=== PATIENT | female | born 1990 | race Caucasian/White ===

== ENCOUNTER 2016-03-28 11:10 | Outpatient (CLI) | payer MEDICAID ==
[~2016-03-28] VITALS: Ht 167.6 cm; Wt 93.0 kg
[~2016-03-28 11:10] MED LIST: ACHD5005 PO; ACHYD1T PO; ALPR.5T PO; ALPR0.5T PO; ALPR1T PO; ALPR2TAB2 PO; AMPH30TA2 PO; ARIP2TAB3 PO; BPR150TCR PO; CEFA500C8 PO; CEPH500C PO; CIPR500T78 PO; CLON0.253 PO; CYCL10TA9 PO; DOCU100C37 PO; DOXY100C2 PO; DULO60CA6 PO; FLUC150T PO; HYDR-3812 PO; HYDR25CA92 PO; IBP800T PO; IBUP-1780 PO; KETO75CA PO; METR375C; METR375C PO; METR500T PO; METR70GE8 VG; MICO25CR2 VG; NAPR-243 PO; NAPR550T PO; ONDAN4ODT PO; OXYC-465 PO; PHEN200T27 PO; PNV91TAB3 PO; PREN-115 PO; PROZAC; SULF1TAB38 PO; TRAM50TA2 PO
[2016-03-28 11:17] VITALS: BP 128/84
[2016-03-28] MEDS ORDERED: ESCI10TA PO (11:22)
== END 2016-03-28 11:29 | disposition home or self-care (01) ==
LOC: PREOP 11:10
PROVIDERS: ATTEND Obstetrics & Gynecology
DX: Z01.818 Encounter for other preprocedural examination (principal); Z11.2 Encounter for screening for other bacterial diseases; O34.219 Maternal care for unspecified type scar from previous cesarean delivery; O99.019 Anemia complicating pregnancy, unspecified trimester
CPT/HCPCS: 87081

== ENCOUNTER 2016-04-02 06:00 | Inpatient (IN) | payer MEDICAID ==
[~2016-04-02] VITALS: Ht 170.2 cm; Wt 95.8 kg
[~2016-04-02 06:00] MED LIST changes: +ESCI10TA PO
[2016-04-02 06:10] VITALS: BP 134/78
[2016-04-02] MEDS ORDERED: LACTATED RINGERS 1,000 ML IV PRN ×2 (06:21)
[2016-04-02] MEDS ORDERED: CITRIC ACID/SOB CIT (BICITRA) 30 ML UDC PO ONE (06:30)
[2016-04-02] MEDS ORDERED: METOCLOPRAMIDE INJ 10 MG/2 ML (REGLAN) IV ONE (06:30)
[2016-04-02] MEDS ORDERED: ceFAZolin 2 GM/50 ML NS 50 ML IV ONE (06:30)
[2016-04-02] MEDS ORDERED: metroNIDAZOLE 500MG/100ML IVPB 100 ML IV ONE ×2 (06:30→07:30)
[2016-04-02] MEDS ORDERED: FAMOTIDINE 20MG/2ML IV (PEPCID) IV ONE (06:30)
[2016-04-02 06:40] LABS: BASOPHILS % (AUTO) 0 % (0-10); EOSINOPHILS # (AUTO) 0.1 10^3/uL (0.0-0.3); EOSINOPHILS % (AUTO) 1 % (0-10); LYMPHOCYTES # (AUTO) 1.3 X 10^3 (1.0-4.0); LYMPHOCYTES % (AUTO) 12 % (12-44); MEAN CORPUSCULAR HEMOGLOBIN 25 PG (25-34); MEAN CORPUSCULAR HGB CONC 32 G/DL (32-36); MEAN CORPUSCULAR VOLUME 76 FL (80-99); MEAN PLATELET VOLUME 12.1 FL (7.4-10.4); MONOCYTES # (AUTO) 1.1 X 10^3 (0.0-1.0); MONOCYTES % (AUTO) 10 % (0-12); NEUTROPHILS # (AUTO) 8.7 X 10^3 (1.8-7.8); NEUTROPHILS % (AUTO) 77 % (42-75); PLATELET COUNT 173 10^3/uL (130-400); RED BLOOD COUNT 4.08 10^6/uL (4.35-5.85); RED CELL DISTRIBUTION WIDTH 17.1 % (10.0-14.5); WHITE BLOOD COUNT 11.4 10^3/uL (4.3-11.0)
[2016-04-02] MEDS ORDERED: ceFAZolin 2 GM/NS 50 ML IV ONE (07:15)
[2016-04-02] MEDS ORDERED: metroNIDAZOLE 500 MG/100 ML IVPB (PRE-MIX) IV ONE (07:15)
[2016-04-02 07:25] VITALS: BP 144/90
[2016-04-02] MEDS ORDERED: D5 LR IV SOLUTION 1,000 ML IV SCH ×2 (07:30→16:30)
[2016-04-02] MEDS ORDERED: FLU TRIvalent (5 YOA+) 2016-17 (AFLURIA) 0.5 ML IM ONE (07:30)
[2016-04-02] MEDS ORDERED: ceFAZolin INJECTION 2,000 MG in NS (IVPB) 50 ML IV ONE (07:30)
[2016-04-02] MEDS ORDERED: OXYTOCIN/NORMAL SALINE 500 ML IV SCH ×2 (07:34→08:30)
--- NOTE | 2016-04-02 07:34 | Progress Note-Pre Operative ---
Pre-Operative Progress Note H&P Reviewed The H&P per Dr. Lawrence was reviewed, patient examined and no changes noted. Date H&P Reviewed: Apr 02, 2016 Time H&P Reviewed: 07:33 Pre-Operative Diagnosis: 39 week with previous JORGE KIM MD Apr 02, 2016 7:34 am
[2016-04-02] MEDS ORDERED: OXYTOCIN/NORMAL SALINE 500 ML IV ONE ×2 (07:40→12:30)
[2016-04-02] MEDS ORDERED: KETOROLAC 30 MG/ML VIAL ONE (07:40)
[2016-04-02] MEDS ORDERED: MEPERIDINE (DEMEROL) INJ 100 MG/ML ONE (07:40)
[2016-04-02] MEDS ORDERED: PROMETHAZINE INJ 25 MG/ML (PHENERGAN) AMP ONE (07:40)
[2016-04-02] MEDS ORDERED: ONDANSETRON 4 MG/2 ML (SDV) Z0FRAN ONE (07:40)
[2016-04-02] MEDS ORDERED: D5 LR IV SOLUTION 1,000 ML IV ONE ×3 (07:42→16:30)
[2016-04-02] MEDS ORDERED: TETANUS,DIPTH,PERTUSS P/F (BOOSTRIX) 0.5 ML VIAL IM ONE (07:45)
[2016-04-02] MEDS ORDERED: MEPERIDINE (DEMEROL) INJ 100 MG/ML IM PRN (07:45)
[2016-04-02] MEDS ORDERED: PROMETHAZINE INJ 25 MG/ML (PHENERGAN) AMP IM PRN (07:45)
[2016-04-02] MEDS ORDERED: KETOROLAC 30 MG/ML VIAL IVP SCH (07:45)
[2016-04-02] MEDS ORDERED: MEASLES,MUMPS,RUBELLA 1 EA INJ SC ONE (07:45)
[2016-04-02] MEDS ORDERED: fentaNYL INJECTION 100 MCG/2 ML AMP ONE (07:49)
[2016-04-02] MEDS ORDERED: MIDAZOLAM 2 MG/2 ML (VERSED) VIAL ONE (08:05)
[2016-04-02] MEDS: KETOROLAC 30 MG/ML VIAL IVP SCH ×3 (08:30→23:05)
[2016-04-02] MEDS ORDERED: ONDANSETRON 4 MG/2 ML (SDV) Z0FRAN IVP ONE (08:45)
[2016-04-02] MEDS: oxyCODONE/APAP 10/325MG (PERCOCET 10) TABLET PO PRN ×3 (10:55→23:04)
[2016-04-02] MEDS: DOCUSATE SODIUM 100 MG (COLACE) CAP PO SCH ×2 (11:00→20:38)
[2016-04-02] MEDS ORDERED: diphenhydrAMINE 50 MG/ML INJ (BENADRYL) IVP PRN (11:00)
[2016-04-02 12:00] VITALS: BP 126/67
[2016-04-02] MEDS: ALPRAZolam 1 MG (XANAX) TAB PO PRN ×2 (14:23→23:04)
[2016-04-02 16:32] VITALS: BP 121/69
[2016-04-02 20:11] VITALS: BP 116/71
[2016-04-02 23:33] VITALS: BP 107/67
[2016-04-03 03:38] VITALS: BP 111/65
[2016-04-03] MEDS: KETOROLAC 30 MG/ML VIAL IVP SCH (04:47)
[2016-04-03] MEDS: oxyCODONE/APAP 10/325MG (PERCOCET 10) TABLET PO PRN ×4 (04:48→22:07)
[2016-04-03 04:53] LABS: BASOPHILS % (AUTO) 0 % (0-10); EOSINOPHILS # (AUTO) 0.2 10^3/uL (0.0-0.3); EOSINOPHILS % (AUTO) 1 % (0-10); LYMPHOCYTES # (AUTO) 1.5 X 10^3 (1.0-4.0); LYMPHOCYTES % (AUTO) 12 % (12-44); MEAN CORPUSCULAR HEMOGLOBIN 25 PG (25-34); MEAN CORPUSCULAR HGB CONC 32 G/DL (32-36); MEAN CORPUSCULAR VOLUME 77 FL (80-99); MEAN PLATELET VOLUME 11.6 FL (7.4-10.4); MONOCYTES # (AUTO) 1.3 X 10^3 (0.0-1.0); MONOCYTES % (AUTO) 11 % (0-12); NEUTROPHILS # (AUTO) 8.8 X 10^3 (1.8-7.8); NEUTROPHILS % (AUTO) 75 % (42-75); PLATELET COUNT 132 10^3/uL (130-400); RED BLOOD COUNT 3.72 10^6/uL (4.35-5.85); RED CELL DISTRIBUTION WIDTH 17.2 % (10.0-14.5); WHITE BLOOD COUNT 11.7 10^3/uL (4.3-11.0)
--- NOTE | 2016-04-03 07:01 | Progress Note-Standard ---
Standard Progress Note Progress Notes/Assess & Plan Progress/Assessment & Plan this patient is without complaint. She is ambulating, voiding, told feel, has good pain control. Patient denies chest pain, denies shortness breath, denies nausea vomiting, denies headache. Vital Signs Date Time Temp Pulse Resp B/P Pulse Ox O2 Delivery O2 Flow Rate FiO2 04/03/16 03:38 97.8 80 18 111/65 100 Room Air 04/02/16 23:33 97.3 87 18 107/67 96 04/02/16 20:11 97.0 96 18 116/71 98 Room Air 04/02/16 16:32 97.0 98 18 121/69 98 Room Air 04/02/16 12:00 97.9 111 18 126/67 98 Room Air 04/02/16 07:25 99.6 114 18 144/90 Room Air I & O 04/03/16 07:00 Intake Total 4180 ml Output Total 1800 ml Balance 2380 ml vital signs are stable. Patient is afebrile. Abdomen is benign. The incision is clean dry and intact. Extremities show clubbing or cyanosis. There is no Homans sign. There is some pretibial pitting edema that is normal. Assessment and plan is operative day number 1 status post repeat doing well. Plan is for routine convalescence care JORGE KIM MD Apr 03, 2016 7:01 am
[2016-04-03] MEDS ORDERED: DOCU100C37 PO (07:39)
[2016-04-03] MEDS ORDERED: IBUP-1780 PO (07:39)
[2016-04-03] MEDS ORDERED: OXYC-465 PO (07:39)
--- NOTE | 2016-04-03 07:41 | Discharge Instructions ---
Discharge Instructions Discharge Medications New, Converted or Re-Newed RX: RX on Chart Patient Instructions Patient Instructions: as directed Return to The Hospital For: as directed Activity & Diet Discharge Diet: No Restrictions Activity as Tolerated: No Orders-Post D/C & Referrals Follow Up Appt: RTC 1 week for incision check with me. Call to make follow up appt. for patient with Dr. Lawrence in 6 weeks. Wound Care: Remove austin, apply benzoin and steri strips. Activity Per routine post instructions. Please call in RX to patient pharmacy. Diet as tolerated Patient may shower or tub bathe as desired. Continue home meds JORGE KIM MD Apr 03, 2016 7:41 am
[2016-04-03] MEDS ORDERED: IBUPROFEN 800 MG (MOTRIN) TAB PO SCH ×2 (07:45→09:00)
[2016-04-03] MEDS ORDERED: FLU TRIvalent (5 YOA+) 2016-17 (AFLURIA) 0.5 ML IM ONE (08:29)
[2016-04-03] MEDS ORDERED: TETANUS,DIPTH,PERTUSS P/F (BOOSTRIX) 0.5 ML VIAL IM ONE (08:35)
[2016-04-03 09:26] VITALS: BP 118/72
[2016-04-03] MEDS: ALPRAZolam 1 MG (XANAX) TAB PO PRN ×2 (09:28→16:09)
[2016-04-03] MEDS: DOCUSATE SODIUM 100 MG (COLACE) CAP PO SCH ×2 (09:28→22:07)
[2016-04-03] MEDS: IBUPROFEN 800 MG (MOTRIN) TAB PO SCH ×3 (10:26→22:07)
--- NOTE | 2016-04-03 11:48 | OPERATIVE REPORT ---
PROCEDURE PHYSICIAN: JORGE KIM DATE OF PROCEDURE: 04/02/2016 DATE OF DICTATION: 04/02/2016 PREOPERATIVE DIAGNOSIS: 39 week with previous . POSTOPERATIVE DIAGNOSES: 39 week with previous . OPERATIVE PROCEDURE: Repeat low transverse delivery of a viable male infant with Apgars of 8 and 9 at 1 to 5 minutes respectfully. Weight was 8 pounds. time was 0752. Cord blood pH was 7.34 ROOF BOLTER HELPER: Dr. Lawrence NAPHTHOL SOAPING MACHINE OPERATOR: Dr. Lawrence OPERATIVE DESCRIPTION: With the patient in supine position, under satisfactory spinal anesthesia, she was prepped and draped in usual fashion for abdominal surgery. Crockett cath was placed in the urinary bladder. A repeat Pfannenstiel incision was made through skin with scalpel at the site of the patient's previous Pfannenstiel incision. The abdomen was entered in the usual manner. Bladder retractor placed into position, clean scalpel used to make a 4 cm hysterotomy incision transversely across lower uterine segment. That ruptured the membranes in the process releasing clear fluid. The incision was extended bluntly and then a vigorous viable male infant was delivered via the uterine incision. Infant had Apgars of 8 and 9 at one and five minutes respectfully. Weight was 8 pounds cord blood pH was 7.34. time was 0752. The was bulb suctioned on delivery of the head and again on completion of delivery. The cord was doubly clamped and cut and the taken by Dr. Lawrence to the warmer. Cord bloods were obtained. The placenta delivered spontaneously Cruz. It was normal with a 3 vessel cord. The uterus was exteriorized, the interior wiped clean with a wet laparotomy sponge. Uterine incision then closed with running locked suture of 2-0 Vicryl. Hemostasis was complete. The uterus was returned to the abdominal cavity. All blood clot and debris removed from the abdominal cavity. With sponge and needle counts correct and hemostasis assured, the anterior parietal peritoneum and rectus muscles were closed in separate layers with a suture in a running fashion of 2-0 Vicryl. The rectus fascia was closed with 2 sutures of 2-0 Vicryl. Subcutaneous tissues closed with 2-0 Vicryl and the skin was stapled. Sponge and needle counts were correct on completion of the procedure. Estimated blood loss for 450 mL. The patient tolerated the procedure well, and was transferred to recovery room in stable condition. The infant was taken stable to the full term nursery under the care of Dr. Lawrence. Job ID: [id number] Dictated Date: 04/02/2016 08:10:03 Wireless Watcher Date: 04/03/2016 11:43:40 / [place]
[2016-04-03 16:09] VITALS: BP 123/75
[2016-04-03] MEDS ORDERED: ONDANSETRON 4 MG (ZOFRAN) ORAL DISSOLVE TAB PO PRN (19:00)
[2016-04-03] MEDS ORDERED: ONDANSETRON 8 MG (ZOFRAN) ORAL DISSOLVE TAB ONE (19:54)
[2016-04-03 22:40] VITALS: BP 124/77
[2016-04-04] MEDS: ALPRAZolam 1 MG (XANAX) TAB PO PRN (00:23)
[2016-04-04 05:00] VITALS: BP 113/67
--- NOTE | 2016-04-04 07:39 | Progress Note-Standard ---
Standard Progress Note Progress Notes/Assess & Plan Progress/Assessment & Plan this patient is without complaint. She is ambulating, voiding, told feel, has good pain control. Patient denies chest pain, denies shortness breath, denies nausea vomiting, denies headache. Vital Signs Date Time Temp Pulse Resp B/P Pulse Ox O2 Delivery O2 Flow Rate FiO2 04/03/16 03:38 97.8 80 18 111/65 100 Room Air 04/02/16 23:33 97.3 87 18 107/67 96 04/02/16 20:11 97.0 96 18 116/71 98 Room Air 04/02/16 16:32 97.0 98 18 121/69 98 Room Air 04/02/16 12:00 97.9 111 18 126/67 98 Room Air 04/02/16 07:25 99.6 114 18 144/90 Room Air I & O 04/03/16 07:00 Intake Total 4180 ml Output Total 1800 ml Balance 2380 ml vital signs are stable. Patient is afebrile. Abdomen is benign. The incision is clean dry and intact. Extremities show clubbing or cyanosis. There is no Homans sign. There is some pretibial pitting edema that is normal. Assessment and plan is operative day number 1 status post repeat doing well. Plan is for routine convalescence care April 04 2016 Patient is without complaint. Patient is ambulating, voiding, tolerating by mouth well, has good pain control, patient is requesting discharge home. Vital Signs Date Time Temp Pulse Resp B/P Pulse Ox O2 Delivery O2 Flow Rate FiO2 04/04/16 05:00 98.5 59 18 113/67 98 Room Air 04/03/16 22:40 99.0 92 18 124/77 100 Room Air 04/03/16 16:09 97.7 90 18 123/75 100 Room Air 04/03/16 09:26 98.0 94 18 118/72 98 Room Air I & O 04/04/16 07:00 Intake Total 1000 ml Balance 1000 ml vital signs are stable. Patient afebrile. Fundus is firm below the umbilicus and nontender.the incision is clean dry and intact. Extremities show clubbing or cyanosis. There is no Homans sign. There is some pretibial pitting edema that is normal. assessment and plan postoperative day number 2 status post repeat doing well. Plan is for discharge home with follow-up in clinic Final Diagnosis 39 week with previous JORGE KIM MD Apr 04, 2016 7:39 am
[2016-04-04] MEDS: DOCUSATE SODIUM 100 MG (COLACE) CAP PO SCH (07:44)
[2016-04-04] MEDS: IBUPROFEN 800 MG (MOTRIN) TAB PO SCH (07:45)
[2016-04-04] MEDS: oxyCODONE/APAP 10/325MG (PERCOCET 10) TABLET PO PRN (07:45)
[2016-04-04 07:49] VITALS: BP 124/78
--- NOTE | 2016-05-29 09:34 | Progress Note-Standard ---
Standard Progress Note Final Diagnosis Late Entry- 04-02-2016 at 0750 Ephedrine 10mg given IV. DELL QUIROS CRNA May 29, 2016 09:34
== END 2016-04-04 11:10 | disposition home or self-care (01) | DRG 766 ==
LOC: LDRP 06:00
PROVIDERS: ADMIT Obstetrics & Gynecology; ATTEND Obstetrics & Gynecology
PROC: 10D00Z1 Extraction of Products of Conception, Low, Open Approach (ICD-10-PCS; principal; 2016-04-02 07:28)
DX: O34.211 Maternal care for low transverse scar from previous cesarean delivery (principal); Z3A.39 39 weeks gestation of pregnancy; Z37.0 Single live birth; Z23 Encounter for immunization
CPT/HCPCS: 36415; 80306; 85025; 86850; 86900; 86901; 88307; 90715; 94664

== ENCOUNTER 2018-01-18 09:19 | Emergency (ER) | payer MEDICAID ==
[~2018-01-18] VITALS: Ht 170.2 cm; Wt 77.1 kg
[~2018-01-18 09:19] MED LIST changes: -HYDR-3812 PO
--- OUTSIDE RECORDS SUMMARY | 2018-01-18 09:24 | XMS REPORT ---
Author Author STANISLAV REYES [facility] Address [address] [place] [address] Care Team Providers Care Service Support Representative Name Role Phone STANISLAV REYES Unavailable PROBLEMS Type Condition ICD9-CM Code SVG85-VP Code Onset Dates Condition Status SNOMED Code Problem ADHD (attention deficit hyperactivity disorder), combined type F90.2 Active 68616943 Problem Acute seasonal allergic rhinitis, unspecified trigger J30.2 Active 657105398 Problem Major depressive disorder, recurrent episode, in partial or unspecified remission 296.35 Active 48927514 Problem Posttraumatic stress disorder 309.81 Active 25098714 Problem Generalized anxiety disorder F41.1 Active 66181966 Problem Moderate episode of recurrent major depressive disorder F33.1 Active [id number] ALLERGIES Substance Reaction Event Type Date Status Lamictal "Hives" Drug Allergy Dec, Active Trazodone oversedation Non Drug Allergy Dec, Active ENCOUNTERS Encounter Location Date Diagnosis [facility] [id number] [place] [address] 72160 -3580 Dec, Oral pain K13.79 [facility] [id number] [place] [address] 13467- 0299 Dec, Generalized anxiety disorder F41.1 [facility] [id number] [place] [address] 50935- 0366 Nov, Generalized anxiety disorder F41.1 [facility] [id number] [place] [address] 11509- 9583 Oct, [facility] [id number] [place] [address] 91320- 9032 Oct, Generalized anxiety disorder F41.1 ; Moderate episode of recurrent major depressive disorder F33.1 and ADHD (attention deficit hyperactivity disorder), combined type F90.2 [facility] [address] [address] Sep, Generalized anxiety disorder F41.1 [facility] [id number] [place] [address] 01895- 4915 Sep, Generalized anxiety disorder F41.1 [facility] [id number] [place] [address] 59635- 3019 June, Generalized anxiety disorder F41.1 and Moderate episode of recurrent major depressive disorder F33.1 [facility] [id number] [place] [address] 11185- 6018 May, Visit for TB skin test Z11.1 ; Encounter for physical examination related to employment Z02.1 ; Acute seasonal allergic rhinitis, unspecified trigger J30.2 and Infected tooth K04.7 [facility] [id number] [place] [address] 58303- 3091 May, Generalized anxiety disorder F41.[address] [facility] [id number] [place] [address] [id number] 16 Apr, 2017 Dental examination Z01.20 [facility] [id number] [place] [address] 22273 -1562 Apr, [facility] [id number] [place] [address] 35215 -2636 Mar, [facility] [address] [place], [place] [id number] [place] [address] 36764 -2282 Mar, Dysuria R30.0 ; Potential exposure to STD Z20.2 and infection, trichomonal A59.00 [facility] [id number] [place] [address] 14084 -4157 Nov, Acute seasonal allergic rhinitis, unspecified trigger J30.2 [facility] [id number] [place] [address] 24971- 5436 Nov, Generalized anxiety disorder F41.1 and Moderate episode of recurrent major depressive disorder F33.1 [facility] [address] [address] 3722 May, Bipolar depression F31.30 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 [id number] [place] [address] [id number] Apr, Dental examination Z01.20 [facility] [id number] [place] [address] 72242- 8511 Apr, Dental examination Z01.20 [facility] [id number] [place] [address] 87736- 9829 Aug, [facility] [id number] [place] [address] 97841- 9048 Jul, [facility] [id number] [place] [address] 57452- 1566 Jul, ADHD (attention deficit hyperactivity disorder) F90.9 ; Anxiety and depression F41.9 and Controlled substance agreement signed Z79.899 [facility] [id number] [place] [address] 05224- 3656 Jul, [facility] [address] [address]- 7052 June, [facility] [address] [address]- 1235 June, [facility] [id number] [place] [address] 45516- 4891 May, ADHD (attention deficit hyperactivity disorder) F90.9 and Anxiety and depression F41.9 [facility] [address] [address]- 3289 Aug, [facility] [id number] [place] [address] 79968- 8938 Aug, [facility] [address] [id number] [id number] Aug, Dental examination V72.2 [facility] [address] [id number] [address]- 5926 Aug, High risk medications (not anticoagulants) long-term use V58.[address] [facility] [address] [id number] [id number] Jul, Dental examination V72.2 [facility] [address] [id number] [place] [address]- 2526 Jul, [facility] [address] [id number] [place] [address]- 9216 Jul, [facility] [address] [id number] [address]- 7996 Jul, [facility] [address] [facility] [id number] [address]- 9246 June, [facility] [address] [facility] [id number] [address]- 5526 June, [facility] [id number] [place] [address]- 2425 May, [facility] [address] [facility] [id number] [address]- 7286 May, [facility] [address] [facility] [id number] [address]- 4476 16 Apr, 2014 [facility] [address] [id number] [address]- 1626 16 Apr, 2014 [facility] [address] [id number] [address]- 0416 Apr, [facility] [address] [facility] [id number] [place] [address]- 2546 Apr, [facility] [address] [id number] [address]- 9205 Apr, [facility] [place] [facility] [address] [id number] [place] [address]- 2638 Apr, [facility] [place] [facility] [address] [id number] [place] [address]- 8971 Apr, [facility] [place] [facility] [address] [id number] [place] [address]- 9840 Apr, [facility] [place] [facility] [address] [id number] [place] [address]- 3473 Mar, [facility] [place] [facility] [address] [id number] [place] [address]- 9146 Mar, [facility] [place] [facility] [address] [id number] [place] [address]- 5459 Mar, [facility] [place] [facility] [address] [id number] [place] [address]- 5782 Mar, [facility] [place] [facility] [address] [id number] [place] [address]- 2748 Feb, [facility] [place] [facility] [address] [id number] [place] [address]- 1862 Feb, [facility] [place] [facility] [address] [id number] [place] [address]- 8407 Feb, [facility] [place] [facility] [address] [id number] [place] [address]- 8109 Feb, [facility] [place] [facility] [address] [id number] [place] [address]- 3956 Feb, [facility] [place] [facility] [address] [id number] [place] [address]- 2444 Feb, [facility] [place] [facility] [address] [id number] [place] [address]- 8936 Feb, [facility] [place] [facility] [address] [id number] [place] [address]- 8255 Feb, [facility] [place] [facility] [address] [id number] [place] [address]- 2562 Jan, [facility] [place] [facility] [address] [id number] [place] [address]- 7541 Jan, [facility] [place] [facility] [address] [id number] [place] [address]- 2365 Jan, [facility] [place] [facility] [address] [id number] [place] [address]- 0351 Jan, [facility] [place] [facility] [address] [id number] [place] [address]- 3161 Jan, [facility] [place] [facility] [address] [id number] [place] [address]- 3277 Jan, [facility] [place] [facility] [address] [id number] [place] [address]- 9607 Dec, [facility] [place] [facility] [address] [id number] [place] [address]- 1872 Dec, [facility] [place] [facility] [address] [id number] [place] [address]- 4074 Dec, [facility] [place] [facility] [address] [id number] [place] [address]- 2931 Dec, [facility] [place] [facility] [address] [facility] [id number] [place] [address]- 9276 Dec, [facility] [place] [facility] [address] [id number] [place] [address]- 6865 Dec, [facility] [place] [facility] [address] [id number] [place] [address]- 9425 Nov, [facility] [place] [facility] [address] [id number] [place] [address]- 5933 Nov, [facility] [place] [facility] [address] [id number] [place] [address]- 5682 Nov, [facility] [place] [facility] [address] [id number] [place]481 Nov, [facility] [address] [id number] [place] [address]- 2207 Nov, [facility] [place] [facility] [address] [id number] [place] [address]- 3116 Nov, [facility] [place] [facility] [address] [id number] [place] [address]- 8071 Nov, [facility] [place] [facility] [address] [id number] [place] [address]- 6085 Nov, [facility] [place] [facility] [address] [id number] [place] [address]- 4893 Nov, [facility] [place] [facility] [address] [id number] [place] [address]- 7332 Nov, [facility] [place] [facility] [address] [id number] [place] [address]- 8750 Oct, [facility] [place] [facility] [address] [id number] [place] [address]- 1446 Oct, [facility] [place] [facility] [address] [id number] [place] [address]- 8138 Oct, [facility] [place] [facility] [address] [id number] [place] [address]- 0091 Oct, [facility] [place] [facility] [address] [id number] [place] [address]- 2324 Oct, [facility] [place] [facility] [address] [id number] [place] [address]- 6986 Oct, [facility] [place] [facility] [address] [id number] [place] [address]- 6691 Sep, [facility] [place] [facility] [address] [id number] [place] [address]- 3586 Sep, [facility] [place] [id number] Sep [facility] [place] [facility] [address] [id number] [place] [address]- 1236 Sep, [facility] [place] [facility] [address] [id number] [place] [address]- 1229 Aug, [facility] [place] [facility] [address] [id number] [place] [address]- 3909 Aug, [facility] [place] [facility] [address] [id number] [place] [address]- 5187 Aug, [facility] [place] [facility] [address] [id number] [place] [address]- 8352 Aug, [facility] [place] [facility] [address] [id number] [place] [address]- 1710 Aug, [facility] [place] [facility] [address] [id number] [place] [address]- 4669 Aug, [facility] [place] [facility] [address] [id number] [place] [address]- 7785 Jul, [facility] [place] [facility] [address] [id number] [place] [address]- 2136 Jul, [facility] [place] [facility] [address] [id number] [place] [address]- 8854 Jul, [facility] [place] [facility] [address] [id number] [place] [address]- 1702 Jul, [facility] [place] [facility] [address] [id number] [place] [address]- 7780 Jul, [facility] [place] [facility] [address] [id number] [place] [address]- 0690 June, [facility] [place] [facility] [address] [id number] [place] [address]- 5636 June, [facility] [place] [facility] [address] [id number] [place] [address]- 2755 June, [facility] [place] [facility] [address] [id number] [place] [address]- 0388 June, [facility] [place] [facility] [address] [id number] [place] [address]- 5301 May, [facility] [place] [facility] [address] [id number] [place] [address]- 7532 May, [facility] [place] [facility] [address] [id number] [place] [address]- 3226 May, [facility] [place] [facility] [address] [id number] [place] [address]- 8347 May, [facility] [place] [facility] [address] [id number] [place] [address]- 1609 May, [facility] [place] [facility] [address] [id number] [place] [address]- 5978 May, [facility] [place] [facility] [address] [id number] [place] [address]- 5910 May, [facility] [place] [facility] [address] [id number] [place] [address]- 9343 May, [facility] [place] [facility] [address] [id number] [place] [address]- 5618 May, [facility] [place] [facility] [address] [id number] [place] [address]- 2106 May, [facility] [place] [facility] [address] [id number] [place] [address]- 7323 May, [facility] [place] [facility] [address] [id number] [place] [address]- 1519 Apr, [facility] [place] [facility] [address] [id number] [place] [address]- 8681 Apr, [facility] [place] [facility] [address] [id number] [place] [address]- 2426 Apr, [facility] [place] [facility] [address] [id number] [place] [address]- 6826 Apr, [facility] [place] [facility] [address] [id number] [place] [address]- 5915 Mar, [facility] [place] [facility] [address] [id number] [place] [address]- 8101 Mar, [facility] [place] [facility] [address] [id number] [place] [address]- 4886 Mar, [facility] [place] [facility] [address] [id number] [place] [address]- 9356 Mar, [facility] [place] [facility] [address] [id number] [place] [address]- 0796 Mar, [facility] [place] [facility] [address] [id number] [place] [address]- 1118 Mar, [facility] [place] [facility] [address] [id number] [place] [address]- 8702 Feb, [facility] [place] [facility] [address] [id number] [place] [address]- 1798 Feb, [facility] [place] [facility] [address] [id number] [place] [address]- 4413 Feb, [facility] [place] [facility] [address] [id number] [place] [address]- 0820 Feb, [facility] [place] [facility] [address] [id number] [place] [address]- 4237 Feb, [facility] [place] [facility] [address] [id number] [place] [address]- 1051 Feb, [facility] [place] [facility] [address] [id number] [place] [address]- 8833 Feb, [facility] [place] [facility] [address] [id number] [place] [address]- 3294 Jan, [facility] [place] [facility] [address] [id number] [place] [address]- 7136 Jan, [facility] [place] [facility] [address] [id number] [place] [address]- 3321 Jan, [facility] [place] [facility] [address] [id number] [place] [address]- 4407 11 Jan, 2013 [facility] [place] [facility] [address] [id number] [place] [address]- 7555 14 Dec, 2012 [facility] [place] [facility] [address] [id number] [place] [address]- 1938 14 Dec, 2012 [facility] [place] [facility] [address] [id number] [place] [address]- 9072 13 Dec, 2012 [facility] [place] [facility] [address] [id number] [place] [address]- 6785 22 Nov, 2012 [facility] [place] [facility] [address] [id number] [place] [address]- 8405 17 Nov, 2012 [facility] [place] [facility] [address] [id number] [place] [address]- 4087 17 Nov, 2012 [facility] [place] [facility] [address] [id number] [place] [address]- 4185 Nov, [facility] [place] [facility] [address] [id number] [place] [address]- 5275 11 Nov, 2012 [facility] [place] [facility] [address] [id number] [place] [address]- 8436 11 Nov, 2012 [facility] [place] [facility] [address] [id number] [place] [address]- 9764 11 Nov, 2012 [facility] [place] [facility] [address] [id number] [place] [address]- 6762 10 Nov, 2012 [facility] [place] [facility] [address] [id number] [address]- 0963 Oct, [facility] [place] [facility] [address] [id number] [place] [address]- 4517 Oct, [facility] [place] [facility] [address] [id number] [place] [address]- 1789 Sep, [facility] [place] [facility] [address] [id number] [place] [address]- 3686 Sep, [facility] [place] [facility] [address] [id number] [place] [address]- 6944 Sep, [facility] [place] [facility] [address] [id number] [place] [address]- 5160 Sep, [facility] [place] [facility] [address] [id number] [place] [address] 2546 Sep, [facility] [place] [facility] [address] [id number] [place] [address]- 0751 Sep, [facility] [place] [facility] [address] [id number] [place] [address]- 2317 Sep, [facility] [place] [facility] [address] [id number] [place] [address]- 2489 Sep, [facility] [place] [facility] [address] [id number] [place] [address]- 0819 Aug, [facility] [place] [facility] [address] [id number] [place] [address]- 1591 Aug, [facility] [place] [facility] [address] [id number] [place] [address]- 1118 Aug, [facility] [place] [facility] [address] [id number] [place] [address]- 2055 Aug, [facility] [place] [facility] [address] [id number] [place] [address]- 3438 Jul, [facility] [place] [facility] [address] [id number] [place] [address]- 8063 Jul, [facility] [place] [facility] [address] [id number] [place] [address]- 6055 Jul, [facility] [place] [facility] [address] [id number] [place] [address]- 9779 June, [facility] [place] [facility] [address] [id number] [place] [address]- 3098 June, [facility] [place] [facility] [address] [id number] [place] [address]- 2623 June, [facility] [address] [id number] [place] [address]- 1616 June, [facility] [address] [id number] [place] [address]- 9889 June, [facility] [address] [id number] [place] [address]- 7851 May, [facility] [address] [id number] [place] [address]- 1709 May, [facility] [address] [id number] [place] [address]- 9562 May, [facility] [address] [id number] [place] [address]- 5444 May, [facility] [address] [id number] [place] [address]- 0746 May, [facility] [address] [id number] [place] [address]- 6032 May, [facility] [address] [id number] [place] [address]- 3708 08 May, 2012 [facility] [address] [id number] [place] [address]- 1026 Apr, [facility] [address] [id number] [place] [address]- 5159 28 Apr, 2012 [facility] [place] [facility] [address] [id number] [address]- 7022 28 Apr, 2012 [facility] [place] [facility] [address] [id number] [place] [address]- 6940 13 Apr, 2012 [facility] [place] [facility] [address] [id number] [place] [address]- 2295 07 Apr, 2012 [facility] [place] [facility] [address] [id number] [place] [address]- 3988 07 Apr, 2012 [facility] [place] [facility] [address] [id number] [place] [address]- 3020 06 Apr, 2012 [facility] [address] [id number] [place] [address] 05 Apr, 2012 [facility] [place] [facility] [address] [id number] [place] [address] 2546 05 Apr, 2012 [facility] [place] [facility] [address] [id number] [place] [address] 7044 04 Apr, 2012 [facility] [place] [facility] [address] [id number] [place] [address] 2549 21 Mar, 2012 [facility] [place] [facility] [address] [id number] [place] [address] 20 Mar, 2012 [facility] [place] [facility] [address] [id number] [place] [address] 18 Mar, 2012 [facility] [place] [facility] [address] [id number] [place] [address]84 15 Mar, 2012 [facility] [place] [facility] [address] [id number] [place] [address]164 13 Mar, 2012 [facility] [place] [facility] [address] [facility] [id number] [place] [address] 06 Mar, 2012 [facility] [place] [facility] [address] [facility] [id number] [place] [address] 70[address] 05 Mar, 2012 [facility] [place] [facility] [address] [id number] [place] [address] Feb, [facility] [place] [facility] [address] [id number] [place] [address] 2545 28 Feb, 2012 [facility] [place] [facility] [address] [id number] [place] [address] 5516 16 Feb, 2012 [facility] [place] [facility] [address] [facility] [id number] [place] [address] 2546 02 Feb, 2012 [facility] [place] [facility] [address] [facility] [id number] [place] [address] Jan, [facility] [place] [facility] [address] [id number] [place] [address] Jan, [facility] [place] [facility] [address] [id number] [place] [address] Jan, [facility] [place] [facility] [address] [facility] [id number] [place] [address] Jan, [facility] [place] [facility] [address] [id number] [place] [address] Dec, [facility] [place] [facility] [address] [id number] [place] [address] 120[address] Dec, [facility] [place] [facility] [address] [id number] [place] [address], [place] [address]- [address] Dec, [facility] [place] [facility] [address] [facility] [id number] [place] [address]489 Dec, [facility] [place] [facility] [address] [id number] [address] Dec, [facility] [place] [facility] [address] [id number] [place] [address]6 Dec, [facility] [place] [facility] [address] [facility] [id number] [address] Dec, [facility] [place] [facility] [address] [id number] [address] 116[address] Dec, [facility] [place] [facility] [address] [id number] [address] Dec, [facility] [place] [facility] [address] [id number] [place] [address] Nov, [facility] [place] [facility] [address] [id number] [address] Nov, [facility] [place] [facility] [address] [facility] [id number] [address] Nov, [facility] [place] [facility] [address] [id number] [place] [address] 359[address] 18 Nov, 2011 [facility] [place] [facility] [address] [id number] [place] [address] 1470 18 Nov, 2011 [facility] [place] [facility] [address] [id number] [place] [address] 0056 18 Nov, 2011 [facility] [place] [facility] [address] [id number] [place] [address] 6416 17 Nov, 2011 [facility] [place] [facility] [address] [id number] [place] [address]- 4579 16 Nov, 2011 [facility] [place] [facility] [address] [id number] [place] [address] 1503 27 Sep, 2011 [facility] [place] [facility] [address] [id number] [place] [address] 2032 24 Sep, 2011 [facility] [place] [facility] [address] [id number] [place] [address] 98[address] 13 Sep, 2011 [facility] [place] [facility] [address] [id number] [place] [address]- 4556 11 Sep, 2011 [facility] [place] [facility] [address] [id number] [place] [address] 68[address] 10 Sep, 2011 [facility] [place] [facility] [address] [facility] [id number] [place] [address]- 2544 08 Sep, 2011 [facility] [place] [facility] [address] [id number] [place] [address] 2546 06 Sep, 2011 [facility] [place] [facility] [address] [id number] [place] [address] 2545 05 Sep, 2011 [facility] [place] [facility] [address] [id number] [place] [address] 2542 04 Sep, 2011 [facility] [place] [facility] [address] [id number] [place] [address]- 2546 04 Sep, 2011 [facility] [place] [facility] [address] [id number] [place] [address]- [address]45 Sep, [facility] [place] [facility] [address] [id number] [place] [address]- [address]337 Sep, [facility] [place] [facility] [address] [id number] [place] [address] Aug, [facility] [place] [facility] [address] [id number] [place] [address]- 39[address] Aug, [facility] [place] [facility] [address] [id number] [place] [address] Aug, [facility] [place] [facility] [address] [id number] [place] [address]- [address]60 Aug, [facility] [place] [facility] [address] [id number] [place] [address] 60[address] Aug, [facility] [place] [facility] [address] [id number] [place] [address]- 62[address] Aug, [facility] [place] [facility] [address] [id number] [place] [address] Aug, [facility] [place] [facility] [address] [id number] [place] [address] Aug, [facility] [place] [facility] [address] [id number] [place] [address] Jul, [facility] [place] [facility] [address] [id number] [place] [address] Jul, [facility] [place] [facility] [address] [id number] [place] [address] Jul, [facility] [place] [facility] [address] [id number] [place] [address] Jul, [facility] [place] [facility] [address] [id number] [place] [address] June, [facility] [place] [facility] [address] [id number] [place] [address] June, [facility] [place] [facility] [address] [id number] [place] [address] June, [facility] [address] [id number] [place] [address] June, [facility] [place] [facility] [address] [id number] [place] [address] June, [facility] [place] [facility] [address] [id number] [place] [address] June, [facility] [place] [facility] [address] [id number] [place] [address] June, [facility] [place] [facility] [address] [id number] [place] [address] June, [facility] [place] [facility] [address] [id number] [place] [address] June, [facility] [place] [facility] [address] [id number] [place] [address] June, [facility] [place] [facility] [address] [id number] [place] [address] June, [facility] [place] [facility] [address] [id number] [place] [address] June, [facility] [place] [facility] [address] [id number] [place] [address] June, [facility] [place] [facility] [address] [id number] [place] [address] June, [facility] [place] [facility] [address] [id number] [place] [address] June, [facility] [place] [facility] [address] [id number] [place] [address] June, [facility] [place] [facility] [address] [id number] [place] [address] May, [facility] [place] [facility] [address] [id number] [place] [address] May, [facility] [place] [facility] [address] [id number] [place] [address] 18 May, 2011 [facility] [address] [id number] [place] [address] 05 May, 2011 [facility] [place] [facility] [address] [id number] [place] [address] 13 Apr, 2011 [facility] [address] [id number] [place] [address] Apr, [facility] [place] [facility] [address] [id number] [place] [address] Apr, [facility] [address] [id number] [place] [address] Apr, [facility] [address] [facility] [id number] [place] [address] Apr, [facility] [place] [facility] [address] [id number] [place] [address] 1671 Apr, [facility] [address] [id number] [place] [address] Apr, [facility] [place] [facility] [address] [id number] [place] [address] 23 Mar, 2011 [facility] [address] [facility] [id number] [place] [address] 20 Mar, 2011 [facility] [place] [facility] [address] [id number] [place] [address] 1384 16 Mar, 2011 [facility] [address] [id number] [place] [address]42 15 Mar, 2011 [facility] [place] [facility] [address] [id number] [place] [address] 96[address] 13 Mar, 2011 [facility] [place] [facility] [address] [id number] [place] [address]186 09 Mar, 2011 [facility] [place] [facility] [address] [id number] [place] [address] Mar, [facility] [address] [id number] [place] [address] Mar, [facility] [place] [facility] [address] [id number] [place] [address] Feb, [facility] [place] [facility] [address] [id number] [place] [address]36 Feb, [facility] [place] [facility] [address] [id number] [place] [address]484 Feb, [facility] [address] [id number] [place] [address] Jan, [facility] [place] [facility] [address] [id number] [place] [address] 24 Jan, 2011 [facility] [place] [facility] [address] [id number] [place] [address] Jan, [facility] [place] [facility] [address] [id number] [place] [address] Jan, [facility] [place] [facility] [address] [id number] [place] [address] 19 Jan, 2011 [facility] [place] [facility] [address] [id number] [place] [address] 7918 14 Jan, 2011 [facility] [place] [facility] [address] [id number] [place] [address] Jan, [facility] [place] [facility] [address] [id number] [place] [address]- [address] 13 Jan, 2011 [facility] [place] [facility] [address] [id number] [place] [address]- [address]252 07 Jan, 2011 [facility] [place] [facility] [address] [id number] [place] [address] 7917 30 Dec, 2010 [facility] [place] [facility] [address] [id number] [place] [address] 9864 Dec, [facility] [place] [facility] [address] [id number] [place] [address] 23 Dec, 2010 [facility] [address] [id number] [place] [address] 07 Dec, 2010 [facility] [place] [facility] [address] [id number] [place] [address] 24 Nov, 2010 [facility] [address] [id number] [place] [address] 6980 20 Nov, 2010 [facility] [place] [facility] [address] [id number] [place] [address] 10 Nov, 2010 [facility] [place] [facility] [address] [id number] [place] [address] 10 Nov, 2010 [facility] [place] [facility] [address] [id number] [place] [address] 1753 13 Oct, 2010 [facility] [place] [facility] [address] [id number] [place] [address]246 13 Aug, 2010 [facility] [place] [facility] [address] [id number] [place] [address] 6735 15 Mar, 2010 [facility] [place] [facility] [address] [id number] [place] [address] 68[address] Jan, [facility] [place] [facility] [address] [id number] [place] [address] 130[address] Jan, [facility] [place] [facility] [address] [id number] [place] [address]- 2540 Jan, [facility] [place] [facility] [address] [id number] [place] [address]- [address]45 Jan, [facility] [place] [facility] [address] [id number] [place] [address] 29 Dec, 2009 [facility] [place] [facility] [address] [id number] [place] [address]- 8877 Dec, [facility] [place] [facility] [address] [id number] [place] [address]- [address] Dec, [facility] [address] [id number] [address] 14 Dec, 2009 [facility] [id number] [address] Nov, [facility] [id number] [address] Nov, [facility] [id number] [address] Nov, [facility] [id number] [address] Apr, [facility] [id number] [address] Feb, [facility] [id number] [address] Jan, [facility] [id number] [address] Jan, [facility] [id number] [address]- [address] Nov, [facility] [address] [id number] [address] Nov, IMMUNIZATIONS No Known Immunizations SOCIAL HISTORY Never Assessed REASON FOR VISIT dental pain all over her mouth for the past 2 months. little PLAN OF CARE Activity Details Follow Up dental clinic MOMO Reason: VITAL SIGNS Height 67 in 2018-01-04 Weight 178.8 lbs 2018-01-04 Temperature 97.9 degrees Fahrenheit 2018-01-04 Heart Rate 80 bpm 2018-01-04 Respiratory Rate 20 2018-01-04 BMI 28.00 kg/m2 2018-01-04 Blood pressure systolic 118 mmHg 2018-01-04 Blood pressure diastolic 78 mmHg 2018-01-04 MEDICATIONS Medication Instructions Dosage Frequency Start Date End Date Duration Status Pristiq 100 mg Orally Once a day 1 tablet 24h June, 30 days Active Amoxicillin 875 MG Orally every 12 hrs 1 tablet 12h 10 Dec, 2017 10 day (s) Active Ibuprofen 600 MG Orally Three times a day 1 tablet with food or milk as needed 8h Dec, Dec, 10 days Active Adderall XR 10 mg Orally Once a day in the morning 1 capsule Nov, 28 days Active Gabapentin 300 MG Orally twice a day as needed 1 capsule June, Active RESULTS No Results PROCEDURES No Known procedures INSTRUCTIONS MEDICATIONS ADMINISTERED No Known Medications MEDICAL (GENERAL) HISTORY Type Description Date Medical History Bipolar I disorder, most recent episode (or current) mixed, moderate Medical History Bipolar I disorder, most recent episode (or current) mixed, moderate Medical History Closed fracture of unspecified phalanx or phalanges of hand Surgical History c section Hospitalization History child Hospitalization History denies any past psych hospitalization
--- OUTSIDE RECORDS SUMMARY | 2018-01-18 09:25 | XMS REPORT ---
Author Author PHUONG VALERIE [facility] Address [address] [place] [address] Care Team Providers Care Import/Export Clerk Name Role Phone PHUONG, VALERIE Unavailable PROBLEMS Type Condition ICD9-CM Code CKE48-XL Code Onset Dates Condition Status SNOMED Code Problem ADHD (attention deficit hyperactivity disorder), combined type F90.2 Active 55541344 Problem Acute seasonal allergic rhinitis, unspecified trigger J30.2 Active 288238041 Problem Major depressive disorder, recurrent episode, in partial or unspecified remission 296.35 Active 15452531 Problem Posttraumatic stress disorder 309.81 Active 35147514 Problem Generalized anxiety disorder F41.1 Active 26259608 Problem Moderate episode of recurrent major depressive disorder F33.1 Active 555045151 ALLERGIES No Information ENCOUNTERS Encounter Location Date Diagnosis [facility] [id number] [place] [address]8865 -2790 Dec, Oral pain K13.79 [facility] [id number] [place] [address] 04221- 4120 Dec, Generalized anxiety disorder F41.1 [facility] [id number] [place] [address] 95364- 9129 Nov, Generalized anxiety disorder F41.1 [facility] [id number] [place] [address] 56764- 3107 Oct, [facility] [id number] [place] [address] 51191- 5759 Oct, Generalized anxiety disorder F41.1 ; Moderate episode of recurrent major depressive disorder F33.1 and ADHD (attention deficit hyperactivity disorder), combined type F90.2 [facility] [address] [id number] [address] Sep, Generalized anxiety disorder F41.1 [facility] [id number] [place] [address] 29025- 5872 Sep, Generalized anxiety disorder F41.1 [facility] [address] [address]- 9831 June, Generalized anxiety disorder F41.1 and Moderate episode of recurrent major depressive disorder F33.1 [place] [address] [address]- [address] 10 May, 2017 Visit for TB skin test Z11.1 ; Encounter for physical examination related to employment Z02.1 ; Acute seasonal allergic rhinitis, unspecified trigger J30.2 and Infected tooth K04.7 [place] [address] [address]- 8946 06 May, 2017 Generalized anxiety disorder F41.1 [facility] [address] [id number] 16 Apr, 2017 Dental examination Z01.20 [facility] [address] 0[address] -9262 Apr, [facility] [address] [place] [address] 16414 -8776 Mar, [facility] [address] [place] [id number] [place] [address] 43257 -6502 Mar, Dysuria R30.0 ; Potential exposure to STD Z20.2 and infection, trichomonal A59.00 [facility] [id number] [place] [address] 99541 -5858 Nov, Acute seasonal allergic rhinitis, unspecified trigger J30.2 [facility] [address] 15206- 9514 Nov, Generalized anxiety disorder F41.1 and Moderate episode of recurrent major depressive disorder F33.1 [place] [address] 88272- 5876 18 Apr, 2017 Bipolar depression F31.30 and Other penitentiary (current) drug therapy Z79.899 [facility] [address] [id number], [place] [address] Apr, Dental examination Z01.20 [facility] [address] [id number] [id number] Apr, Dental examination Z01.20 [facility] [id number] [place] [address] 70263- 6206 Apr, Dental examination Z01.20 [facility] [address] [id number], [place] [address] 1099 Aug, [facility] [address] [id number] [place] [address] 71286- 7828 Jul, [facility] [id number] [place] [address] 01725- 2805 Jul, ADHD (attention deficit hyperactivity disorder) F90.9 ; Anxiety and depression F41.9 and Controlled substance agreement signed Z79.899 [facility] [address] [id number] [address] 57[address] Jul, [facility] [address] [facility] [id number] [place] [address] 76983- 3887 June, [facility] [address] [id number] [address] June, [facility] [address] [id number] [address]- 0704 May, ADHD (attention deficit hyperactivity disorder) F90.9 and Anxiety and depression F41.9 [facility] [address] [id number] [address] 7407 Aug, [facility] [address] [facility] [id number], [place] [address]- 1314 Aug, [facility] [address] [id number] [id number] Aug, Dental examination V72.2 [facility] [address] [facility] [id number], [place] [address]- 3923 Aug, High risk medications (not anticoagulants) long-term use V58.69 [facility] [address] [id number][place] [id number] Jul, Dental examination V72.2 [facility] [address] [id number], [place] [address] 0047 Jul, [facility] [address] [facility] [id number], [place] [address]- 4409 Jul, [facility] [address] [facility] [id number], [place] [address]- [address] Jul, [facility] [address] [facility] [id number], [place] [address]- 7403 June, [facility] [address] [address] 8905 June, [facility] [address] [id number] [address]- 9928 May, [facility] [address] [id number] [address] 2150 May, [facility] [address] [id number] [address]- 7863 Apr, [facility] [address], [place] [address]- 2327 Apr, [facility] [address] [facility] [id number], [place] [address]- [address] Apr, [facility] [address] [facility] [id number][place] [address]- 4222 Apr, [facility] [address] [facility] [id number]95[place] 8821 Apr, [facility] [address] [facility] [id number], [place] 9157 Apr, [facility] [place] [facility] [address] [id number] [place] [address]- 8595 Apr, [facility] [place] [facility] [address] [id number] [place] [address]- 2171 Apr, [facility] [place] [facility] [address] [id number] [place] 9542 Mar, [facility] [place] [facility] [address] [id number] [place] [address]- 6539 Mar, [facility] [place] [facility] [address] [id number] [place] [address]- 3511 Mar, [facility] [place] [facility] [address] [id number] [place] [address]- 9441 Mar, [facility] [place] [facility] [address] [id number] [place] [address]- 6810 Feb, [facility] [place] [facility] [address] [id number] [place] [address]- 2587 Feb, [facility] [place] [facility] [address] [id number] [place] [address]- 4589 Feb, [facility] [place] [facility] [address] [id number] [place] [address]- 5495 Feb, [facility] [place] [facility] [address] [id number] [place] [address]- 2452 Feb, [facility] [place] [facility] [address] [id number] [place] [address]- 2619 Feb, [facility] [place] [facility] [address] [id number] [place] [address]- 4158 Feb, [facility] [place] [facility] [address] [id number] [place] [address]- 1489 Feb, [facility] [place] [facility] [address] [id number] [place] [address]- 2651 Jan, [facility] [place] [facility] [address] [id number] [place] [address]- 1947 30 Jan, 2014 [facility] [place] [facility] [address] [id number] [place] [address]- 1313 Jan, [facility] [place] [facility] [address] [id number] [place] [address]- 2081 Jan, [facility] [place] [facility] [address] [id number] [place] [address]- 6532 Jan, [facility] [place] [facility] [address] [id number] [place] [address]- 9838 Jan, [facility] [place] [facility] [address] [id number] [place] [address]- 1701 Dec, [facility] [place] [facility] [address] [id number] [place] [address]- 4186 Dec, [facility] [place] [facility] [address] [id number] [place] [address]- 6918 Dec, [facility] [place] [facility] [address] [id number] [place] [address]- 0899 Dec, [facility] [place] [facility] [address] [id number] [place] [address]- 7882 Dec, [facility] [place] [facility] [address] [id number] [place] [address]- 8498 Dec, [facility] [place] [facility] [address] [id number] [place] [address]- 5325 Nov, [facility] [place] [facility] [address] [id number] [address]- 3353 Nov, [facility] [place] [facility] [address] [id number] [place] [address]- 0851 Nov, [facility] [place] [facility] [address] [id number] [place] [address]- 5381 Nov, [facility] [place] [facility] [address] [id number], [place] [address]- 8334 Nov, [facility] [place] [facility] [address] [id number] [place] [address]- 3837 Nov, [facility] [place] [facility] [address] [id number] [place] [address]- 9445 Nov, [facility] [place] [facility] [address] [id number] [place] [address]- 4406 Nov, [facility] [place] [facility] [address] [id number] [place] [address]- 2951 Nov, [facility] [place] [facility] [address] [id number] [place] [address]- 5498 Nov, [facility] [place] [facility] [address] [id number] [place] [address]- 8670 Oct, [facility] [place] [facility] [address] [id number] [place] [address]- 1424 Oct, [facility] [place] [facility] [address] [id number] [place] [address]- 2915 Oct, [facility] [place] [facility] [address] [id number] [place] [address]- 1250 Oct, [facility] [place] [facility] [address] [id number] [place] [address]- 6798 Oct, [facility] [place] [facility] [address] [id number] [place] [address]- 4195 Oct, [facility] [place] [facility] [address] [id number] [place] [address]- 5983 Sep, [facility] [place] [facility] [address] [id number] [place] [address]- 7284 Sep, [facility] [address] [place] [id number] Sep [facility] [place] [facility] [address] [id number] [place] [address]- 0400 Sep, [facility] [place] [facility] [address] [id number] [place] [address]- 0112 Aug, [facility] [place] [facility] [address] [id number] [place] [address]- 0626 Aug, [facility] [place] [facility] [address] [id number] [place] [address]- 0700 Aug, [facility] [place] [facility] [address] [id number] [place] [address]- 4056 Aug, [facility] [place] [facility] [address] [id number] [place] [address]- 7340 Aug, [facility] [place] [facility] [address] [id number] [place] [address]- 0640 Aug, [facility] [place] [facility] [address] [id number] [place] [address]- 0603 Jul, [facility] [place] [facility] [address] [id number] [place] [address]- 2508 Jul, [facility] [place] [facility] [address] [id number] [place] [address]- 0655 Jul, [facility] [place] [facility] [address] [id number] [place] [address]- 2460 Jul, [facility] [place] [facility] [address] [id number] [place] [address]- 4929 Jul, [facility] [place] [facility] [address] [id number] [place] [address]- 7874 June, [facility] [place] [facility] [address] [id number] [place] [address]- 5639 June, [facility] [place] [facility] [address] [id number] [place] [address]- 0326 June, [facility] [place] [facility] [address] [id number] [place] [address]- 0317 June, [facility] [place] [facility] [address] [id number] [place] [address]- 7145 May, [facility] [place] [facility] [address] [id number] [place] [address]- 9555 May, [facility] [place] [facility] [address] [id number] [place] [address]- 8872 May, [facility] [place] [facility] [address] [id number] [place] [address]- 4260 May, [facility] [place] [facility] [address] [id number] [place] [address]- 9338 May, [facility] [place] [facility] [address] [id number] [place] [address]- 0166 May, [facility] [place] [facility] [address] [id number] [place] [address]- 1809 May, [facility] [place] [facility] [address] [id number] [place] [address]- 5018 May, [facility] [place] [facility] [address] [id number] [place] [address]- 8945 May, [facility] [place] [facility] [address] [id number] [place] [address]- 4620 May, [facility] [place] [facility] [address] [id number] [place] [address]- 4290 May, [facility] [place] [facility] [address] [id number] [place] [address]- 8778 Apr, [facility] [place] [facility] [address] [id number] [place] [address]- 2897 Apr, [facility] [place] [facility] [address] [id number] [place] [address]- 3826 Apr, [facility] [place] [facility] [address] [id number] [place] [address]- 9811 Apr, [facility] [place] [facility] [address] [id number] [place] [address]- 7459 Mar, [facility] [place] [facility] [address] [id number] [place] [address]- 4178 Mar, [facility] [place] [facility] [address] [id number] [place] [address]- 7040 13 Mar, 2013 [facility] [place] [facility] [address] [id number] [place] [address]- 8326 Mar, [facility] [place] [facility] [address] [id number] [place] [address]- 8475 07 Mar, 2013 [facility] [place] [facility] [address] [id number] [place] [address]- 0842 Mar, [facility] [place] [facility] [address] [id number] [place] [address]- 9347 Feb, [facility] [place] [facility] [address] [id number] [place] [address]- 1202 Feb, [facility] [place] [facility] [address] [id number] [place] [address]- 7732 Feb, [facility] [place] [facility] [address] [id number] [place] [address]- 3631 Feb, [facility] [place] [facility] [address] [id number] [place] [address]- 6505 Feb, [facility] [place] [facility] [address] [id number] [place] [address]- 5517 Feb, [facility] [place] [facility] [address] [id number] [place] [address]- 3795 Feb, [facility] [place] [facility] [address] [id number] [place] [address]- 4468 Jan, [facility] [place] [facility] [address] [id number] [place] [address]- 9884 Jan, [facility] [place] [facility] [address] [id number] [place] [address]- 9413 Jan, [facility] [place] [facility] [address] [id number] [place] [address]- 5709 Jan, [facility] [place] [facility] [address] [id number] [place] [address]- 7466 14 Dec, 2012 [facility] [place] [facility] [address] [id number] [place] [address]- 4285 14 Dec, 2012 [facility] [place] [facility] [address] [id number] [place] [address]- 7632 13 Dec, 2012 [facility] [place] [facility] [address] [id number] [place] [address]- 5328 22 Nov, 2012 [facility] [place] [facility] [address] [id number] [place] [address]- 9378 17 Nov, 2012 [facility] [place] [facility] [address] [id number] [place] [address]- 1611 17 Nov, 2012 [facility] [place] [facility] [address] [id number] [place] [address]- 4903 11 Nov, 2012 [facility] [place] [facility] [address] [id number] [place] [address]- 9373 11 Nov, 2012 [facility] [place] [facility] [address] [id number] [place] [address]- 7674 11 Nov, 2012 [facility] [place] [facility] [address] [id number] [place] [address]- 8855 11 Nov, 2012 [facility] [place] [facility] [address] [id number] [place] [address]- 2224 10 Nov, 2012 [facility] [place] [facility] [address] [id number], [place] [address]- 6763 27 Oct, 2012 [facility] [place] [facility] [address] [id number], [place] [address]- 7093 Oct, [facility] [place] [facility] [address] [id number] [place] [address]- 9972 Sep, [facility] [place] [facility] [address] [id number] [place] [address]- 2317 Sep, [facility] [place] [facility] [address] [id number] [place] [address]- 3875 Sep, [facility] [place] [facility] [address] [id number] [place] [address]- 3481 Sep, [facility] [address] [id number] [place] [address]- 7797 Sep, [facility] [address] [id number] [place] [address] 2546 Sep, [facility] [address] [id number] [place] [address]- 7586 Sep, [facility] [address] [id number] [place] [address]- 7298 Sep, [facility] [address] [id number] [place] [address]- 9723 Aug, [facility] [address] [id number] [place] [address]- 0163 Aug, [facility] [address] [id number] [place] [address]- 9010 Aug, [facility] [address] [id number] [place] [address]- 8126 Aug, [facility] [address] [id number] [place] [address]- 4643 Jul, [facility] [address] [id number] [place] [address]- 1196 Jul, [facility] [address] [id number] [place] [address]- 9281 Jul, [facility] [address] [id number] [place] [address]- 6142 June, [facility] [address] [id number] [place] [address]- 6217 June, [facility] [address] [id number] [place] [address]- 1686 June, [facility] [address] [id number] [place] [address]- 9041 June, [facility] [address] [id number] [place] [address]- 5866 10 Jun, 2012 [facility] [address] [id number] [place] [address]- 0121 May, [facility] [address] [id number] [place] [address]- 4033 May, [facility] [place] [facility] [address] [id number] [place] [address]- 8674 May, [facility] [address] [id number] [place] [address]- 8464 May, [facility] [address] [id number] [place] [address]- 5112 May, [facility] [address] [id number] [place] [address]- 1891 May, [facility] [address] [id number] [place] [address]- 6123 May, [facility] [address] [id number] [place] [address]- 8456 Apr, [facility] [place] [facility] [address] [id number] [place] [address]- 3438 28 Apr, 2012 [facility] [place] [facility] [address] [id number] [place] [address]- 5342 28 Apr, 2012 [facility] [place] [facility] [address] [id number], [place] [address]- 9750 13 Apr, 2012 [facility] [place] [facility] [address] [id number] [place] [address] 07 Apr, 2012 [facility] [place] [facility] [address] [id number] [place] [address] 07 Apr, 2012 [facility] [place] [facility] [address] [id number] [place] [address] 06 Apr, 2012 [facility] [place] [facility] [address] [id number] [place] [address]247 05 Apr, 2012 [facility] [address] [id number] [place] [address] 05 Apr, 2012 [facility] [address] [id number] [place] [address] Apr, [facility] [address] [id number] [place] [address] 21 Mar, 2012 [facility] [address] [id number] [place] [address] 9443 20 Mar, 2012 [facility] [address] [id number] [place] [address] 7360 18 Mar, 2012 [facility] [address] [id number] [place] [address] 4565 15 Mar, 2012 [facility] [address] [id number] [place] [address] 6[address] 13 Mar, 2012 [facility] [address] [id number] [place] [address] 6[address] 06 Mar, 2012 [facility] [address] [id number] [place] [address] 7[address] 05 Mar, 2012 [facility] [address] [id number] [place] [address] 37[address] 29 Feb, 2012 [facility] [address] [id number] [place] [address] Feb, [facility] [address] [id number] [place] [address] 8560 16 Feb, 2012 [facility] [place] [facility] [address] [id number] [place] [address] Feb, [facility] [place] [facility] [address] [id number] [place] [address] Jan, [facility] [address] [id number] [place] [address] 8639 Jan, [facility] [place] [facility] [address] [id number] [place] [address] 44[address] Jan, [facility] [place] [facility] [address] [id number] [place] [address] 69[address] Jan, [facility] [place] [facility] [address] [id number] [place] [address]87 Dec, [facility] [place] [facility] [address] [id number] [place] [address] 0185 Dec, [facility] [place] [facility] [address] [id number] [place] [address] 4867 Dec, [facility] [place] [facility] [address] [id number] [place] [address] Dec, [facility] [place] [facility] [address] [id number] [place] [address]- [address] Dec, [facility] [place] [facility] [address] [id number] [place] [address] 484[address] Dec, [facility] [place] [facility] [address] [id number] [place] [address] 69[address] Dec, [facility] [place] [facility] [address] [facility] [id number] [place] [address] 8861 Dec, [facility] [place] [facility] [address] [facility] [id number] [place] [address] 3682 Dec, [facility] [place] [facility] [address] [id number], [place] [address] Nov, [facility] [place] [facility] [address] [id number] [place] [address] 4280 Nov, [facility] [place] [facility] [address] [id number] [address] Nov, [facility] [place] [facility] [address] [id number][place] [address] Nov, [facility] [place] [facility] [address] [id number], [place] [address] 1689 18 Nov, 2011 [facility] [place] [facility] [address] [id number] [place] [address] 9872 18 Nov, 2011 [facility] [place] [facility] [address] [id number] [place] [address] 1556 17 Nov, 2011 [facility] [place] [facility] [address] [id number] [place] [address] 5636 16 Nov, 2011 [facility] [place] [facility] [address] [id number] [place] [address]- 4299 27 Sep, 2011 [facility] [place] [facility] [address] [id number] [place] [address] 0697 24 Sep, 2011 [facility] [place] [facility] [address] [id number] [place] [address]- 1335 13 Sep, 2011 [facility] [place] [facility] [address] [id number] [place] [address]- 1163 11 Sep, 2011 [facility] [place] [facility] [address] [id number] [place] [address]- 1116 10 Sep, 2011 [facility] [place] [facility] [address] [id number] [place] [address]- 9664 08 Sep, 2011 [facility] [place] [facility] [address] [id number] [place] [address]- 7405 06 Sep, 2011 [facility] [place] [facility] [address] [id number], [place] [address]75 05 Sep, 2011 [facility] [place] [facility] [address] [id number], [place] [address] 9942 04 Sep, 2011 [facility] [place] [facility] [address] [id number] [place] [address] 2542 04 Sep, 2011 [facility] [place] [facility] [address] [id number] [place] [address]- 7497 16 Sep, 2011 [facility] [place] [facility] [address] [id number] [place] [address]- 2504 09 Sep, 2011 [facility] [place] [facility] [address] [id number] [place] [address] Aug, [facility] [place] [facility] [address] [id number] [place] [address] 7112 Aug, [facility] [place] [facility] [address] [id number] [place] [address] 8626 Aug, [facility] [place] [facility] [address] [id number] [place] [address]146 Aug, [facility] [place] [facility] [address] [id number] [place] [address] 6272 Aug, [facility] [place] [facility] [address] [id number] [place] [address] Aug, [facility] [place] [facility] [address] [id number] [place] [address] Aug, [facility] [place] [facility] [address] [id number] [place] [address]- 6799 Aug, [facility] [place] [facility] [address] [id number] [place] [address] 280[address] Jul, [facility] [place] [facility] [address] [id number] [place] [address] 1424 Jul, [facility] [facility] [address] [id number] [place] [address] Jul, [facility] [facility] [address] [id number] [place] [address] Jul, [facility] [address] [id number] [place] [address] June, [facility] [place] [facility] [address] [id number] [place] [address] June, [facility] [address] [id number] [place] [address] June, [facility] [facility] [address] [id number] [place] [address] June, [facility] [address] [id number] [place] [address] June, [facility] [place] [facility] [address] [id number] [place] [address] June, [facility] [address] [id number] [place] [address] June, [facility] [place] [facility] [address] [id number] [place] [address] June, [facility] [address] [id number] [place] [address] June, [facility] [address] [id number] [place] [address] June, [facility] [address] [id number] [place] [address] June, [facility] [address] [id number] [place] [address] June, [facility] [facility] [address] [id number] [place] [address] June, [facility] [facility] [address] [id number] [place] [address] June, [facility] [address] [id number] [place] [address] June, [facility] [place] [facility] [address] [id number] [place] [address] June, [facility] [place] [facility] [address] [id number] [place] [address] May, [facility] [place] [facility] [address] [id number] [place] [address] May, [facility] [place] [facility] [address] [id number] [place] [address] May, [facility] [place] [facility] [address] [id number] [place] [address] 05 May, 2011 [facility] [facility] [address] [id number] [place] [address] 13 Apr, 2011 [facility] [facility] [address] [id number] [place] [address] 12 Apr, 2011 [facility] [facility] [address] [facility] [id number] [place] [address] 09 Apr, 2011 [facility] [place] [facility] [address] [id number] [place] [address] 07 Apr, 2011 [facility] [place] [facility] [address] [id number] [place] [address] 06 Apr, 2011 [facility] [address] [facility] [id number] [place] [address] Apr, [facility] [address] [facility] [id number] [place] [address] Apr, [facility] [facility] [address] [facility] [id number] [place] [address] 23 Mar, 2011 [facility] [facility] [address] [id number] [place] [address] 20 Mar, 2011 [facility] [facility] [address] [facility] [id number] [place] [address] 26[address] 16 Mar, 2011 [facility] [address] [id number] [place] [address] 15 Mar, 2011 [facility] [address] [facility] [id number] [place] [address] 2546 13 Mar, 2011 [facility] [facility] [address] [facility] [id number] [place] [address]- 7746 09 Mar, 2011 [facility] [facility] [address] [facility] [id number] [place] [address]- [address] 06 Mar, 2011 [facility] [place] [facility] [address] [id number] [place] [address] Mar, [facility] [address] [id number] [place] [address] Feb, [facility] [address] [id number] [place] [address] 8971 Feb, [facility] [address] [id number] [place] [address] Feb, [facility] [address] [id number] [place] [address] Jan, [facility] [address] [id number] [place] [address]- [address] 24 Jan, 2011 [facility] [address] [id number] [place] [address]- [address] Jan, [facility] [address] [id number] [place] [address] Jan, [facility] [address] [id number] [place] [address] Jan, [facility] [address] [id number] [place] [address]- 7529 14 Jan, 2011 [facility] [address] [id number] [place] [address]- [address]83 Jan, [facility] [address] [id number] [place] [address] Jan, [facility] [address] [id number] [place] [address]- [address] Jan, [facility] [address] [id number] [place] [address]- [address] 30 Dec, 2010 [facility] [address] [id number] [place] [address]- 9683 Dec, [facility] [address] [id number] [place] [address] 3817 Dec, [facility] [address] [id number] [place] [address]- 7080 07 Dec, 2010 [facility] [address] [id number] [place] [address]- 5166 24 Nov, 2010 [facility] [facility] [address] [id number] [place] [address] 4576 20 Nov, 2010 [facility] [address] [id number] [place] [address] 1236 10 Nov, 2010 [facility] [address] [id number] [place] [address]- 8430 10 Nov, 2010 [facility] [address] [id number] [place] [address] 13 Oct, 2010 [facility] [address] [id number] [place] [address]- 4938 13 Aug, 2010 [facility] [address] [id number] [place] [address]- 5180 15 Mar, 2010 [facility] [facility] [address] [id number] [place] [address]- 7270 23 Jan, 2010 [facility] [address] [id number] [place] [address]- 4084 10 Jan, 2010 [facility] [address] [id number] [place] [address]- 7832 Jan, [facility] [facility] [address] [id number] [place] [address]- 0329 07 Jan, 2010 [facility] [facility] [address] [id number] [place] [address]- 2542 29 Dec, 2009 [facility] [address] [id number] [place] [address]- 4929 23 Dec, 2009 [facility] [address] [id number] [place] [address]- 2257 22 Dec, 2009 [facility] [facility] [address] [id number] [place] [address]- 1065 [address], [address] [facility] [id number] [address] Nov, [facility] [id number] [place] [address]132 Nov, [facility] [id number] [address]27 Nov, [facility] [id number] [address]14 Apr, [facility] [id number] [address] Feb, [facility] [id number] [address] Jan, [facility] [id number] [address] Jan, [facility] [id number] [place] [address] Nov, [facility] [address] [id number] [address] Nov, IMMUNIZATIONS No Known Immunizations SOCIAL HISTORY Never Assessed REASON FOR VISIT Medication refill request PLAN OF CARE VITAL SIGNS MEDICATIONS Medication Instructions Dosage Frequency Start Date End Date Duration Status Adderall XR 10 mg Orally Once a day in the morning 1 capsule Dec, 28 days Active RESULTS No Results PROCEDURES No Known [...]
--- OUTSIDE RECORDS SUMMARY | 2018-01-18 09:26 | XMS REPORT ---
Author Author BRENDA GUTIERRES Organization [facility] Address [address] [place] [address] Care Team Providers Care Aircraft Pilot Name Role Phone BRENDA GUTIERRES Unavailable PROBLEMS Type Condition ICD9-CM Code PCF19-AD Code Onset Dates Condition Status SNOMED Code Problem ADHD (attention deficit hyperactivity disorder), combined type F90.2 Active 66548430 Problem Acute seasonal allergic rhinitis, unspecified trigger J30.2 Active 238833785 Problem Major depressive disorder, recurrent episode, in partial or unspecified remission 296.35 Active 16348544 Problem Posttraumatic stress disorder 309.81 Active 62486468 Problem Generalized anxiety disorder F41.1 Active 16671076 Problem Moderate episode of recurrent major depressive disorder F33.1 Active [id number] ALLERGIES No Information ENCOUNTERS Encounter Location Date Diagnosis [place] [id number] [place] [address]378- 6070 Nov, Generalized anxiety disorder F41.1 [facility] [address] [id number] [place] [address] 64741- 9268 Oct, [facility] [address] [place] [id number] [place] [address] 93127- 8732 Oct, Generalized anxiety disorder F41.1 ; Moderate episode of recurrent major depressive disorder F33.1 and ADHD (attention deficit hyperactivity disorder), combined type F90.2 [facility] [address] [address] Sep, Generalized anxiety disorder F41.1 [facility] [address] [place] [id number] [place] [address] 47632- 0691 Sep, Generalized anxiety disorder F41.1 [facility] [address] [address] June, Generalized anxiety disorder F41.1 and Moderate episode of recurrent major depressive disorder F33.1 [facility] [id number] [place] [address] 99401- 6210 10 May, 2017 Visit for TB skin test Z11.1 ; Encounter for physical examination related to employment Z02.1 ; Acute seasonal allergic rhinitis, unspecified trigger J30.2 and Infected tooth K04.[address] [address] May, Generalized anxiety disorder F41.1 [facility] [address] [id number] Apr, Dental examination Z01.20 [facility] [address] [place] [address] Apr, [facility] [address] [address] Mar, [facility] [address] [place] [address]171 Mar, Dysuria R30.0 ; Potential exposure to STD Z20.2 and infection, trichomonal A59.00 [facility] [address] [address] Nov, Acute seasonal allergic rhinitis, unspecified trigger J30.[address] [address]- [address] Nov, Generalized anxiety disorder F41.1 and Moderate episode of recurrent major depressive disorder F33.[address] [address]- [address] May, Bipolar depression F31.30 and Other intermodal customer service (current) drug therapy Z79.899 [place] [address] [address] Apr, Dental examination Z01.20 [facility] [address] [id number] Apr, Dental examination Z01.20 [facility] [address] [address] Apr, Dental examination Z01.20 [facility] [id number] [place] [address] 98604- 8382 Aug, [facility] [id number] [place] [address] 23750- 7170 Jul, [facility] [id number] [place] [address] 72708- 6109 Jul, ADHD (attention deficit hyperactivity disorder) F90.9 ; Anxiety and depression F41.9 and Controlled substance agreement signed Z79.899 [facility] [id number] [place] [address] 24022- 4934 Jul, [facility] [id number] [place] [address] 68851- 6062 June, [facility] [id number] [place] [address] 10022- 9334 June, [facility] [id number] [place] [address] 95199- 3814 May, ADHD (attention deficit hyperactivity disorder) F90.9 and Anxiety and depression F41.9 [facility] [address] [place] [address] 12508- 2942 Aug, [facility] [id number] [place] [address] 26912- 8334 Aug, [facility] [address] [id number] [place] [address] [id number] Aug, Dental examination V72.2 [facility] [address] [id number] [place] [address] 05145- 7129 Aug, High risk medications (not anticoagulants) long-term use V58.69 [facility] [address] [place] [id number] [place] [address] [id number] Jul, Dental examination V72.2 [facility] [place] [facility] [address] [id number] [place] [address]- 5290 Jul, [facility] [place] [facility] [address] [id number] [place] [address]- 4936 Jul, [facility] [place] [facility] [address] [id number] [place] [address]- 2445 Jul, [facility] [place] [facility] [address] [id number] [place] [address]- 6100 June, [facility] [place] [facility] [address] [id number] [place] [address]- 7528 June, [facility] [place] [facility] [address] [id number] [place] [address]- 2204 May, [facility] [place] [facility] [address] [id number] [place] [address]- 0159 May, [facility] [place] [facility] [address] [id number] [place] [address]- 9594 Apr, [facility] [place] [facility] [address] [id number] [place] [address]- 1913 Apr, [facility] [place] [facility] [address] [id number] [place] [address]- 5745 Apr, [facility] [place] [facility] [address] [id number] [place] [address]- 5448 Apr, [facility] [place] [facility] [address] [id number] [place] [address]- 3390 Apr, [facility] [place] [facility] [address] [id number] [place] [address]- 8782 Apr, [facility] [place] [facility] [address] [id number] [place] [address]- 9774 Apr, [facility] [place] [facility] [address] [id number] [place] [address]- 8081 Apr, [facility] [place] [facility] [address] [id number] [place] [address]- 2495 Mar, [facility] [place] [facility] [address] [id number] [place] [address]- 9327 Mar, [facility] [place] [facility] [address] [id number] [place] [address]- 3433 Mar, [facility] [place] [facility] [address] [facility] [id number] [place] [address]- 6904 Mar, [facility] [place] [facility] [address] [id number] [place] [address]- 3808 Feb, [facility] [place] [facility] [address] [id number] [place] [address]- 2195 Feb, [facility] [place] [facility] [address] [id number] [place] [address]- 7390 Feb, [facility] [place] [facility] [address] [facility] [id number] [place] [address]- 6342 Feb, [facility] [place] [facility] [address] [facility] [id number] [place] [address]- 3586 Feb, [facility] [place] [facility] [address] [facility] [id number] [place] [address]- 6514 Feb, [facility] [place] [facility] [address] [facility] [id number] [place] [address]- 1050 Feb, [facility] [place] [facility] [address] [facility] [id number] [place] [address]- 9100 Feb, [facility] [place] [facility] [address] [id number] [address]- 9850 Jan, [facility] [place] [facility] [address] [id number] [place] [address]- 6004 Jan, [facility] [place] [facility] [address] [facility] [id number] [place] [address]- 6703 Jan, [facility] [place] [facility] [address] [facility] [id number] [place] [address]- 1248 Jan, [facility] [place] [facility] [address] [id number] [place] [address]- 6099 Jan, [facility] [place] [facility] [address] [id number] [place] Jan, [facility] [place] [facility] [address] [id number] [place] [address]- 4365 Dec, [facility] [place] [facility] [address] [id number] [place] [address]- 1053 Dec, [facility] [place] [facility] [address] [id number] [place] [address]- 5119 Dec, [facility] [place] [facility] [address] [id number] [place] [address]- 3401 Dec, [facility] [place] [facility] [address] [id number] [place] [address]- 6721 Dec, [facility] [place] [facility] [address] [id number] [place] [address]- 3524 Dec, [facility] [place] [facility] [address] [id number] [place] [address]- 2313 Nov, [facility] [place] [facility] [address] [id number] [place] [address]- 9915 Nov, [facility] [place] [facility] [address] [id number] [place] [address]- 8166 Nov, [facility] [place] [facility] [address] [id number] [place] [address]- 9563 Nov, [facility] [place] [facility] [address] [id number] [place] [address] Nov, [facility] [place] [facility] [address] [id number] [place] 0594 Nov, [facility] [place] [facility] [address] [id number] [place] [address]- 9352 Nov, [facility] [place] [facility] [address] [id number] [place] 7700 Nov, [facility] [address] [id number] [place] [address]- 0013 Nov, [facility] [place] [facility] [address] [id number] [place] [address]- 1527 Nov, [facility] [address] [id number] [place] [address]- 8136 Oct, [facility] [place] [facility] [address] [id number] [place] [address]- 9841 Oct, [facility] [address] [id number] [place] [address]- 9150 Oct, [facility] [address] [id number] [place] [address]- 7754 Oct, [facility] [address] [id number] [place] [address]- 8173 Oct, [facility] [place] [facility] [address] [id number] [place] [address]- 0227 Oct, [facility] [address] [id number] [place] [address]- 9386 Sep, [facility] [address] [facility] [id number] [place] [address]- 6742 Sep, [address] [id number] Sep [facility] [place] [facility] [address] [id number], [place] [address]- 0235 Sep, [facility] [place] [facility] [address] [id number] [place] [address]- 4750 Aug, [facility] [place] [facility] [address] [id number] [place] [address]- 7667 Aug, [facility] [place] [facility] [address] [id number] [place] [address]- 0627 Aug, [facility] [place] [facility] [address] [id number] [place] [address]- 3066 Aug, [facility] [place] [facility] [address] [id number] [place] [address]- 3909 Aug, [facility] [place] [facility] [address] [id number] [place] 6381 Aug, [facility] [place] [facility] [address] [id number] [place] [address]- 8842 Jul, [facility] [place] [facility] [address] [id number] [place] [address]- 4045 Jul, [facility] [place] [facility] [address] [id number] [place] [address]- 3126 Jul, [facility] [place] [facility] [address] [id number] [place] [address]- 0364 Jul, [facility] [place] [facility] [address] [id number] [place] [address]- 9417 Jul, [facility] [place] [facility] [address] [id number] [place] [address]- 7310 June, [facility] [place] [facility] [address] [id number] [place] [address]- 8204 June, [facility] [place] [facility] [address] [id number] [place] [address]- 3715 June, [facility] [place] [facility] [address] [id number] [place] [address]- 0577 June, [facility] [place] [facility] [address] [id number] [place] [address]- 1462 May, [facility] [place] [facility] [address] [id number] [place] [address]- 1469 May, [facility] [place] [facility] [address] [id number] [place] [address]- 9984 May, [facility] [place] [facility] [address] [id number] [place] [address]- 3016 May, [facility] [place] [facility] [address] [id number] [place] [address]- 5809 May, [facility] [place] [facility] [address] [id number] [place] [address]- 6612 May, [facility] [place] [facility] [address] [id number] [place] 4936 May, [facility] [place] [facility] [address] [id number] [place] [address]- 6454 May, [facility] [place] [facility] [address] [id number] [place] [address]- 5517 May, [facility] [place] [facility] [address] [id number] [place] [address]- 5208 May, [facility] [place] [facility] [address] [id number] [place] [address]- 6758 May, [facility] [place] [facility] [address] [id number] [place] [address]- 5747 Apr, [facility] [place] [facility] [address] [id number] [place] [address]- 3258 Apr, [facility] [place] [facility] [address] [id number] [place] [address]- 6368 Apr, [facility] [place] [facility] [address] [id number] [place] [address]- 3406 Apr, [facility] [place] [facility] [address] [id number] [place] [address]- 0901 Mar, [facility] [place] [facility] [address] [id number] [place] [address]- 9877 Mar, [facility] [place] [facility] [address] [id number] [place] [address]- 2016 13 Mar, 2013 [facility] [place] [facility] [address] [id number] [place] [address]- 7109 Mar, [facility] [place] [facility] [address] [id number] [place] [address]- 8104 Mar, [facility] [place] [facility] [address] [id number] [place] [address]- 4278 Mar, [facility] [place] [facility] [address] [id number] [place] [address]- 5264 Feb, [facility] [place] [facility] [address] [facility] [id number] [place] [address]- 2942 Feb, [facility] [place] [facility] [address] [id number] [place] [address]- 6994 Feb, [facility] [place] [facility] [address] [id number] [place] [address]- 9183 Feb, [facility] [place] [facility] [address] [id number] [place] [address]- 7991 Feb, [facility] [place] [facility] [address] [id number] [place] [address]- 5284 Feb, [facility] [place] [facility] [address] [id number] [place] [address]- 6840 Feb, [facility] [place] [facility] [address] [id number] [place] [address]- 4010 Jan, [facility] [place] [facility] [address] [id number] [place] [address]- 0755 30 Jan, 2013 [facility] [place] [facility] [address] [id number] [place] [address]- 2796 Jan, [facility] [place] [facility] [address] [id number], [place] [address]- 5802 Jan, [facility] [place] [facility] [address] [id number] [place] [address]- 5838 14 Dec, 2012 [facility] [place] [facility] [address] [id number] [place] [address]- 4940 14 Dec, 2012 [facility] [place] [facility] [address] [id number] [place] [address]- 0484 13 Dec, 2012 [facility] [place] [facility] [address] [id number] [place] [address]- 2944 Nov, [facility] [address] [id number] [place] [address]- 0284 Nov, [facility] [place] [facility] [address] [id number] [place] [address]- 9650 17 Nov, 2012 [facility] [place] [facility] [address] [id number] [place] [address]- 0393 Nov, [facility] [place] [facility] [address] [id number] [place] [address]- 4524 Nov, [facility] [place] [facility] [address] [id number] [place] [address]- 9174 Nov, [facility] [place] [facility] [address] [id number] [place] [address]- 1125 Nov, [facility] [place] [facility] [address] [id number] [place] [address]- 4889 Nov, [facility] [place] [facility] [address] [id number] [place] [address]- 2869 Oct, [facility] [place] [facility] [address] [id number] [place] [address]- 4399 Oct, [facility] [place] [facility] [address] [id number] [place] [address]- 6933 Sep, [facility] [place] [facility] [address] [id number] [place] [address]- 1410 Sep, [facility] [place] [facility] [address] [id number] [place] [address]- 2161 Sep, [facility] [place] [facility] [address] [id number] [place] [address]- 2561 Sep, [facility] [place] [facility] [address] [id number] [place] [address]- 2541 Sep, [facility] [place] [facility] [address] [id number] [place] [address]- 2837 Sep, [facility] [place] [facility] [address] [id number] [place] [address] 2542 Sep, [facility] [address] [id number] [place] [address]- 2546 Sep, [facility] [address] [id number] [place] [address]- 8783 Aug, [facility] [place] [facility] [address] [id number] [place] [address]- 2540 Aug, [facility] [address] [id number] [place] [address]- 5752 Aug, [facility] [address] [id number] [place] [address]- 8267 Aug, [facility] [address] [id number] [place] [address]- 4500 Jul, [facility] [address] [id number] [place] [address]- 6625 Jul, [facility] [address] [id number] [place] [address]- 7855 Jul, [facility] [address] [id number] [place] [address]- 3121 June, [facility] [place] [facility] [address] [id number] [place] [address]- 9054 June, [facility] [place] [facility] [address] [id number] [place] [address]- 3802 June, [facility] [place] [facility] [address] [id number] [place] [address]- 2725 June, [facility] [place] [facility] [address] [id number] [place] [address]- 7986 June, [facility] [place] [facility] [address] [id number] [place] [address]- 2546 May, [facility] [place] [facility] [address] [id number] [place] [address]- 0801 May, [facility] [address] [id number] [place] [address]- 9121 May, [facility] [place] [facility] [address] [id number] [place] 6531 24 May, 2012 [facility] [address] [id number] [place] [address]- 5038 May, [facility] [place] [facility] [address] [id number] [place] [address]- 6134 May, [facility] [address] [id number] [place] [address]- 5647 08 May, 2012 [facility] [place] [facility] [address] [id number] [place] [address]- 1052 Apr, [facility] [address] [id number] [place] [address]- 9069 28 Apr, 2012 [facility] [place] [facility] [address] [id number] [place] [address]- 4736 28 Apr, 2012 [facility] [place] [facility] [address] [id number] [place] [address]- 7045 Apr, [facility] [place] [facility] [address] [id number] [place] [address]- 6337 07 Apr, 2012 [facility] [place] [facility] [address] [id number] [place] [address] 07 Apr, 2012 [facility] [place] [facility] [address] [id number] [place] [address] 06 Apr, 2012 [facility] [place] [facility] [address] [id number] [place] [address] 05 Apr, 2012 [facility] [place] [facility] [address] [id number] [place] [address] 05 Apr, 2012 [facility] [place] [facility] [address] [id number] [place] [address] 04 Apr, 2012 [facility] [place] [facility] [address] [id number] [place] [address] 2013 21 Mar, 2012 [facility] [address] [id number] [place] [address] 20 Mar, 2012 [facility] [place] [facility] [address] [id number] [place] [address] 2546 18 Mar, 2012 [facility] [place] [facility] [address] [id number] [place] [address] 2546 15 Mar, 2012 [facility] [place] [facility] [address] [id number] [place] [address]266 13 Mar, 2012 [facility] [place] [facility] [address] [id number] [place] [address] 06 Mar, 2012 [facility] [address] [id number] [place] [address] 05 Mar, 2012 [facility] [address] [id number] [place] [address] 29 Feb, 2012 [facility] [place] [facility] [address] [id number] [place] [address] Feb, [facility] [place] [facility] [address] [id number] [place] [address] 16 Feb, 2012 [facility] [place] [facility] [address] [id number] [place] [address] Feb, [facility] [place] [facility] [address] [id number] [place] [address] Jan, [facility] [place] [facility] [address] [id number] [place] [address] Jan, [facility] [place] [facility] [address] [id number] [place] [address] Jan, [facility] [place] [facility] [address] [id number] [place] [address] Jan, [facility] [place] [facility] [address] [id number], [place] [address] Dec, [facility] [place] [facility] [address] [id number] [place] [address] Dec, [facility] [place] [facility] [address] [id number] [place] [address] Dec, [facility] [place] [facility] [address] [id number] [place] [address] Dec, [facility] [place] [facility] [address] [id number] [place] [address] 8[address] Dec, [facility] [place] [facility] [address] [id number] [place] [address] 78[address] Dec, [facility] [place] [facility] [address] [id number] [place] [address] Dec, [facility] [place] [facility] [address] [id number] [place] [address] 6[address] Dec, [facility] [place] [facility] [address] [id number] [place] [address] 8687 Dec, [facility] [place] [facility] [address] [id number], [place] [address] Nov, [facility] [place] [facility] [address] [id number] [place] [address] Nov, [facility] [place] [facility] [address] [id number], [place] [address] Nov, [facility] [place] [facility] [address] [id number], [place] [address] Nov, [facility] [place] [facility] [address] [id number], [place] [address] Nov, [facility] [place] [facility] [address] [id number], [place] [address] Nov, [facility] [place] [facility] [address] [id number] [place] [address] Nov, [facility] [place] [facility] [address] [id number] [place] [address] 4880 16 Nov, 2011 [facility] [place] [facility] [address] [id number] [place] [address]186 27 Sep, 2011 [facility] [place] [facility] [address] [id number] [place] [address] 2546 24 Sep, 2011 [facility] [place] [facility] [address] [id number] [place] [address] 2546 13 Sep, 2011 [facility] [place] [facility] [address] [id number] [place] [address] 2546 11 Sep, 2011 [facility] [place] [facility] [address] [id number] [place] [address]- 69[address] 10 Sep, 2011 [facility] [place] [facility] [address] [id number] [place] [address]- 8087 08 Sep, 2011 [facility] [place] [facility] [address] [id number] [place] [address] 2548 06 Sep, 2011 [facility] [place] [facility] [address] [id number] [place] [address]- 8578 05 Sep, 2011 [facility] [place] [facility] [address] [id number] [place] [address] 3025 04 Oct, 2011 [facility] [place] [facility] [address] [id number] [place] [address] 6[address] 04 Oct, 2011 [facility] [place] [facility] [address] [id number] [place] [address] 2544 16 Sep, 2011 [facility] [place] [facility] [address] [id number] [place] [address]- [address]40 Sep, [facility] [place] [facility] [address] [id number] [place] [address]- 116[address] Aug, [facility] [place] [facility] [address] [id number] [place] [address] 2546 Aug, [facility] [place] [facility] [address] [id number] [place] [address] 1075 Aug, [facility] [place] [facility] [address] [id number] [place] [address] 9840 Aug, [facility] [place] [facility] [address] [id number] [place] [address] 5631 Aug, [facility] [place] [facility] [address] [id number] [place] [address]- 9061 Aug, [facility] [place] [facility] [address] [id number] [place] [address]- 3546 Aug, [facility] [place] [facility] [address] [id number] [place] [address]- [address] Aug, [facility] [facility] [address] [id number] [place] [address] Jul, [facility] [place] [facility] [address] [id number] [place] [address] Jul, [facility] [place] [facility] [address] [id number] [place] [address] Jul, [facility] [place] [facility] [address] [id number] [place] [address] Jul, [facility] [place] [facility] [address] [id number] [place] [address] June, [facility] [place] [facility] [address] [id number] [place] [address] June, [facility] [place] [facility] [address] [id number] [place] [address] June, [facility] [place] [facility] [address] [id number] [place] [address] June, [facility] [place] [facility] [address] [id number] [place] [address] June, [facility] [place] [facility] [address] [id number] [place] [address] June, [facility] [place] [facility] [address] [id number] [place] [address] June, [facility] [address] [id number] [place] [address] June, [facility] [address] [id number] [place] [address] June, [facility] [address] [id number] [place] [address] June, [facility] [address] [id number] [place] [address] June, [facility] [address] [id number] [place] [address] June, [facility] [address] [id number] [place] [address] June, [facility] [address] [id number] [place] [address] June, [facility] [address] [id number] [place] [address] June, [facility] [address] [id number] [place] [address] June, [facility] [address] [id number] [place] [address] May, [facility] [address] [id number] [place] [address] May, [facility] [facility] [address] [id number] [place] [address] May, [facility] [place] [facility] [address] [id number] [place] [address] May, [facility] [address] [id number] [place] [address] Apr, [facility] [address] [id number] [place] [address] Apr, [facility] [place] [facility] [address] [id number] [place] [address] Apr, [facility] [place] [facility] [address] [id number] [place] [address] Apr, [facility] [place] [facility] [address] [id number] [place] [address] Apr, [facility] [place] [facility] [address] [id number] [place] [address] Apr, [facility] [place] [facility] [address] [id number] [place] [address]- [address] Apr, [facility] [address] [id number] [place] [address]- [address] Mar, [facility] [address] [id number] [place] [address]16 Mar, [facility] [place] [facility] [address] [id number] [place] [address] 16 Mar, 2011 [facility] [address] [id number] [place] [address] Mar, [facility] [address] [id number] [place] [address] Mar, [facility] [address] [id number] [place] [address] Mar, [facility] [place] [facility] [address] [id number] [place] [address] 47[address] Mar, [facility] [address] [id number] [place] [address]- [address] Mar, [facility] [address] [id number] [place] [address]- [address] Feb, [facility] [address] [id number] [place] [address]- [address] Feb, [facility] [address] [id number] [place] [address]- [address] 02 Feb, 2011 [facility] [address] [id number] [place] [address]- [address] 26 Jan, 2011 [facility] [address] [id number] [place] [address]- [address]40 24 Jan, 2011 [facility] [address] [id number] [place] [address]- [address] 20 Jan, 2011 [facility] [facility] [address] [id number] [place] [address]- [address] 20 Jan, 2011 [facility] [address] [id number] [place] [address], [place] [address] 19 Jan, 2011 [facility] [address] [id number] [place] [address]- [address] 14 Jan, 2011 [facility] [address] [id number] [place] [address]- 1645 13 Jan, 2011 [facility] [address] [id number] [place] [address]- 4[address] 13 Jan, 2011 [facility] [address] [id number] [place] [address]- [address] 07 Jan, 2011 [facility] [facility] [address] [id number] [place] [address]- [address]81 30 Dec, 2010 [facility] [address] [id number] [place] [address]- 164[address] 28 Dec, 2010 [facility] [place] [facility] [address] [id number] [place] [address]- [address] 23 Dec, 2010 [facility] [facility] [address] [id number] [place] [address]- [address] 07 Dec, 2010 [facility] [address] [id number] [place] [address]- 8927 24 Nov, 2010 [facility] [address] [id number] [place] [address]- 9668 20 Nov, 2010 [facility] [address] [id number] [place] [address]- 4312 10 Nov, 2010 [facility] [address] [id number] [place] [address]- [address]003 10 Nov, 2010 [facility] [address] [id number] [place] [address] 2546 13 Oct, 2010 [facility] [address] [id number] [place] [address]- 1616 13 Aug, 2010 [facility] [address] [id number] [place] [address] 2540 15 Mar, 2010 [facility] [address] [id number] [place] [address]- [address]374 23 Jan, 2010 [facility] [address] [id number] [place] [address]- 9074 Jan, [facility] [facility] [address] [id number] [place] [address]- 8193 Jan, [facility] [place] [facility] [address] [id number] [place] [address]- 5546 Jan, [facility] [address] [id number] [place] [address]- 2811 29 Dec, 2009 [facility] [address] [id number] [place] [address]- 3814 Dec, [facility] [address] [id number] [place] [address]- 1244 22 Dec, 2009 [facility] [address] [id number] [place] [address]- 4103 14 Dec, 2009 [facility] [address] [id number] [place] [address]- 2540 25 Nov, 2009 [facility] [address] [id number] [place] [address]- 2542 18 Nov, 2009 [facility] [address] [id number] [place] [address]- [address] 18 Nov, 2009 [facility] [address] [facility] [id number] [address] 16 Apr, 2009 [facility] [address] [id number] [address] Feb, [facility] [address] [id number] [address] Jan, [facility] [address] [id number], [place] [address] Jan, [facility] [address] [id number] [address] Nov, [facility] [address] [id number], [place] [address] Nov, IMMUNIZATIONS No Known Immunizations SOCIAL HISTORY Never Assessed REASON FOR VISIT adderall 11/28/17 PLAN OF CARE VITAL SIGNS MEDICATIONS Medication Instructions Dosage Frequency Start Date End Date Duration Status Adderall XR 10 mg Orally Once a day in the morning 1 capsule 05 Nov, 2017 28 days Active RESULTS No Results PROCEDURES [...]
--- OUTSIDE RECORDS SUMMARY | 2018-01-18 09:26 | XMS REPORT ---
Author Author VALERIE BACA [facility] Address [address] [place] [address] Care Team Providers Care Envelope Folder Name Role Phone PHUONGVALERIE Unavailable PROBLEMS Type Condition ICD9-CM Code [id number] Code Onset Dates Condition Status SNOMED Code Problem ADHD (attention deficit hyperactivity disorder), combined type F90.2 Active 66980542 Problem Acute seasonal allergic rhinitis, unspecified trigger J30.2 Active 012342181 Problem Major depressive disorder, recurrent episode, in partial or unspecified remission 296.35 Active 76768360 Problem Posttraumatic stress disorder 309.81 Active 64402024 Problem Generalized anxiety disorder F41.1 Active 22077280 Problem Moderate episode of recurrent major depressive disorder F33.1 Active 872423834 ALLERGIES Substance Reaction Event Type Date Status Lamictal "Hives" Drug Allergy Oct, Active Trazodone oversedation Non Drug Allergy Oct, Active ENCOUNTERS Encounter Location Date Diagnosis [facility] [id number] [place] [address] 99242- 1727 Nov, [facility] [id number] [place] [address] 24594- 9448 Nov, [facility] [id number] [place] [address] 73736- 6040 Oct, [facility] [id number] [place] [address] 42302- 8425 Oct, Generalized anxiety disorder F41.1 ; Moderate episode of recurrent major depressive disorder F33.1 and ADHD (attention deficit hyperactivity disorder), combined type F90.2 [facility] [id number] [place] [address] 49692- 9004 Sep, Generalized anxiety disorder F41.1 [facility] [id number] [place] [address] 65729- 6329 Sep, Generalized anxiety disorder F41.1 [facility] [address] 50989- 9116 June, Generalized anxiety disorder F41.1 and Moderate episode of recurrent major depressive disorder F33.1 [facility] [id number] [place] [address] 31106- 0257 May, Visit for TB skin test Z11.1 ; Encounter for physical examination related to employment Z02.1 ; Acute seasonal allergic rhinitis, unspecified trigger J30.2 and Infected tooth K04.7 [facility] [address] 23668- 9220 06 May, 2017 Generalized anxiety disorder F41.1 [facility] [id number] [place] [address] [id number] Apr, 2017 Dental examination Z01.20 [facility] [id number] [place] [address] 29606 -2473 Apr, [facility] [id number] [place] [address] 00467 -5219 Mar, [facility] [id number] [place] [address] 50041 -9477 13 Mar, 2017 Dysuria R30.0 ; Potential exposure to STD Z20.2 and infection, trichomonal A59.00 [facility] [id number] [place] [address] 81033 -5671 Nov, Acute seasonal allergic rhinitis, unspecified trigger J30.2 [facility] [id number] [place] [address] 37512- 2884 Nov, Generalized anxiety disorder F41.1 and Moderate episode of recurrent major depressive disorder F33.1 [facility] [id number] [place] [address] 96111- 3802 18 May, 2016 Bipolar depression F31.30 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 [facility] [address] [id number] [address] Apr, Dental examination Z01.20 [facility] [id number] [place] [address] [id number] Apr, Dental examination Z01.20 [facility] [id number] [place] [address] 16096- 1993 Apr, Dental examination Z01.20 [facility] [id number] [place] [address] 59861- 0417 Aug, [facility] [id number] [place] [address] 60653- 1632 Jul, [facility] [id number] [place] [address] 78854- 5477 Jul, ADHD (attention deficit hyperactivity disorder) F90.9 ; Anxiety and depression F41.9 and Controlled substance agreement signed Z79.899 [facility] [id number] [place] [address] 18365- 1958 Jul, [facility] [id number] [place] [address] 19246- 1017 June, [facility] [id number] [place] [address] 71741- 4601 June, [facility] [id number] [place] [address] 80030- 7309 May, ADHD (attention deficit hyperactivity disorder) F90.9 and Anxiety and depression F41.9 [facility] [address] [id number] [address] 6304 Aug, [facility] [address] [facility] [id number] [place] [address] 29909- 8031 Aug, [facility] [address] [place] [address] [id number] Aug, Dental examination V72.2 [facility] [id number] [place] [address] 18653- 2951 Aug, High risk medications (not anticoagulants) long-term use V58.69 [facility] [address] [id number] [id number] Jul, Dental examination V72.2 [facility] [address] [id number], [place] [address]- 4805 Jul, [facility] [id number] [place] [address] 71396- 3591 Jul, [facility] [id number] [place] [address] 781048- 4008 Jul, [facility] [address] [place] [address] 32894- 5381 June, [facility] [address] [place] [address] 812541- 5062 June, [facility] [address] [place] [address] 28071- 6977 May, [facility] [address] [address]- 1306 May, [facility] [address] [address]- 2496 Apr, [facility] [address] [address]- 6057 Apr, [facility] [address] [address]- 0730 Apr, [facility] [address] [id number] [address]- 8259 Apr, [facility] [address] 3748 Apr, [facility] [address] [id number] [address]- 2285 Apr, [facility] [address] [address]- 4526 Apr, [facility] [place] [facility] [address] [id number] [place] [address]- 6623 Apr, [facility] [place] [facility] [address] [id number] [place] [address]- 2558 Mar, [facility] [place] [facility] [address] [id number] [place] [address]- 9353 Mar, [facility] [place] [facility] [address] [id number] [place] [address]- 0469 Mar, [facility] [place] [facility] [address] [id number] [place] [address]- 5494 Mar, [facility] [place] [facility] [address] [id number] [place] [address]- 5048 Feb, [facility] [place] [facility] [address] [id number] [place] [address]- 8217 Feb, [facility] [place] [facility] [address] [id number] [place] [address]- 2191 Feb, [facility] [place] [facility] [address] [id number] [place] [address]- 6081 Feb, [facility] [place] [facility] [address] [facility] [id number] [place] [address]- 1849 Feb, [facility] [place] [facility] [address] [id number] [place] [address]- 8472 Feb, [facility] [place] [facility] [address] [id number] [address]- 4116 Feb, [facility] [place] [facility] [address] [id number] [place] [address]- 3332 Feb, [facility] [place] [facility] [address] [id number] [place] [address]- 0113 Jan, [facility] [place] [facility] [address] [id number] [place] [address]- 8295 Jan, [facility] [place] [facility] [address] [id number] [place] [address]- 9416 Jan, [facility] [place] [facility] [address] [id number] [place] [address]- 1050 Jan, [facility] [place] [facility] [address] [id number] [place] 0183 Jan, [facility] [place] [facility] [address] [id number] [place] [address]- 7353 Jan, [facility] [place] [facility] [address] [id number] [place] [address]- 9033 Dec, [facility] [place] [facility] [address] [id number] [place] [address]- 5578 Dec, [facility] [place] [facility] [address] [id number] [place] [address]- 3819 Dec, [facility] [place] [facility] [address] [id number] [place] [address]- 7793 Dec, [facility] [place] [facility] [address] [id number] [place] [address]- 7785 Dec, [facility] [place] [facility] [address] [id number] [place] [address]- 0142 Dec, [facility] [place] [facility] [address] [id number] [place] [address]- 2872 Nov, [facility] [place] [facility] [address] [id number] [place] [address]- 0786 Nov, [facility] [place] [facility] [address] [id number] [place] [address]- 8231 Nov, [facility] [place] [facility] [address] [id number] [place] [address]- 8183 Nov, [facility] [place] [facility] [address] [id number] [place] 3451 Nov, [facility] [place] [facility] [address] [id number] [place] [address]- 0376 Nov, [facility] [address] [id number] [place] [address]- 7490 Nov, [facility] [place] [facility] [address] [id number] [place] [address]- 0837 Nov, [facility] [place] [facility] [address] [id number] [place] [address]- 3721 Nov, [facility] [place] [facility] [address] [id number] [place] [address]- 2170 Nov, [facility] [address] [id number] [place] [address]- 0129 Oct, [facility] [place] [facility] [address] [id number] [place] [address]- 1653 Oct, [facility] [place] [facility] [address] [id number] [place] [address]- 3099 Oct, [facility] [place] [facility] [address] [id number] [place] [address]- 4125 Oct, [facility] [address] [id number] [place] [address]- 6910 Oct, [facility] [place] [facility] [address] [id number] [place] [address]- 1827 Oct, [facility] [address] [id number], [place] [address]- 5109 Sep, [facility] [place] [facility] [address] [id number], [place] [address]- 2287 Sep, [facility] [address] [place] [id number] Sep [facility] [place] [facility] [address] [id number] [place] [address]- 9316 Sep, [facility] [address] [id number] [place] [address]- 7321 Aug, [facility] [place] [facility] [address] [id number], [place] [address]- 0368 Aug, [facility] [place] [facility] [address] [id number] [place] [address]- 1300 Aug, [facility] [place] [facility] [address] [id number] [place] [address]- 4076 Aug, [facility] [place] [facility] [address] [id number] [place] [address]- 9051 Aug, [facility] [place] [facility] [address] [id number] [place] [address]- 5880 Aug, [facility] [place] [facility] [address] [id number] [place] [address]- 7771 Jul, [facility] [place] [facility] [address] [id number] [place] [address]- 5750 Jul, [facility] [place] [facility] [address] [id number] [place] [address]- 7745 Jul, [facility] [place] [facility] [address] [id number] [place] [address]- 6199 Jul, [facility] [place] [facility] [address] [id number] [place] [address]- 7783 Jul, [facility] [place] [facility] [address] [id number] [place] [address]- 1269 June, [facility] [place] [facility] [address] [id number] [place] [address]- 8357 June, [facility] [place] [facility] [address] [id number] [place] [address]- 9798 June, [facility] [place] [facility] [address] [id number] [place] [address]- 2536 June, [facility] [place] [facility] [address] [id number] [place] [address]- 4082 May, [facility] [place] [facility] [address] [id number] [place] [address]- 0237 May, [facility] [place] [facility] [address] [id number] [place] [address]- 4178 May, [facility] [place] [facility] [address] [id number] [place] [address]- 1577 May, [facility] [place] [facility] [address] [id number] [place] [address]- 8546 May, [facility] [place] [facility] [address] [id number] [place] [address]- 4023 May, [facility] [place] [facility] [address] [id number] [place] [address]- 9008 May, [facility] [place] [facility] [address] [id number] [place] [address]- 6215 May, [facility] [place] [facility] [address] [id number] [place] [address]- 4348 May, [facility] [place] [facility] [address] [id number] [place] [address]- 5026 May, [facility] [place] [facility] [address] [id number] [place] [address]- 3028 May, [facility] [place] [facility] [address] [id number] [place] [address]- 0450 Apr, [facility] [place] [facility] [address] [id number] [place] [address]- 0024 Apr, [facility] [place] [facility] [address] [id number] [place] [address]- 4294 Apr, [facility] [place] [facility] [address] [id number] [place] [address]- 4639 Apr, [facility] [place] [facility] [address] [id number] [place] [address]- 1942 Mar, [facility] [place] [facility] [address] [id number] [place] [address]- 2576 Mar, [facility] [place] [facility] [address] [id number] [place] [address]- 9832 13 Mar, 2013 [facility] [place] [facility] [address] [id number] [place] [address]- 8573 Mar, [facility] [place] [facility] [address] [id number] [place] [address]- 8478 07 Mar, 2013 [facility] [place] [facility] [address] [id number] [place] [address]- 8491 Mar, [facility] [place] [facility] [address] [id number] [place] [address]- 1699 Feb, [facility] [place] [facility] [address] [id number] [place] [address]- 0725 Feb, [facility] [place] [facility] [address] [id number] [place] [address]- 1672 Feb, [facility] [place] [facility] [address] [id number] [place] [address]- 9918 Feb, [facility] [place] [facility] [address] [id number] [place] [address]- 8622 Feb, [facility] [place] [facility] [address] [id number] [place] [address]- 4282 Feb, [facility] [place] [facility] [address] [id number] [place] [address]- 5238 Feb, [facility] [place] [facility] [address] [id number] [place] [address]- 6596 Jan, [facility] [place] [facility] [address] [id number] [place] [address]- 2049 Jan, [facility] [place] [facility] [address] [id number] [place] [address]- 3787 Jan, [facility] [place] [facility] [address] [id number] [place] [address]- 7258 Jan, [facility] [place] [facility] [address] [id number] [place] [address]- 3885 Dec, [facility] [place] [facility] [address] [id number] [place] [address]- 1684 14 Dec, 2012 [facility] [address] [id number] [place] [address]- 6522 13 Dec, 2012 [facility] [place] [facility] [address] [id number] [place] [address]- 5745 22 Nov, 2012 [facility] [address] [id number] [place] [address]- 3876 17 Nov, 2012 [facility] [place] [facility] [address] [id number] [place] [address]- 4687 17 Nov, 2012 [facility] [address] [id number] [place] [address]- 5579 11 Nov, 2012 [facility] [place] [facility] [address] [id number] [place] [address]- 5403 11 Nov, 2012 [facility] [place] [facility] [address] [id number] [place] [address]- 8667 11 Nov, 2012 [facility] [place] [facility] [address] [id number] [place] [address]- 7000 11 Nov, 2012 [facility] [place] [facility] [address] [id number] [place] [address]- 7817 10 Nov, 2012 [facility] [place] [facility] [address] [id number] [place] [address]- 2308 27 Oct, 2012 [facility] [place] [facility] [address] [id number] [place] [address]- 2545 Oct, [facility] [place] [facility] [address] [id number] [place] [address]- 3028 Sep, [facility] [place] [facility] [address] [id number] [place] [address]- 8678 Sep, [facility] [place] [facility] [address] [id number] [place] [address]- 3752 Sep, [facility] [place] [facility] [address] [id number] [place] [address]- 9801 Sep, [facility] [address] [id number] [place] [address]- 1781 Sep, [facility] [place] [facility] [address] [id number] [place] [address]- 7036 Sep, [facility] [place] [facility] [address] [id number] [place] [address]- 5526 Sep, [facility] [place] [facility] [address] [id number] [place] [address]- 8186 Sep, [facility] [address] [id number] [place] [address]- 6665 Aug, [facility] [place] [facility] [address] [id number] [place] [address]- 2306 Aug, [facility] [place] [facility] [address] [id number] [place] [address]- 7436 Aug, [facility] [address] [id number] [place] [address]- 7725 Aug, [facility] [place] [facility] [address] [id number] [place] [address]- 8585 Jul, [facility] [place] [facility] [address] [id number] [place] [address]- 7189 Jul, [facility] [place] [facility] [address] [id number] [place] [address]- 5739 Jul, [facility] [place] [facility] [address] [id number] [place] [address]- 4061 June, [facility] [place] [facility] [address] [id number] [place] [address]- 4150 June, [facility] [place] [facility] [address] [id number] [place] [address]- 0986 June, [facility] [place] [facility] [address] [id number] [place] [address]- 9770 June, [facility] [place] [facility] [address] [id number] [place] [address]- 7759 June, [facility] [address] [id number] [place] [address]- 6481 May, [facility] [address] [id number] [place] [address]- 1233 May, [facility] [address] [id number] [place] [address]- 0930 May, [facility] [address] [id number] [place] [address]- 3013 May, [facility] [address] [id number] [place] [address]- 2859 May, [facility] [address] [id number] [place] [address]- 5862 May, [facility] [address] [id number] [place] [address]- 3631 May, [facility] [address] [id number] [place] [address]- 3798 28 Apr, 2012 [facility] [address] [id number] [place] [address]- 0955 28 Apr, 2012 [facility] [address] [id number] [place] [address]- 6796 28 Apr, 2012 [facility] [address] [id number] [place] [address]- 0613 13 Apr, 2012 [facility] [place] [facility] [address] [id number] [place] [address] 07 Apr, 2012 [facility] [place] [facility] [address] [id number] [place] [address] 07 Apr, 2012 [facility] [place] [facility] [address] [id number] [place] [address] 06 Apr, 2012 [facility] [place] [facility] [address] [id number] [place] [address] 05 Apr, 2012 [facility] [place] [facility] [address] [id number] [place] [address] 9[address] 05 Apr, 2012 [facility] [address] [id number] [place] [address] Apr, [facility] [place] [facility] [address] [id number] [place] [address] Mar, [facility] [place] [facility] [address] [id number] [place] [address] 20 Mar, 2012 [facility] [place] [facility] [address] [id number] [place] [address] 04[address] 18 Mar, 2012 [facility] [place] [facility] [address] [id number] [place] [address] 6440 15 Mar, [address] [facility] [place] [facility] [address] [facility] [id number] [place] [address] 13 Mar, 2012 [facility] [place] [facility] [address] [id number] [place] [address]708 06 Mar, [address] [facility] [place] [facility] [address] [id number] [place] [address] 05 Mar, [address] [facility] [place] [facility] [address] [facility] [id number] [place] [address]181 Feb[facility] [place] [facility] [address] [facility] [id number] [place] [address]671 Feb, [facility] [place] [facility] [address] [id number] [address] Feb, [facility] [place] [facility] [address] [id number] [place] [address] 9310 Feb, [facility] [place] [facility] [address] [id number] [place] [address] 8156 Jan, [facility] [place] [facility] [address] [facility] [id number] [place] [address] 8055 Jan, [facility] [place] [facility] [address] [id number], [place] [address] Jan, [facility] [place] [facility] [address] [id number] [place] [address] 6772 Jan, [facility] [place] [facility] [address] [id number], [place] [address] Dec, [facility] [place] [facility] [address] [facility] [id number] [place] [address] 4[address] Dec, [facility] [place] [facility] [address] [id number] [place] [address] 7659 Dec, [facility] [place] [facility] [address] [id number] [place] [address] 5724 Dec, [facility] [place] [facility] [address] [id number] [place] [address] 3363 Dec, [facility] [place] [facility] [address] [id number] [place] [address] Dec, [facility] [place] [facility] [address] [id number] [place] [address] 8448 Dec, [facility] [place] [facility] [address] [facility] [id number] [place] [address] 3320 Dec, [facility] [place] [facility] [address] [facility] [id number] [place] [address] 4198 Dec, [facility] [place] [facility] [address] [id number], [place] [address]487 Nov, [facility] [place] [facility] [address] [id number], [place] [address] 0953 Nov, [facility] [place] [facility] [address] [id number], [place] [address] 7663 Nov, [facility] [place] [facility] [address] [facility] [id number], [place] [address]110 Nov, [facility] [place] [facility] [address] [facility] [id number] [place] [address] 1340 Nov, [facility] [place] [facility] [address] [id number] [place] [address] 0433 18 Nov, 2011 [facility] [place] [facility] [address] [id number] [place] [address]- 1246 17 Nov, 2011 [facility] [place] [facility] [address] [id number] [place] [address]- 1106 16 Nov, 2011 [facility] [place] [facility] [address] [id number] [place] [address] 2546 27 Sep, 2011 [facility] [place] [facility] [address] [id number] [place] [address] 2545 24 Sep, 2011 [facility] [place] [facility] [address] [id number] [place] [address]- 6446 13 Sep, 2011 [facility] [place] [facility] [address] [id number] [place] [address]- 9932 11 Sep, 2011 [facility] [place] [facility] [address] [id number] [place] [address]- 1556 10 Oct, 2011 [facility] [place] [facility] [address] [id number] [place] [address] 1779 08 Sep, 2011 [facility] [place] [facility] [address] [id number] [place] [address] 1208 06 Sep, 2011 [facility] [place] [facility] [address] [id number] [place] [address]- 7434 05 Sep, 2011 [facility] [place] [facility] [address] [id number] [place] [address] 2546 04 Oct, 2011 [facility] [place] [facility] [address] [id number] [place] [address] 2546 04 Oct, 2011 [facility] [place] [facility] [address] [id number] [place] [address] 2796 16 Sep, 2011 [facility] [place] [facility] [address] [address] [id number] [place] [address] Sep, [facility] [place] [facility] [address] [id number] [place] [address] Aug, [facility] [place] [facility] [address] [id number] [place] [address] Aug, [facility] [place] [facility] [address] [id number] [place] [address] Aug, [facility] [place] [facility] [address] [id number] [place] [address] Aug, [facility] [place] [facility] [address] [id number] [place] [address] Aug, [facility] [place] [facility] [address] [id number] [place] [address] Aug, [facility] [place] [facility] [address] [id number] [place] [address] Aug, [facility] [place] [facility] [address] [id number] [place] [address] Aug, [facility] [place] [facility] [address] [id number] [place] [address] Jul, [facility] [place] [facility] [address] [id number] [place] [address] Jul, [facility] [place] [facility] [address] [id number] [place] [address] Jul, [facility] [place] [facility] [address] [id number] [place] [address] Jul, [facility] [place] [facility] [address] [id number] [place] [address] June, [facility] [place] [facility] [address] [id number] [place] [address] June, [facility] [place] [facility] [address] [id number] [place] [address] June, [facility] [place] [facility] [address] [id number] [place] [address] June, [facility] [place] [facility] [address] [id number] [place] [address]85 June, [facility] [address] [id number] [place] [address] 267[address] June, [facility] [address] [id number] [place] [address] June, [facility] [address] [id number] [place] [address] June, [facility] [place] [facility] [address] [id number] [place] [address]40 June, [facility] [address] [id number] [place] [address] June, [facility] [address] [id number] [place] [address] June, [facility] [address] [id number] [place] [address] June, [facility] [address] [id number] [place] [address] June, [facility] [address] [id number] [place] [address] 8[address] June, [facility] [address] [id number] [place] [address] 3587 June, [facility] [place] [facility] [address] [id number] [place] [address] June, [facility] [place] [facility] [address] [id number] [place] [address] May, [facility] [place] [facility] [address] [id number] [place] [address] May, [facility] [place] [facility] [address] [id number] [place] [address] 32[address] May, [facility] [place] [facility] [address] [id number] [place] [address] May, [facility] [place] [facility] [address] [id number] [place] [address] 13 Apr, 2011 [facility] [place] [facility] [address] [id number] [place] [address] Apr, [facility] [place] [facility] [address] [id number] [place] [address] 2546 Apr, [facility] [place] [facility] [address] [id number] [place] [address] 1606 Apr, [facility] [place] [facility] [address] [id number] [place] [address] Apr, [facility] [place] [facility] [address] [id number] [place] [address]326 Apr, [facility] [place] [facility] [address] [id number] [place] [address]287 Apr, [facility] [place] [facility] [address] [id number] [place] [address] 2669 Mar, [facility] [place] [facility] [address] [id number] [place] [address] 98[address] Mar, [facility] [place] [facility] [address] [facility] [id number] [place] [address] 6205 16 Mar, 2011 [facility] [place] [facility] [address] [id number] [place] [address] 15 Mar, 2011 [facility] [place] [facility] [address] [id number] [place] [address] 9750 13 Mar, 2011 [facility] [place] [facility] [address] [id number] [place] [address] 2546 Mar, [facility] [place] [facility] [address] [id number] [place] [address]- [address] 06 Mar, 2011 [facility] [place] [facility] [address] [id number] [place] [address] 5396 Mar, [facility] [place] [facility] [address] [id number] [place] [address]- 1154 09 Feb, 2011 [facility] [address] [id number] [place] [address] 6041 Feb, [facility] [place] [facility] [address] [id number] [place] [address]255 Feb, [facility] [address] [id number] [place] [address] 2648 Jan, [facility] [place] [facility] [address] [id number] [place] [address]- [address]600 24 Jan, 2011 [facility] [address] [id number] [place] [address]- 7938 20 Jan, 2011 [facility] [place] [facility] [address] [id number] [place] [address]- [address]28 20 Jan, 2011 [facility] [address] [id number] [place] [address]- 2246 19 Jan, 2011 [facility] [place] [facility] [address] [id number] [place] [address]- 5545 14 Jan, 2011 [facility] [place] [facility] [address] [id number] [place] [address]- 7050 13 Jan, 2011 [facility] [place] [facility] [address] [id number] [place] [address]- 9205 13 Jan, 2011 [facility] [place] [facility] [address] [id number] [place] [address]- 2860 07 Jan, 2011 [facility] [place] [facility] [address] [id number] [place] [address]- 8945 30 Dec, 2010 [facility] [place] [facility] [address] [id number] [place] [address]- 7630 28 Dec, 2010 [facility] [place] [facility] [address] [id number] [place] [address]- 7084 23 Dec, 2010 [facility] [place] [facility] [address] [id number] [place] [address]- 8736 07 Dec, 2010 [facility] [place] [facility] [address] [id number] [place] [address]- 8375 24 Nov, 2010 [facility] [place] [facility] [address] [id number] [place] [address]- 7596 20 Nov, 2010 [facility] [place] [facility] [address] [id number] [place] [address] 2546 10 Nov, 2010 [facility] [place] [facility] [address] [id number] [place] [address]- 2286 10 Nov, 2010 [facility] [place] [facility] [address] [id number] [place] [address] 2544 Oct, [facility] [place] [facility] [address] [id number] [place] [address]- 2823 Aug, [facility] [place] [facility] [address] [id number] [place] [address]- 7258 15 Mar, 2010 [facility] [place] [facility] [address] [id number] [place] [address]- 6884 Jan, [facility] [place] [facility] [address] [id number] [place] [address]- 8437 Jan, [facility] [place] [facility] [address] [id number] [place] [address]- 9492 Jan, [facility] [place] [facility] [address] [id number] [place] [address] 2541 Jan, [facility] [place] [facility] [address] [id number] [place] [address]- 2542 29 Dec, 2009 [facility] [place] [facility] [address] [id number] [place] [address] 2542 Dec, [facility] [place] [facility] [address] [id number] [place] [address] 2546 22 Dec, 2009 [facility] [place] [facility] [address] [id number] [place] [address]- 2548 14 Dec, 2009 [facility] [place] [facility] [address] [id number] [address] Nov, [facility] [address] [id number] [address] Nov, [facility] [id number] [address] Nov, [facility] [id number], [place] [address] Apr, [facility] [id number] [address] Feb, [facility] [id number], [place] [address]- 2198 Jan, [facility] [id number], [place] [address]- 2676 Jan, [facility] [id number], [place] [address] Nov, [facility] [address] [id number] [address] Nov, IMMUNIZATIONS No Known Immunizations SOCIAL HISTORY Never Assessed REASON FOR VISIT f/u-AB/ASHA PLAN OF CARE Activity Details Follow Up 4 Weeks Reason: f/u VITAL SIGNS Height 67 in 2017-10-31 Weight 182.3 lbs 2017-10-31 Heart Rate 82 bpm 2017-10-31 Respiratory Rate 20 2017-10-31 BMI 28.55 kg/m2 2017-10-31 Blood pressure systolic 118 mmHg 2017-10-31 Blood pressure diastolic 70 mmHg 2017-10-31 MEDICATIONS Medication Instructions Dosage Frequency Start Date End Date Duration Status Flonase 50 MCG/ACT Nasally Once a day 1 spray in each nostril 24h May, 30 day(s) Not-Taking Adderall XR 10 mg Orally Once a day in the morning 1 capsule Oct, 28 days Active Pristiq 100 mg Orally Once a day 1 tablet 24h June, 30 days Active Gabapentin 300 MG Orally twice [...]
--- OUTSIDE RECORDS SUMMARY | 2018-01-18 09:27 | XMS REPORT ---
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 Name Role Phone PHUONGVALERIE Unavailable PROBLEMS Type Condition ICD9-CM Code LXI12-WN Code Onset Dates Condition Status SNOMED Code Problem ADHD (attention deficit hyperactivity disorder), combined type F90.2 Active 23525846 Problem Acute seasonal allergic rhinitis, unspecified trigger J30.2 Active 967815144 Problem Major depressive disorder, recurrent episode, in partial or unspecified remission 296.35 Active 01233832 Problem Posttraumatic stress disorder 309.81 Active 69118756 Problem Generalized anxiety disorder F41.1 Active 78704488 Problem Moderate episode of recurrent major depressive disorder F33.1 Active [id number] ALLERGIES No Information ENCOUNTERS Encounter Location Date Diagnosis [facility] [id number] [place] [address] 73917- 0488 Nov, [facility] [id number] [place] [address] 98683- 4641 Nov, [facility] [id number] [place] [address] 70352- 9053 Oct, [facility] [id number] [place] [address] 51059- 8018 Oct, Generalized anxiety disorder F41.1 ; Moderate episode of recurrent major depressive disorder F33.1 and ADHD (attention deficit hyperactivity disorder), combined type F90.2 [facility] [id number] [place] [address] 24967- 8218 Sep, Generalized anxiety disorder F41.1 [facility] [id number] [place] [address] 10376- 9309 Sep, Generalized anxiety disorder F41.1 [facility] [id number] [place] [address] 30039- 5213 June, Generalized anxiety disorder F41.1 and Moderate episode of recurrent major depressive disorder F33.1 [place] [address] 77340- 7351 May, Visit for TB skin test Z11.1 ; Encounter for physical examination related to employment Z02.1 ; Acute seasonal allergic rhinitis, unspecified trigger J30.2 and Infected tooth K04.7 [place] [id number] [place] [address] 29924- 7471 May, Generalized anxiety disorder F41.1 [facility] [address] [id number] Apr, Dental examination Z01.20 [facility] [address] [place] [address] 02562 -2158 Apr, [facility] [address] [address] Mar, [facility] [address] [place] [address] 00165 -8625 Mar, Dysuria R30.0 ; Potential exposure to STD Z20.2 and infection, trichomonal A59.00 [facility] [place] [id number] [place] [address] 94563 -8732 Nov, Acute seasonal allergic rhinitis, unspecified trigger J30.2 [place] [id number] [place] [address] 77501- 9075 Nov, Generalized anxiety disorder F41.1 and Moderate episode of recurrent major depressive disorder F33.[address] 11409- 9563 May, Bipolar depression F31.30 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 [place] [id number] [place] [address] 30943- 0472 29 Mar, 2017 Dental examination Z01.20 [facility] [address] [id number] [id number] Apr, Dental examination Z01.20 [facility] [id number] [place] [address] 15380- 6801 Apr, Dental examination Z01.20 [facility] [id number] [place] [address] 32009- 8010 Aug, [facility] [id number] [place] [address] 01289- 3927 Jul, [facility] [id number] [place] [address] 34622- 6912 Jul, ADHD (attention deficit hyperactivity disorder) F90.9 ; Anxiety and depression F41.9 and Controlled substance agreement signed Z79.899 [facility] [id number] [place] [address] 92757- 3966 Jul, [facility] [id number] [place] [address] 46465- 8209 June, [facility] [id number] [place] [address] 30691- 5600 June, [facility] [id number] [place] [address] 92439- 3126 May, ADHD (attention deficit hyperactivity disorder) F90.9 and Anxiety and depression F41.9 [facility] [id number] [place] [address] 19572- 9201 Aug, [facility] [id number] [place] [address] 34999- 5869 Aug, [facility] [id number] [place] [address] [id number] Aug, Dental examination V72.2 [facility] [id number] [place] [address] 98244- 3737 Aug, High risk medications (not anticoagulants) long-term use V58.69 [facility] [place] [facility] [address] [id number] [place] [id number] Jul, Dental examination V72.2 [facility] [place] [facility] [address] [id number] [place] [address]- 1236 Jul, [facility] [place] [facility] [address] [id number] [place] [address]- 8620 Jul, [facility] [place] [facility] [address] [id number] [place] [address]- 4415 Jul, [facility] [place] [facility] [address] [id number] [place] [address]- 4952 June, [facility] [place] [facility] [address] [id number] [place] [address]- 9304 June, [facility] [place] [facility] [address] [id number] [place] [address]- 7729 May, [facility] [place] [facility] [address] [id number], [place] [address]- 7232 May, [facility] [place] [facility] [address] [id number] [place] [address]- 7870 Apr, [facility] [place] [facility] [address] [id number], [place] [address]- 0890 Apr, [facility] [place] [facility] [address] [id number], [place] [address]- 3216 Apr, [facility] [place] [facility] [address] [id number], [place] [address]- 6499 Apr, [facility] [place] [facility] [address] [id number][place] 1802 Apr, [facility] [place] [facility] [address] [id number][place] 5193 Apr, [facility] [place] [facility] [address] [id number], [place] [address]- 1241 Apr, [facility] [place] [facility] [address] [id number], [place] [address]- 5059 Apr, [facility] [place] [facility] [address] [id number] [place] [address]- 7767 Mar, [facility] [place] [facility] [address] [id number] [place] [address]- 1067 Mar, [facility] [place] [facility] [address] [facility] [id number] [place] [address]- 8193 Mar, [facility] [place] [facility] [address] [id number] [place] [address]- 6605 Mar, [facility] [place] [facility] [address] [id number] [place] [address]- 2862 Feb, [facility] [place] [facility] [address] [id number] [place] [address]- 0322 Feb, [facility] [place] [facility] [address] [facility] [id number] [place] [address]- 6282 Feb, [facility] [place] [facility] [address] [facility] [id number] [place] [address]- 2756 Feb, [facility] [place] [facility] [address] [facility] [id number] [place] [address]- 6134 Feb, [facility] [place] [facility] [address] [facility] [id number] [place] [address]- 0714 Feb, [facility] [place] [facility] [address] [facility] [id number], [place] [address]- 6613 Feb, [facility] [place] [facility] [address] [id number], [place] [address]- 6589 Feb, [facility] [place] [facility] [address] [id number] [place] [address]- 2801 Jan, [facility] [place] [facility] [address] [facility] [id number] [place] [address]- 4615 Jan, [facility] [place] [facility] [address] [facility] [id number] [place] [address]- 6610 Jan, [facility] [place] [facility] [address] [id number] [place] [address]- 3818 Jan, [facility] [place] [facility] [address] [id number] [place] [address]- 7439 Jan, [facility] [place] [facility] [address] [id number] [place] [address]- 1679 Jan, [facility] [place] [facility] [address] [id number] [place] [address]- 3529 Dec, [facility] [place] [facility] [address] [id number] [place] 3058 Dec, [facility] [place] [facility] [address] [id number] [place] 7114 Dec, [facility] [place] [facility] [address] [id number] [place] [address]- 6447 Dec, [facility] [place] [facility] [address] [id number] [place] [address]- 2335 Dec, [facility] [place] [facility] [address] [id number] [place] [address]- 8909 Dec, [facility] [place] [facility] [address] [id number] [place] [address]- 8692 Nov, [facility] [place] [facility] [address] [id number] [place] [address]- 5891 Nov, [facility] [place] [facility] [address] [id number] [place] [address]- 7237 Nov, [facility] [place] [facility] [address] [id number] [place] 8599 Nov, [facility] [place] [facility] [address] [id number] [place] [address]- 5816 Nov, [facility] [place] [facility] [address] [id number] [place] [address]- 7218 Nov, [facility] [place] [facility] [address] [id number] [place] 3281 Nov, [facility] [address] [id number] [place] [address]- 6800 Nov, [facility] [place] [facility] [address] [id number] [place] [address]- 2374 Nov, [facility] [place] [facility] [address] [id number] [place] [address]- 8505 Nov, [facility] [place] [facility] [address] [id number] [place] [address]- 6662 Oct, [facility] [place] [facility] [address] [id number] [place] [address]- 3899 Oct, [facility] [place] [facility] [address] [id number] [place] [address]- 1562 Oct, [facility] [place] [facility] [address] [id number] [place] [address]- 1891 Oct, [facility] [place] [facility] [address] [id number] [place] [address]- 3779 Oct, [facility] [place] [facility] [address] [id number] [place] [address]- 7499 Oct, [facility] [place] [facility] [address] [id number] [place] [address]- 9624 Sep, [facility] [address] [id number] [place] [address]- 4139 Sep, [facility] [address] [place] [id number] Sep [facility] [place] [facility] [address] [id number] [place] [address]- 0457 Sep, [facility] [place] [facility] [address] [id number] [place] [address]- 9642 Aug, [facility] [place] [facility] [address] [id number] [place] [address]- 4882 Aug, [facility] [place] [facility] [address] [id number] [place] [address]- 5171 Aug, [facility] [place] [facility] [address] [id number] [place] [address]- 2824 Aug, [facility] [place] [facility] [address] [id number] [place] [address]- 1416 Aug, [facility] [place] [facility] [address] [id number] [place] [address]- 4173 Aug, [facility] [place] [facility] [address] [id number] [place] [address]- 1692 Jul, [facility] [place] [facility] [address] [id number] [place] [address]- 5174 Jul, [facility] [place] [facility] [address] [id number] [place] [address]- 4391 Jul, [facility] [place] [facility] [address] [id number] [place] [address]- 4733 Jul, [facility] [place] [facility] [address] [id number] [place] [address]- 0741 Jul, [facility] [place] [facility] [address] [id number] [place] [address]- 5642 June, [facility] [place] [facility] [address] [id number] [place] [address]- 3721 June, [facility] [place] [facility] [address] [id number] [place] [address]- 4939 June, [facility] [place] [facility] [address] [id number] [place] [address]- 9716 June, [facility] [place] [facility] [address] [id number] [place] [address]- 0984 May, [facility] [place] [facility] [address] [id number] [place] [address]- 3108 May, [facility] [place] [facility] [address] [id number] [place] [address]- 2119 May, [facility] [place] [facility] [address] [id number] [place] [address]- 3277 May, [facility] [place] [facility] [address] [id number] [place] [address]- 1700 May, [facility] [place] [facility] [address] [id number] [place] [address]- 4708 May, [facility] [place] [facility] [address] [id number] [place] [address]- 2391 May, [facility] [place] [facility] [address] [id number] [place] [address]- 4096 May, [facility] [place] [facility] [address] [id number] [place] [address]- 6180 May, [facility] [place] [facility] [address] [id number] [place] [address]- 8566 May, [facility] [place] [facility] [address] [id number] [place] [address]- 8249 May, [facility] [place] [facility] [address] [id number] [place] [address]- 0565 Apr, [facility] [place] [facility] [address] [id number] [place] [address]- 9100 Apr, [facility] [place] [facility] [address] [id number] [place] [address]- 5789 Apr, [facility] [place] [facility] [address] [id number] [place] [address]- 3541 Apr, [facility] [place] [facility] [address] [id number] [place] [address]- 5315 Mar, [facility] [place] [facility] [address] [id number] [place] [address]- 1661 Mar, [facility] [place] [facility] [address] [id number] [place] [address]- 2417 Mar, [facility] [place] [facility] [address] [id number] [place] [address]- 0870 Mar, [facility] [place] [facility] [address] [id number] [place] [address]- 9824 Mar, [facility] [place] [facility] [address] [id number] [place] [address]- 0486 Mar, [facility] [place] [facility] [address] [id number] [place] [address]- 4464 Feb, [facility] [place] [facility] [address] [id number] [place] [address]- 2071 Feb, [facility] [place] [facility] [address] [id number] [place] [address]- 8345 Feb, [facility] [place] [facility] [address] [id number] [place] [address]- 4081 Feb, [facility] [place] [facility] [address] [id number] [place] [address]- 1226 Feb, [facility] [place] [facility] [address] [id number] [place] [address]- 4276 Feb, [facility] [place] [facility] [address] [id number] [place] [address]- 1061 Feb, [facility] [place] [facility] [address] [id number] [place] [address]- 8813 Jan, [facility] [place] [facility] [address] [id number] [place] [address]- 9640 Jan, [facility] [place] [facility] [address] [id number] [place] [address]- 0520 Jan, [facility] [place] [facility] [address] [id number] [place] [address]- 8101 Jan, [facility] [place] [facility] [address] [id number] [place] [address]- 1451 Dec, [facility] [place] [facility] [address] [id number] [place] [address]- 8226 Dec, [facility] [place] [facility] [address] [id number] [place] [address]- 7722 Dec, [facility] [address] [id number] [place] [address]- 9898 Nov, [facility] [place] [facility] [address] [id number] [place] [address]- 6000 17 Nov, 2012 [facility] [place] [facility] [address] [id number] [place] [address]- 3242 17 Nov, 2012 [facility] [place] [facility] [address] [id number] [place] [address]- 1609 Nov, [facility] [place] [facility] [address] [id number] [place] [address]- 0615 Nov, [facility] [place] [facility] [address] [id number] [place] [address]- 5379 Nov, [facility] [place] [facility] [address] [id number] [place] [address]- 3118 Nov, [facility] [place] [facility] [address] [id number] [place] [address]- 1937 Nov, [facility] [place] [facility] [address] [id number] [place] [address]- 4406 Oct, [facility] [place] [facility] [address] [id number] [place] [address]- 9363 Oct, [facility] [place] [facility] [address] [id number] [place] [address]- 9410 Sep, [facility] [place] [facility] [address] [id number] [place] [address]- 4214 Sep, [facility] [place] [facility] [address] [id number] [place] [address]- 7275 Sep, [facility] [place] [facility] [address] [id number] [place] [address]- 4474 Sep, [facility] [place] [facility] [address] [id number] [place] [address]- 2471 Sep, [facility] [place] [facility] [address] [id number] [place] [address]- 5298 Sep, [facility] [address] [id number] [place] [address]- 2546 Sep, [facility] [place] [facility] [address] [id number] [place] [address]- 2546 Sep, [facility] [place] [facility] [address] [id number] [place] [address]- 5094 Aug, [facility] [address] [id number] [place] [address]- 3180 Aug, [facility] [address] [id number] [place] [address]- 2166 Aug, [facility] [address] [id number] [place] [address]- 2281 Aug, [facility] [address] [id number] [place] [address]- 4355 Jul, [facility] [address] [id number] [place] [address]- 6036 Jul, [facility] [address] [id number] [place] [address]- 8304 Jul, [facility] [place] [facility] [address] [id number] [place] [address]- 4906 June, [facility] [place] [facility] [address] [id number] [place] [address]- 7340 June, [facility] [place] [facility] [address] [id number] [place] [address]- 8523 June, [facility] [place] [facility] [address] [id number] [place] [address]- 4176 June, [facility] [place] [facility] [address] [id number] [place] [address]- 2546 June, [facility] [place] [facility] [address] [id number] [place] [address]- 7554 May, [facility] [address] [id number] [place] [address]- 8649 May, [facility] [place] [facility] [address] [id number] [place] [address]- 1269 May, [facility] [address] [id number] [place] [address]- 7976 May, [facility] [place] [facility] [address] [id number] [place] [address]- 6222 May, [facility] [address] [id number] [place] [address]- 9952 May, [facility] [address] [id number] [place] [address]- 0929 May, [facility] [address] [id number] [place] [address]- 2241 Apr, [facility] [place] [facility] [address] [id number] [place] [address]- 4798 28 Apr, 2012 [facility] [address] [id number] [place] [address]- 4299 28 Apr, 2012 [facility] [place] [facility] [address] [id number] [place] [address]- 4288 Apr, [facility] [place] [facility] [address] [id number] [place] [address]- 6246 07 Apr, 2012 [facility] [place] [facility] [address] [id number] [place] [address]- 5707 07 Apr, 2012 [facility] [place] [facility] [address] [id number] [place] [address]- 7123 06 Apr, 2012 [facility] [place] [facility] [address] [id number] [place] [address]- 4139 05 Apr, 2012 [facility] [place] [facility] [address] [id number] [place] [address]- 6321 05 Apr, 2012 [facility] [place] [facility] [address] [id number] [place] [address]- 1935 Apr, [facility] [address] [id number] [place] [address]- 7610 Mar, [facility] [place] [facility] [address] [id number] [place] [address] 2546 20 Mar, 2012 [facility] [place] [facility] [address] [id number] [place] [address] 2546 18 Mar, 2012 [facility] [place] [facility] [address] [id number] [place] [address]- 7454 15 Mar, 2012 [facility] [place] [facility] [address] [id number] [place] [address]- 6146 13 Mar, 2012 [facility] [address] [id number] [place] [address] 06 Mar, 2012 [facility] [place] [facility] [address] [id number] [place] [address] 05 Mar, 2012 [facility] [place] [facility] [address] [id number] [place] [address] Feb, [facility] [place] [facility] [address] [id number] [place] [address] Feb, [facility] [place] [facility] [address] [id number] [place] [address] Feb, [facility] [place] [facility] [address] [id number] [place] [address] Feb, [facility] [place] [facility] [address] [id number] [place] [address] Jan, [facility] [place] [facility] [address] [id number] [place] [address] 7987 Jan, [facility] [place] [facility] [address] [id number] [place] [address] Jan, [facility] [place] [facility] [address] [id number], [place] [address] Jan, [facility] [place] [facility] [address] [id number] [place] [address] Dec, [facility] [place] [facility] [address] [id number], [place] [address] Dec, [facility] [place] [facility] [address] [id number] [place] [address] 56[address] Dec, [facility] [place] [facility] [address] [id number], [place] [address] Dec, [facility] [place] [facility] [address] [id number] [place] [address]- 5324 Dec, [facility] [place] [facility] [address] [id number] [place] [address]- 2433 Dec, [facility] [place] [facility] [address] [id number], [place] [address] Dec, [facility] [place] [facility] [address] [id number] [place] [address]- 9420 Dec, [facility] [place] [facility] [address] [id number], [place] [address] Dec, [facility] [place] [facility] [address] [id number], [place] [address] Nov, [facility] [place] [facility] [address] [id number], [place] [address] Nov, [facility] [place] [facility] [address] [id number], [place] [address]- [address] Nov, [facility] [place] [facility] [address] [id number], [place] [address] 8953 Nov, [facility] [place] [facility] [address] [facility] [id number], [place] [address]70 Nov, [facility] [place] [facility] [address] [id number][place] [address] 16[address] Nov, [facility] [place] [facility] [address] [id number] [place] [address]- 4644 17 Nov, 2011 [facility] [place] [facility] [address] [id number] [place] [address]- 3796 16 Nov, 2011 [facility] [place] [facility] [address] [id number] [place] [address]- 2546 27 Sep, 2011 [facility] [place] [facility] [address] [id number] [place] [address] 2546 24 Sep, 2011 [facility] [place] [facility] [address] [id number] [place] [address] 2546 13 Sep, 2011 [facility] [address] [id number] [place] [address]- 0696 11 Sep, 2011 [facility] [place] [facility] [address] [id number] [place] [address]- 5843 10 Sep, 2011 [facility] [place] [facility] [address] [id number] [place] [address] 2544 08 Sep, 2011 [facility] [address] [id number] [place] [address]- 7558 06 Sep, 2011 [facility] [place] [facility] [address] [id number] [place] [address] 2544 05 Sep, 2011 [facility] [address] [id number] [place] [address]- [address]99 04 Sep, 2011 [facility] [place] [facility] [address] [id number] [place] [address] 2540 04 Oct, 2011 [facility] [place] [facility] [address] [id number] [place] [address] 2542 16 Sep, 2011 [facility] [place] [facility] [address] [id number] [place] [address] 2546 Sep, [facility] [place] [facility] [address] [id number] [place] [address] 2548 Aug, [facility] [place] [facility] [address] [id number] [place] [address]- 5598 Aug, [facility] [place] [facility] [address] [id number] [place] [address]- 1646 Aug, [facility] [place] [facility] [address] [id number] [place] [address]- 1576 Aug, [facility] [place] [facility] [address] [id number] [place] [address]- 6209 Aug, [facility] [place] [facility] [address] [id number] [place] [address]- 6[address] Aug, [facility] [place] [facility] [address] [id number] [place] [address]- 4343 Aug, [facility] [place] [facility] [address] [id number] [place] [address]- 4666 Aug, [facility] [place] [facility] [address] [id number] [place] [address]- 0681 Jul, [facility] [place] [facility] [address] [id number] [place] [address]- 1441 Jul, [facility] [place] [facility] [address] [id number] [place] [address]- 8819 Jul, [facility] [place] [facility] [address] [id number] [place] [address]- 7[address] Jul, [facility] [place] [facility] [address] [id number] [place] [address]- 4431 June, [facility] [place] [facility] [address] [id number] [place] [address]- 7559 June, [facility] [place] [facility] [address] [id number] [place] [address]- 3560 June, [facility] [place] [facility] [address] [id number] [place] [address]- 7535 June, [facility] [place] [facility] [address] [id number] [place] [address] June, [facility] [place] [facility] [address] [id number] [place] [address] June, [facility] [address] [id number] [place] [address] June, [facility] [address] [id number] [place] [address] June, [facility] [address] [id number] [place] [address] June, [facility] [address] [id number] [place] [address] June, [facility] [address] [id number] [place] [address] June, [facility] [address] [id number] [place] [address] June, [facility] [address] [id number] [place] [address] June, [facility] [address] [id number] [place] [address] June, [facility] [address] [id number] [place] [address] June, [facility] [address] [id number] [place] [address] June, [facility] [address] [id number] [place] [address] May, [facility] [place] [facility] [address] [id number] [place] [address] May, [facility] [place] [facility] [address] [id number] [place] [address] May, [facility] [place] [facility] [address] [id number] [place] [address] May, [facility] [address] [id number] [place] [address]68 Apr, [facility] [place] [facility] [address] [id number] [place] [address] Apr, [facility] [place] [facility] [address] [id number] [place] [address] 164[address] Apr, [facility] [place] [facility] [address] [id number] [place] [address] Apr, [facility] [place] [facility] [address] [id number] [place] [address] Apr, [facility] [place] [facility] [address] [id number] [place] [address] Apr, [facility] [place] [facility] [address] [id number] [place] [address] Apr, [facility] [place] [facility] [address] [id number] [place] [address] Mar, [facility] [place] [facility] [address] [id number] [place] [address] Mar, [facility] [place] [facility] [address] [id number] [place] [address] 16 Mar, 2011 [facility] [place] [facility] [address] [id number] [place] [address] 47[address] 15 Mar, 2011 [facility] [place] [facility] [address] [id number] [place] [address] Mar, [facility] [place] [facility] [address] [id number] [place] [address] Mar, [facility] [place] [facility] [address] [id number] [place] [address] 2546 Mar, [facility] [place] [facility] [address] [id number] [place] [address] Mar, [facility] [place] [facility] [address] [id number] [place] [address] Feb, [facility] [place] [facility] [address] [id number] [place] [address] Feb, [facility] [address] [id number] [place] [address] Feb, [facility] [place] [facility] [address] [id number] [place] [address] 26 Jan, 2011 [facility] [address] [id number] [place] [address] 24 Jan, 2011 [facility] [place] [facility] [address] [id number] [place] [address] 8669 20 Jan, 2011 [facility] [place] [facility] [address] [id number] [place] [address], [place] 20 Jan, 2011 [facility] [place] [facility] [address] [id number] [place] [address] 118[address] 19 Jan, 2011 [facility] [address] [id number] [place] [address] 14 Jan, 2011 [facility] [place] [facility] [address] [id number] [place] [address] Jan, [facility] [place] [facility] [address] [id number] [place] [address] Jan, [facility] [place] [facility] [address] [id number] [place] [address] 07 Jan, 2011 [facility] [place] [facility] [address] [id number] [place] [address] 30 Dec, 2010 [facility] [place] [facility] [address] [id number] [place] [address]686 28 Dec, 2010 [facility] [place] [facility] [address] [id number] [place] [address]- [address] 23 Dec, 2010 [facility] [place] [facility] [address] [id number] [place] [address] 07 Dec, 2010 [facility] [place] [facility] [address] [id number] [place] [address]70 24 Nov, 2010 [facility] [place] [facility] [address] [id number] [place] [address]- [address]474 20 Nov, 2010 [facility] [place] [facility] [address] [id number] [place] [address] 9936 10 Nov, 2010 [facility] [place] [facility] [address] [id number] [place] [address] 2546 10 Nov, 2010 [facility] [place] [facility] [address] [id number] [place] [address] 2546 13 Oct, 2010 [facility] [place] [facility] [address] [id number] [place] [address] 2543 13 Aug, 2010 [facility] [place] [facility] [address] [id number] [place] [address]- 1019 15 Mar, 2010 [facility] [place] [facility] [address] [id number] [place] [address]- 115[address] 23 Jan, 2010 [facility] [place] [facility] [address] [id number] [place] [address]168 Jan, [facility] [place] [facility] [address] [id number] [place] [address]046 Jan, [facility] [place] [facility] [address] [id number] [place] [address] Jan, [facility] [place] [facility] [address] [id number] [place] [address] 2549 29 Dec, 2009 [facility] [place] [facility] [address] [id number] [place] [address] Dec, [facility] [place] [facility] [address] [id number] [place] [address] 2543 Dec, [facility] [place] [facility] [address] [id number] [place] [address] 2546 14 Dec, 2009 [facility] [place] [facility] [address] [id number] [place] [address]49 25 Nov, 2009 [facility] [place] [facility] [address] [id number] [place] [address] 18 Nov, 2009 [facility] [address] [id number] [address] 18 Nov, 2009 [facility] [id number] [place] [address] Apr, [facility] [address] [id number], [place] [address] Feb, [facility] [id number], [place] [address] Jan, [facility] [address] [id number], [place] [address] Jan, [facility] [id number] [place] [address] Nov, [facility] [address] [id number], [place] [address] Nov, IMMUNIZATIONS No Known Immunizations SOCIAL HISTORY Never Assessed REASON FOR VISIT Refill request PLAN OF CARE VITAL SIGNS MEDICATIONS Medication Instructions Dosage Frequency Start Date End Date Duration Status Pristiq 100 mg Orally Once a day 1 tablet 24h June, 6 days Active RESULTS No Results PROCEDURES No [...]
--- OUTSIDE RECORDS SUMMARY | 2018-01-18 09:28 | XMS REPORT ---
Author Author VALERIE BACA [facility] Address [address] [place] [address] Care Team Providers Care Control Room Supervisor Name Role Phone PHUONGVALERIE Unavailable PROBLEMS Type Condition ICD9-CM Code DLZ98-OE Code Onset Dates Condition Status SNOMED Code Problem ADHD (attention deficit hyperactivity disorder), combined type F90.2 Active 62662132 Problem Acute seasonal allergic rhinitis, unspecified trigger J30.2 Active 779146030 Problem Major depressive disorder, recurrent episode, in partial or unspecified remission 296.35 Active 16725389 Problem Posttraumatic stress disorder 309.81 Active 58005782 Problem Generalized anxiety disorder F41.1 Active 94784395 Problem Moderate episode of recurrent major depressive disorder F33.1 Active [id number] ALLERGIES No Information ENCOUNTERS Encounter Location Date Diagnosis [facility] [id number] [place] [address] 04504- 5458 Nov, [facility] [id number] [place] [address] 28123- 5889 Nov, [facility] [id number] [place] [address] 41834- 7608 Oct, [facility] [id number] [place] [address] 79537- 8105 Oct, Generalized anxiety disorder F41.1 ; Moderate episode of recurrent major depressive disorder F33.1 and ADHD (attention deficit hyperactivity disorder), combined type F90.2 [facility] [id number] [place] [address] 43110- 0015 Sep, Generalized anxiety disorder F41.1 [facility] [id number] [place] [address] 78906- 0053 Sep, Generalized anxiety disorder F41.1 [facility] [id number] [place] [address] 41642- 9231 June, Generalized anxiety disorder F41.1 and Moderate episode of recurrent major depressive disorder F33.1 [place] [address] [address]26- 8349 May, Visit for TB skin test Z11.1 ; Encounter for physical examination related to employment Z02.1 ; Acute seasonal allergic rhinitis, unspecified trigger J30.2 and Infected tooth K04.7 [place] [id number] [place] [address] 35118- 3937 May, Generalized anxiety disorder F41.1 [facility] [address] [id number] Apr, Dental examination Z01.20 [facility] [address] [place] [address] 13462 -2071 Apr, [facility] [address] [address] -47[address] Mar, [facility] [address] [place] [address] 31799 -7391 Mar, Dysuria R30.0 ; Potential exposure to STD Z20.2 and infection, trichomonal A59.00 [facility] [place] [id number] [place] [address] 90732 -2896 Nov, Acute seasonal allergic rhinitis, unspecified trigger J30.2 [place] [id number] [place] [address] 88931- 7381 Nov, Generalized anxiety disorder F41.1 and Moderate episode of recurrent major depressive disorder F33.[address] 75297- 7311 May, Bipolar depression F31.30 and 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 [place] [id number] [place] [address] 83803- 4092 29 Mar, 2017 Dental examination Z01.20 [facility] [address] [id number] Apr, Dental examination Z01.20 [facility] [id number] [place] [address] 01785- 8793 Apr, Dental examination Z01.20 [facility] [id number] [place] [address] 81070- 5570 Aug, [facility] [id number] [place] [address] 59280- 7065 Jul, [facility] [id number] [place] [address] 71569- 5374 Jul, ADHD (attention deficit hyperactivity disorder) F90.9 ; Anxiety and depression F41.9 and Controlled substance agreement signed Z79.899 [facility] [id number] [place] [address] 48823- 7394 Jul, [facility] [id number] [place] [address] 87931- 1304 June, [facility] [id number] [place] [address] 27936- 5764 June, [facility] [id number] [place] [address] 37833- 2054 May, ADHD (attention deficit hyperactivity disorder) F90.9 and Anxiety and depression F41.9 [facility] [id number] [place] [address] 81591- 0427 Aug, [facility] [id number] [place] [address] 46691- 2335 Aug, [facility] [id number] [place] [address] [id number] Aug, Dental examination V72.2 [facility] [id number] [place] [address] 07647- 6354 Aug, High risk medications (not anticoagulants) long-term use V58.69 [facility] [place] [facility] [address] [id number] [place] [id number] Jul, Dental examination V72.2 [facility] [place] [facility] [address] [id number] [place] [address]- 9084 Jul, [facility] [place] [facility] [address] [id number] [place] [address]- 7886 Jul, [facility] [place] [facility] [address] [id number] [place] [address]- 5899 Jul, [facility] [place] [facility] [address] [id number] [place] [address]- 9202 June, [facility] [place] [facility] [address] [id number] [place] [address]- 8362 June, [facility] [place] [facility] [address] [id number] [place] [address]- 2987 May, [facility] [place] [facility] [address] [id number] [address]- 2037 May, [facility] [place] [facility] [address] [id number] [place] [address]- 7443 Apr, [facility] [place] [facility] [address] [id number] [address]- 6922 Apr, [facility] [place] [facility] [address] [id number] [address]- 9380 Apr, [facility] [place] [facility] [address] [id number] [address]- 1949 Apr, [facility] [place] [facility] [address] [id number] 3914 Apr, [facility] [place] [facility] [address] [id number] 8934 Apr, [facility] [place] [facility] [address] [id number] [address]- 4242 Apr, [facility] [place] [facility] [address] [id number] [address]- 9813 Apr, [facility] [place] [facility] [address] [id number] [place] [address]- 8626 Mar, [facility] [place] [facility] [address] [id number] [place] [address]- 1961 Mar, [facility] [place] [facility] [address] [facility] [id number] [place] [address]- 2550 Mar, [facility] [place] [facility] [address] [id number] [place] [address]- 8451 Mar, [facility] [place] [facility] [address] [id number] [place] [address]- 0720 Feb, [facility] [place] [facility] [address] [id number] [place] [address]- 7941 Feb, [facility] [place] [facility] [address] [facility] [id number] [place] [address]- 1176 Feb, [facility] [place] [facility] [address] [facility] [id number] [place] [address]- 7500 Feb, [facility] [place] [facility] [address] [facility] [id number] [place] [address]- 4499 Feb, [facility] [place] [facility] [address] [facility] [id number] [place] [address]- 0126 Feb, [facility] [place] [facility] [address] [facility] [id number] [address]- 5828 Feb, [facility] [place] [facility] [address] [id number] [address]- 7234 Feb, [facility] [place] [facility] [address] [id number] [place] [address]- 1388 Jan, [facility] [place] [facility] [address] [facility] [id number] [place] [address]- 4093 Jan, [facility] [place] [facility] [address] [facility] [id number] [place] [address]- 2547 Jan, [facility] [place] [facility] [address] [id number] [place] [address]- 3710 Jan, [facility] [place] [facility] [address] [id number] [place] [address]- 3778 Jan, [facility] [place] [facility] [address] [id number] [place] [address]- 1111 Jan, [facility] [place] [facility] [address] [id number] [place] [address]- 2719 Dec, [facility] [place] [facility] [address] [id number] [place] 0844 Dec, [facility] [place] [facility] [address] [id number] [place] 2172 Dec, [facility] [place] [facility] [address] [id number] [place] [address]- 3736 Dec, [facility] [place] [facility] [address] [id number] [place] [address]- 7417 Dec, [facility] [place] [facility] [address] [id number] [place] [address]- 0258 Dec, [facility] [place] [facility] [address] [id number] [place] [address]- 6264 Nov, [facility] [place] [facility] [address] [id number] [place] [address]- 6133 Nov, [facility] [place] [facility] [address] [id number] [place] [address]- 2114 Nov, [facility] [place] [facility] [address] [id number] [place] 2484 Nov, [facility] [place] [facility] [address] [id number] [place] [address]- 4234 Nov, [facility] [place] [facility] [address] [id number] [place] [address]- 4782 Nov, [facility] [place] [facility] [address] [id number] [place] 8100 Nov, [facility] [address] [id number] [place] [address]- 0979 Nov, [facility] [place] [facility] [address] [id number] [place] [address]- 5090 Nov, [facility] [place] [facility] [address] [id number] [place] [address]- 9790 Nov, [facility] [place] [facility] [address] [id number] [place] [address]- 0191 Oct, [facility] [place] [facility] [address] [id number] [place] [address]- 9754 Oct, [facility] [place] [facility] [address] [id number] [place] [address]- 3692 Oct, [facility] [place] [facility] [address] [id number] [place] [address]- 9809 Oct, [facility] [place] [facility] [address] [id number] [place] [address]- 9555 Oct, [facility] [place] [facility] [address] [id number] [place] [address]- 8397 Oct, [facility] [place] [facility] [address] [id number] [place] [address]- 9841 Sep, [facility] [address] [id number] [place] [address]- 3675 Sep, [facility] [address] [place] [id number] Sep [facility] [place] [facility] [address] [id number] [place] [address]- 0333 Sep, [facility] [place] [facility] [address] [id number] [place] [address]- 5225 Aug, [facility] [place] [facility] [address] [id number] [place] [address]- 2528 Aug, [facility] [place] [facility] [address] [id number] [place] [address]- 0935 Aug, [facility] [place] [facility] [address] [id number] [place] [address]- 0693 Aug, [facility] [place] [facility] [address] [id number] [place] [address]- 4153 Aug, [facility] [place] [facility] [address] [id number] [place] [address]- 2263 Aug, [facility] [place] [facility] [address] [id number] [place] [address]- 3867 Jul, [facility] [place] [facility] [address] [id number] [place] [address]- 3879 Jul, [facility] [place] [facility] [address] [id number] [place] [address]- 5294 Jul, [facility] [place] [facility] [address] [id number] [place] [address]- 1932 Jul, [facility] [place] [facility] [address] [id number] [place] [address]- 3396 Jul, [facility] [place] [facility] [address] [id number] [place] [address]- 2463 June, [facility] [place] [facility] [address] [id number] [place] [address]- 3629 June, [facility] [place] [facility] [address] [id number] [place] [address]- 3417 June, [facility] [place] [facility] [address] [id number] [place] [address]- 7438 June, [facility] [place] [facility] [address] [id number] [place] [address]- 2288 May, [facility] [place] [facility] [address] [id number] [place] [address]- 2413 May, [facility] [place] [facility] [address] [id number] [place] [address]- 1086 May, [facility] [place] [facility] [address] [id number] [place] [address]- 5529 May, [facility] [place] [facility] [address] [id number] [place] [address]- 8197 May, [facility] [place] [facility] [address] [id number] [place] [address]- 7603 May, [facility] [place] [facility] [address] [id number] [place] [address]- 8740 May, [facility] [place] [facility] [address] [id number] [place] [address]- 4150 May, [facility] [place] [facility] [address] [id number] [place] [address]- 6216 May, [facility] [place] [facility] [address] [id number] [place] [address]- 4864 May, [facility] [place] [facility] [address] [id number] [place] [address]- 2458 May, [facility] [place] [facility] [address] [id number] [place] [address]- 6903 Apr, [facility] [place] [facility] [address] [id number] [place] [address]- 7973 Apr, [facility] [place] [facility] [address] [id number] [place] [address]- 9287 Apr, [facility] [place] [facility] [address] [id number] [place] [address]- 7748 Apr, [facility] [place] [facility] [address] [id number] [place] [address]- 9434 Mar, [facility] [place] [facility] [address] [id number] [place] [address]- 3188 Mar, [facility] [place] [facility] [address] [id number] [place] [address]- 0824 Mar, [facility] [place] [facility] [address] [id number] [place] [address]- 8699 Mar, [facility] [place] [facility] [address] [id number] [place] [address]- 2428 Mar, [facility] [place] [facility] [address] [id number] [place] [address]- 3856 Mar, [facility] [place] [facility] [address] [id number] [place] [address]- 2440 Feb, [facility] [place] [facility] [address] [id number] [place] [address]- 8876 Feb, [facility] [place] [facility] [address] [id number] [place] [address]- 8110 Feb, [facility] [place] [facility] [address] [id number] [place] [address]- 0312 Feb, [facility] [place] [facility] [address] [id number] [place] [address]- 4152 Feb, [facility] [place] [facility] [address] [id number] [place] [address]- 6280 Feb, [facility] [place] [facility] [address] [id number] [place] [address]- 6532 Feb, [facility] [place] [facility] [address] [id number] [place] [address]- 2000 Jan, [facility] [place] [facility] [address] [id number] [place] [address]- 8933 Jan, [facility] [place] [facility] [address] [id number] [place] [address]- 8845 Jan, [facility] [place] [facility] [address] [id number] [place] [address]- 6603 Jan, [facility] [place] [facility] [address] [id number] [place] [address]- 8986 Dec, [facility] [place] [facility] [address] [id number] [place] [address]- 0241 Dec, [facility] [place] [facility] [address] [id number] [place] [address]- 6489 Dec, [facility] [address] [id number] [place] [address]- 0190 Nov, [facility] [place] [facility] [address] [id number] [place] [address]- 7316 17 Nov, 2012 [facility] [place] [facility] [address] [id number] [place] [address]- 7424 17 Nov, 2012 [facility] [place] [facility] [address] [id number] [place] [address]- 7105 Nov, [facility] [place] [facility] [address] [id number] [place] [address]- 8748 Nov, [facility] [place] [facility] [address] [id number] [place] [address]- 2593 Nov, [facility] [place] [facility] [address] [id number] [place] [address]- 7840 Nov, [facility] [place] [facility] [address] [id number] [place] [address]- 5074 Nov, [facility] [place] [facility] [address] [id number] [place] [address]- 0134 Oct, [facility] [place] [facility] [address] [id number] [place] [address]- 7741 Oct, [facility] [place] [facility] [address] [id number] [place] [address]- 1477 Sep, [facility] [place] [facility] [address] [id number] [place] [address]- 4308 Sep, [facility] [place] [facility] [address] [id number] [place] [address]- 6004 Sep, [facility] [place] [facility] [address] [id number] [place] [address]- 3984 Sep, [facility] [place] [facility] [address] [id number] [place] [address]- 4747 Sep, [facility] [place] [facility] [address] [id number] [place] [address]- 1849 Sep, [facility] [address] [id number] [place] [address]- 2546 Sep, [facility] [place] [facility] [address] [id number] [place] [address]- 2546 Sep, [facility] [place] [facility] [address] [id number] [place] [address]- 8063 Aug, [facility] [address] [id number] [place] [address]- 8021 Aug, [facility] [address] [id number] [place] [address]- 5926 Aug, [facility] [address] [id number] [place] [address]- 7306 Aug, [facility] [address] [id number] [place] [address]- 3512 Jul, [facility] [address] [id number] [place] [address]- 2370 Jul, [facility] [address] [id number] [place] [address]- 0559 Jul, [facility] [place] [facility] [address] [id number] [place] [address]- 7916 June, [facility] [place] [facility] [address] [id number] [place] [address]- 9958 June, [facility] [place] [facility] [address] [id number] [place] [address]- 9130 June, [facility] [place] [facility] [address] [id number] [place] [address]- 3946 June, [facility] [place] [facility] [address] [id number] [place] [address]- 2546 June, [facility] [place] [facility] [address] [id number] [place] [address]- 9277 May, [facility] [address] [id number] [place] [address]- 2276 May, [facility] [place] [facility] [address] [id number] [place] [address]- 1873 May, [facility] [address] [id number] [place] [address]- 7697 May, [facility] [place] [facility] [address] [id number] [place] [address]- 2516 May, [facility] [address] [id number] [place] [address]- 1175 May, [facility] [address] [id number] [place] [address]- 9465 May, [facility] [address] [id number] [place] [address]- 4478 Apr, [facility] [place] [facility] [address] [id number] [place] [address]- 1294 28 Apr, 2012 [facility] [address] [id number] [place] [address]- 7033 28 Apr, 2012 [facility] [place] [facility] [address] [id number] [place] [address] Apr, [facility] [place] [facility] [address] [id number] [place] [address] 07 Apr, 2012 [facility] [place] [facility] [address] [id number] [place] [address] 07 Apr, 2012 [facility] [place] [facility] [address] [id number] [place] [address] 06 Apr, 2012 [facility] [place] [facility] [address] [id number] [place] [address] 47[address] 05 Apr, 2012 [facility] [place] [facility] [address] [id number] [place] [address] 05 Apr, 2012 [facility] [place] [facility] [address] [id number] [place] [address] Apr, [facility] [address] [id number] [place] [address] Mar, [facility] [place] [facility] [address] [id number] [place] [address] 2546 20 Mar, 2012 [facility] [place] [facility] [address] [id number] [place] [address] 2546 18 Mar, 2012 [facility] [place] [facility] [address] [id number] [place] [address] 4254 15 Mar, 2012 [facility] [place] [facility] [address] [id number] [place] [address]76 13 Mar, 2012 [facility] [address] [id number] [place] [address]- [address] 06 Mar, 2012 [facility] [place] [facility] [address] [id number] [place] [address]- 48[address] 05 Mar, 2012 [facility] [place] [facility] [address] [id number] [place] [address] Feb, [facility] [place] [facility] [address] [id number] [place] [address] Feb, [facility] [place] [facility] [address] [id number] [place] [address] 59[address] Feb, [facility] [place] [facility] [address] [id number] [place] [address] Feb, [facility] [place] [facility] [address] [id number] [place] [address] Jan, [facility] [place] [facility] [address] [id number] [place] [address] 0069 Jan, [facility] [place] [facility] [address] [id number] [place] [address]- 4979 Jan, [facility] [place] [facility] [address] [id number] [address] Jan, [facility] [place] [facility] [address] [id number] [place] [address]- [address] Dec, [facility] [place] [facility] [address] [id number] [address] Dec, [facility] [place] [facility] [address] [id number] [place] [address]- [address]393 Dec, [facility] [place] [facility] [address] [id number] [address] Dec, [facility] [place] [facility] [address] [id number] [place] [address] 4657 Dec, [facility] [place] [facility] [address] [id number] [place] [address] Dec, [facility] [place] [facility] [address] [id number] [address] Dec, [facility] [place] [facility] [address] [id number] [place] [address] 3495 Dec, [facility] [place] [facility] [address] [id number] [place] [address] Dec, [facility] [place] [facility] [address] [id number] [place] [address] Nov, [facility] [place] [facility] [address] [id number] [address] Nov, [facility] [place] [facility] [address] [id number] [address] Nov, [facility] [place] [facility] [address] [id number] [place] [address] Nov, [facility] [place] [facility] [address] [facility] [id number] [address] Nov, [facility] [place] [facility] [address] [id number] [place] [address] Nov, [facility] [place] [facility] [address] [id number] [place] [address]- [address] 17 Nov, 2011 [facility] [place] [facility] [address] [id number] [place] [address]- 6796 16 Nov, 2011 [facility] [place] [facility] [address] [id number] [place] [address]- 2546 27 Sep, 2011 [facility] [place] [facility] [address] [id number] [place] [address] 2546 24 Sep, 2011 [facility] [place] [facility] [address] [id number] [place] [address] 2546 13 Sep, 2011 [facility] [address] [id number] [place] [address]- 3[address] 11 Sep, 2011 [facility] [place] [facility] [address] [id number] [place] [address]- 7105 10 Sep, 2011 [facility] [place] [facility] [address] [id number] [place] [address] 2549 08 Sep, 2011 [facility] [address] [id number] [place] [address]- 1644 06 Sep, 2011 [facility] [place] [facility] [address] [id number] [place] [address] 2542 05 Sep, 2011 [facility] [address] [id number] [place] [address]- 4420 04 Sep, 2011 [facility] [place] [facility] [address] [id number] [place] [address] 2545 04 Oct, 2011 [facility] [place] [facility] [address] [id number] [place] [address] 254 16 Sep, 2011 [facility] [place] [facility] [address] [id number] [place] [address] 2546 Sep, [facility] [place] [facility] [address] [id number] [place] [address] 254 Aug, [facility] [place] [facility] [address] [id number] [place] [address] Aug, [facility] [place] [facility] [address] [id number] [place] [address]- 6016 Aug, [facility] [place] [facility] [address] [id number] [place] [address]- 9178 Aug, [facility] [place] [facility] [address] [id number] [place] [address]- 4891 Aug, [facility] [place] [facility] [address] [id number] [place] [address]- 2010 Aug, [facility] [place] [facility] [address] [id number] [place] [address]- 23[address] Aug, [facility] [place] [facility] [address] [id number] [place] [address]- 7421 Aug, [facility] [place] [facility] [address] [id number] [place] [address]- 5684 Jul, [facility] [place] [facility] [address] [id number] [place] [address] Jul, [facility] [place] [facility] [address] [id number] [place] [address] Jul, [facility] [place] [facility] [address] [id number] [place] [address] Jul, [facility] [place] [facility] [address] [id number] [place] [address] June, [facility] [place] [facility] [address] [id number] [place] [address] June, [facility] [place] [facility] [address] [id number] [place] [address] June, [facility] [place] [facility] [address] [id number] [place] [address] June, [facility] [place] [facility] [address] [id number] [place] [address] June, [facility] [place] [facility] [address] [id number] [place] [address] June, [facility] [address] [id number] [place] [address] June, [facility] [address] [id number] [place] [address] June, [facility] [address] [id number] [place] [address] June, [facility] [address] [id number] [place] [address] June, [facility] [address] [id number] [place] [address] June, [facility] [address] [id number] [place] [address] June, [facility] [address] [id number] [place] [address] June, [facility] [address] [id number] [place] [address] June, [facility] [address] [id number] [place] [address] June, [facility] [address] [id number] [place] [address] June, [facility] [address] [id number] [place] [address] May, [facility] [place] [facility] [address] [id number] [place] [address] May, [facility] [place] [facility] [address] [id number] [place] [address]- [address] May, [facility] [place] [facility] [address] [id number] [place] [address] May, [facility] [address] [id number] [place] [address] Apr, [facility] [place] [facility] [address] [id number] [place] [address]- [address] Apr, [facility] [place] [facility] [address] [id number] [place] [address] 7996 Apr, [facility] [place] [facility] [address] [id number] [place] [address] 2546 Apr, [facility] [place] [facility] [address] [id number] [place] [address] 25[address] Apr, [facility] [place] [facility] [address] [id number] [place] [address] Apr, [facility] [place] [facility] [address] [id number] [place] [address]- [address] Apr, [facility] [place] [facility] [address] [id number] [place] [address] Mar, [facility] [place] [facility] [address] [id number] [place] [address] Mar, [facility] [place] [facility] [address] [id number] [place] [address]- [address] 16 Mar, 2011 [facility] [place] [facility] [address] [id number] [place] [address]- [address]887 15 Mar, 2011 [facility] [place] [facility] [address] [id number] [place] [address]- [address] Mar, [facility] [place] [facility] [address] [id number] [place] [address]- 8857 Mar, [facility] [place] [facility] [address] [id number] [place] [address] 2546 Mar, [facility] [place] [facility] [address] [id number] [place] [address]- 7866 Mar, [facility] [place] [facility] [address] [id number] [place] [address]- 2445 Feb, [facility] [place] [facility] [address] [id number] [place] [address]- [address] Feb, [facility] [address] [id number] [place] [address] Feb, [facility] [place] [facility] [address] [id number] [place] [address] 26 Jan, 2011 [facility] [address] [id number] [place] [address]- [address] 24 Jan, 2011 [facility] [place] [facility] [address] [id number] [place] [address]- 9983 20 Jan, 2011 [facility] [place] [facility] [address] [id number] [place] [address], [place] [address]- [address] 20 Jan, 2011 [facility] [place] [facility] [address] [id number] [place] [address]- [address] 19 Jan, 2011 [facility] [address] [id number] [place] [address]- [address] 14 Jan, 2011 [facility] [place] [facility] [address] [id number] [place] [address]- [address]44 Jan, [facility] [place] [facility] [address] [id number] [place] [address]- [address] Jan, [facility] [place] [facility] [address] [id number] [place] [address]- [address]692 07 Jan, 2011 [facility] [place] [facility] [address] [id number] [place] [address]- [address] 30 Dec, 2010 [facility] [place] [facility] [address] [id number] [place] [address]- 1457 28 Dec, 2010 [facility] [place] [facility] [address] [id number] [place] [address]- [address]121 23 Dec, 2010 [facility] [place] [facility] [address] [id number] [place] [address]- 2506 07 Dec, 2010 [facility] [place] [facility] [address] [id number] [place] [address]- 6066 24 Nov, 2010 [facility] [place] [facility] [address] [id number] [place] [address]- 8248 20 Nov, 2010 [facility] [place] [facility] [address] [id number] [place] [address]- [address]206 10 Nov, 2010 [facility] [place] [facility] [address] [id number] [place] [address] 2546 10 Nov, 2010 [facility] [place] [facility] [address] [id number] [place] [address] 2546 13 Oct, 2010 [facility] [place] [facility] [address] [id number] [place] [address] 254 13 Aug, 2010 [facility] [place] [facility] [address] [id number] [place] [address]- 1541 15 Mar, 2010 [facility] [place] [facility] [address] [id number] [place] [address]- 6467 23 Jan, 2010 [facility] [place] [facility] [address] [id number] [place] [address]- 6[address] Jan, [facility] [place] [facility] [address] [id number] [place] [address]- 0329 Jan, [facility] [place] [facility] [address] [id number] [place] [address]- 28[address] Jan, [facility] [place] [facility] [address] [id number] [place] [address] 2543 29 Dec, 2009 [facility] [place] [facility] [address] [id number] [place] [address]- 2543 Dec, [facility] [place] [facility] [address] [id number] [place] [address] 2544 Dec, [facility] [place] [facility] [address] [id number] [place] [address] 2546 14 Dec, 2009 [facility] [place] [facility] [address] [id number] [place] [address]- 2548 25 Nov, 2009 [facility] [place] [facility] [address] [id number] [address]- [address] 18 Nov, 2009 [facility] [address] [id number] [address] 18 Nov, 2009 [facility] [id number] [address] Apr, [facility] [address] [id number] [address] Feb, [facility] [id number] [address] Jan, [facility] [address] [id number] [address] Jan, [facility] [id number] [address] Nov, [facility] [address] [id number] [address] Nov, IMMUNIZATIONS No Known Immunizations SOCIAL HISTORY Never Assessed REASON FOR VISIT Refill request PLAN OF CARE VITAL SIGNS MEDICATIONS Medication Instructions Dosage Frequency Start Date End Date Duration Status Pristiq 100 mg Orally Once a day 1 tablet 24h June, 7 days Active RESULTS No Results PROCEDURES No [...]
--- OUTSIDE RECORDS SUMMARY | 2018-01-18 09:28 | XMS REPORT ---
Author Author PHUONG VALERIE Organization [facility] Address [address] [place] [address] Care Team Providers Care Administrator Health Care Facility Name Role Phone Otf BACAYEN Unavailable PROBLEMS Type Condition ICD9-CM Code KRZ99-ED Code Onset Dates Condition Status SNOMED Code Problem Acute seasonal allergic rhinitis, unspecified trigger J30.2 Active 476824278 Problem Generalized anxiety disorder F41.1 Active 93979693 Problem Posttraumatic stress disorder 309.81 Active 19154854 Problem Moderate episode of recurrent major depressive disorder F33.1 Active 814407501 Problem Major depressive disorder, recurrent episode, in partial or unspecified remission 296.35 Active 89429251 ALLERGIES Substance Reaction Event Type Date Status Lamictal "Hives" Drug Allergy June, Active Trazodone oversedation Non Drug Allergy June, Active ENCOUNTERS Encounter Location Date Diagnosis [facility] [id number] [place] [address]- 4021 June, Generalized anxiety disorder F41.1 and Moderate episode of recurrent major depressive disorder F33.1 [facility] [address] [place] [address]19- 5725 May, Visit for TB skin test Z11.1 ; Encounter for physical examination related to employment Z02.1 ; Acute seasonal allergic rhinitis, unspecified trigger J30.2 and Infected tooth K04.7 [facility] [address] [address] 06 May, 2017 Generalized anxiety disorder F41.1 [facility] [address] [place] [id number] Apr, 2017 Dental examination Z01.20 [facility] [id number] [place] [address]98 -4625 Apr, [facility] [id number] [place] [address]90 -2879 Mar, [facility] [address] [address] 13 Mar, 2017 Dysuria R30.0 ; Potential exposure to STD Z20.2 and infection, trichomonal A59.00 [facility] [id number] [place] [address] -6887 Nov, Acute seasonal allergic rhinitis, unspecified trigger J30.2 [place] [address] [address]- [address] Nov, Generalized anxiety disorder F41.1 and Moderate episode of recurrent major depressive disorder F33.1 [place] [id number] [place] [address] 07005- 4521 May, Bipolar depression F31.30 and Other residential (current) drug therapy Z79.899 [place] [id number] [place] [address] 99183- 6074 Apr, Dental examination Z01.20 [facility] [address] [id number] Apr, Dental examination Z01.20 [place] [id number] [place] [address] 82592- 8665 Apr, Dental examination Z01.20 [place] [id number] [place] [address] 95639- 8012 Aug, [facility] [id number] [place] [address] 37184- 4404 Jul, [place] [address] [address]- [address]67 14 Jul, 2015 ADHD (attention deficit hyperactivity disorder) F90.9 ; Anxiety and depression F41.9 and Controlled substance agreement signed Z79.899 [place] [address] 06389- 0684 Jul, [facility] [address] [address] 9[address] June, [facility] [id number] [place] [address] 57041- 9712 June, [facility] [id number] [place] [address] 39905- 7054 May, ADHD (attention deficit hyperactivity disorder) F90.9 and Anxiety and depression F41.9 [facility] [id number] [place] [address] 92589- 9466 Aug, [facility] [id number] [place] [address] 02565- 7402 Aug, [facility] [id number] [place] [address] [id number] Aug, Dental examination V72.2 [facility] [id number] [place] [address] 04284- 0832 Aug, High risk medications (not anticoagulants) long-term use V58.69 [facility] [id number] [place] [address] [id number] Jul, Dental examination V72.2 [facility] [address] [address]- 9141 Jul, [facility] [address] [address]- 8755 Jul, [facility] [address] [address]- 4510 Jul, [facility] [address] [place] [address] 23034- 7960 June, [facility] [address] [address] June, [facility] [address] [place] [address]- 3853 May, [facility] [place] [facility] [address] [id number] [place] [address]- 7150 May, [facility] [place] [facility] [address] [id number] [place] [address]- 2803 Apr, [facility] [place] [facility] [address] [id number] [place] [address]- 8410 Apr, [facility] [place] [facility] [address] [id number] [place] [address]- 8136 Apr, [facility] [place] [facility] [address] [id number] [place] [address]- 9706 Apr, [facility] [place] [facility] [address] [id number] [place] [address]- 6268 Apr, [facility] [place] [facility] [address] [facility] [id number] [place] 7739 Apr, [facility] [place] [facility] [address] [id number] [place] [address]- 0995 Apr, [facility] [place] [facility] [address] [id number] [place] [address]- 0283 Apr, [facility] [place] [facility] [address] [id number] [place] [address]- 1286 Mar, [facility] [place] [facility] [address] [id number] [place] [address]- 3749 Mar, [facility] [place] [facility] [address] [id number] [place] [address]- 1585 Mar, [facility] [place] [facility] [address] [id number] [place] [address]- 6191 Mar, [facility] [place] [facility] [address] [id number] [place] [address]- 3166 Feb, [facility] [place] [facility] [address] [id number] [place] [address]- 4440 Feb, [facility] [place] [facility] [address] [id number] [place] [address]- 8230 Feb, [facility] [place] [facility] [address] [id number] [place] [address]- 1068 Feb, [facility] [place] [facility] [address] [id number] [place] [address]- 6495 Feb, [facility] [place] [facility] [address] [id number] [place] [address]- 8755 Feb, [facility] [place] [facility] [address] [id number] [place] [address]- 0394 Feb, [facility] [place] [facility] [address] [id number] [place] [address]- 2379 Feb, [facility] [place] [facility] [address] [id number] [place] [address]- 8373 Jan, [facility] [place] [facility] [address] [id number] [place] [address]- 2164 Jan, [facility] [place] [facility] [address] [id number] [place] [address]- 0739 Jan, [facility] [place] [facility] [address] [id number] [place] [address]- 3305 Jan, [facility] [place] [facility] [address] [id number] [place] [address]- 2247 Jan, [facility] [place] [facility] [address] [id number] [place] [address]- 3659 Jan, [facility] [place] [facility] [address] [id number] [place] [address]- 0823 Dec, [facility] [place] [facility] [address] [id number] [place] [address]- 8508 Dec, [facility] [place] [facility] [address] [id number] [place] [address]- 7121 Dec, [facility] [place] [facility] [address] [id number] [place] [address]- 6572 Dec, [facility] [place] [facility] [address] [id number] [place] [address] 2540 Dec, [facility] [place] [facility] [address] [id number] [place] [address]- 7540 Dec, [facility] [place] [facility] [address] [id number] [place] [address]- 2494 Nov, [facility] [place] [facility] [address] [id number] [place] [address]- 8059 Nov, [facility] [place] [facility] [address] [id number] [place] [address]- 2436 Nov, [facility] [place] [facility] [address] [id number] [place] [address]- 4994 Nov, [facility] [place] [facility] [address] [id number] [place] [address]- 8825 Nov, [facility] [place] [facility] [address] [id number] [place] [address]- 9837 Nov, [facility] [place] [facility] [address] [id number] [place] [address]- 6233 Nov, [facility] [place] [facility] [address] [id number] [place] [address]- 5608 Nov, [facility] [place] [facility] [address] [id number] [place] [address]- 1308 Nov, [facility] [place] [facility] [address] [id number] [place] [address]- 9841 Nov, [facility] [place] [facility] [address] [id number] [place] [address]- 5060 17 Oct, 2013 [facility] [place] [facility] [address] [id number] [place] [address]- 0444 17 Oct, 2013 [facility] [place] [facility] [address] [id number] [place] [address]- 2540 08 Oct, 2013 [facility] [place] [facility] [address] [id number] [place] [address]- 3802 Oct, [facility] [address] [id number] [place] [address]- 2540 Oct, [facility] [address] [id number] [place] [address]- 7118 Oct, [facility] [address] [id number] [place] [address]- 2407 Sep, [facility] [address] [id number] [place] [address]- [address] Sep, [address] [facility] [address] [facility] [id number] Sep [facility] [address] [id number] [place] [address]- 2149 Sep, [facility] [address] [id number] [place] [address]- 2146 Aug, [facility] [place] [facility] [address] [id number] [place] [address]- 9314 Aug, [facility] [place] [facility] [address] [id number] [place] [address]- 4640 Aug, [facility] [place] [facility] [address] [id number] [place] [address]- 7790 Aug, [facility] [place] [facility] [address] [id number] [place] [address]- 9918 Aug, [facility] [place] [facility] [address] [id number] [place] [address]- 3832 Aug, [facility] [place] [facility] [address] [id number] [place] [address]- 5995 Jul, [facility] [place] [facility] [address] [id number] [place] [address]- 0242 Jul, [facility] [place] [facility] [address] [id number] [place] [address]- 9854 Jul, [facility] [place] [facility] [address] [id number] [place] [address]- 1050 Jul, [facility] [place] [facility] [address] [id number] [place] [address]- 5511 Jul, [facility] [place] [facility] [address] [id number] [place] [address]- 7854 June, [facility] [place] [facility] [address] [id number] [place] [address]- 0667 June, [facility] [place] [facility] [address] [id number] [place] [address]- 3330 June, [facility] [place] [facility] [address] [id number] [place] [address]- 3472 June, [facility] [place] [facility] [address] [id number] [place] [address]- 4651 May, [facility] [place] [facility] [address] [id number] [place] [address]- 1273 May, [facility] [place] [facility] [address] [id number] [place] [address]- 7823 May, [facility] [place] [facility] [address] [id number] [place] [address]- 9996 May, [facility] [place] [facility] [address] [id number] [place] [address]- 7803 May, [facility] [place] [facility] [address] [id number] [place] [address]- 4406 May, [facility] [place] [facility] [address] [id number] [place] [address]- 2623 May, [facility] [place] [facility] [address] [id number] [place] [address]- 1290 May, [facility] [place] [facility] [address] [id number] [place] [address]- 0306 May, [facility] [place] [facility] [address] [id number] [place] [address]- 4595 May, [facility] [place] [facility] [address] [id number] [place] [address]- 5960 May, [facility] [place] [facility] [address] [id number] [place] [address]- 9673 Apr, [facility] [place] [facility] [address] [id number] [place] [address]- 5196 Apr, [facility] [place] [facility] [address] [id number] [place] [address]- 5640 Apr, [facility] [place] [facility] [address] [id number] [place] [address]- 1912 Apr, [facility] [place] [facility] [address] [id number] [place] [address]- 2777 Mar, [facility] [place] [facility] [address] [id number] [place] [address]- 6258 Mar, [facility] [place] [facility] [address] [id number] [place] [address]- 6051 Mar, [facility] [place] [facility] [address] [id number] [place] [address]- 2865 Mar, [facility] [place] [facility] [address] [id number] [place] [address]- 4713 Mar, [facility] [place] [facility] [address] [facility] [id number] [place] [address]- 2695 Mar, [facility] [place] [facility] [address] [id number] [place] [address]- 4463 Feb, [facility] [place] [facility] [address] [id number] [place] [address]- 3477 Feb, [facility] [place] [facility] [address] [id number] [place] [address]- 3257 Feb, [facility] [place] [facility] [address] [id number] [place] [address]- 6016 Feb, [facility] [place] [facility] [address] [id number] [place] [address]- 9881 Feb, [facility] [place] [facility] [address] [id number] [place] [address]- 0098 Feb, [facility] [place] [facility] [address] [id number] [place] [address]- 7607 Feb, [facility] [place] [facility] [address] [id number] [place] [address]- 5806 Jan, [facility] [place] [facility] [address] [id number] [place] [address]- 3481 Jan, [facility] [place] [facility] [address] [id number] [place] [address]- 1283 Jan, [facility] [place] [facility] [address] [id number] [place] [address]- 0772 Jan, [facility] [place] [facility] [address] [id number] [place] [address]- 3620 14 Dec, 2012 [facility] [place] [facility] [address] [id number], [place] [address]- 1447 14 Dec, 2012 [facility] [place] [facility] [address] [id number] [place] [address]- 7570 Dec, [facility] [place] [facility] [address] [id number], [place] [address]- 6404 22 Nov, 2012 [facility] [place] [facility] [address] [id number], [place] [address]- 8125 17 Nov, 2012 [facility] [place] [facility] [address] [id number], [place] [address]- 8957 17 Nov, 2012 [facility] [place] [facility] [address] [id number], [place] [address]- 5691 Nov, [facility] [place] [facility] [address] [id number], [place] [address]- 1115 Nov, [facility] [place] [facility] [address] [id number] 9467 Nov, [facility] [place] [facility] [address] [id number] [place] [address]- 0541 Nov, [facility] [place] [facility] [address] [id number] [place] [address]- 7828 Nov, [facility] [place] [facility] [address] [id number] [place] [address]- 9476 Oct, [facility] [place] [facility] [address] [id number] [place] [address]- 1319 Oct, [facility] [place] [facility] [address] [id number] [place] [address]- 3030 Sep, [facility] [place] [facility] [address] [id number] [place] [address]- 0971 Sep, [facility] [place] [facility] [address] [id number] [place] [address]- 2165 Sep, [facility] [place] [facility] [address] [id number] [place] [address]- 1058 Sep, [facility] [place] [facility] [address] [id number] [place] [address]- 3175 Sep, [facility] [place] [facility] [address] [id number] [place] [address]- 8412 Sep, [facility] [place] [facility] [address] [id number] [place] [address]- 3448 Sep, [facility] [place] [facility] [address] [id number] [place] [address]- 9497 Sep, [facility] [place] [facility] [address] [id number] [place] [address]- 0475 Aug, [facility] [place] [facility] [address] [id number] [place] [address]- 9157 Aug, [facility] [place] [facility] [address] [id number] [place] [address]- 7296 Aug, [facility] [place] [facility] [address] [id number] [place] [address]- 4656 Aug, [facility] [place] [facility] [address] [id number] [place] [address]- 1025 Jul, [facility] [address] [id number] [place] [address]- 2688 Jul, [facility] [address] [id number] [place] [address]- 5409 Jul, [facility] [address] [id number] [place] [address]- 1057 June, [facility] [address] [id number] [place] [address]- 7023 June, [facility] [address] [id number] [place] [address]- 6022 June, [facility] [address] [id number] [place] [address]- 4845 June, [facility] [address] [id number] [place] [address]- 7088 June, [facility] [address] [id number] [place] [address]- 2782 May, [facility] [address] [id number] [place] [address]- 9677 May, [facility] [address] [id number] [place] [address]- 5846 May, [facility] [address] [id number] [place] [address]- 2088 May, [facility] [address] [id number] [place] [address]- 8881 May, [facility] [address] [id number] [place] [address]- 4862 May, [facility] [address] [id number] [place] [address]- 7340 08 May, 2012 [facility] [address] [id number] [place] [address] 28 Apr, 2012 [facility] [address] [id number] [place] [address] 28 Apr, 2012 [facility] [place] [facility] [address] [id number] [place] [address] 28 Apr, 2012 [facility] [place] [facility] [address] [id number] [place] [address]26 13 Apr, 2012 [facility] [place] [facility] [address] [id number] [place] [address] 07 Apr, 2012 [facility] [place] [facility] [address] [id number] [place] [address] 07 Apr, 2012 [facility] [place] [facility] [address] [id number] [place] [address] 06 Apr, 2012 [facility] [address] [id number] [place] [address] 05 Apr, 2012 [facility] [place] [facility] [address] [id number] [place] [address]98 05 Apr, 2012 [facility] [place] [facility] [address] [id number] [place] [address] 04 Apr, 2012 [facility] [place] [facility] [address] [id number] [place] [address] 0241 21 Mar, 2012 [facility] [place] [facility] [address] [id number], [place] [address] 20 Mar, 2012 [facility] [place] [facility] [address] [id number] [place] [address] 1996 18 Mar, 2012 [facility] [place] [facility] [address] [id number] [place] [address] 15 Mar, 2012 [facility] [place] [facility] [address] [id number] [place] [address] 13 Mar, 2012 [facility] [place] [facility] [address] [facility] [id number], [place] [address] 06 Mar, 2012 [facility] [place] [facility] [address] [id number] [place] [address] Mar, [facility] [place] [facility] [address] [id number] [place] [address] Feb, [facility] [place] [facility] [address] [id number] [place] [address] Feb, [facility] [place] [facility] [address] [id number] [place] [address] Feb, [facility] [place] [facility] [address] [id number] [place] [address] 4681 Feb, [facility] [place] [facility] [address] [id number] [place] [address] Jan, [facility] [place] [facility] [address] [id number] [place] [address] 1986 Jan, [facility] [place] [facility] [address] [id number] [place] [address] Jan, [facility] [place] [facility] [address] [id number] [place] [address] Jan, [facility] [place] [facility] [address] [id number] [place] [address] Dec, [facility] [place] [facility] [address] [id number] [place] [address] Dec, [facility] [place] [facility] [address] [id number] [place] [address]271 Dec, [facility] [place] [facility] [address] [id number] [place] [address] 2589 Dec, [facility] [place] [facility] [address] [id number] [place] [address] 26[address] Dec, [facility] [place] [facility] [address] [id number] [place] [address] 29[address] Dec, [facility] [place] [facility] [address] [id number], [place] [address] Dec, [facility] [place] [facility] [address] [id number] [place] [address]336 Dec, [facility] [place] [facility] [address] [id number] [place] [address] 4[address] Dec, [facility] [place] [facility] [address] [facility] [id number] [place] [address] Nov, [facility] [place] [facility] [address] [id number] [place] [address] Nov, [facility] [place] [facility] [address] [id number] [place] [address]874 Nov, [facility] [place] [facility] [address] [id number] [place] [address] 1877 18 Nov, 2011 [facility] [place] [facility] [address] [id number] [place] [address] 1520 18 Nov, 2011 [facility] [place] [facility] [address] [id number] [place] [address] 9044 18 Nov, 2011 [facility] [place] [facility] [address] [id number] [place] [address] 17 Nov, 2011 [facility] [place] [facility] [address] [id number] [place] [address] 6[address] 16 Nov, 2011 [facility] [place] [facility] [address] [id number], [place] [address] 27 Sep2011 [facility] [place] [facility] [address] [id number], [place] [address]- 8423 24 Sep2011 [facility] [place] [facility] [address] [id number] [place] [address]- 3684 13 Sep2011 [facility] [place] [facility] [address] [facility] [id number] [place] [address]- 2840 11 Sep2011 [facility] [place] [facility] [address] [facility] [id number] [place] [address]- 7684 10 Sep2011 [facility] [place] [facility] [address] [id number] [place] [address] 2645 08 Oct, 2011 [facility] [address] [id number] [place] [address] 9117 06 Oct, 2011 [facility] [place] [facility] [address] [id number] [place] [address] 2546 05 Oct, 2011 [facility] [address] [id number] [place] [address] 1406 04 Oct, 2011 [facility] [place] [facility] [address] [id number] [place] [address]- 1561 04 Oct, 2011 [facility] [address] [id number] [place] [address] 4389 16 Sep, 2011 [facility] [address] [id number] [place] [address] 82[address] Sep, [facility] [address] [id number] [place] [address] 9664 30 Aug, 2011 [facility] [address] [id number] [place] [address] Aug, [facility] [place] [facility] [address] [id number] [place] [address] Aug, [facility] [address] [id number] [place] [address] Aug, [facility] [place] [facility] [address] [id number] [place] [address] Aug, [facility] [address] [id number] [place] [address] Aug, [facility] [place] [facility] [address] [id number] [place] [address] Aug, [facility] [place] [facility] [address] [id number] [place] [address] Aug, [facility] [place] [facility] [address] [id number] [place] [address] Jul, [facility] [address] [id number] [place] [address] Jul, [facility] [place] [facility] [address] [id number] [place] [address] Jul, [facility] [place] [facility] [address] [id number] [place] [address] Jul, [facility] [place] [facility] [address] [id number] [place] [address] June, [facility] [place] [facility] [address] [id number] [place] [address] June, [facility] [place] [facility] [address] [id number] [place] [address] June, [facility] [place] [facility] [address] [id number] [place] [address] June, [facility] [place] [facility] [address] [id number] [place] [address] June, [facility] [place] [facility] [address] [id number] [place] [address] June, [facility] [place] [facility] [address] [id number] [place] [address] June, [facility] [place] [facility] [address] [id number] [place] [address] June, [facility] [place] [facility] [address] [id number] [place] [address] June, [facility] [place] [facility] [address] [id number] [place] [address] June, [facility] [place] [facility] [address] [id number] [place] [address] June, [facility] [place] [facility] [address] [id number] [place] [address] June, [facility] [place] [facility] [address] [id number] [place] [address] June, [facility] [address] [id number] [place] [address] June, [facility] [place] [facility] [address] [id number] [place] [address]178 June, [facility] [place] [facility] [address] [facility] [id number] [place] [address] June, [facility] [place] [facility] [address] [id number] [place] [address] May, [facility] [address] [id number] [place] [address] May, [facility] [place] [facility] [address] [id number] [place] [address] 3836 May, [facility] [address] [id number] [address] May, [facility] [place] [facility] [address] [facility] [id number] [place] [address] Apr, [facility] [place] [facility] [address] [facility] [id number] [place] [address] Apr, [facility] [place] [facility] [address] [facility] [id number] [place] [address] Apr, [facility] [place] [facility] [address] [id number] [place] [address] Apr, [facility] [place] [facility] [address] [id number] [place] [address] Apr, [facility] [place] [facility] [address] [id number] [place] [address] Apr, [facility] [place] [facility] [address] [facility] [id number] [place] [address] Apr, [facility] [place] [facility] [address] [facility] [id number] [place] [address] Mar, [facility] [place] [facility] [address] [id number] [place] [address]244 20 Mar, 2011 [facility] [place] [facility] [address] [id number] [place] [address] 16 Mar, 2011 [facility] [place] [facility] [address] [id number] [place] [address]46 15 Mar, 2011 [facility] [place] [facility] [address] [id number] [place] [address] 13 Mar, 2011 [facility] [place] [facility] [address] [id number] [place] [address] 9480 09 Mar, 2011 [facility] [place] [facility] [address] [id number] [place] [address] Mar, [facility] [place] [facility] [address] [facility] [id number] [place] [address] Mar, [facility] [place] [facility] [address] [id number] [place] [address] Feb, [facility] [place] [facility] [address] [id number] [place] [address] 6234 Feb, [facility] [place] [facility] [address] [facility] [id number] [place] [address] Feb, [facility] [place] [facility] [address] [facility] [id number] [place] [address] Jan, [facility] [place] [facility] [address] [id number], [place] [address] Jan, [facility] [place] [facility] [address] [id number] [place] [address]46 Jan, [facility] [place] [facility] [address] [id number] [place] [address] 4936 Jan, [facility] [place] [facility] [address] [id number] [place] [address] 7980 Jan, [facility] [place] [facility] [address] [id number], [place] [address] 14 Jan, 2011 [facility] [place] [facility] [address] [id number] [place] [address] 9677 13 Jan, 2011 [facility] [place] [facility] [address] [id number] [place] [address] 13 Jan, 2011 [facility] [place] [facility] [address] [facility] [id number] [place] [address] 07 Jan, 2011 [facility] [place] [facility] [address] [id number] [place] [address]197 30 Dec, 2010 [facility] [place] [facility] [address] [id number] [place] [address] Dec, [facility] [place] [facility] [address] [id number] [place] [address]- 3810 Dec, [facility] [place] [facility] [address] [facility] [id number] [place] [address]- 1260 Dec, [facility] [place] [facility] [address] [facility] [id number] [place] [address]- 8727 24 Nov, 2010 [facility] [place] [facility] [address] [facility] [id number] [place] [address]- 1060 20 Nov, 2010 [facility] [place] [facility] [address] [facility] [id number] [place] [address]- 5661 10 Nov, 2010 [facility] [place] [facility] [address] [facility] [id number], [place] [address]- [address] 10 Nov, 2010 [facility] [place] [facility] [address] [id number], [place] [address]- [address] 13 Oct, 2010 [facility] [place] [facility] [address] [id number] [place] [address]- 4296 13 Aug, 2010 [facility] [place] [facility] [address] [facility] [id number], [place] [address]- 1544 15 Mar, 2010 [facility] [place] [facility] [address] [facility] [id number], [place] [address]- [address]177 23 Jan, 2010 [facility] [place] [facility] [address] [id number] [place] [address]- 3816 10 Jan, 2010 [facility] [place] [facility] [address] [id number] [place] [address]- 2826 10 Jan, 2010 [facility] [place] [facility] [address] [id number] [place] [address] 2546 07 Jan, 2010 [facility] [place] [facility] [address] [id number] [place] [address] 2546 29 Dec, 2009 [facility] [place] [facility] [address] [id number] [place] [address] 2543 23 Dec, 2009 [facility] [place] [facility] [address] [id number] [place] [address]- 5329 22 Dec, 2009 [facility] [place] [facility] [address] [id number] [place] [address]- 3021 14 Dec, 2009 [facility] [place] [facility] [address] [id number] [place] [address]- 0803 25 Nov, 2009 [facility] [place] [facility] [address] [id number] [place] [address]- 8486 18 Nov, 2009 [facility] [place] [facility] [address] [id number] [place] [address]- 1212 18 Nov, 2009 [facility] [place] [facility] [address] [id number] [place] [address]- 3740 16 Apr, 2009 [facility] [place] [facility] [address] [id number] [place] [address]- 9294 15 Feb, 2009 [facility] [place] [facility] [address] [id number] [place] [address] 2547 15 Jan, 2009 [facility] [place] [facility] [address] [id number] [place] [address] 2546 15 Jan, 2009 [facility] [place] [facility] [address] [id number] [place] [address]- 2545 20 Nov, 2008 [facility] [place] [facility] [address] [id number] [place] [address] Nov, IMMUNIZATIONS No Known Immunizations SOCIAL HISTORY Never Assessed REASON FOR VISIT f/u Maria A PLAN OF CARE Activity Details Follow Up 4 Weeks Reason: f/u VITAL SIGNS Height 67 in 2017-07-01 Weight 164.5 lbs 2017-07-01 Heart Rate 88 bpm 2017-07-01 Respiratory Rate 20 2017-07-01 BMI 25.76 kg/m2 2017-07-01 Blood pressure systolic 110 mmHg 2017-07-01 Blood pressure diastolic 70 mmHg 2017-07-01 MEDICATIONS Medication Instructions Dosage Frequency Start Date End Date Duration Status Pristiq 100 mg Orally Once a day 1 tablet 24h June, 30 day(s) Active Gabapentin 300 MG Orally twice a day as needed 1 capsule June, 30 day(s) Active Flonase 50 MCG/ACT Nasally Once a day 1 spray in each nostril 24h May, 30 day(s) Active RESULTS No Results PROCEDURES No Known [...]
--- OUTSIDE RECORDS SUMMARY | 2018-01-18 09:29 | XMS REPORT ---
Author Author BOLIVAR WHALEY Organization [facility] Address [address] [place] [address] Care Team Providers Care Saddle Cutter Name Role Phone WHALEYBOLIVAR Unavailable PROBLEMS Type Condition ICD9-CM Code [id number] Code Onset Dates Condition Status SNOMED Code Problem Acute seasonal allergic rhinitis, unspecified trigger J30.2 Active 023395226 Problem Generalized anxiety disorder F41.1 Active 37053894 Problem Posttraumatic stress disorder 309.81 Active 10176747 Problem Moderate episode of recurrent major depressive disorder F33.1 Active 151063974 Problem Major depressive disorder, recurrent episode, in partial or unspecified remission 296.35 Active 59166069 ALLERGIES Substance Reaction Event Type Date Status Lamictal "Hives" Drug Allergy May, Active Trazodone oversedation Non Drug Allergy May, Active ENCOUNTERS Encounter Location Date Diagnosis [facility] [id number] [place] [address] 04397- 6052 June, Generalized anxiety disorder F41.1 and Moderate episode of recurrent major depressive disorder F33.1 [facility] [id number] [place] [address] 44043- 2115 May, Visit for TB skin test Z11.1 ; Encounter for physical examination related to employment Z02.1 ; Acute seasonal allergic rhinitis, unspecified trigger J30.2 and Infected tooth K04.7 [facility] [address] [place] [address] 02876- 6075 May, Generalized anxiety disorder F41.1 [facility] [address] [place] [address] [id number] Apr, 2017 Dental examination Z01.20 [facility] [id number] [place] [address] 96840 -6386 Apr, [facility] [id number] [place] [address] 09681 -9041 Mar, [facility] [address] [address]28 -[address]808 13 Mar, 2017 Dysuria R30.0 ; Potential exposure to STD Z20.2 and infection, trichomonal A59.00 [facility] [id number] [place] [address] 06048 -0658 Nov, Acute seasonal allergic rhinitis, unspecified trigger J30.2 [place] [address] 16732- 4966 Nov, Generalized anxiety disorder F41.1 and Moderate episode of recurrent major depressive disorder F33.1 [place] [id number] [place] [address] 43522- 4664 May, Bipolar depression F31.30 and Other half-way (current) drug therapy Z79.899 [place] [id number] [place] [address] 62406- 5734 Apr, Dental examination Z01.20 [facility] [address] [id number] Apr, Dental examination Z01.20 [place] [id number] [place] [address] 30896- 6000 Apr, Dental examination Z01.20 [place] [id number] [place] [address] 78934- 5897 Aug, [place] [id number] [place] [address] 40164- 6017 Jul, [place] [address] 91490- 6372 14 Jul, 2015 ADHD (attention deficit hyperactivity disorder) F90.9 ; Anxiety and depression F41.9 and Controlled substance agreement signed Z79.899 [place] [address] 11489- 0508 Jul, [facility] [address] [address] June, [facility] [id number] [place] [address] 226441- 5283 June, [facility] [address] [place] [address] 34932- 4932 May, ADHD (attention deficit hyperactivity disorder) F90.9 and Anxiety and depression F41.9 [facility] [id number] 6724 Aug, [facility] [id number] [place] [address] 67690- 9589 Aug, [facility] [id number] [place] [address] [id number] Aug, Dental examination V72.2 [facility] [id number] [place] [address] 73053- 0569 Aug, High risk medications (not anticoagulants) long-term use V58.69 [facility] [id number] [place] [address] [id number] Jul, Dental examination V72.2 [facility] [id number] [address] 6066 Jul, [facility] [address] [address] 6059 Jul, [facility] [address] [address]- 9067 Jul, [facility] [address] 83[address] June, [facility] [id number] [address]- 7146 June, [facility] [address] [address] May, [facility] [place] [facility] [address] [id number] [place] [address]- 4811 May, [facility] [place] [facility] [address] [id number] [place] [address]- 2307 Apr, [facility] [place] [facility] [address] [id number] [place] [address]- 8187 Apr, [facility] [place] [facility] [address] [id number] [place] [address]- 0303 Apr, [facility] [place] [facility] [address] [id number] [place] [address]- 8635 Apr, [facility] [place] [facility] [address] [id number] [place] [address]- 6143 Apr, [facility] [place] [facility] [address] [facility] [id number] [place] [address]- 9508 Apr, [facility] [place] [facility] [address] [id number] [place] [address]- 7282 Apr, [facility] [place] [facility] [address] [id number] [place] [address]- 7406 Apr, [facility] [place] [facility] [address] [id number] [place] [address]- 8576 Mar, [facility] [place] [facility] [address] [id number] [place] [address]- 5885 Mar, [facility] [place] [facility] [address] [id number] [place] [address]- 5974 Mar, [facility] [place] [facility] [address] [id number] [place] [address]- 2322 Mar, [facility] [place] [facility] [address] [id number] [place] [address]- 4580 Feb, [facility] [place] [facility] [address] [id number] [place] [address]- 5278 Feb, [facility] [place] [facility] [address] [id number] [place] [address]- 3316 Feb, [facility] [place] [facility] [address] [id number] [place] [address]- 3624 Feb, [facility] [place] [facility] [address] [id number] [place] [address]- 1144 Feb, [facility] [place] [facility] [address] [id number] [place] [address]- 8997 Feb, [facility] [place] [facility] [address] [id number] [place] [address]- 0956 Feb, [facility] [place] [facility] [address] [id number] [place] [address]- 6411 Feb, [facility] [place] [facility] [address] [id number] [place] [address]- 7539 Jan, [facility] [place] [facility] [address] [id number] [place] [address]- 2982 Jan, [facility] [place] [facility] [address] [id number] [place] [address]- 0882 Jan, [facility] [place] [facility] [address] [id number] [place] [address]- 3595 Jan, [facility] [place] [facility] [address] [id number] [place] [address]- 2163 Jan, [facility] [place] [facility] [address] [id number] [place] [address]- 3890 Jan, [facility] [place] [facility] [address] [id number] [place] [address]- 0127 Dec, [facility] [place] [facility] [address] [id number] [place] [address]- 2034 Dec, [facility] [place] [facility] [address] [id number] [place] [address]- 6671 Dec, [facility] [place] [facility] [address] [id number] [place] [address]- 4754 Dec, [facility] [place] [facility] [address] [id number] [place] [address] 2549 Dec, [facility] [place] [facility] [address] [id number] [place] [address]- 8501 Dec, [facility] [place] [facility] [address] [id number] [place] [address]- 3177 Nov, [facility] [place] [facility] [address] [id number] [place] [address]- 8745 Nov, [facility] [place] [facility] [address] [id number] [place] [address]- 0016 Nov, [facility] [place] [facility] [address] [id number] [place] [address]- 9562 Nov, [facility] [place] [facility] [address] [id number] [place] [address]- 9064 Nov, [facility] [place] [facility] [address] [id number] [place] [address]- 1884 Nov, [facility] [place] [facility] [address] [id number] [place] [address]- 4696 Nov, [facility] [place] [facility] [address] [id number] [place] [address]- 3388 Nov, [facility] [place] [facility] [address] [id number] [place] [address]- 6784 Nov, [facility] [place] [facility] [address] [id number] [place] [address]- 5636 Nov, [facility] [place] [facility] [address] [id number] [place] [address]- 6904 17 Oct, 2013 [facility] [place] [facility] [address] [id number] [place] [address]- 5310 17 Oct, 2013 [facility] [place] [facility] [address] [id number] [place] [address]- 7365 08 Oct, 2013 [facility] [place] [facility] [address] [id number] [place] [address]- 8816 Oct, [facility] [address] [id number] [place] [address]- 1890 Oct, [facility] [place] [facility] [address] [id number] [place] [address]- 3546 Oct, [facility] [address] [id number] [place] [address]- 6781 Sep, [facility] [address] [id number] [place] [address]- 9613 Sep, [facility] [id number] Sep [facility] [address] [id number] [place] [address]- 4987 Sep, [facility] [address] [id number] [place] [address]- 7715 Aug, [facility] [place] [facility] [address] [id number] [place] [address]- 3501 Aug, [facility] [place] [facility] [address] [id number] [place] [address]- 5654 Aug, [facility] [place] [facility] [address] [id number] [place] [address]- 6766 Aug, [facility] [place] [facility] [address] [id number] [place] [address]- 8366 Aug, [facility] [place] [facility] [address] [id number] [place] [address]- 0542 Aug, [facility] [place] [facility] [address] [id number] [place] [address]- 9252 Jul, [facility] [place] [facility] [address] [id number] [place] [address]- 1236 Jul, [facility] [place] [facility] [address] [id number] [place] [address]- 5486 Jul, [facility] [place] [facility] [address] [id number] [place] [address]- 6025 Jul, [facility] [place] [facility] [address] [id number] [place] [address]- 0359 Jul, [facility] [place] [facility] [address] [id number] [place] [address]- 5120 June, [facility] [place] [facility] [address] [id number] [place] [address]- 4338 June, [facility] [place] [facility] [address] [id number] [place] [address]- 1996 June, [facility] [place] [facility] [address] [id number] [place] [address]- 0266 June, [facility] [place] [facility] [address] [id number] [place] [address]- 0722 May, [facility] [place] [facility] [address] [id number] [place] [address]- 1690 May, [facility] [place] [facility] [address] [id number] [place] [address]- 7330 May, [facility] [place] [facility] [address] [id number] [place] [address]- 9304 May, [facility] [place] [facility] [address] [id number] [place] [address]- 5891 May, [facility] [place] [facility] [address] [id number] [place] [address]- 2744 May, [facility] [place] [facility] [address] [id number], [place] [address]- 0760 May, [facility] [place] [facility] [address] [id number] [place] [address]- 5726 May, [facility] [place] [facility] [address] [id number] [place] [address]- 9349 May, [facility] [place] [facility] [address] [id number] [place] [address]- 6453 May, [facility] [place] [facility] [address] [id number] [place] [address]- 6134 May, [facility] [place] [facility] [address] [id number] [place] [address]- 2550 Apr, [facility] [place] [facility] [address] [id number] [place] [address]- 1626 Apr, [facility] [place] [facility] [address] [id number] [place] [address]- 5065 Apr, [facility] [place] [facility] [address] [id number] [place] [address]- 2746 Apr, [facility] [place] [facility] [address] [id number] [place] [address]- 1314 Mar, [facility] [place] [facility] [address] [id number] [place] [address]- 0226 Mar, [facility] [place] [facility] [address] [id number] [place] [address]- 6198 Mar, [facility] [place] [facility] [address] [id number] [place] [address]- 7901 Mar, [facility] [place] [facility] [address] [id number] [place] [address]- 4957 Mar, [facility] [place] [facility] [address] [facility] [id number] [place] [address]- 5580 Mar, [facility] [place] [facility] [address] [id number] [place] [address]- 6374 Feb, [facility] [place] [facility] [address] [id number] [place] [address]- 8808 Feb, [facility] [place] [facility] [address] [id number] [place] [address]- 2072 Feb, [facility] [place] [facility] [address] [id number] [place] [address]- 2396 Feb, [facility] [place] [facility] [address] [id number] [place] [address]- 0003 Feb, [facility] [place] [facility] [address] [id number] [place] [address]- 2021 Feb, [facility] [place] [facility] [address] [id number] [place] [address]- 5588 Feb, [facility] [place] [facility] [address] [id number] [place] [address]- 2062 Jan, [facility] [place] [facility] [address] [id number] [place] [address]- 8569 Jan, [facility] [place] [facility] [address] [id number] [place] [address]- 8896 Jan, [facility] [place] [facility] [address] [id number] [place] [address]- 3033 Jan, [facility] [place] [facility] [address] [id number] [place] [address]- 7700 14 Dec, 2012 [facility] [place] [facility] [address] [id number], [place] [address]- 1681 14 Dec, 2012 [facility] [place] [facility] [address] [id number] [place] [address]- 2070 Dec, [facility] [place] [facility] [address] [id number], [place] [address]- 3006 22 Nov, 2012 [facility] [place] [facility] [address] [id number], [place] [address]- 0635 17 Nov, 2012 [facility] [place] [facility] [address] [id number], [place] [address]- 8834 17 Nov, 2012 [facility] [place] [facility] [address] [id number] [place] [address]- 4621 Nov, [facility] [place] [facility] [address] [id number], [place] [address]- 9912 Nov, [facility] [place] [facility] [address] [id number], [place] [address]- 3061 Nov, [facility] [place] [facility] [address] [id number] [place] [address]- 6926 11 Nov, 2012 [facility] [address] [id number] [place] [address]- 3908 Nov, [facility] [place] [facility] [address] [id number] [place] [address]- 9527 Oct, [facility] [place] [facility] [address] [id number] [place] [address]- 4911 Oct, [facility] [place] [facility] [address] [id number] [place] [address]- 4371 Sep, [facility] [place] [facility] [address] [id number] [place] [address]- 1803 Sep, [facility] [place] [facility] [address] [id number] [place] [address]- 4536 Sep, [facility] [address] [id number] [place] [address]- 5098 Sep, [facility] [place] [facility] [address] [id number] [place] [address]- 3626 Sep, [facility] [place] [facility] [address] [id number] [place] [address]- 7617 Sep, [facility] [place] [facility] [address] [id number] [place] [address]- 2351 Sep, [facility] [place] [facility] [address] [id number] [place] [address]- 7527 Sep, [facility] [place] [facility] [address] [id number] [place] [address]- 9450 Aug, [facility] [place] [facility] [address] [id number] [place] [address]- 4015 Aug, [facility] [place] [facility] [address] [id number] [place] 1553 Aug, [facility] [place] [facility] [address] [id number] [place] [address]- 7788 Aug, [facility] [place] [facility] [address] [id number] [place] [address]- 3789 Jul, [facility] [address] [id number] [place] [address]- 0755 Jul, [facility] [address] [id number] [place] [address]- 7092 Jul, [facility] [address] [id number] [place] [address]- 5824 June, [facility] [address] [id number] [place] [address]- 1089 June, [facility] [address] [id number] [place] [address]- 2517 June, [facility] [address] [id number] [place] [address]- 6590 June, [facility] [address] [id number] [place] [address]- 5081 June, [facility] [address] [id number] [place] [address]- 8750 May, [facility] [address] [id number] [place] [address]- 9000 May, [facility] [address] [id number] [place] [address]- 0198 May, [facility] [place] [facility] [address] [id number] [place] [address]- 4779 May, [facility] [place] [facility] [address] [id number] [place] [address]- 9358 May, [facility] [place] [facility] [address] [id number] [place] [address]- 3773 May, [facility] [place] [facility] [address] [id number] [place] [address]- 2556 08 May, 2012 [facility] [place] [facility] [address] [id number] [place] [address]- 0156 28 Apr, 2012 [facility] [address] [id number] [place] [address]- 8568 28 Apr, 2012 [facility] [address] [id number] [place] [address]- 8431 28 Apr, 2012 [facility] [address] [id number] [place] [address]- 2821 13 Apr, 2012 [facility] [place] [facility] [address] [id number] [place] [address]- 8003 07 Apr, 2012 [facility] [address] [id number] [place] [address]- 1996 07 Apr, 2012 [facility] [address] [id number] [place] [address]- 0247 06 Apr, 2012 [facility] [address] [id number] [place] [address]- 7947 05 Apr, 2012 [facility] [place] [facility] [address] [id number] [place] [address]- 4731 05 Apr, 2012 [facility] [address] [id number] [place] [address]- 4237 04 Apr, 2012 [facility] [address] [id number] [place] [address]- 4486 21 Mar, 2012 [facility] [address] [id number], [place] [address]- 1037 20 Mar, 2012 [facility] [place] [facility] [address] [id number] [place] [address]- 5802 18 Mar, 2012 [facility] [place] [facility] [address] [id number] [place] [address]- 5192 15 Mar, 2012 [facility] [place] [facility] [address] [id number] [place] [address]- 2408 13 Mar, 2012 [facility] [place] [facility] [address] [facility] [id number], [place] [address] 06 Mar, 2012 [facility] [place] [facility] [address] [id number] [place] [address] Mar, [facility] [place] [facility] [address] [id number] [place] [address] Feb, [facility] [place] [facility] [address] [id number] [place] [address] Feb, [facility] [place] [facility] [address] [id number] [place] [address] 78[address] Feb, [facility] [place] [facility] [address] [id number] [place] [address] Feb, [facility] [place] [facility] [address] [id number] [place] [address] Jan, [facility] [place] [facility] [address] [id number] [place] [address] Jan, [facility] [place] [facility] [address] [id number] [place] [address]70 Jan, [facility] [place] [facility] [address] [id number] [place] [address] Jan, [facility] [place] [facility] [address] [id number] [place] [address] 67[address] Dec, [facility] [place] [facility] [address] [id number] [place] [address] 480[address] Dec, [facility] [place] [facility] [address] [id number] [place] [address] 9868 Dec, [facility] [place] [facility] [address] [id number] [place] [address]- 8984 Dec, [facility] [place] [facility] [address] [id number] [place] [address]- 7070 Dec, [facility] [place] [facility] [address] [id number] [place] [address] Dec, [facility] [place] [facility] [address] [id number] [place] [address] 4219 Dec, [facility] [place] [facility] [address] [id number] [place] [address]993 Dec, [facility] [place] [facility] [address] [id number] [place] [address]106 Dec, [facility] [place] [facility] [address] [facility] [id number] [place] [address]- 3914 Nov, [facility] [place] [facility] [address] [id number] [place] [address] 68[address] Nov, [facility] [place] [facility] [address] [id number] [place] [address] 4112 Nov, [facility] [place] [facility] [address] [id number] [place] [address]- 1616 18 Nov, 2011 [facility] [place] [facility] [address] [id number] [place] [address]- 6728 Nov, [facility] [place] [facility] [address] [id number] [place] [address]- 9733 18 Nov, 2011 [facility] [place] [facility] [address] [id number] [place] [address]- 2577 17 Nov, 2011 [facility] [place] [facility] [address] [facility] [id number] [place] [address]- [address]136 16 Nov, 2011 [facility] [place] [facility] [address] [id number], [place] [address] 27 Sep2011 [facility] [place] [facility] [address] [id number], [place] [address] 24 Sep2011 [facility] [place] [facility] [address] [id number] [place] [address]- 7036 13 Sep2011 [facility] [place] [facility] [address] [facility] [id number] [place] [address]88 11 Sep2011 [facility] [place] [facility] [address] [facility] [id number] [place] [address]- 4716 10 Sep2011 [facility] [place] [facility] [address] [id number] [place] [address]- 5784 08 Oct, 2011 [facility] [address] [id number] [place] [address]- 9086 06 Oct, 2011 [facility] [place] [facility] [address] [id number] [place] [address] 2546 05 Oct, 2011 [facility] [address] [id number] [place] [address]- 7526 04 Oct, 2011 [facility] [place] [facility] [address] [id number] [place] [address] 2540 04 Oct, 2011 [facility] [address] [id number] [place] [address]- 9383 16 Sep, 2011 [facility] [address] [id number] [place] [address] Sep, [facility] [address] [id number] [place] [address]- 4821 30 Aug, 2011 [facility] [address] [id number] [place] [address] 0763 Aug, [facility] [place] [facility] [address] [id number] [place] [address]- 2626 24 Aug, 2011 [facility] [address] [id number] [place] [address]- 8269 Aug, [facility] [place] [facility] [address] [id number] [place] [address] 0259 Aug, [facility] [place] [facility] [address] [id number] [place] [address] 8058 Aug, [facility] [place] [facility] [address] [id number] [place] [address]- 8017 Aug, [facility] [place] [facility] [address] [id number] [place] [address]- 0068 Aug, [facility] [place] [facility] [address] [id number] [place] [address] Jul, [facility] [address] [id number] [place] [address] Jul, [facility] [place] [facility] [address] [id number] [place] [address]- [address] Jul, [facility] [place] [facility] [address] [id number] [place] [address] 6[address] Jul, [facility] [place] [facility] [address] [id number] [place] [address]- 1026 June, [facility] [address] [id number] [place] [address] June, [facility] [place] [facility] [address] [id number] [place] [address] June, [facility] [address] [id number] [place] [address] June, [facility] [address] [id number] [place] [address] June, [facility] [place] [facility] [address] [id number] [place] [address] June, [facility] [place] [facility] [address] [id number] [place] [address] June, [facility] [place] [facility] [address] [id number] [place] [address] June, [facility] [place] [facility] [address] [id number] [place] [address] June, [facility] [place] [facility] [address] [id number] [place] [address] June, [facility] [place] [facility] [address] [id number] [place] [address] June, [facility] [place] [facility] [address] [id number] [place] [address] June, [facility] [place] [facility] [address] [id number] [place] [address] June, [facility] [address] [id number] [place] [address] June, [facility] [place] [facility] [address] [id number] [place] [address] June, [facility] [place] [facility] [address] [id number] [place] [address] June, [facility] [place] [facility] [address] [id number] [place] [address] May, [facility] [place] [facility] [address] [id number] [place] [address] May, [facility] [place] [facility] [address] [id number] [place] [address] May, [facility] [address] [facility] [id number] [place] [address] 47[address] May, [facility] [place] [facility] [address] [id number] [place] [address] Apr, [facility] [place] [facility] [address] [id number] [place] [address] Apr, [facility] [place] [facility] [address] [facility] [id number] [place] [address] Apr, [facility] [place] [facility] [address] [id number] [place] [address] Apr, [facility] [place] [facility] [address] [id number] [place] [address] Apr, [facility] [place] [facility] [address] [id number] [place] [address] Apr, [facility] [place] [facility] [address] [facility] [id number] [place] [address]258 Apr, [facility] [place] [facility] [address] [facility] [id number] [place] [address] Mar, [facility] [place] [facility] [address] [id number] [place] [address] 20 Mar, 2011 [facility] [place] [facility] [address] [id number] [place] [address] 16 Mar, 2011 [facility] [place] [facility] [address] [id number] [place] [address]46 15 Mar, 2011 [facility] [place] [facility] [address] [id number] [place] [address]- 0536 13 Mar, 2011 [facility] [place] [facility] [address] [id number] [place] [address] 09 Mar, 2011 [facility] [place] [facility] [address] [id number] [place] [address] Mar, [facility] [address] [id number] [place] [address] Mar, [facility] [address] [id number] [place] [address] Feb, [facility] [address] [id number] [place] [address] Feb, [facility] [address] [facility] [id number] [place] [address] Feb, [facility] [address] [id number] [place] [address] 58[address] Jan, [facility] [place] [facility] [address] [id number] [place] [address] Jan, [facility] [place] [facility] [address] [id number] [place] [address] Jan, [facility] [place] [facility] [address] [id number] [place] [address] Jan, [facility] [place] [facility] [address] [id number] [place] [address] Jan, [facility] [place] [facility] [address] [id number], [place] [address] 14 Jan, 2011 [facility] [place] [facility] [address] [id number] [place] [address] 5920 13 Jan, 2011 [facility] [place] [facility] [address] [id number] [place] [address] 13 Jan, 2011 [facility] [place] [facility] [address] [id number] [place] [address] 07 Jan, 2011 [facility] [place] [facility] [address] [id number] [place] [address]- [address]77 30 Dec, 2010 [facility] [place] [facility] [address] [id number] [place] [address]- 65[address] Dec, [facility] [place] [facility] [address] [id number] [place] [address] Dec, [facility] [place] [facility] [address] [facility] [id number] [place] [address] Dec, [facility] [place] [facility] [address] [id number] [place] [address]- [address]645 24 Nov, 2010 [facility] [place] [facility] [address] [id number] [place] [address]286 20 Nov, 2010 [facility] [place] [facility] [address] [facility] [id number] [place] [address]270 10 Nov, 2010 [facility] [place] [facility] [address] [id number], [place] [address] 4082 Nov, [facility] [place] [facility] [address] [id number], [place] [address]11 13 Oct, 2010 [facility] [place] [facility] [address] [id number] [place] [address] 9680 Aug, [facility] [place] [facility] [address] [facility] [id number], [place] [address] 15 Mar, 2010 [facility] [place] [facility] [address] [facility] [id number] [place] 23 Jan, 2010 [facility] [place] [facility] [address] [id number] [place] [address]- 8186 10 Jan, 2010 [facility] [place] [facility] [address] [id number] [place] [address] 6256 10 Jan, 2010 [facility] [place] [facility] [address] [id number] [place] [address]- [address]46 07 Jan, 2010 [facility] [place] [facility] [address] [id number] [place] [address]- 5866 29 Dec, 2009 [facility] [place] [facility] [address] [id number] [place] [address]- 254 23 Dec, 2009 [facility] [place] [facility] [address] [id number] [place] [address]- 0469 22 Dec, 2009 [facility] [place] [facility] [address] [id number] [place] [address]- 6067 14 Dec, 2009 [facility] [place] [facility] [address] [id number] [place] [address]- 6226 25 Nov, 2009 [facility] [place] [facility] [address] [id number] [place] [address]- 6768 18 Nov, 2009 [facility] [place] [facility] [address] [id number] [place] [address]- 1243 18 Nov, 2009 [facility] [place] [facility] [address] [facility] [id number] [place] [address]- 5767 16 Apr, 2009 [facility] [place] [facility] [address] [id number] [place] [address]- 3191 15 Feb, 2009 [facility] [place] [facility] [address] [id number] [place] [address]- 2542 15 Jan, 2009 [facility] [place] [facility] [address] [id number] [place] [address] 2546 15 Jan, 2009 [facility] [place] [facility] [address] [id number] [place] [address]- 2546 20 Nov, 2008 [facility] [place] [facility] [address] [id number] [place] [address]- 98[address] Nov, IMMUNIZATIONS No Known Immunizations SOCIAL HISTORY Never Assessed REASON FOR VISIT work physical -- haylee ruiz PLAN OF CARE Activity Details Follow Up 48-72 hours Reason:TB, paperwork signed VITAL SIGNS Height 67 in 2017-06-04 Weight 165.9 lbs 2017-06-04 Temperature 98.0 degrees Fahrenheit 2017-06-04 BMI 25.98 kg/m2 2017-06-04 Blood pressure systolic 118 mmHg 2017-06-04 Blood pressure diastolic 70 mmHg 2017-06-04 MEDICATIONS Medication Instructions Dosage Frequency Start Date End Date Duration Status Ibuprofen 800 MG Orally Three times a day 1 tablet with food or milk as needed 8h May, May, 03 days Active Gabapentin 100 MG TAKE ONE CAPSULE BY MOUTH TWICE DAILY NEEDED FOR ANXIETY 30 Active Pristiq 50 mg Orally Once a day 1 tablet 24h 17 Nov, 2016 15 days Active Flonase 50 MCG/ACT Nasally Once a day 1 spray in each nostril 24h May, 30 day(s) Active RESULTS No Results PROCEDURES Procedure Date Ordered Result Body Site TB INTRADERMAL 2017-06-04 N/A TB INTRADERMAL TEST June 04, 2017 LAB NOT BILLED BY [facility] June 04, 2017 INSTRUCTIONS MEDICATIONS ADMINISTERED No Known Medications MEDICAL [...]
--- OUTSIDE RECORDS SUMMARY | 2018-01-18 09:29 | XMS REPORT ---
Author Author PHUONG VALERIE Organization 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 Name Role Phone Otf BACAYEN Unavailable PROBLEMS Type Condition ICD9-CM Code [id number] Code Onset Dates Condition Status SNOMED Code Problem Acute seasonal allergic rhinitis, unspecified trigger J30.2 Active 388038055 Problem Generalized anxiety disorder F41.1 Active 50947813 Problem Posttraumatic stress disorder 309.81 Active 59931015 Problem Moderate episode of recurrent major depressive disorder F33.1 Active 824638014 Problem Major depressive disorder, recurrent episode, in partial or unspecified remission 296.35 Active [id number] ALLERGIES No Information ENCOUNTERS Encounter Location Date Diagnosis [facility] [address] [address] June, Generalized anxiety disorder F41.1 and Moderate episode of recurrent major depressive disorder F33.1 [facility] [address] [address] May, Visit for TB skin test Z11.1 ; Encounter for physical examination related to employment Z02.1 ; Acute seasonal allergic rhinitis, unspecified trigger J30.2 and Infected tooth [address]7 [facility] [id number] [place] [address]- 2531 May, Generalized anxiety disorder F41.1 [facility] [id number] [place] [address] [id number] Apr, Dental examination Z01.20 [facility] [id number] [place] [address] Apr, [facility] [id number] [place] [address] 8[address]16 -[address] Mar, [facility] [address], [place] [address] Mar, Dysuria R30.0 ; Potential exposure to STD Z20.2 and infection, trichomonal A59.00 [facility] [address], [place] [address] Nov, Acute seasonal allergic rhinitis, unspecified trigger J30.2 [facility] [id number] [place] [address] 36124- 4737 Nov, Generalized anxiety disorder F41.1 and Moderate episode of recurrent major depressive disorder F33.1 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 [id number] [place] [address] 22380- 4941 Apr, Dental examination Z01.20 [facility] [id number] [place] [address] [id number] Apr, Dental examination Z01.20 [facility] [id number] [place] [address] 28933- 9182 Apr, Dental examination Z01.20 [facility] [id number] [place] [address] 94676- 1411 Aug, [facility] [id number] [place] [address] 21021- 4735 Jul, [facility] [id number] [place] [address] 07018- 9579 14 Jul, 2015 ADHD (attention deficit hyperactivity disorder) F90.9 ; Anxiety and depression F41.9 and Controlled substance agreement signed Z79.899 [facility] [id number] [place] [address] 90550- 1008 Jul, [facility] [id number] [place] [address] 08833- 9411 June, [facility] [address], [place] [address] June, [facility] [id number] [place] [address] 28793- 3769 May, ADHD (attention deficit hyperactivity disorder) F90.9 and Anxiety and depression F41.9 [facility] [id number] [place] [address] 05575- 5783 Aug, [facility] [id number] [place] [address] 19249- 4940 Aug, [facility] [id number] [place] [address] [id number] Aug, Dental examination V72.2 [facility] [id number] [place] [address] 05440- 4796 Aug, High risk medications (not anticoagulants) long-term use V58.69 [facility] [id number] [place] [address] [id number] Jul, Dental examination V72.2 [facility] [id number] [place] [address] 110336- 0824 Jul, [facility] [id number] [place] [address] 73909- 8396 Jul, [facility] [address], [place] [address] Jul, [facility] [id number] [place] [address] 25318- 9091 June, [facility] [id number] [place] [address] 380094- 1366 June, [facility] [id number] [place] [address] 81283- 1901 May, [facility] [address] [address] May, [facility] [place] [facility] [address] [id number] [place] [address]- 4797 16 Apr, 2014 [facility] [place] [facility] [address] [id number] [place] [address]- 4553 Apr, [facility] [place] [facility] [address] [id number] [place] [address]- 8628 Apr, [facility] [place] [facility] [address] [id number] [place] [address]- 7269 Apr, [facility] [place] [facility] [address] [id number] [place] [address]- 3255 Apr, [facility] [place] [facility] [address] [id number] [place] [address]- 2998 Apr, [facility] [place] [facility] [address] [id number] [place] [address]- 8498 Apr, [facility] [place] [facility] [address] [id number] [place] [address]- 1912 Apr, [facility] [place] [facility] [address] [id number] [place] [address]- 6886 Mar, [facility] [place] [facility] [address] [id number] [place] [address]- 3519 Mar, [facility] [place] [facility] [address] [id number] [place] [address]- 5450 Mar, [facility] [place] [facility] [address] [id number] [place] [address]- 8927 Mar, [facility] [place] [facility] [address] [id number] [place] [address]- 9358 Feb, [facility] [place] [facility] [address] [id number] [place] [address]- 7633 Feb, [facility] [place] [facility] [address] [id number] [place] [address] Feb, [facility] [place] [facility] [address] [id number] [place] [address]- 2387 Feb, [facility] [place] [facility] [address] [id number] [place] [address]- 3802 Feb, [facility] [place] [facility] [address] [id number] [place] [address]- 1383 Feb, [facility] [place] [facility] [address] [id number] [place] [address]- 6072 Feb, [facility] [place] [facility] [address] [id number] [place] [address]- 2726 Feb, [facility] [place] [facility] [address] [id number] [place] [address]- 0053 Jan, [facility] [place] [facility] [address] [id number] [place] [address]- 4740 Jan, [facility] [place] [facility] [address] [id number] [place] [address]- 9614 Jan, [facility] [place] [facility] [address] [id number] [place] [address]- 7633 Jan, [facility] [place] [facility] [address] [id number] [place] [address]- 4428 Jan, [facility] [place] [facility] [address] [id number] [place] [address]- 8200 Jan, [facility] [place] [facility] [address] [id number] [place] [address]- 6818 Dec, [facility] [place] [facility] [address] [id number] [place] [address]- 5138 Dec, [facility] [place] [facility] [address] [id number] [place] [address]- 5547 Dec, [facility] [place] [facility] [address] [id number] [place] [address]- 6603 Dec, [facility] [place] [facility] [address] [id number] [place] [address]- 1041 Dec, [facility] [place] [facility] [address] [id number] [place] [address]- 2412 Dec, [facility] [place] [facility] [address] [id number] [place] [address]- 2428 Nov, [facility] [place] [facility] [address] [id number] [place] [address]- 5157 Nov, 2013 [facility] [place] [facility] [address] [id number] [place] [address]- 7397 Nov, 2013 [facility] [place] [facility] [address] [id number] [place] [address]- 3710 Nov, 2013 [facility] [place] [facility] [address] [id number] [place] [address]- 9324 Nov, [facility] [place] [facility] [address] [id number] [place] [address]- 2397 Nov, 2013 [facility] [place] [facility] [address] [id number] [place] [address]- 6694 Nov, 2013 [facility] [place] [facility] [address] [id number] [place] [address]- 0585 Nov, [facility] [place] [facility] [address] [id number] [place] [address]- 4492 Nov, [facility] [place] [facility] [address] [id number] [place] [address]- 5972 Nov, [facility] [place] [facility] [address] [id number] [place] [address]- 0250 17 Oct, 2013 [facility] [place] [facility] [address] [id number] [place] [address]- 3528 17 Sep, 2013 [facility] [place] [facility] [address] [id number] [place] [address]- 7612 08 Sep, 2013 [facility] [place] [facility] [address] [id number] [place] [address]- 2068 08 Sep, 2013 [facility] [place] [facility] [address] [id number] [place] [address]- 1102 Oct, [facility] [address] [id number] [place] [address]- 5527 Oct, [facility] [place] [facility] [address] [id number] [place] [address]- 5241 Sep, [facility] [place] [facility] [address] [id number] [place] [address]- 4623 Sep, Via [facility] [place] [id number] Sep [facility] [place] [facility] [address] [id number] [place] [address]- 5341 Sep, [facility] [place] [facility] [address] [id number] [place] [address]- 9810 Aug, [facility] [place] [facility] [address] [id number] [place] [address]- 6785 Aug, [facility] [place] [facility] [address] [id number] [place] [address]- 6079 Aug, [facility] [place] [facility] [address] [id number] [place] [address]- 6000 Aug, [facility] [place] [facility] [address] [id number] [place] [address]- 2843 Aug, [facility] [place] [facility] [address] [id number] [place] [address]- 2001 Aug, [facility] [place] [facility] [address] [id number] [place] [address]- 4332 Jul, [facility] [place] [facility] [address] [id number] [place] [address]- 1429 Jul, [facility] [place] [facility] [address] [id number] [place] [address]- 3689 Jul, [facility] [place] [facility] [address] [id number] [place] [address]- 9562 Jul, [facility] [place] [facility] [address] [id number] [place] [address]- 6826 Jul, [facility] [place] [facility] [address] [id number] [place] [address]- 9830 June, [facility] [place] [facility] [address] [id number] [place] [address]- 0442 June, [facility] [place] [facility] [address] [id number] [place] [address]- 9837 June, [facility] [place] [facility] [address] [id number] [place] [address]- 6565 June, [facility] [place] [facility] [address] [id number] [place] [address]- 1486 May, [facility] [place] [facility] [address] [id number] [place] [address]- 2663 May, [facility] [place] [facility] [address] [id number] [place] [address]- 6955 May, [facility] [place] [facility] [address] [id number] [place] [address]- 1242 May, [facility] [place] [facility] [address] [id number] [place] [address]- 1164 May, [facility] [place] [facility] [address] [id number] [place] [address]- 2441 May, [facility] [place] [facility] [address] [id number] [place] [address]- 1035 May, [facility] [place] [facility] [address] [id number], [place] [address]- 3768 May, [facility] [place] [facility] [address] [id number] [place] [address]- 8857 May, [facility] [place] [facility] [address] [id number] [place] [address]- 5852 May, [facility] [place] [facility] [address] [id number] [place] [address]- 7464 May, [facility] [place] [facility] [address] [id number] [place] [address]- 4363 11 Apr, 2013 [facility] [place] [facility] [address] [id number] [place] [address]- 6136 11 Apr, 2013 [facility] [place] [facility] [address] [id number] [place] [address]- 1336 07 Apr, 2013 [facility] [place] [facility] [address] [id number] [place] [address]- 2132 07 Apr, 2013 [facility] [place] [facility] [address] [id number] [place] [address]- 2668 Mar, [facility] [place] [facility] [address] [id number] [place] [address]- 7426 Mar, [facility] [place] [facility] [address] [id number] [place] [address]- 6582 13 Mar, 2013 [facility] [place] [facility] [address] [id number] [place] [address]- 2012 Mar, [facility] [place] [facility] [address] [id number] [place] [address]- 5544 07 Mar, 2013 [facility] [place] [facility] [address] [id number] [place] [address]- 0146 07 Mar, 2013 [facility] [place] [facility] [address] [id number] [place] [address]- 0846 14 Feb, 2013 [facility] [place] [facility] [address] [id number] [place] [address]- 3285 14 Feb, 2013 [facility] [place] [facility] [address] [id number] [place] [address]- 7138 Feb, [facility] [place] [facility] [address] [id number] [place] [address]- 3961 Feb, [facility] [place] [facility] [address] [id number] [place] [address]- 2066 Feb, [facility] [place] [facility] [address] [id number] [place] [address]- 0670 Feb, [facility] [place] [facility] [address] [id number] [place] [address]- 1489 Feb, [facility] [place] [facility] [address] [id number] [place] [address]- 2953 Jan, [facility] [place] [facility] [address] [id number] [place] [address]- 8834 Jan, [facility] [place] [facility] [address] [id number] [place] [address]- 3030 Jan, [facility] [place] [facility] [address] [id number] [place] [address]- 1018 Jan, [facility] [place] [facility] [address] [id number] [place] [address]- 4810 Dec, [facility] [place] [facility] [address] [id number] [place] [address]- 2207 Dec, [facility] [place] [facility] [address] [id number], [place] [address]- 7761 Dec, [facility] [place] [facility] [address] [id number] [place] [address]- 1260 22 Nov, 2012 [facility] [place] [facility] [address] [id number], [place] [address]- 0304 17 Nov, 2012 [facility] [place] [facility] [address] [id number], [place] [address]- 5801 17 Nov, 2012 [facility] [place] [facility] [address] [id number], [place] [address]- 3112 Nov, [facility] [place] [facility] [address] [id number], [place] [address]- 0344 Nov, [facility] [place] [facility] [address] [id number], [place] [address]- 4899 Nov, [facility] [place] [facility] [address] [id number], [place] [address]- 2831 11 Nov, 2012 [facility] [place] [facility] [address] [id number] [place] [address]- 6914 Nov, [facility] [address] [id number] [place] [address]- 6070 Oct, [facility] [place] [facility] [address] [id number] [place] [address]- 5916 Oct, [facility] [place] [facility] [address] [id number] [place] [address]- 7376 Sep, [facility] [place] [facility] [address] [id number] [place] [address]- 1666 Sep, [facility] [place] [facility] [address] [id number] [place] [address]- 0193 Sep, [facility] [place] [facility] [address] [id number] [place] [address]- 7530 Sep, [facility] [address] [id number] [place] [address]- 2858 Sep, [facility] [place] [facility] [address] [id number] [place] [address]- 5454 Sep, [facility] [place] [facility] [address] [id number] [place] [address]- 4198 Sep, [facility] [place] [facility] [address] [id number] [place] [address]- 6853 Sep, [facility] [place] [facility] [address] [id number] [place] [address]- 4403 Aug, [facility] [place] [facility] [address] [id number] [place] [address]- 5939 Aug, [facility] [place] [facility] [address] [id number] [place] [address]- 1118 Aug, [facility] [place] [facility] [address] [id number] [place] [address]- 0465 Aug, [facility] [place] [facility] [address] [id number] [place] [address]- 6087 Jul, [facility] [place] [facility] [address] [id number] [place] [address]- 8004 Jul, [facility] [address] [id number] [place] [address]- 2325 Jul, [facility] [address] [id number] [place] [address]- 4686 June, [facility] [address] [id number] [place] [address]- 7407 June, [facility] [address] [id number] [place] [address]- 0840 June, [facility] [address] [id number] [place] [address]- 3333 June, [facility] [address] [id number] [place] [address]- 9463 June, [facility] [address] [id number] [place] [address]- 0764 May, [facility] [address] [id number] [place] [address]- 2066 May, [facility] [address] [id number] [place] [address]- 4744 May, [facility] [address] [id number] [place] [address]- 3892 May, [facility] [address] [id number] [place] [address]- 1952 May, [facility] [address] [id number] [place] [address]- 0453 May, [facility] [place] [facility] [address] [id number] [place] [address]- 4271 May, [facility] [place] [facility] [address] [id number] [place] [address]- 2605 Apr, [facility] [place] [facility] [address] [id number], [place] [address]- 0716 28 Apr, 2012 [facility] [address] [id number] [place] [address]- 0685 28 Apr, 2012 [facility] [place] [facility] [address] [id number] [place] [address]- 7869 13 Apr, 2012 [facility] [place] [facility] [address] [facility] [id number] [place] [address]- 9194 07 Apr, 2012 [facility] [place] [facility] [address] [id number], [place] [address] 07 Apr, 2012 [facility] [address] [id number] [place] [address] 06 Apr, 2012 [facility] [address] [facility] [id number], [place] [address] 05 Apr, 2012 [facility] [address] [facility] [id number] [place] [address] 116[address] 05 Apr, 2012 [facility] [place] [facility] [address] [id number], [place] [address] 04 Apr, 2012 [facility] [address] [facility] [id number], [place] [address] 21 Mar, 2012 [facility] [place] [facility] [address] [facility] [id number], [place] [address] 20 Mar, 2012 [facility] [place] [facility] [address] [id number], [place] [address] 18 Mar, 2012 [facility] [place] [facility] [address] [facility] [id number], [place] [address] 269[address] 15 Mar, 2012 [facility] [place] [facility] [address] [id number], [place] [address] 13 Mar, 2012 [facility] [place] [facility] [address] [facility] [id number], [place] [address] 06 Mar, 2012 [facility] [place] [facility] [address] [facility] [id number], [place] [address] 6985 05 Mar, 2012 [facility] [place] [facility] [address] [id number] [place] [address] Feb, [facility] [place] [facility] [address] [id number] [place] [address] Feb, [facility] [place] [facility] [address] [id number] [place] [address] Feb, [facility] [place] [facility] [address] [id number] [place] [address] 1306 Feb, [facility] [place] [facility] [address] [id number] [place] [address] Jan, [facility] [place] [facility] [address] [id number] [place] [address] Jan, [facility] [place] [facility] [address] [id number] [place] [address] Jan, [facility] [place] [facility] [address] [id number] [place] [address] 130[address] Jan, [facility] [place] [facility] [address] [id number] [place] [address] 9682 Dec, [facility] [place] [facility] [address] [id number] [place] [address]367 Dec, [facility] [place] [facility] [address] [id number] [place] [address] Dec, [facility] [place] [facility] [address] [id number] [place] [address] 8791 Dec, [facility] [place] [facility] [address] [id number] [place] [address] 69[address] Dec, [facility] [place] [facility] [address] [id number] [place] [address] 9323 Dec, [facility] [place] [facility] [address] [id number] [place] [address] Dec, [facility] [place] [facility] [address] [id number] [place] [address] 5944 Dec, [facility] [place] [facility] [address] [id number] [place] [address] 1418 Dec, [facility] [place] [facility] [address] [id number] [place] [address] 3346 Nov, [facility] [place] [facility] [address] [id number] [place] [address]- 2366 Nov, [facility] [place] [facility] [address] [id number] [place] [address]- 8349 Nov, [facility] [place] [facility] [address] [id number] [place] [address]- [address]29 Nov, [facility] [place] [facility] [address] [id number] [place] [address] Nov, [facility] [place] [facility] [address] [id number] [place] [address]- 9729 18 Nov, 2011 [facility] [place] [facility] [address] [id number] [place] [address] 1273 17 Nov, 2011 [facility] [place] [facility] [address] [id number] [place] [address]- [address]152 16 Nov, 2011 [facility] [place] [facility] [address] [id number] [place] [address]- 5365 27 Sep2011 [facility] [place] [facility] [address] [id number], [place] [address]- 9[address] 24 Sep2011 [facility] [place] [facility] [address] [id number], [place] [address]- [address] 13 Sep, 2011 [facility] [place] [facility] [address] [id number] [place] [address]- 4196 11 Sep2011 [facility] [place] [facility] [address] [facility] [id number] [place]- [address] 10 Sep2011 [facility] [place] [facility] [address] [facility] [id number] [place] [address] 08 Sep, 2011 [facility] [place] [facility] [address] [id number] [place] [address]- 1635 06 Oct, 2011 [facility] [address] [id number] [place] [address]- [address]126 05 Oct, 2011 [facility] [place] [facility] [address] [id number] [place] [address]46 Oct, [facility] [address] [id number] [place] [address]- [address]876 04 Oct, 2011 [facility] [place] [facility] [address] [id number] [place] [address]- 4166 Sep, [facility] [place] [facility] [address] [id number] [place] [address]- [address]783 Sep, [facility] [place] [facility] [address] [id number] [place] [address]- 7286 Aug, [facility] [address] [id number] [place] [address] 3274 Aug, [facility] [address] [id number] [place] [address] 6589 Aug, [facility] [place] [facility] [address] [id number] [place] [address]- [address]118 Aug, [facility] [address] [id number] [place] [address] Aug, [facility] [place] [facility] [address] [id number] [place] [address] 68[address] Aug, [facility] [place] [facility] [address] [id number] [place] [address]- 1444 Aug, [facility] [place] [facility] [address] [id number] [place] [address] Aug, [facility] [place] [facility] [address] [id number] [place] [address] Jul, [facility] [place] [facility] [address] [id number] [place] [address] Jul, [facility] [address] [id number] [place] [address] Jul, [facility] [place] [facility] [address] [id number] [place] [address] Jul, [facility] [place] [facility] [address] [id number] [place] [address] June, [facility] [place] [facility] [address] [id number] [place] [address] June, [facility] [address] [id number] [place] [address] June, [facility] [address] [id number] [place] [address] June, [facility] [address] [id number] [place] [address] June, [facility] [address] [id number] [place] [address] June, [facility] [address] [id number] [place] [address] June, [facility] [address] [id number] [place] [address] June, [facility] [place] [facility] [address] [id number] [place] [address] June, [facility] [place] [facility] [address] [id number] [place] [address] June, [facility] [place] [facility] [address] [id number] [place] [address] June, [facility] [place] [facility] [address] [id number] [place] [address] June, [facility] [place] [facility] [address] [id number] [place] [address] June, [facility] [place] [facility] [address] [id number], [place] [address] June, [facility] [address] [id number] [place] [address] June, [facility] [place] [facility] [address] [id number] [place] [address] June, [facility] [place] [facility] [address] [id number] [place] [address] May, [facility] [place] [facility] [address] [id number] [place] [address] May, [facility] [place] [facility] [address] [id number] [place] [address] May, [facility] [place] [facility] [address] [id number] [place] [address] May, [facility] [address] [facility] [id number] [place] [address] Apr, [facility] [place] [facility] [address] [facility] [id number] [place] [address] Apr, [facility] [place] [facility] [address] [id number] [place] [address] Apr, [facility] [place] [facility] [address] [facility] [id number] [place] [address] Apr, [facility] [place] [facility] [address] [id number] [place] [address] Apr, [facility] [place] [facility] [address] [id number] [place] [address] Apr, [facility] [place] [facility] [address] [id number] [place] [address] 164[address] Apr, [facility] [place] [facility] [address] [facility] [id number] [place] [address] Mar, [facility] [place] [facility] [address] [facility] [id number] [place] [address] Mar, [facility] [place] [facility] [address] [id number] [place] [address] 16 Mar, 2011 [facility] [place] [facility] [address] [id number] [place] [address] 15 Mar, 2011 [facility] [place] [facility] [address] [id number] [place] [address] 13 Mar, 2011 [facility] [place] [facility] [address] [id number] [place] [address] 1446 09 Mar, 2011 [facility] [place] [facility] [address] [id number] [place] [address] 06 Mar, 2011 [facility] [place] [facility] [address] [id number] [place] [address] Mar, [facility] [place] [facility] [address] [id number] [place] [address] Feb, [facility] [address] [id number] [place] [address] Feb, [facility] [place] [facility] [address] [id number] [place] [address] 8[address] Feb, [facility] [place] [facility] [address] [id number] [place] [address] Jan, [facility] [place] [facility] [address] [id number] [place] [address]- [address] 24 Jan, 2011 [facility] [place] [facility] [address] [id number] [place] [address] Jan, [facility] [place] [facility] [address] [id number] [place] [address] Jan, [facility] [place] [facility] [address] [id number] [place] [address]- [address]226 19 Jan, 2011 [facility] [place] [facility] [address] [id number] [place] [address] 14 Jan, 2011 [facility] [place] [facility] [address] [id number], [place] [address]- [address] Jan, [facility] [place] [facility] [address] [id number] [place] [address]- [address] Jan, [facility] [place] [facility] [address] [id number] [place] [address]- [address]462 07 Jan, 2011 [facility] [place] [facility] [address] [id number] [place] [address] Dec, [facility] [place] [facility] [address] [id number] [place] [address] Dec, [facility] [place] [facility] [address] [id number] [place] [address]- [address]908 Dec, [facility] [place] [facility] [address] [id number] [place] [address] Dec, [facility] [place] [facility] [address] [facility] [id number] [place] [address]- [address] 24 Nov, 2010 [facility] [place] [facility] [address] [id number] [place] [address] 6[address] Nov, [facility] [place] [facility] [address] [id number] [place] [address]- [address]994 Nov, [facility] [place] [facility] [address] [facility] [id number] [place] [address]- [address] Nov, [facility] [place] [facility] [address] [id number], [place] [address] Oct, [facility] [place] [facility] [address] [id number], [place] [address] Aug, [facility] [place] [facility] [address] [id number] [place] [address]- [address]777 15 Mar, 2010 [facility] [place] [facility] [address] [id number] [place] [address]- 9330 Jan, [facility] [place] [facility] [address] [facility] [id number] [place] [address]- 5062 Jan, [facility] [place] [facility] [address] [facility] [id number], [place] [address] 5[address] [address], [address] [facility] [address] [facility] [id number][place] [address] 07 Jan, 2010 [facility] [address] [facility] [id number], [place] [address] [address], [address] [facility] [address] [facility] [id number], [place] [address]- [address] [address], [address] [facility] [address] [facility] [id number], [place] [address] Dec, [facility] [address] [facility] [id number], [place] [address] [address], [address] [facility] [address] [facility] [id number], [place] [address] Nov, [facility] [address] [id number], [place] [address] 18 Nov, [address] [facility] [address] [facility] [id number], [place] [address] 18 Nov, 2009 [facility] [id number], [place] [address] Apr, [facility] [address] [id number] [address] 15 Feb, [address] [facility] [address] [id number], [place] [address] 15 Jan, 2009 [facility] [address] [facility] [id number][place]3354- [address] 15 Jan, [address] [facility] [id number], [place] [address] Nov, [facility] [address] [facility] [id number], [place] [address]- [address] 14 Nov, 2008 IMMUNIZATIONS No Known Immunizations SOCIAL HISTORY Never Assessed REASON FOR VISIT Refill request PLAN OF CARE VITAL SIGNS MEDICATIONS Medication Instructions Dosage Frequency Start Date End Date Duration Status Pristiq 50 mg Orally Once a day 1 tablet 24h 17 Nov, 2016 15 days Active RESULTS No Results PROCEDURES No [...]
--- OUTSIDE RECORDS SUMMARY | 2018-01-18 09:30 | XMS REPORT ---
Author Author ANAHIDEMETRICE BELLO Laurent [facility] Address Unknown Care Team Providers Care Connection Worker Name Role Phone DEMETRICE ROBLEDO Unavailable PROBLEMS Type Condition ICD9-CM Code VOY76-AW Code Onset Dates Condition Status SNOMED Code Problem Acute seasonal allergic rhinitis, unspecified trigger J30.2 Active 015304595 Problem Generalized anxiety disorder F41.1 Active 65193727 Problem Posttraumatic stress disorder 309.81 Active 88466988 Problem Moderate episode of recurrent major depressive disorder F33.1 Active 835372233 Problem Major depressive disorder, recurrent episode, in partial or unspecified remission 296.35 Active 29103709 ALLERGIES Substance Reaction Event Type Date Status Lamictal "Hives" Drug Allergy Apr, Active Trazodone oversedation Non Drug Allergy Apr, Active ENCOUNTERS Encounter Location Date Diagnosis [facility] [id number] [place] [address] 08509- 7389 June, Generalized anxiety disorder F41.1 and Moderate episode of recurrent major depressive disorder F33.1 [facility] [id number] [place] [address] 34921- 1868 May, Visit for TB skin test Z11.1 ; Encounter for physical examination related to employment Z02.1 ; Acute seasonal allergic rhinitis, unspecified trigger J30.2 and Infected tooth K04.7 [facility] [id number] [place] [address] 93744- 7263 06 May, 2017 Generalized anxiety disorder F41.1 [facility] [id number] [place] [address] [id number] Apr, Dental examination Z01.20 [facility] [id number] [place] [address] 57758 -3503 Apr, [facility] [id number] [place] [address] 71261 -5990 Mar, [facility] [id number] [place] [address] 09125 -2392 13 Mar, 2017 Dysuria R30.0 ; Potential exposure to STD Z20.2 and infection, trichomonal A59.00 [facility] [id number] [place] [address] 23415 -7367 Nov, Acute seasonal allergic rhinitis, unspecified trigger J30.2 [facility] [id number] [place] [address] 17217- 8611 Nov, Generalized anxiety disorder F41.1 and Moderate episode of recurrent major depressive disorder F33.1 [facility] [id number] [place] [address] 89554- 4429 May, Bipolar depression F31.30 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 [id number] [place] [address] [id number] Apr, Dental examination Z01.20 [facility] [id number] [place] [address] 90501- 7859 Apr, Dental examination Z01.20 [facility] [id number] [place] [address] 52983- 5644 Aug, [facility] [id number] [place] [address] 53316- 3320 Jul, [facility] [id number] [place] [address] 96181- 7045 14 Jul, 2015 ADHD (attention deficit hyperactivity disorder) F90.9 ; Anxiety and depression F41.9 and Controlled substance agreement signed Z79.899 [facility] [id number] [place] [address] 76996- 0967 Jul, [facility] [id number] [address] 9478 June, [facility] [id number] [place] [address] 21028- 3138 June, [facility] [id number] [place] [address] 12971- 0009 May, ADHD (attention deficit hyperactivity disorder) F90.9 and Anxiety and depression F41.9 [facility] [id number] [place] [address] 36525- 6369 Aug, [facility] [id number] [place] [address] 96025- 2490 Aug, [facility] [id number] [place] [address] [id number] Aug, Dental examination V72.2 [facility] [id number] [place] [address] 06229- 7990 Aug, High risk medications (not anticoagulants) long-term use V58.69 [facility] [id number] [place] [address] [id number] Jul, Dental examination V72.2 [facility] [id number] [place] [address] 02608- 5145 Jul, [facility] [id number] [address]- 8987 Jul, [facility] [id number] [address]- 3697 Jul, [facility] [id number] [address]- 8806 June, [facility] [id number] [address]- 2736 June, [facility] [id number] [address]- 4975 May, [facility] [id number] [address]- 3897 May, [facility] [place] [facility] [address] [id number] [place] [address]- 9263 Apr, [facility] [place] [facility] [address] [id number] [place] [address]- 7447 16 Apr, 2014 [facility] [place] [facility] [address] [id number] [place] [address]- 1455 Apr, [facility] [place] [facility] [address] [id number] [place] [address]- 1075 Apr, [facility] [place] [facility] [address] [id number] [place] [address]- 8716 Apr, [facility] [place] [facility] [address] [facility] [id number] [place] [address]- 5195 Apr, [facility] [place] [facility] [address] [facility] [id number] [place] [address]- 7320 Apr, [facility] [place] [facility] [address] [facility] [id number] [place] [address]- 5916 Apr, [facility] [place] [facility] [address] [facility] [id number] [place] [address]- 5930 Mar, [facility] [place] [facility] [address] [facility] [id number] [place] [address]- 1924 Mar, [facility] [place] [facility] [address] [facility] [id number] [place] [address]- 9989 Mar, [facility] [place] [facility] [address] [facility] [id number] [address] 9291 Mar, [facility] [place] [facility] [address] [id number] [address]- 6453 Feb, [facility] [place] [facility] [address] [id number] [address]- 1473 Feb, [facility] [place] [facility] [address] [facility] [id number] 6866 Feb, [facility] [place] [facility] [address] [id number] [place] [address]- 2602 Feb, [facility] [place] [facility] [address] [id number] [place] [address]- 6067 Feb, [facility] [place] [facility] [address] [id number] [place] [address]- 3634 Feb, [facility] [place] [facility] [address] [id number] [place] [address]- 6651 Feb, [facility] [place] [facility] [address] [id number] [place] [address]- 0132 Feb, [facility] [place] [facility] [address] [id number] [place] [address]- 5665 Jan, [facility] [place] [facility] [address] [id number] [place] [address]- 1825 Jan, [facility] [place] [facility] [address] [id number] [place] [address]- 9197 Jan, [facility] [place] [facility] [address] [id number] [place] [address]- 9625 Jan, [facility] [place] [facility] [address] [id number] [place] [address]- 8598 Jan, [facility] [place] [facility] [address] [id number] [place] [address]- 3847 Jan, [facility] [place] [facility] [address] [id number] [place] [address]- 0071 Dec, [facility] [place] [facility] [address] [id number] [place] [address]- 8273 Dec, [facility] [place] [facility] [address] [id number] [place] [address]- 8273 Dec, [facility] [place] [facility] [address] [id number] [place] [address]- 4278 Dec, [facility] [place] [facility] [address] [id number] [place] [address]- 9582 Dec, [facility] [place] [facility] [address] [id number] [place] [address]- 7202 Dec, [facility] [place] [facility] [address] [id number] [place] [address]- 4731 Nov, [facility] [place] [facility] [address] [id number] [place] [address]- 5556 Nov, [facility] [place] [facility] [address] [id number] [place] [address]- 9420 Nov, [facility] [place] [facility] [address] [id number] [place] [address]- 9478 Nov, [facility] [place] [facility] [address] [id number] [place] [address]- 6432 Nov, [facility] [place] [facility] [address] [id number] [place] [address]- 0094 Nov, [facility] [place] [facility] [address] [id number] [place] [address]- 1605 Nov, [facility] [place] [facility] [address] [id number] [place] [address]- 4712 Nov, [facility] [place] [facility] [address] [id number] [place] [address]- 3186 Nov, [facility] [place] [facility] [address] [id number] [address]- 5306 Nov, [facility] [place] [facility] [address] [id number] [address]- 5163 17 Oct, 2013 [facility] [place] [facility] [address] [id number] [place] [address]- 2805 17 Oct, 2013 [facility] [place] [facility] [address] [id number] [place] [address]- 4365 08 Oct, 2013 [facility] [place] [facility] [address] [id number] [place] [address]- 6523 08 Oct, 2013 [facility] [place] [facility] [address] [id number] [place] [address]- 5750 Oct, [facility] [address] [id number] [place] [address]- 5318 Oct, [facility] [address] [id number] [place] [address]- 3737 Sep, [facility] [address] [id number] [place] [address]- 3787 Sep, [facility] [address] [place] [id number] Sep [facility] [address] [id number] [place] [address]- 8320 Sep, [facility] [address] [id number] [place] [address]- 3354 Aug, [facility] [address] [id number] [place] [address]- 7964 Aug, [facility] [place] [facility] [address] [id number] [place] [address]- 0296 Aug, [facility] [place] [facility] [address] [id number] [place] [address]- 7168 Aug, [facility] [place] [facility] [address] [id number] [place] [address]- 5826 Aug, [facility] [place] [facility] [address] [id number] [place] [address]- 7346 Aug, [facility] [place] [facility] [address] [id number] [place] [address]- 7716 Jul, [facility] [place] [facility] [address] [id number] [place] [address]- 7044 Jul, [facility] [place] [facility] [address] [id number] [place] [address]- 1857 Jul, [facility] [place] [facility] [address] [id number] [place] [address]- 7579 Jul, [facility] [place] [facility] [address] [id number] [place] [address]- 3969 Jul, [facility] [place] [facility] [address] [id number] [place] [address]- 2451 June, [facility] [place] [facility] [address] [id number] [place] [address]- 0548 June, [facility] [place] [facility] [address] [id number] [place] [address]- 6698 June, [facility] [place] [facility] [address] [id number] [place] [address]- 5816 June, [facility] [place] [facility] [address] [id number] [place] [address]- 8892 May, [facility] [place] [facility] [address] [id number] [place] [address]- 9133 May, [facility] [place] [facility] [address] [id number] [place] [address]- 8372 May, [facility] [place] [facility] [address] [id number] [place] [address]- 8133 May, [facility] [place] [facility] [address] [id number] [place] [address]- 8044 May, [facility] [place] [facility] [address] [id number] [place] [address]- 5730 May, [facility] [place] [facility] [address] [id number] [place] [address]- 4397 May, [facility] [place] [facility] [address] [id number] [place] [address]- 5134 May, [facility] [place] [facility] [address] [id number] [place] [address]- 2451 May, [facility] [place] [facility] [address] [id number] [place] [address]- 4040 May, [facility] [place] [facility] [address] [id number] [place] [address]- 2906 May, [facility] [place] [facility] [address] [id number] [place] [address]- 8518 Apr, [facility] [place] [facility] [address] [id number] [place] [address]- 5127 Apr, [facility] [place] [facility] [address] [id number] [place] [address]- 2650 Apr, [facility] [place] [facility] [address] [id number] [place] [address]- 6723 Apr, [facility] [place] [facility] [address] [id number] [place] [address]- 3543 Mar, [facility] [place] [facility] [address] [id number] [place] [address]- 9878 Mar, [facility] [place] [facility] [address] [id number] [place] [address]- 5181 Mar, [facility] [place] [facility] [address] [id number] [place] [address]- 4426 Mar, [facility] [place] [facility] [address] [id number] [place] [address]- 0460 Mar, [facility] [place] [facility] [address] [id number] [place] [address]- 6645 Mar, [facility] [place] [facility] [address] [id number] [place] [address]- 3952 Feb, [facility] [place] [facility] [address] [id number] [place] [address]- 2495 Feb, [facility] [place] [facility] [address] [id number] [place] [address]- 4074 Feb, [facility] [place] [facility] [address] [id number] [place] [address]- 7346 Feb, [facility] [place] [facility] [address] [id number] [place] [address]- 3480 Feb, [facility] [place] [facility] [address] [id number] [place] [address]- 7646 Feb, [facility] [address] [id number] [place] [address]- 2781 Feb, [facility] [place] [facility] [address] [id number] [place] [address]- 9788 Jan, [facility] [address] [id number] [place] [address]- 8695 Jan, [facility] [place] [facility] [address] [id number] [place] [address]- 0164 Jan, [facility] [address] [id number] [place] [address]- 8298 Jan, [facility] [place] [facility] [address] [id number] [place] [address]- 2179 14 Dec, 2012 [facility] [place] [facility] [address] [id number] [place] [address]- 8067 14 Dec, 2012 [facility] [address] [id number] [place] [address]- 1306 Dec, [facility] [place] [facility] [address] [id number] [place] [address]- 5465 22 Nov, 2012 [facility] [address] [id number] [place] [address]- 0227 17 Nov, 2012 [facility] [place] [facility] [address] [id number] [place] [address]- 8503 17 Nov, 2012 [facility] [place] [facility] [address] [id number] [place] [address]- 0898 Nov, [facility] [place] [facility] [address] [id number] [place] [address]- 8763 Nov, [facility] [place] [facility] [address] [id number] [place] 3872 Nov, [facility] [place] [facility] [address] [id number] [place] [address]- 8507 Nov, [facility] [place] [facility] [address] [id number] [place] [address]- 1887 Nov, [facility] [place] [facility] [address] [id number] [place] [address]- 2491 Oct, [facility] [place] [facility] [address] [id number] [place] [address]- 8369 Oct, [facility] [place] [facility] [address] [id number] [place] [address]- 3064 Sep, [facility] [place] [facility] [address] [id number] [place] [address]- 8874 Sep, [facility] [place] [facility] [address] [id number] [place] [address]- 4584 Sep, [facility] [place] [facility] [address] [id number] [place] [address]- 9395 Sep, [facility] [place] [facility] [address] [id number] [place] [address]- 6487 Sep, [facility] [place] [facility] [address] [id number] [place] [address]- 8794 Sep, [facility] [place] [facility] [address] [id number] [place] [address]- 1212 Sep, [facility] [place] [facility] [address] [id number] [place] [address]- 4529 Sep, [facility] [place] [facility] [address] [id number] [address]- 6493 Aug, [facility] [place] [facility] [address] [id number] [place] [address]- 9231 Aug, [facility] [place] [facility] [address] [id number] [place] [address]- 5123 Aug, [facility] [place] [facility] [address] [id number] [place] [address]- 8074 Aug, [facility] [place] [facility] [address] [id number] [address]- 7513 Jul, [facility] [address] [id number] [place] [address]- 4447 Jul, [facility] [address] [id number] [place] [address]- 6387 Jul, [facility] [address] [id number] [place] [address]- 4576 June, [facility] [address] [id number] [place] [address]- 1489 June, [facility] [address] [id number] [place] [address]- 4314 June, [facility] [address] [id number] [place] [address]- 4420 June, [facility] [address] [id number] [place] [address]- 0862 June, [facility] [address] [id number] [place] [address]- 2043 May, [facility] [address] [id number] [place] [address]- 8022 May, [facility] [address] [id number] [place] [address]- 1708 May, [facility] [address] [id number] [place] [address]- 2346 May, [facility] [address] [id number] [place] [address]- 8421 May, [facility] [address] [id number] [place] [address]- 4117 May, [facility] [place] [facility] [address] [id number] [place] [address]- 0505 08 May, 2012 [facility] [address] [id number] [place] [address]- 7466 Apr, [facility] [place] [facility] [address] [id number] [place] [address] 28 Apr, 2012 [facility] [place] [facility] [address] [id number] [place] [address] 28 Apr, 2012 [facility] [place] [facility] [address] [id number] [place] [address] 13 Apr, 2012 [facility] [place] [facility] [address] [id number] [place] [address] 07 Apr, 2012 [facility] [place] [facility] [address] [id number] [place] [address] 07 Apr, 2012 [facility] [place] [facility] [address] [id number] [place] [address] 06 Apr, 2012 [facility] [place] [facility] [address] [id number] [place] [address] 05 Apr, 2012 [facility] [place] [facility] [address] [id number] [place] [address] 05 Apr, 2012 [facility] [place] [facility] [address] [id number] [place] [address] 04 Apr, 2012 [facility] [place] [facility] [address] [id number] [place] [address] 21 Mar, 2012 [facility] [place] [facility] [address] [id number] [place] [address] 20 Mar, 2012 [facility] [place] [facility] [address] [id number] [place] [address] 18 Mar, 2012 [facility] [place] [facility] [address] [id number] [place] [address] 15 Mar, 2012 [facility] [place] [facility] [address] [id number] [place] [address] 13 Mar, 2012 [facility] [place] [facility] [address] [id number] [place] [address] 06 Mar, 2012 [facility] [place] [facility] [address] [id number] [address] 05 Mar, 2012 [facility] [address] [id number] [place] [address] Feb, [facility] [place] [facility] [address] [id number] [place] [address] Feb, [facility] [place] [facility] [address] [facility] [id number] [place] [address] Feb, [facility] [place] [facility] [address] [id number] [place] [address] Feb, [facility] [place] [facility] [address] [id number] [place] [address] Jan, [facility] [place] [facility] [address] [id number] [place] [address] Jan, [facility] [address] [id number] [place] [address] Jan, [facility] [place] [facility] [address] [facility] [id number] [place] [address] Jan, [facility] [place] [facility] [address] [id number] [place] [address] Dec, [facility] [place] [facility] [address] [facility] [id number] [place] [address] Dec, [facility] [place] [facility] [address] [facility] [id number] [place] [address] Dec, [facility] [place] [facility] [address] [id number] [address] Dec, [facility] [place] [facility] [address] [id number] [place] [address] Dec, [facility] [place] [facility] [address] [facility] [id number] [place] [address] Dec, [facility] [place] [facility] [address] [facility] [id number] [place] [address] Dec, [facility] [place] [facility] [address] [id number] [place] [address] Dec, [facility] [place] [facility] [address] [id number] [place] [address] Dec, [facility] [place] [facility] [address] [id number] [place] [address] Nov, [facility] [place] [facility] [address] [id number] [place] [address] Nov, [facility] [place] [facility] [address] [id number] [place] [address] Nov, [facility] [place] [facility] [address] [id number] [place] [address] Nov, [facility] [place] [facility] [address] [id number] [place] [address] 18 Nov, 2011 [facility] [place] [facility] [address] [id number] [place] [address] 18 Nov, 2011 [facility] [place] [facility] [address] [id number] [place] [address] 135[address] 17 Nov, 2011 [facility] [place] [facility] [address] [id number] [place] [address]- 1564 16 Nov, 2011 [facility] [place] [facility] [address] [facility] [id number] [place] [address]- 47[address] 27 Sep2011 [facility] [place] [facility] [address] [id number] [place] [address]- [address] 24 Sep, 2011 [facility] [place] [facility] [address] [id number] [place] [address]- [address]46 13 Sep, 2011 [facility] [place] [facility] [address] [id number] [place] [address]26 11 Sep, 2011 [facility] [place] [facility] [address] [id number] [place] [address]- 2096 10 Sep, 2011 [facility] [place] [facility] [address] [id number] [place] [address]- 2546 08 Sep, 2011 [facility] [place] [facility] [address] [id number] [place] [address]- [address] 06 Oct, 2011 [facility] [place] [facility] [address] [id number] [place] [address] 1315 05 Oct, 2011 [facility] [place] [facility] [address] [id number] [place] [address]- 0259 04 Oct, 2011 [facility] [place] [facility] [address] [id number] [place] [address]- 0773 04 Oct, 2011 [facility] [place] [facility] [address] [id number] [place] [address]283 16 Sep, 2011 [facility] [place] [facility] [address] [id number] [place] [address] Sep, [facility] [place] [facility] [address] [id number] [place] [address] Aug, [facility] [place] [facility] [address] [id number] [place] [address] Aug, [facility] [place] [facility] [address] [id number] [place] [address] Aug, [facility] [place] [facility] [address] [id number] [place] [address] Aug, [facility] [place] [facility] [address] [id number] [place] [address] Aug, [facility] [place] [facility] [address] [id number] [place] [address] Aug, [facility] [place] [facility] [address] [id number] [place] [address] Aug, [facility] [place] [facility] [address] [id number] [place] [address] Aug, [facility] [place] [facility] [address] [id number] [place] [address] Jul, [facility] [place] [facility] [address] [id number] [place] [address] Jul, [facility] [address] [id number] [place] [address] Jul, [facility] [address] [id number] [place] [address] Jul, [facility] [address] [id number] [place] [address] June, [facility] [address] [id number] [place] [address] June, [facility] [address] [id number] [place] [address] June, [facility] [address] [id number] [place] [address] June, [facility] [address] [id number] [place] [address] June, [facility] [address] [id number] [place] [address] June, [facility] [address] [id number] [place] [address] June, [facility] [address] [id number] [place] [address] June, [facility] [address] [id number] [place] [address] June, [facility] [place] [facility] [address] [id number] [place] [address] June, [facility] [place] [facility] [address] [id number] [place] [address] June, [facility] [place] [facility] [address] [id number] [place] [address] June, [facility] [address] [id number] [place] [address]858 June, [facility] [address] [id number] [place] [address] June, [facility] [address] [id number] [place] [address] June, [facility] [place] [facility] [address] [id number] [place] [address] June, [facility] [address] [id number] [place] [address] May, [facility] [address] [id number] [place] [address] 269[address] May, [facility] [place] [facility] [address] [id number] [place] [address] May, [facility] [address] [id number] [place] [address] May, [facility] [address] [id number] [place] [address] Apr, [facility] [place] [facility] [address] [id number] [place] [address] Apr, [facility] [place] [facility] [address] [id number] [place] [address] Apr, [facility] [place] [facility] [address] [id number] [place] [address] Apr, [facility] [place] [facility] [address] [id number] [place] [address]046 Apr, [facility] [place] [facility] [address] [id number] [place] [address] 12[address] Apr, [facility] [place] [facility] [address] [id number] [place] [address] 1545 Apr, [facility] [place] [facility] [address] [id number] [place] [address] Mar, [facility] [place] [facility] [address] [id number] [place] [address] 20 Mar, 2011 [facility] [address] [id number] [place] [address] 97[address] 16 Mar, 2011 [facility] [address] [id number] [place] [address] 2546 15 Mar, 2011 [facility] [address] [id number] [place] [address] 13 Mar, 2011 [facility] [address] [id number] [place] [address] 4036 09 Mar, 2011 [facility] [address] [id number] [place] [address] Mar, [facility] [address] [id number] [place] [address] 2546 Mar, [facility] [address] [id number] [place] [address] Feb, [facility] [address] [id number] [place] [address] 5853 Feb, [facility] [address] [id number] [place] [address] 2255 Feb, [facility] [address] [facility] [id number] [place] [address] 27[address] Jan, [facility] [address] [id number] [place] [address] 9436 24 Jan, 2011 [facility] [address] [id number] [place] [address] 2546 Jan, [facility] [place] [facility] [address] [id number] [place] [address] 2546 Jan, [facility] [place] [facility] [address] [id number] [place] [address]- [address]46 19 Jan, 2011 [facility] [address] [id number] [place] [address] 14 Jan, 2011 [facility] [place] [facility] [address] [id number] [place] [address] 70[address] Jan, [facility] [place] [facility] [address] [id number] [place] [address] 4527 Jan, [facility] [place] [facility] [address] [id number] [place] [address] 9[address] 07 Jan, 2011 [facility] [place] [facility] [address] [id number] [place] [address] 3186 30 Dec, 2010 [facility] [place] [facility] [address] [id number] [place] [address] 5540 Dec, [facility] [place] [facility] [address] [id number] [place] [address] 5975 Dec, [facility] [place] [facility] [address] [id number] [place] [address] Dec, [facility] [place] [facility] [address] [id number] [place] [address]- [address] 24 Nov, 2010 [facility] [place] [facility] [address] [id number] [place] [address] 3030 Nov, [facility] [place] [facility] [address] [id number] [place] [address] 7501 Nov, [facility] [place] [facility] [address] [id number] [place] [address]- 9664 Nov, [facility] [place] [facility] [address] [id number] [place] [address]309 Oct, [facility] [place] [facility] [address] [id number] [place] [address]- 9795 Aug, [facility] [place] [facility] [address] [id number] [place] [address]- 1781 15 Mar, 2010 [facility] [place] [facility] [address] [id number] [place] [address]- 4254 Jan, [facility] [place] [facility] [address] [id number] [address] [address], [address] [facility] [address] [facility] [id number] [address] 10 Jan, 2010 [facility] [address] [facility] [id number] [address] 07 Jan, 2010 [facility] [address] [facility] [id number] [address] 2546 29 Dec, 2009 [facility] [address] [facility] [id number] [address] 25[address] Dec, [facility] [address] [facility] [id number] [place] [address]- 3413 Dec, [facility] [address] [facility] [id number] [address] [address], [address] [facility] [address] [facility] [id number] [address] Nov, [facility] [address] [facility] [id number] [address]682 [address], [address] [facility] [address] [facility] [id number] [address] [address], [address] [facility] [address] [facility] [id number] [address] Apr, [facility] [address] [facility] [id number] [address] 9467 [address], [address] [facility] [address] [facility] [id number] [address] 15 Jan, 2009 [facility] [address] [facility] [id number] [address] 15 Jan, 2009 [facility] [address] [facility] [id number] [address] [address], [address] [facility] [address] [facility] [id number] [address] 14 Nov, 2008 IMMUNIZATIONS No Known Immunizations SOCIAL HISTORY Never Assessed REASON FOR VISIT sylvia PLAN OF CARE Activity Details Follow Up prn Reason:te #31 &32 1 hr VITAL SIGNS MEDICATIONS Medication Instructions Dosage Frequency Start Date End Date Duration Status Motrin IB 800 Orally every 6 hrs 1 tablet as needed 6h 5 days Active Pristiq 25 MG Orally Once a day 1 tablet 24h Nov, 14 days Not- Taking Flonase 50 MCG/ACT Nasally Once a day 1 spray in each nostril 24h Nov, 30 day(s) Not-Taking Adderall 30 MG Orally Once a day for ADHD 1 tablet in the morning Apr Not-Taking Duloxetine HCl 60 MG Orally Once a day 1 capsule ( 30mg cap=90mg) 24h Jul, 30 day(s) Not-Taking Amoxicillin 500 MG Orally every 8 hrs 1 capsule 8h 7 days Active zolpidem 5 mg 1 Tablet by Oral route 1 time per day PRN at bedtime for insomnia Apr, Not-Taking Gabapentin 100 mg Orally 2 times a day as needed for anxiety 1 capsule Nov, 30 day(s) Active HydrOXYzine HCl 10 mg Orally 3 times a day as needed for anxiety 1 tablet May, Not-Taking Alprazolam 0.25 MG Orally Twice a day prn high anxiety 1 tablet May, 30 days Not-Taking Pristiq 50 mg Orally Once a day 1 tablet 24h Nov, 30 day(s) Active Duloxetine HCl 30 MG Orally Once a day 1 capsule ( 60mg cap=90mg) 24h May, 30 days Not-Taking Latuda 20 MG Orally at suppertime 1 tablet with food May, 30 day(s) Not-Taking RESULTS No Results PROCEDURES Procedure Date Ordered Result Body Site LTD ORAL EVALUATION - PROBLEM FOCUS May 10, 2017 INTRAORL-PERIAPICAL 1 FILM 56845 May 10, 2017 BITEWING - SINGLE FILM May 10, 2017 INSTRUCTIONS MEDICATIONS ADMINISTERED No Known Medications [...]
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
--- OUTSIDE RECORDS SUMMARY | 2018-01-18 09:31 | XMS REPORT ---
Author Author ANAHIDEMETRICE BELLO Laurent [facility] Address Unknown Care Team Providers Care [employer] Tech Name Role Phone DEMETRICE ROBLEDO Unavailable PROBLEMS Type Condition ICD9-CM Code VBU35-OQ Code Onset Dates Condition Status SNOMED Code Problem Acute seasonal allergic rhinitis, unspecified trigger J30.2 Active 820157827 Problem Generalized anxiety disorder F41.1 Active 45311792 Problem Posttraumatic stress disorder 309.81 Active 73486604 Problem Moderate episode of recurrent major depressive disorder F33.1 Active 022966002 Problem Major depressive disorder, recurrent episode, in partial or unspecified remission 296.35 Active [id number] ALLERGIES No Information ENCOUNTERS Encounter Location Date Diagnosis [facility] [address] [address] Aug, [facility] [id number] [place] [address] 12191- 2344 June, Generalized anxiety disorder F41.1 and Moderate episode of recurrent major depressive disorder F33.1 [facility] [id number] [place] [address] 36082- 6345 May, Visit for TB skin test Z11.1 ; Encounter for physical examination related to employment Z02.1 ; Acute seasonal allergic rhinitis, unspecified trigger J30.2 and Infected tooth K04.7 [facility] [id number] [place] [address] 93247- 3942 06 May, 2017 Generalized anxiety disorder F41.1 [facility] [id number] [place] [address] [id number] Apr, 2017 Dental examination Z01.20 [facility] [id number] [place] [address] 20296 -7617 Apr, [facility] [id number] [place] [address] 40624 -9686 Mar, [facility] [address] [place] [address] 76106 -8543 13 Mar, 2017 Dysuria R30.0 ; Potential exposure to STD Z20.2 and infection, trichomonal A59.00 [facility] [address] [address] Nov, Acute seasonal allergic rhinitis, unspecified trigger J30.2 [facility] [id number] [place] [address] 31531- 9203 Nov, Generalized anxiety disorder F41.1 and Moderate episode of recurrent major depressive disorder F33.1 [facility] [id number] [place] [address] 14821- 4475 May, Bipolar depression F31.30 and 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 [facility] [id number] [place] [address] 12837- 6815 Apr, Dental examination Z01.20 [facility] [id number] [place] [address] [id number] Apr, Dental examination Z01.20 [facility] [id number] [place] [address] 29953- 0976 Apr, Dental examination Z01.20 [facility] [address] [place] [address] 03703- 0299 Aug, [facility] [id number] [place] [address] 74839- 9082 Jul, [facility] [id number] [place] [address] 57949- 5204 14 Jul, 2015 ADHD (attention deficit hyperactivity disorder) F90.9 ; Anxiety and depression F41.9 and Controlled substance agreement signed Z79.899 [facility] [id number] [place] [address] 89593- 5015 Jul, [facility] [id number] [address] [address] June, [facility] [address] [place] [address] 030793- 3356 June, [facility] [id number] [place] [address] 91191- 1808 May, ADHD (attention deficit hyperactivity disorder) F90.9 and Anxiety and depression F41.9 [facility] [id number] [place] [address] [id number]- 1958 Aug, [facility] [id number] [place] [address] 41479- 8613 Aug, [facility] [id number] [place] [address] [phone] Aug, Dental examination V72.2 [facility] [id number] [place] [address] 72674- 1609 Aug, High risk medications (not anticoagulants) long-term use V58.69 [facility] [id number] [place] [address] [id number] Jul, Dental examination V72.2 [facility] [id number] [place] [address] 64476- 5301 Jul, [facility] [address] [place] [address] 36670- 0767 Jul, [facility] [address] [address]- 4789 Jul, [facility] [address] [address]- 6586 June, [facility] [id number] [place] [address] 307943- 3651 June, [facility] [address], [place] [address]- 9360 May, [facility] [id number] [place] [address] 51159- 8297 May, [facility] [place] [facility] [address] [id number] [place] [address]- 7150 Apr, [facility] [place] [facility] [address] [id number] [place] [address]- 7272 Apr, [facility] [place] [facility] [address] [id number] [place] [address]- 0557 Apr, [facility] [place] [facility] [address] [id number] [place] [address]- 0601 Apr, [facility] [place] [facility] [address] [id number] [place] [address]- 0349 Apr, [facility] [place] [facility] [address] [id number] [place] [address]- 9038 Apr, [facility] [place] [facility] [address] [facility] [id number] [place] [address]- 4720 Apr, [facility] [place] [facility] [address] [id number] [place] [address]- 6533 Apr, [facility] [place] [facility] [address] [id number] [place] [address]- 9705 Mar, [facility] [place] [facility] [address] [facility] [id number] [place] [address]- 5178 Mar, [facility] [place] [facility] [address] [id number] [address]- 3924 Mar, [facility] [place] [facility] [address] [id number] [address]- 7584 Mar, [facility] [place] [facility] [address] [id number] [place] 7374 Feb, [facility] [place] [facility] [address] [id number] [place] [address]- 9146 Feb, [facility] [place] [facility] [address] [facility] [id number] [address]- 2453 Feb, [facility] [place] [facility] [address] [id number] [place] [address]- 4863 Feb, [facility] [place] [facility] [address] [id number] [place] [address]- 3092 Feb, [facility] [place] [facility] [address] [id number] [place] [address]- 0042 Feb, [facility] [place] [facility] [address] [id number] [place] [address]- 9710 Feb, [facility] [place] [facility] [address] [id number] [place] [address]- 4857 Feb, [facility] [place] [facility] [address] [id number] [place] [address]- 2155 Jan, [facility] [place] [facility] [address] [id number] [place] [address]- 9824 Jan, [facility] [place] [facility] [address] [id number] [place] [address]- 0703 Jan, [facility] [place] [facility] [address] [id number] [place] [address]- 3797 Jan, [facility] [place] [facility] [address] [id number] [place] [address]- 2167 Jan, [facility] [place] [facility] [address] [id number] [place] [address]- 3192 Jan, [facility] [place] [facility] [address] [id number] [place] [address]- 3509 Dec, [facility] [place] [facility] [address] [id number] [place] [address]- 6393 Dec, [facility] [place] [facility] [address] [id number] [place] 6846 Dec, [facility] [place] [facility] [address] [id number] [place] [address]- 5804 Dec, [facility] [place] [facility] [address] [id number] [place] [address]- 6721 Dec, [facility] [place] [facility] [address] [id number] [place] [address]- 7325 Dec, [facility] [place] [facility] [address] [id number] [place] [address]- 7112 Nov, [facility] [place] [facility] [address] [id number] [place] [address]- 0185 Nov, [facility] [place] [facility] [address] [id number] [place] [address]- 4550 Nov, [facility] [place] [facility] [address] [id number] [place] [address]- 1372 Nov, [facility] [place] [facility] [address] [id number] [place] [address]- 0605 Nov, [facility] [place] [facility] [address] [id number] [place] [address]- 5848 Nov, [facility] [place] [facility] [address] [id number], [place] [address]- 1113 Nov, [facility] [place] [facility] [address] [id number] [place] [address]- 5493 Nov, [facility] [place] [facility] [address] [id number] [place] [address]- 2724 Nov, [facility] [place] [facility] [address] [id number] [address]- 8501 Nov, [facility] [place] [facility] [address] [id number], [place] [address]- 1858 17 Oct, 2013 [facility] [place] [facility] [address] [id number] [place] [address]- 5849 17 Oct, 2013 [facility] [place] [facility] [address] [id number], [place] [address]- 2297 08 Oct, 2013 [facility] [place] [facility] [address] [id number] [place] [address]- 7884 08 Oct, 2013 [facility] [place] [facility] [address] [id number] [place] [address]- 0343 Oct, [facility] [place] [facility] [address] [id number] [place] 9453 Oct, [facility] [place] [facility] [address] [id number] [place] [address]- 9981 Sep, [facility] [address] [id number] [place] [address]- 9585 Sep, [facility] [address] [place] [id number] Sep [facility] [place] [facility] [address] [id number] [place] [address]- 1181 Sep, [facility] [place] [facility] [address] [id number] [place] [address]- 8404 Aug, [facility] [place] [facility] [address] [id number] [place] [address]- 8034 Aug, [facility] [place] [facility] [address] [id number] [place] [address]- 6870 Aug, [facility] [place] [facility] [address] [id number] [place] [address]- 2053 Aug, [facility] [place] [facility] [address] [id number] [place] [address]- 5815 Aug, [facility] [place] [facility] [address] [id number] [place] [address]- 5576 Aug, [facility] [place] [facility] [address] [id number] [place] [address]- 5647 Jul, [facility] [place] [facility] [address] [id number] [place] [address]- 7197 Jul, [facility] [place] [facility] [address] [id number] [place] [address]- 6232 Jul, [facility] [place] [facility] [address] [id number] [place] [address]- 7080 Jul, [facility] [place] [facility] [address] [id number] [place] [address]- 1002 Jul, [facility] [address] [id number] [place] [address]- 0242 June, [facility] [place] [facility] [address] [id number] [place] [address]- 1655 June, [facility] [address] [id number] [place] [address]- 2892 June, [facility] [place] [facility] [address] [id number] [place] [address]- 4949 June, [facility] [place] [facility] [address] [id number] [place] [address]- 4558 May, [facility] [place] [facility] [address] [id number] [place] [address]- 0965 May, [facility] [place] [facility] [address] [id number] [place] [address]- 6529 May, [facility] [address] [id number] [place] [address]- 4321 May, [facility] [place] [facility] [address] [id number] [place] [address]- 6475 May, [facility] [place] [facility] [address] [id number] [place] [address]- 5706 May, [facility] [place] [facility] [address] [id number] [place] [address]- 3911 May, [facility] [place] [facility] [address] [id number] [place] [address]- 8559 May, [facility] [place] [facility] [address] [id number] [place] [address]- 3686 May, [facility] [place] [facility] [address] [id number] [place] [address]- 7531 May, [facility] [place] [facility] [address] [id number] [place] [address]- 8366 May, [facility] [place] [facility] [address] [id number] [place] [address]- 4913 Apr, [facility] [place] [facility] [address] [id number] [place] [address]- 8997 Apr, [facility] [place] [facility] [address] [id number] [place] [address]- 4053 Apr, [facility] [place] [facility] [address] [id number] [place] [address]- 0290 Apr, [facility] [place] [facility] [address] [id number] [place] [address]- 7668 Mar, [facility] [place] [facility] [address] [id number] [place] [address]- 1429 Mar, [facility] [place] [facility] [address] [id number] [place] [address]- 7792 Mar, [facility] [place] [facility] [address] [id number] [place] [address]- 3013 Mar, [facility] [place] [facility] [address] [id number] [place] [address]- 5322 Mar, [facility] [place] [facility] [address] [id number] [place] [address]- 2924 Mar, [facility] [place] [facility] [address] [id number] [place] [address]- 7566 Feb, [facility] [place] [facility] [address] [id number] [place] [address]- 2443 Feb, [facility] [place] [facility] [address] [id number] [place] [address]- 7523 Feb, [facility] [place] [facility] [address] [id number] [place] [address]- 4249 Feb, [facility] [place] [facility] [address] [id number] [place] [address]- 0752 Feb, [facility] [place] [facility] [address] [id number] [place] [address]- 0507 Feb, [facility] [address] [id number] [place] [address]- 5583 Feb, [facility] [place] [facility] [address] [id number] [place] [address]- 4111 Jan, [facility] [address] [id number] [place] [address]- 9562 Jan, [facility] [place] [facility] [address] [id number] [place] [address]- 8610 Jan, [facility] [address] [id number] [place] 9629 Jan, [facility] [place] [facility] [address] [id number] [place] [address]- 1322 14 Dec, 2012 [facility] [place] [facility] [address] [id number] [place] [address]- 9383 14 Dec, 2012 [facility] [address] [id number] [place] [address]- 4333 Dec, [facility] [place] [facility] [address] [id number] [place] [address]- 0113 22 Nov, 2012 [facility] [address] [id number] [place] [address]- 3293 17 Nov, 2012 [facility] [place] [facility] [address] [id number] [place] [address]- 3144 17 Nov, 2012 [facility] [place] [facility] [address] [id number] [place] [address]- 9420 Nov, [facility] [place] [facility] [address] [id number] [place] [address]- 8876 Nov, [facility] [place] [facility] [address] [id number] [place] [address]- 0810 Nov, [facility] [place] [facility] [address] [id number] [place] [address]- 6051 Nov, [facility] [place] [facility] [address] [id number] [place] [address]- 2184 Nov, [facility] [place] [facility] [address] [id number] [place] [address]- 6554 Oct, [facility] [place] [facility] [address] [id number] [place] [address]- 1684 Oct, [facility] [place] [facility] [address] [id number] [place] [address]- 3489 Sep, [facility] [place] [facility] [address] [id number] [place] [address]- 9525 Sep, [facility] [place] [facility] [address] [id number] [place] [address]- 6202 Sep, [facility] [place] [facility] [address] [id number] [place] [address]- 2490 Sep, [facility] [place] [facility] [address] [id number] [place] [address]- 8260 Sep, [facility] [place] [facility] [address] [id number] [place] [address]- 6581 Sep, [facility] [place] [facility] [address] [id number] [place] [address]- 5944 Sep, [facility] [place] [facility] [address] [id number] [place] [address]- 2571 Sep, [facility] [place] [facility] [address] [id number] [address]- 3005 Aug, [facility] [place] [facility] [address] [id number] [place] [address]- 7408 Aug, [facility] [place] [facility] [address] [id number] [place] [address]- 8290 Aug, [facility] [place] [facility] [address] [id number] [place] [address]- 2675 Aug, [facility] [place] [facility] [address] [id number] [place] [address]- 3989 Jul, [facility] [address] [id number] [place] [address]- 5197 Jul, [facility] [address] [id number] [place] [address]- 0221 Jul, [facility] [address] [id number] [place] [address]- 5805 June, [facility] [address] [id number] [place] [address]- 6043 June, [facility] [address] [id number] [place] [address]- 2291 June, [facility] [address] [id number] [place] [address]- 5815 June, [facility] [address] [id number] [place] [address]- 5590 June, [facility] [address] [id number] [place] [address]- 8330 May, [facility] [address] [id number] [place] [address]- 6832 May, [facility] [address] [id number] [place] [address]- 2495 May, [facility] [address] [id number] [place] [address]- 4127 May, [facility] [place] [facility] [address] [id number] [place] [address] May, [facility] [place] [facility] [address] [id number] [place] [address] May, [facility] [place] [facility] [address] [id number] [place] [address] 08 May, 2012 [facility] [address] [id number] [place] [address] Apr, [facility] [place] [facility] [address] [id number] [place] [address] 28 Apr, 2012 [facility] [place] [facility] [address] [id number] [place] [address] 28 Apr, 2012 [facility] [place] [facility] [address] [id number] [place] [address] 13 Apr, 2012 [facility] [place] [facility] [address] [id number] [place] [address] 07 Apr, 2012 [facility] [place] [facility] [address] [id number] [place] [address] 07 Apr, 2012 [facility] [place] [facility] [address] [id number] [place] [address]87 06 Apr, 2012 [facility] [place] [facility] [address] [facility] [id number] [place] [address] 1673 05 Apr, 2012 [facility] [place] [facility] [address] [id number] [place] [address] 05 Apr, 2012 [facility] [place] [facility] [address] [id number] [place] [address] 9963 04 Apr, 2012 [facility] [place] [facility] [address] [id number] [place] [address] 3[address] 21 Mar, 2012 [facility] [place] [facility] [address] [facility] [id number] [place] [address]26 20 Mar, 2012 [facility] [place] [facility] [address] [id number] [place] [address] 0883 18 Mar, 2012 [facility] [place] [facility] [address] [id number] [place] [address] 6637 15 Mar, 2012 [facility] [place] [facility] [address] [id number] [place] [address] 9761 13 Mar, 2012 [facility] [place] [facility] [address] [id number] [place] [address] 8279 06 Mar, 2012 [facility] [place] [facility] [address] [id number] [place] [address] Mar, [facility] [address] [id number] [place] [address] Feb, [facility] [place] [facility] [address] [id number] [place] [address] Feb, [facility] [place] [facility] [address] [id number] [place] [address] Feb, [facility] [place] [facility] [address] [id number] [place] [address] 46[address] Feb, [facility] [place] [facility] [address] [id number] [place] [address] Jan, [facility] [place] [facility] [address] [id number] [place] [address] Jan, [facility] [address] [id number] [address] Jan, [facility] [place] [facility] [address] [id number] [place] [address] 1992 Jan, [facility] [place] [facility] [address] [id number] [place] [address] 6268 Dec, [facility] [place] [facility] [address] [id number] [place] [address]187 Dec, [facility] [place] [facility] [address] [id number] [address] Dec, [facility] [place] [facility] [address] [id number], [place] [address] Dec, [facility] [place] [facility] [address] [id number] [place] [address] 6267 Dec, [facility] [place] [facility] [address] [id number] [place] [address] Dec, [facility] [place] [facility] [address] [id number] [place] [address] 5[address] Dec, [facility] [place] [facility] [address] [id number] [place] [address] 67[address] Dec, [facility] [place] [facility] [address] [id number] [place] [address]- 6[address] Dec, [facility] [place] [facility] [address] [id number] [place] [address] 48[address] Nov, [facility] [place] [facility] [address] [id number] [place] [address] Nov, [facility] [place] [facility] [address] [id number] [place] [address] 3[address] Nov, [facility] [place] [facility] [address] [id number] [place] [address] 6[address] Nov, [facility] [place] [facility] [address] [id number] [place] [address]- 9288 18 Nov, 2011 [facility] [place] [facility] [address] [id number] [place] [address]- 1706 18 Nov, 2011 [facility] [place] [facility] [address] [id number] [place] [address]- 5177 17 Nov, 2011 [facility] [place] [facility] [address] [id number] [place] [address]- 3776 16 Nov, 2011 [facility] [place] [facility] [address] [id number] [place] [address]- 8190 27 Sep2011 [facility] [place] [facility] [address] [id number] [place] [address]- [address] 24 Sep, 2011 [facility] [place] [facility] [address] [id number] [place] [address]- 2544 13 Sep, 2011 [facility] [place] [facility] [address] [id number] [place] [address]- 7696 11 Sep2011 [facility] [place] [facility] [address] [id number] [place] [address]- 8546 10 Sep, 2011 [facility] [place] [facility] [address] [id number] [place] [address]- [address]75 08 Sep, 2011 [facility] [place] [facility] [address] [id number] [place] [address]- 5660 06 Oct, 2011 [facility] [place] [facility] [address] [id number] [place] [address]- 6604 05 Oct, 2011 [facility] [place] [facility] [address] [id number] [place] [address]- 3874 04 Oct, 2011 [facility] [place] [facility] [address] [id number] [place] [address]- 8285 04 Oct, 2011 [facility] [place] [facility] [address] [id number] [place] [address]- 2553 16 Sep, 2011 [facility] [place] [facility] [address] [id number] [place] [address]- 7965 Sep, [facility] [place] [facility] [address] [id number] [place] [address]- [address]761 Aug, [facility] [place] [facility] [address] [id number] [place] [address] Aug, [facility] [place] [facility] [address] [id number] [place] [address] Aug, [facility] [place] [facility] [address] [id number] [place] [address] Aug, [facility] [place] [facility] [address] [id number] [place] [address] Aug, [facility] [place] [facility] [address] [id number] [place] [address] Aug, [facility] [place] [facility] [address] [id number] [place] [address] Aug, [facility] [place] [facility] [address] [id number] [place] [address] Aug, [facility] [place] [facility] [address] [id number] [place] [address] Jul, [facility] [place] [facility] [address] [id number] [place] [address] Jul, [facility] [address] [id number] [place] [address] Jul, [facility] [place] [facility] [address] [id number] [place] [address] Jul, [facility] [place] [facility] [address] [id number] [place] [address] June, [facility] [place] [facility] [address] [id number] [place] [address] June, [facility] [place] [facility] [address] [id number] [place] [address] June, [facility] [place] [facility] [address] [id number] [place] [address] June, [facility] [address] [id number] [place] [address] June, [facility] [address] [id number] [place] [address] June, [facility] [place] [facility] [address] [id number] [place] [address] June, [facility] [place] [facility] [address] [id number] [place] [address] June, [facility] [place] [facility] [address] [id number] [place] [address] June, [facility] [place] [facility] [address] [id number] [place] [address] 2760 June, [facility] [place] [facility] [address] [id number] [place] [address] 74[address] June, [facility] [place] [facility] [address] [id number] [place] [address] June, [facility] [place] [facility] [address] [id number] [place] [address] June, [facility] [place] [facility] [address] [id number] [place] [address]99 June, [facility] [place] [facility] [address] [id number] [place] [address] 114[address] June, [facility] [place] [facility] [address] [id number] [place] [address] 2496 June, [facility] [place] [facility] [address] [id number] [place] [address] May, [facility] [place] [facility] [address] [id number] [place] [address] May, [facility] [place] [facility] [address] [id number] [place] [address] May, [facility] [address] [id number] [place] [address] May, [facility] [address] [id number] [place] [address] Apr, [facility] [place] [facility] [address] [id number] [place] [address] Apr, [facility] [place] [facility] [address] [id number] [place] [address] Apr, [facility] [place] [facility] [address] [id number] [place] [address] Apr, [facility] [place] [facility] [address] [id number] [place] [address] 2480 Apr, [facility] [place] [facility] [address] [id number] [place] [address] Apr, [facility] [place] [facility] [address] [id number] [place] [address] Apr, [facility] [place] [facility] [address] [id number] [place] [address] Mar, [facility] [place] [facility] [address] [id number] [place] [address] 20 Mar, 2011 [facility] [address] [id number] [place] [address] 3216 16 Mar, 2011 [facility] [address] [id number] [place] [address] 9206 15 Mar, 2011 [facility] [address] [id number] [place] [address] 6216 13 Mar, 2011 [facility] [address] [id number] [place] [address] 4[address] 09 Mar, 2011 [facility] [address] [id number] [place] [address] 7[address] Mar, [facility] [address] [id number] [place] [address] Mar, [facility] [address] [facility] [id number] [place] [address] Feb, [facility] [address] [id number] [place] [address] Feb, [facility] [address] [facility] [id number] [place] [address] 31[address] Feb, [facility] [address] [facility] [id number] [place] [address] 4770 Jan, [facility] [address] [id number] [place] [address]- 6146 24 Jan, 2011 [facility] [address] [id number] [place] [address] 2549 Jan, [facility] [address] [id number] [place] [address] 2546 Jan, [facility] [place] [facility] [address] [facility] [id number] [place] [address]46 19 Jan, 2011 [facility] [address] [facility] [id number] [place] [address]- 4144 14 Jan, 2011 [facility] [place] [facility] [address] [id number] [place] [address]- 1471 Jan, [facility] [place] [facility] [address] [id number] [place] [address] Jan, [facility] [place] [facility] [address] [id number] [place] [address]- 7959 Jan, [facility] [place] [facility] [address] [id number] [place] [address]- 9603 30 Dec, 2010 [facility] [place] [facility] [address] [id number] [place] [address] 6[address] Dec, [facility] [place] [facility] [address] [id number] [place] [address]- 4443 Dec, [facility] [place] [facility] [address] [id number] [place] [address]- 4279 Dec, [facility] [place] [facility] [address] [id number] [place] [address]- 1075 24 Nov, 2010 [facility] [place] [facility] [address] [id number] [place] [address]- 2642 Nov, [facility] [place] [facility] [address] [id number] [place] [address]- 5979 Nov, [facility] [place] [facility] [address] [id number] [place] [address]- 5725 Nov, [facility] [place] [facility] [address] [id number] [place] [address]- 6185 Oct, [facility] [place] [facility] [address] [id number] [place] [address]- 67[address] Aug, [facility] [place] [facility] [address] [id number] [place] [address]- 4548 15 Mar, 2010 [facility] [place] [facility] [address] [id number] [place] [address]- 1675 23 Jan, 2010 [facility] [place] [facility] [address] [id number] [address] 10 Jan, 2010 [facility] [address] [facility] [id number] [address] 10 Jan, 2010 [facility] [address] [facility] [id number] [address] 07 Jan, 2010 [facility] [address] [facility] [id number], [place] [address] 29 Dec, 2009 [facility] [address] [facility] [id number], [place] [address]- [address] Dec, [facility] [address] [facility] [id number], [place] [address]- 113[address] Dec, [facility] [address] [facility] [id number][place] [address]- 4647 14 Dec, 2009 [facility] [address] [facility] [id number], [place] [address] Nov, [facility] [address] [facility] [id number][place] [address]- 5268 18 Nov, 2009 [facility] [address] [facility] [id number] [address]- 5[address] 18 Nov, 2009 [facility] [address] [facility] [id number], [place] [address] Apr, [facility] [address] [facility] [id number] [address] 15 Feb, 2009 [facility] [address] [facility] [id number], [place] [address]- 1631 15 Jan, 2009 [facility] [address] [facility] [id number], [place] [address]- 0608 15 Jan, 2009 [facility] [address] [facility] [id number] [address]- 1277 20 Nov, 2008 [facility] [address] [facility] [id number] [address]- 9[address] 14 Nov, 2008 IMMUNIZATIONS No Known Immunizations SOCIAL HISTORY Never Assessed REASON FOR VISIT SD Pain Appt PLAN OF CARE VITAL SIGNS MEDICATIONS Unknown Medications RESULTS No Results PROCEDURES No Known procedures [...]
--- OUTSIDE RECORDS SUMMARY | 2018-01-18 09:31 | XMS REPORT ---
Author Author LIBIA CHOI [employer] Address Unknown Phone Unavailable Care Team Providers Care Tattoo Designer Name Role Phone LIBIA CHOI CP Unavailable Allergies, Adverse Reactions, Alerts Substance Reaction Event Type Lamictal "Hives" Drug Allergy Trazodone oversedation Non Drug Allergy Problems Problem Type Condition Code Onset Dates Condition Status Assessment Anxiety and depression F41.9 Active Problem Contact with or exposure to venereal diseases V01.6 Active Assessment ADHD (attention deficit hyperactivity disorder) F90.9 Active Problem Other general counseling and advice [...] of vulva and vagina 112.1 Active Medications Medication Code System Code Instructions Start Date End Date Status Dosage Adderall [facility] [address]-29 30 MG Orally Once a day for ADHD April 26, 2014 1 tablet in the morning HydrOXYzine HCl [facility] [address]-37 10 mg Orally 3 times a day as needed for anxiety June 14, [address] [facility] 0 5 mg May 04, 2014 1 Tablet by Oral route 1 time per day PRN at bedtime for insomnia Duloxetine HCl [facility] [address]-64 30 MG Orally once every morning X one week then 2 caps daily June 14, 2015 1 capsule Procedures Procedure Coding System Code Date Office Visit, Est Pt., Level 4 CPT-4 24600 June 14, 2015 Vital Signs Date/Time: June 14, 2015 Cardiac Monitoring Heart Rate 72 bpm Weight 195.6 lbs Height 67 in BMI 30.63 Index Blood Pressure Diastolic 72 mmHg Blood Pressure Systolic 130 mmHg Results No Known Results Summary Purpose [employer] Submission
[2018-01-18] MEDS ORDERED: TRAM-42 PO (09:35)
[2018-01-18] MEDS ORDERED: CLIN300C11 PO (09:35)
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
--- OUTSIDE RECORDS SUMMARY | 2018-01-18 09:40 | XMS REPORT | Continuity of Care Document ---
Author Author [facility] Address Unknown Phone Unavailable Allergies Active Description Code Type Severity Reaction Onset Reported/Identified Relationship to Patient Clinical Status Yes Lamictal Drug Allergy 11/07/2010 Yes Lamictal Drug Allergy N/A N/A 11/07/2010 Yes lamotrigine [id number] Drug Allergy Unknown N/A 07/03/2013 Yes trazodone 100 mg tablet Drug Allergy N/A N/A 11/30/2013 Yes lamotrigine [id number] Drug Allergy Moderate HIVES 03/21/2015 Medications There is no data. Problems Date Dx Coded Attending Type Code Diagnosis Diagnosed By 03/23/2008 EDILIA ROSALES MD 293.83 MOOD DISORDER OF UNKNOWN (AXIS III) ETIOLOGY 03/23/2008 EDILIA ROSALES MD 599.0 Urinary Tract Infection 03/23/2008 EDILIA ROSALES MD 788.1 pain during urination (dysuria) 03/23/2008 EDILIA ROSALES MD 293.83 MOOD DISORDER OF UNKNOWN (AXIS III) ETIOLOGY 03/23/2008 EDILIA ROSALES MD 599.0 Urinary Tract Infection 03/23/2008 EDILIA ROSALES MD 788.1 pain during urination (dysuria) 03/23/2008 CHINEDU LUBIN APRN 293.83 MOOD DISORDER OF UNKNOWN (AXIS III) ETIOLOGY 03/23/2008 CHINEDU LUBIN APRN R 599.0 Urinary Tract Infection 03/23/2008 CHINEDU LUBIN APRN R 788.1 pain during urination (dysuria) 03/23/2008 FRANCOIS KENNEDY APRN 293.83 MOOD DISORDER OF UNKNOWN (AXIS III) ETIOLOGY 03/23/2008 FRANCOIS KENNEDY APRN 599.0 Urinary Tract Infection 03/23/2008 FRANCOIS KENNEDY APRN 788.1 pain during urination (dysuria) 03/23/2008 ZHENG DO, SYLVIA K 293.83 MOOD DISORDER OF UNKNOWN (AXIS III) ETIOLOGY 03/23/2008 SYLVIA ZHENG DO K 599.0 Urinary Tract Infection 03/23/2008 SYLVIA ZHENG DO K 788.1 pain during urination (dysuria) 03/23/2008 293.83 MOOD DISORDER OF UNKNOWN (AXIS III) ETIOLOGY 03/23/2008 599.0 Urinary Tract Infection 03/23/2008 788.1 pain during urination (dysuria) 03/23/2008 SHADI PRINGLE PSYD ANN L 293.83 MOOD DISORDER OF UNKNOWN (AXIS III) ETIOLOGY 03/23/2008 SHADI PRINGLE PSYD ANN L 599.0 Urinary Tract Infection 03/23/2008 SHADI PRINGLE PSYD ANN L 788.1 pain during urination (dysuria) 03/23/2008 MARCIA RESTREPO FRANCOIS HENNESSY 293.83 MOOD DISORDER OF UNKNOWN (AXIS III) ETIOLOGY 03/23/2008 MARCIA RESTREPO FRANCOIS HENNESSY 599.0 Urinary Tract Infection 03/23/2008 MARCIA RESTREPO FRANCOIS HENNESSY 788.1 pain during urination (dysuria) 03/23/2008 293.83 MOOD DISORDER OF UNKNOWN (AXIS III) ETIOLOGY 03/23/2008 599.0 Urinary Tract Infection 03/23/2008 788.1 pain during urination (dysuria) 03/23/2008 293.83 MOOD DISORDER OF UNKNOWN (AXIS III) ETIOLOGY 03/23/2008 599.0 Urinary Tract Infection 03/23/2008 788.1 pain during urination (dysuria) 03/23/2008 293.83 MOOD DISORDER OF UNKNOWN (AXIS III) ETIOLOGY 03/23/2008 599.0 Urinary Tract Infection 03/23/2008 788.1 pain during urination (dysuria) 03/23/2008 293.83 MOOD DISORDER OF UNKNOWN (AXIS III) ETIOLOGY 03/23/2008 599.0 Urinary Tract Infection 03/23/2008 788.1 pain during urination (dysuria) 03/23/2008 293.83 MOOD DISORDER OF UNKNOWN (AXIS III) ETIOLOGY 03/23/2008 599.0 Urinary Tract Infection 03/23/2008 788.1 pain during urination (dysuria) 03/23/2008 293.83 MOOD DISORDER OF UNKNOWN (AXIS III) ETIOLOGY 03/23/2008 599.0 Urinary Tract Infection 03/23/2008 788.1 pain during urination (dysuria) 03/23/2008 WHITE DDS, ELIZABETH J 293.83 MOOD DISORDER OF UNKNOWN (AXIS III) ETIOLOGY 03/23/2008 WHITE DDS, ELIZABETH J 599.0 Urinary Tract Infection 03/23/2008 WHITE DDS, ELIZABETH J 788.1 pain during urination (dysuria) 03/23/2008 DAMARIS DDS, DEMETRICE M 293.83 MOOD DISORDER OF UNKNOWN (AXIS III) ETIOLOGY 03/23/2008 DAMARIS DDS, DEMETRICE M 599.0 Urinary Tract Infection 03/23/2008 DAMARIS DDS, DEMETRICE M 788.1 pain during urination (dysuria) 03/23/2008 MARCIA RESTREPO FRANCOIS HENNESSY 293.83 MOOD DISORDER OF UNKNOWN (AXIS III) ETIOLOGY 03/23/2008 MARCIA RESTREPO FRANCOIS HENNESSY 599.0 Urinary Tract Infection 03/23/2008 MARCIA RESTREPO FRANCOIS HENNESSY 788.1 pain during urination (dysuria) 03/23/2008 MARCIA RESTREPO FRANCOIS HENNESSY 293.83 MOOD DISORDER OF UNKNOWN (AXIS III) ETIOLOGY 03/23/2008 MARCIA WARDDenise FRANCOIS HENNESSY 599.0 Urinary Tract Infection 03/23/2008 KENNEDY COFFEE ROASTER, FRANCOIS HENNESSY 788.1 pain during urination (dysuria) 03/23/2008 BELINDA WARDN, SHERIE S 293.83 MOOD DISORDER OF UNKNOWN (AXIS III) ETIOLOGY 03/23/2008 BELINDA COFFEE ROASTER, SHERIE S 599.0 Urinary Tract Infection 03/23/2008 BELINDA COFFEE ROASTER, SHERIE S 788.1 pain during urination (dysuria) 03/23/2008 BELINDA COFFEE ROASTER, SHERIE S 293.83 MOOD DISORDER OF UNKNOWN (AXIS III) ETIOLOGY 03/23/2008 BELINDA COFFEE ROASTER, SHERIE S 599.0 Urinary Tract Infection 03/23/2008 BELINDA COFFEE ROASTER, SHERIE S 788.1 pain during urination (dysuria) 03/23/2008 MARCIA RESTREPO FRANCOIS BAZANH 293.83 MOOD DISORDER OF UNKNOWN (AXIS III) ETIOLOGY 03/23/2008 MARCIA RESTREPO FRANCOIS BAZANH 599.0 Urinary Tract Infection 03/23/2008 FRANCOIS KENNEDY APRN 788.1 pain during urination (dysuria) 03/23/2008 293.83 MOOD DISORDER OF UNKNOWN (AXIS III) ETIOLOGY 03/23/2008 599.0 Urinary Tract Infection 03/23/2008 788.1 pain during urination (dysuria) 03/23/2008 FRANCOIS KENNEDY APRN 293.83 MOOD DISORDER OF UNKNOWN (AXIS III) ETIOLOGY 03/23/2008 FRANCOIS KENNEDY APRN 599.0 Urinary Tract Infection 03/23/2008 FRANCOIS KENNEDY APRN 788.1 pain during urination (dysuria) 03/23/2008 WHITE DDS, ABNER D 293.83 MOOD DISORDER OF UNKNOWN (AXIS III) ETIOLOGY 03/23/2008 WHITE DDS, ABNER D 599.0 Urinary Tract Infection 03/23/2008 WHITE DDS, ABNER D 788.1 pain during urination (dysuria) 03/23/2008 LEIGHA VEGAS DDS 293.83 MOOD DISORDER OF UNKNOWN (AXIS III) ETIOLOGY 03/23/2008 ASCENCION VEGASLEIGHA 599.0 Urinary Tract Infection 03/23/2008 VEGAS DDS LEIGHA 788.1 pain during urination (dysuria) 03/23/2008 MALLORY RESTREPO SAROJ A 293.83 MOOD DISORDER OF UNKNOWN (AXIS III) ETIOLOGY 03/23/2008 MALLORY RESTREPO, SAROJ A 599.0 Urinary Tract Infection 03/23/2008 MALLORY RESTREPO SAROJ A 788.1 pain during urination (dysuria) 03/23/2008 SRUTHI COFFEE ROASTER, TEMO 293.83 MOOD DISORDER OF UNKNOWN (AXIS III) ETIOLOGY 03/23/2008 SRUTHI COFFEE ROASTER, TEMO 599.0 Urinary Tract Infection 03/23/2008 SRUTHI COFFEE ROASTER, TEMO 788.1 pain during urination (dysuria) 03/23/2008 SRUTHI COFFEE ROASTER, TMEO 293.83 MOOD DISORDER OF UNKNOWN (AXIS III) ETIOLOGY 03/23/2008 SRUTHI COFFEE ROASTER, TEMO 599.0 Urinary Tract Infection 03/23/2008 SRUTHI COFFEE ROASTER, TEMO 788.1 pain during urination (dysuria) 03/23/2008 SRUTHI COFFEE ROASTER, TEMO 293.83 MOOD DISORDER OF UNKNOWN (AXIS III) ETIOLOGY 03/23/2008 SRUTHI RESTREPO TEMO 599.0 Urinary Tract Infection 03/23/2008 NINFA NEGRO APRNETTE 788.1 pain during urination (dysuria) 05/25/2008 EDILIA ROSALES MD 300.02 GENERALIZED ANXIETY DISORDER 05/25/2008 EDILIA ROSALES MD V25.40 Visit For: Contraceptive Surveillance 05/25/2008 EDILIA ROSALES MD V72.31 Pelvic Exam (internal) 05/25/2008 EDILIA ROSALES MD V74.5 visit for: screening exam bact/spirochetal STD 05/25/2008 EDILIA ROSALES MD 300.02 GENERALIZED ANXIETY DISORDER 05/25/2008 EDILIA ROSALES MD V25.40 Visit For: Contraceptive Surveillance 05/25/2008 EDILIA ROSALES MD V72.31 Pelvic Exam (internal) 05/25/2008 EDILIA ROSALES MD V74.5 visit for: screening exam bact/spirochetal STD 05/25/2008 CHINEDU LUBIN APRN R 300.02 GENERALIZED ANXIETY DISORDER 05/25/2008 CHINEDU LUBIN APRN R V25.40 Visit For: Contraceptive Surveillance 05/25/2008 CHINEDU LUBIN APRN R V72.31 Pelvic Exam (internal) 05/25/2008 CHINEDU LUBIN APRN V74.5 visit for: screening exam bact/spirochetal STD 05/25/2008 FRANCOIS KENNEDY APRN 300.02 GENERALIZED ANXIETY DISORDER 05/25/2008 FRANCOIS KENNEDY APRN V25.40 Visit For: Contraceptive Surveillance 05/25/2008 FRANCOIS KENNEDY APRN V72.31 Pelvic Exam (internal) 05/25/2008 FRANCOIS KENNEDY APRN V74.5 visit for: screening exam bact/spirochetal STD 05/25/2008 SYLVIA ZHENG DO K 300.02 GENERALIZED ANXIETY DISORDER 05/25/2008 SYLVIA ZHENG DO V25.40 Visit For: Contraceptive Surveillance 05/25/2008 SYLVIA ZHENG DO K V72.31 Pelvic Exam (internal) 05/25/2008 SYLVIA ZHENG DO V74.5 visit for: screening exam bact/spirochetal STD 05/25/2008 300.02 GENERALIZED ANXIETY DISORDER 05/25/2008 V25.40 Visit For: Contraceptive Surveillance 05/25/2008 V72.31 Pelvic Exam ( internal) 05/25/2008 V74.5 visit for: screening exam bact/spirochetal STD 05/25/2008 SHADI PRINGLE PSYD ANN L 300.02 GENERALIZED ANXIETY DISORDER 05/25/2008 SHADI PRINGLE PSYD ANN L V25.40 Visit For: Contraceptive Surveillance 05/25/2008 SHADI PRINGLE PSYD ANN L V72.31 Pelvic Exam (internal) 05/25/2008 SHADI PRINGLE PSYD ANN L V74.5 visit for: screening exam bact/spirochetal STD 05/25/2008 FRANCOIS KENNEDY APRN 300.02 GENERALIZED ANXIETY DISORDER 05/25/2008 MARCIA RESTREPO FRANCOIS MINOO V25.40 Visit For: Contraceptive Surveillance 05/25/2008 MARCIA RESTREPO FRANCOIS MINOO V72.31 Pelvic Exam (internal) 05/25/2008 MARCIA RESTREPO FRANCOIS MINOO V74.5 visit for: screening exam bact/spirochetal STD 05/25/2008 300.02 GENERALIZED ANXIETY DISORDER 05/25/2008 V25.40 Visit For: Contraceptive Surveillance 05/25/2008 V72.31 Pelvic Exam ( internal) 05/25/2008 V74.5 visit for: screening exam bact/spirochetal STD 05/25/2008 300.02 GENERALIZED ANXIETY DISORDER 05/25/2008 V25.40 Visit For: Contraceptive Surveillance 05/25/2008 V72.31 Pelvic Exam ( internal) 05/25/2008 V74.5 visit for: screening exam bact/spirochetal STD 05/25/2008 300.02 GENERALIZED ANXIETY DISORDER 05/25/2008 V25.40 Visit For: Contraceptive Surveillance 05/25/2008 V72.31 Pelvic Exam ( internal) 05/25/2008 V74.5 visit for: screening exam bact/spirochetal STD 05/25/2008 300.02 GENERALIZED ANXIETY DISORDER 05/25/2008 V25.40 Visit For: Contraceptive Surveillance 05/25/2008 V72.31 Pelvic Exam ( internal) 05/25/2008 V74.5 visit for: screening exam bact/spirochetal STD 05/25/2008 300.02 GENERALIZED ANXIETY DISORDER 05/25/2008 V25.40 Visit For: Contraceptive Surveillance 05/25/2008 V72.31 Pelvic Exam ( internal) 05/25/2008 V74.5 visit for: screening exam bact/spirochetal STD 05/25/2008 300.02 GENERALIZED ANXIETY DISORDER 05/25/2008 V25.40 Visit For: Contraceptive Surveillance 05/25/2008 V72.31 Pelvic Exam ( internal) 05/25/2008 V74.5 visit for: screening exam bact/spirochetal STD 05/25/2008 WHITE DDS, ELIZABETH J 300.02 GENERALIZED ANXIETY DISORDER 05/25/2008 WHITE DDS, ELIZABETH J V25.40 Visit For: Contraceptive Surveillance 05/25/2008 WHITE DDS, ELIZABETH J V72.31 Pelvic Exam (internal) 05/25/2008 BREEZY DDS, ELIZABETH J V74.5 visit for: screening exam bact/spirochetal STD 05/25/2008 DEMETRICE OCAMPO DDS 300.02 GENERALIZED ANXIETY DISORDER 05/25/2008 DEMETRICE OCAMPO DDS V25.40 Visit For: Contraceptive Surveillance 05/25/2008 DEMETRICE OCAMPO DDS V72.31 Pelvic Exam (internal) 05/25/2008 DEMETRICE OCAMPO DDS V74.5 visit for: screening exam bact/spirochetal STD 05/25/2008 FRANCOIS KENNEDY APRN 300.02 GENERALIZED ANXIETY DISORDER 05/25/2008 FRANCOIS KENNEDY APRN V25.40 Visit For: Contraceptive Surveillance 05/25/2008 FRANCOIS KENNEDY APRN V72.31 Pelvic Exam (internal) 05/25/2008 FRANCOIS KENNEDY APRN V74.5 visit for: screening exam bact/spirochetal STD 05/25/2008 FRANCOIS KENNEDY APRN 300.02 GENERALIZED ANXIETY DISORDER 05/25/2008 FRANCOIS KENNEDY APRN V25.40 Visit For: Contraceptive Surveillance 05/25/2008 FRANCOIS KENNEDY APRN V72.31 Pelvic Exam (internal) 05/25/2008 FRANCOIS KENNEDY APRN V74.5 visit for: screening exam bact/spirochetal STD 05/25/2008 SHERIE TREVINO APRN S 300.02 GENERALIZED ANXIETY DISORDER 05/25/2008 BELINDA COFFEE ROASTER, SHERIE S V25.40 Visit For: Contraceptive Surveillance 05/25/2008 BELINDA COFFEE ROASTER, SHERIE S V72.31 Pelvic Exam (internal) 05/25/2008 DOUG TREVINO APRNNDA S V74.5 visit for: screening exam bact/spirochetal STD 05/25/2008 BELINDA RESTREPO SHERIE S 300.02 GENERALIZED ANXIETY DISORDER 05/25/2008 BELINDA COFFEE ROASTER, SHERIE S V25.40 Visit For: Contraceptive Surveillance 05/25/2008 BELINDA RESTREPO SHERIE S V72.31 Pelvic Exam (internal) 05/25/2008 BELINDA COFFEE ROASTER, SHERIE S V74.5 visit for: screening exam bact/spirochetal STD 05/25/2008 MARCIA RESTREPO FRANCOIS MINOO 300.02 GENERALIZED ANXIETY DISORDER 05/25/2008 MARCIA RESTREPO FRANCOIS MINOO V25.40 Visit For: Contraceptive Surveillance 05/25/2008 MARCIA RESTREPO FRANCOIS MINOO V72.31 Pelvic Exam (internal) 05/25/2008 MARCIA RESTREPO FRANCOIS MINOO V74.5 visit for: screening exam bact/spirochetal STD 05/25/2008 300.02 GENERALIZED ANXIETY DISORDER 05/25/2008 V25.40 Visit For: Contraceptive Surveillance 05/25/2008 V72.31 Pelvic Exam ( internal) 05/25/2008 V74.5 visit for: screening exam bact/spirochetal STD 05/25/2008 MARCIA RESTREPO FRANCOIS MINOO 300.02 GENERALIZED ANXIETY DISORDER 05/25/2008 MARCIA RESTREPO FRANCOIS MINOO V25.40 Visit For: Contraceptive Surveillance 05/25/2008 KENNEDY KAYE FRANCOIS MINOO V72.31 Pelvic Exam (internal) 05/25/2008 MARCIA RESTREPO FRANCOIS MINOO V74.5 visit for: screening exam bact/spirochetal STD 05/25/2008 WHITE DDS, ABNER D 300.02 GENERALIZED ANXIETY DISORDER 05/25/2008 WHITE DDS, ABNER D V25.40 Visit For: Contraceptive Surveillance 05/25/2008 WHITE DDS, ABNER D V72.31 Pelvic Exam (internal) 05/25/2008 WHITE DDS, ABNER D V74.5 visit for: screening exam bact/spirochetal STD 05/25/2008 ASCENCION DDSLEIGHA 300.02 GENERALIZED ANXIETY DISORDER 05/25/2008 VEGAS DDS, LEIGHA V25.40 Visit For: Contraceptive Surveillance 05/25/2008 VEGAS DDS, LEIGHA V72.31 Pelvic Exam (internal) 05/25/2008 ASCENCION DDS, LEIGHA V74.5 visit for: screening exam bact/spirochetal STD 05/25/2008 MALLORY COFFEE ROASTER, SAROJ A 300.02 GENERALIZED ANXIETY DISORDER 05/25/2008 MALLORY COFFEE ROASTER, SAROJ A V25.40 Visit For: Contraceptive Surveillance 05/25/2008 MALLORY COFFEE ROASTER, SAROJ A V72.31 Pelvic Exam (internal) 05/25/2008 MALLORY COFFEE ROASTER, SAROJ A V74.5 visit for: screening exam bact/spirochetal STD 05/25/2008 SRUTHI COFFEE ROASTER, TEMO 300.02 GENERALIZED ANXIETY DISORDER 05/25/2008 SRUTHI COFFEE ROASTER, TEMO V25.40 Visit For: Contraceptive Surveillance 05/25/2008 SRUTHI COFFEE ROASTER, TEMO V72.31 Pelvic Exam (internal) 05/25/2008 SRUTHI COFFEE ROASTER, TEMO V74.5 visit for: screening exam bact/spirochetal STD 05/25/2008 SRUTHI COFFEE ROASTER, TEMO 300.02 GENERALIZED ANXIETY DISORDER 05/25/2008 SRUTHI COFFEE ROASTER, TEMO V25.40 Visit For: Contraceptive Surveillance 05/25/2008 SRUTHI COFFEE ROASTER, TEMO V72.31 Pelvic Exam (internal) 05/25/2008 SRUTHI COFFEE ROASTER, TEMO V74.5 visit for: screening exam bact/spirochetal STD 05/25/2008 SRUTHI COFFEE ROASTER, TEMO 300.02 GENERALIZED ANXIETY DISORDER 05/25/2008 SRUTHI COFFEE ROASTER, TEMO V25.40 Visit For: Contraceptive Surveillance 05/25/2008 SRUTHI COFFEE ROASTER, TEMO V72.31 Pelvic Exam (internal) 05/25/2008 SRUTHI COFFEE ROASTER, TEMO V74.5 visit for: screening exam bact/spirochetal STD 11/23/2008 EDILIA ROSALES MD 616.10 Vaginitis And Vulvovaginitis Unspecified 11/23/2008 EDILIA ROSALES MD 616.10 Vaginitis And Vulvovaginitis Unspecified 11/23/2008 CHINEDU LUBIN APRN 616.10 Vaginitis And Vulvovaginitis Unspecified 11/23/2008 MARCIA RESTREPO FRANCOIS MINOO 616.10 Vaginitis And Vulvovaginitis Unspecified 11/23/2008 SYLVIA ZHENG DO 616.10 Vaginitis And Vulvovaginitis Unspecified 11/23/2008 616.10 Vaginitis And Vulvovaginitis Unspecified 11/23/2008 SHADI PRINGLE PSYD 616.10 Vaginitis And Vulvovaginitis Unspecified 11/23/2008 MARCIA RESTREPO FRANCOIS MINOO 616.10 Vaginitis And Vulvovaginitis Unspecified 11/23/2008 616.10 Vaginitis And Vulvovaginitis Unspecified 11/23/2008 616.10 Vaginitis And Vulvovaginitis Unspecified 11/23/2008 616.10 Vaginitis And Vulvovaginitis Unspecified 11/23/2008 616.10 Vaginitis And Vulvovaginitis Unspecified 11/23/2008 616.10 Vaginitis And Vulvovaginitis Unspecified 11/23/2008 616.10 Vaginitis And Vulvovaginitis Unspecified 11/23/2008 ELIZABETH TIJERINA DDS 616.10 Vaginitis And Vulvovaginitis Unspecified 11/23/2008 DEMETRICE OCAMPO DDS 616.10 Vaginitis And Vulvovaginitis Unspecified 11/23/2008 FRANCOIS KENNEDY APRN 616.10 Vaginitis And Vulvovaginitis Unspecified 11/23/2008 FRANCOIS KENNEDY APRN 616.10 Vaginitis And Vulvovaginitis Unspecified 11/23/2008 SHERIE TREVINO APRN S 616.10 Vaginitis And Vulvovaginitis Unspecified 11/23/2008 SHERIE TREVINO APRN S 616.10 Vaginitis And Vulvovaginitis Unspecified 11/23/2008 FRANCOIS KENNEDY APRN 616.10 Vaginitis And Vulvovaginitis Unspecified 11/23/2008 616.10 Vaginitis And Vulvovaginitis Unspecified 11/23/2008 FRANCOIS KENNEDY APRN 616.10 Vaginitis And Vulvovaginitis Unspecified 11/23/2008 BREEZY DDS, ABNER Gutierrez 616.10 Vaginitis And Vulvovaginitis Unspecified 11/23/2008 VEGAS DDS, LEIGHA 616.10 Vaginitis And Vulvovaginitis Unspecified 11/23/2008 MALLORY COFFEE ROASTER, SAROJ A 616.10 Vaginitis And Vulvovaginitis Unspecified 11/23/2008 SRUTHI COFFEE ROASTER, TEMO 616.10 Vaginitis And Vulvovaginitis Unspecified 11/23/2008 SRUTHI COFFEE ROASTER, TEMO 616.10 Vaginitis And Vulvovaginitis Unspecified 11/23/2008 SRUTHI COFFEE ROASTER, TEMO 616.10 Vaginitis And Vulvovaginitis Unspecified 12/02/2008 EDILIA ROSALES MD 388.70 Otalgia, Unspecified 12/02/2008 EDILIA ROSALES MD 461.1 Acute Frontal Sinusitis 12/02/2008 EDILIA ROSALES MD V69.2 HIGH-RISK SEXUAL BEHAVIOR 12/02/2008 EDILIA ROSALES MD 388.70 Otalgia, Unspecified 12/02/2008 EDILIA ROSALES MD 461.1 Acute Frontal Sinusitis 12/02/2008 EDILIA ROSALES MD V69.2 HIGH-RISK SEXUAL BEHAVIOR 12/02/2008 CHINEDU LUBIN APRN 388.70 Otalgia, Unspecified 12/02/2008 CHINEDU LUBIN APRN 461.1 Acute Frontal Sinusitis 12/02/2008 CHINEDU LUBIN APRN V69.2 HIGH-RISK SEXUAL BEHAVIOR 12/02/2008 FRANCOIS KENNEDY APRN 388.70 Otalgia, Unspecified 12/02/2008 FRANCOIS KENNEDY APRN 461.1 Acute Frontal Sinusitis 12/02/2008 FRANCOIS KENNEDY APRN V69.2 HIGH-RISK SEXUAL BEHAVIOR 12/02/2008 SYLVIA ZHENG DO 388.70 Otalgia, Unspecified 12/02/2008 ZHENG BRENDA GARCIAA Rojelio 461.1 Acute Frontal Sinusitis 12/02/2008 ZHENG SYLVIA GARCIA K V69.2 HIGH-RISK SEXUAL BEHAVIOR 12/02/2008 388.70 Otalgia, Unspecified 12/02/2008 461.1 Acute Frontal Sinusitis 12/02/2008 V69.2 HIGH-RISK SEXUAL BEHAVIOR 12/02/2008 SHADI PRINGLE PSYD L 388.70 Otalgia, Unspecified 12/02/2008 SHADI PRINGLE PSYD ANN L 461.1 Acute Frontal Sinusitis 12/02/2008 SHADI PRINGLE PSYD ANN L V69.2 HIGH-RISK SEXUAL BEHAVIOR 12/02/2008 KENNEDY COFFEE ROASTER FRANCOIS HENNESSY 388.70 Otalgia, Unspecified 12/02/2008 MARCIA WARDDenise FRANCOIS HENNESSY 461.1 Acute Frontal Sinusitis 12/02/2008 MARCIA WARDNFRANCOIS V69.2 HIGH-RISK SEXUAL BEHAVIOR 12/02/2008 388.70 Otalgia, Unspecified 12/02/2008 461.1 Acute Frontal Sinusitis 12/02/2008 V69.2 HIGH-RISK SEXUAL BEHAVIOR 12/02/2008 388.70 Otalgia, Unspecified 12/02/2008 461.1 Acute Frontal Sinusitis 12/02/2008 V69.2 HIGH-RISK SEXUAL BEHAVIOR 12/02/2008 388.70 Otalgia, Unspecified 12/02/2008 461.1 Acute Frontal Sinusitis 12/02/2008 V69.2 HIGH-RISK SEXUAL BEHAVIOR 12/02/2008 388.70 Otalgia, Unspecified 12/02/2008 461.1 Acute Frontal Sinusitis 12/02/2008 V69.2 HIGH-RISK SEXUAL BEHAVIOR 12/02/2008 388.70 Otalgia, Unspecified 12/02/2008 461.1 Acute Frontal Sinusitis 12/02/2008 V69.2 HIGH-RISK SEXUAL BEHAVIOR 12/02/2008 388.70 Otalgia, Unspecified 12/02/2008 461.1 Acute Frontal Sinusitis 12/02/2008 V69.2 HIGH-RISK SEXUAL BEHAVIOR 12/02/2008 ELIZABETH TIJERINA DDS 388.70 Otalgia, Unspecified 12/02/2008 ELIZABETH ITJERINA DDS 461.1 Acute Frontal Sinusitis 12/02/2008 ELIZABETH TIJERINA DDS V69.2 HIGH-RISK SEXUAL BEHAVIOR 12/02/2008 DAMARIS DDS, DEMETRICE M 388.70 Otalgia, Unspecified 12/02/2008 DAMARIS DDS, DEMETRICE M 461.1 Acute Frontal Sinusitis 12/02/2008 DAMARIS DDS, DEMETRICE M V69.2 HIGH-RISK SEXUAL BEHAVIOR 12/02/2008 KENNEDY COFFEE ROASTER, FRANCOIS HENNESSY 388.70 Otalgia, Unspecified 12/02/2008 KENNEDY COFFEE ROASTER, FRANCOIS HENNESSY 461.1 Acute Frontal Sinusitis 12/02/2008 KENNEDY COFFEE ROASTER, FRANCOIS HENNESSY V69.2 HIGH-RISK SEXUAL BEHAVIOR 12/02/2008 KENNEDY COFFEE ROASTER, FRANCOIS HENNESSY 388.70 Otalgia, Unspecified 12/02/2008 KENNEDY COFFEE ROASTER, FRANCOIS HENNESSY 461.1 Acute Frontal Sinusitis 12/02/2008 KENNEDY COFFEE ROASTER, FRANCOIS HENNESSY V69.2 HIGH-RISK SEXUAL BEHAVIOR 12/02/2008 BELINDA COFFEE ROASTER, SHERIE S 388.70 Otalgia, Unspecified 12/02/2008 BELINDA COFFEE ROASTER, SHERIE S 461.1 Acute Frontal Sinusitis 12/02/2008 BELINDA COFFEE ROASTER, SHERIE S V69.2 HIGH-RISK SEXUAL BEHAVIOR 12/02/2008 BELINDA COFFEE ROASTER, SHERIE S 388.70 Otalgia, Unspecified 12/02/2008 BELINDA COFFEE ROASTER, SHERIE S 461.1 Acute Frontal Sinusitis 12/02/2008 BELINDA COFFEE ROASTER, SHERIE S V69.2 HIGH-RISK SEXUAL BEHAVIOR 12/02/2008 KENNEDY COFFEE ROASTER, FRANCOIS HENNESSY 388.70 Otalgia, Unspecified 12/02/2008 KENNEDY COFFEE ROASTER, FRANCOIS HENNESSY 461.1 Acute Frontal Sinusitis 12/02/2008 KENNEDY COFFEE ROASTER, FRANCOIS HENNESSY V69.2 HIGH-RISK SEXUAL BEHAVIOR 12/02/2008 388.70 Otalgia, Unspecified 12/02/2008 461.1 Acute Frontal Sinusitis 12/02/2008 V69.2 HIGH-RISK SEXUAL BEHAVIOR 12/02/2008 KENNEDY COFFEE ROASTER, FRANCOIS HENNESSY 388.70 Otalgia, Unspecified 12/02/2008 KENNEDY COFFEE ROASTER, FRANCOIS HENNESSY 461.1 Acute Frontal Sinusitis 12/02/2008 KENNEDY COFFEE ROASTER, FRANCOIS HENNESSY V69.2 HIGH-RISK SEXUAL BEHAVIOR 12/02/2008 WHITE DDS, ABNER D 388.70 Otalgia, Unspecified 12/02/2008 WHITE DDS, ABNER D 461.1 Acute Frontal Sinusitis 12/02/2008 WHITE DDS, ABNER D V69.2 HIGH-RISK SEXUAL BEHAVIOR 12/02/2008 VEGAS DDS, LEIGHA 388.70 Otalgia, Unspecified 12/02/2008 VEGAS DDS, LEIGHA 461.1 Acute Frontal Sinusitis 12/02/2008 VEGAS DDS, LEIGHA V69.2 HIGH-RISK SEXUAL BEHAVIOR 12/02/2008 MALLORY COFFEE ROASTER, SAROJ A 388.70 Otalgia, Unspecified 12/02/2008 MALLORY COFFEE ROASTER, SAROJ A 461.1 Acute Frontal Sinusitis 12/02/2008 MALLORY COFFEE ROASTER, SAROJ A V69.2 HIGH-RISK SEXUAL BEHAVIOR 12/02/2008 SRUTHI COFFEE ROASTER, TEMO 388.70 Otalgia, Unspecified 12/02/2008 SRUTHI COFFEE ROASTER, TEMO 461.1 Acute Frontal Sinusitis 12/02/2008 SRUTHI COFFEE ROASTER, TEMO V69.2 HIGH-RISK SEXUAL BEHAVIOR 12/02/2008 SRUTHI COFFEE ROASTER, TEMO 388.70 Otalgia, Unspecified 12/02/2008 SRUTHI COFFEE ROASTER, TEMO 461.1 Acute Frontal Sinusitis 12/02/2008 SRUTHI COFFEE ROASTER, TEMO V69.2 HIGH-RISK SEXUAL BEHAVIOR 12/02/2008 SRUTHI COFFEE ROASTER, TEMO 388.70 Otalgia, Unspecified 12/02/2008 SRUTHI COFFEE ROASTER, TEMO 461.1 Acute Frontal Sinusitis 12/02/2008 SRUTHI COFFEE ROASTER, TEMO V69.2 HIGH-RISK SEXUAL BEHAVIOR 02/08/2009 EDILIA ROSALES MD 300.00 ANXIETY UNSPEC 02/08/2009 EDILIA ROSALES MD 300.00 ANXIETY UNSPEC 02/08/2009 CHINEDU LUBIN APRN 300.00 ANXIETY UNSPEC 02/08/2009 FRANCOIS KENNEDY APRN 300.00 ANXIETY UNSPEC 02/08/2009 SYLVIA ZHENG DO 300.00 ANXIETY UNSPEC 02/08/2009 300.00 ANXIETY UNSPEC 02/08/2009 SHADI PRINGLE PSYD 300.00 ANXIETY UNSPEC 02/08/2009 MARCIA COFFEE ROASTERFRANCOIS Walker 300.00 ANXIETY UNSPEC 02/08/2009 300.00 ANXIETY UNSPEC 02/08/2009 300.00 ANXIETY UNSPEC 02/08/2009 300.00 ANXIETY UNSPEC 02/08/2009 300.00 ANXIETY UNSPEC 02/08/2009 300.00 ANXIETY UNSPEC 02/08/2009 300.00 ANXIETY UNSPEC 02/08/2009 WHITE DDS, LEIZABETH J 300.00 ANXIETY UNSPEC 02/08/2009 DAMARIS DDS, DEMETRICE Rivera 300.00 ANXIETY UNSPEC 02/08/2009 KENNEDY COFFEE ROASTER, FRANCOIS HENNESSY 300.00 ANXIETY UNSPEC 02/08/2009 KENNEDY COFFEE ROASTER, FRANCOIS HENNESSY 300.00 ANXIETY UNSPEC 02/08/2009 BELINDA COFFEE ROASTER SHERIE S 300.00 ANXIETY UNSPEC 02/08/2009 BELINDA COFFEE ROASTER, SHERIE S 300.00 ANXIETY UNSPEC 02/08/2009 FRANCOIS KENNEDY APRN 300.00 ANXIETY UNSPEC 02/08/2009 300.00 ANXIETY UNSPEC 02/08/2009 MARICA WARDNFRANCOIS 300.00 ANXIETY UNSPEC 02/08/2009 BREEZY DDS, ABNER Gutierrez 300.00 ANXIETY UNSPEC 02/08/2009 VEGAS DDS, LEIGHA 300.00 ANXIETY UNSPEC 02/08/2009 MALLORY COFFEE ROASTER SAROJ A 300.00 ANXIETY UNSPEC 02/08/2009 SRUTHI COFFEE ROASTER, TEMO 300.00 ANXIETY UNSPEC 02/08/2009 SRUTHI COFFEE ROASTER, TEMO 300.00 ANXIETY UNSPEC 02/08/2009 SRUTHI COFFEE ROASTER, TEMO 300.00 ANXIETY UNSPEC 03/11/2009 EDILIA ROSALES MD 780.79 Malaise And Fatigue 03/11/2009 EDILIA ROSALES MD 780.79 Malaise And Fatigue 03/11/2009 CHINEDU LUBIN APRN 780.79 Malaise And Fatigue 03/11/2009 MARCIA RESTREPO FRANCOIS MINOO 780.79 Malaise And Fatigue 03/11/2009 SYLVIA ZHENG DO 780.79 Malaise And Fatigue 03/11/2009 780.79 Malaise And Fatigue 03/11/2009 SHADI PRINGLE PSYD 780.79 Malaise And Fatigue 03/11/2009 MARCIA RESTREPO FRANCOIS MINOO 780.79 Malaise And Fatigue 03/11/2009 780.79 Malaise And Fatigue 03/11/2009 780.79 Malaise And Fatigue 03/11/2009 780.79 Malaise And Fatigue 03/11/2009 780.79 Malaise And Fatigue 03/11/2009 780.79 Malaise And Fatigue 03/11/2009 780.79 Malaise And Fatigue 03/11/2009 BREEZY VEGAS, ELIZABETH Soliman 780.79 Malaise And Fatigue 03/11/2009 DAMARIS VEGAS, DEMETRICE Rivera 780.79 Malaise And Fatigue 03/11/2009 KENNEDY COFFEE ROASTER, FRANCOIS MINOO 780.79 Malaise And Fatigue 03/11/2009 MARCIA RESTREPO, FRANCOIS MINOO 780.79 Malaise And Fatigue 03/11/2009 BELINDASHANIQUA UGARTE APRNA S 780.79 Malaise And Fatigue 03/11/2009 BELINDAMARJ RESTREPO SHERIE S 780.79 Malaise And Fatigue 03/11/2009 KENNEDYERIK RESTREPO FRANCOIS MINOO 780.79 Malaise And Fatigue 03/11/2009 780.79 Malaise And Fatigue 03/11/2009 KENNEDY COFFEE ROASTER, FRANCOIS MINOO 780.79 Malaise And Fatigue 03/11/2009 BREEZY VEGAS, ABNER Gutierrez 780.79 Malaise And Fatigue 03/11/2009 ASCENCION VEGASLEIGHA 780.79 Malaise And Fatigue 03/11/2009 SAROJ TEJADA APRN 780.79 Malaise And Fatigue 03/11/2009 SRUTHI COFFEE ROASTER, TEMO 780.79 Malaise And Fatigue 03/11/2009 SRUTIH COFFEE ROASTER, TEMO 780.79 Malaise And Fatigue 03/11/2009 SRUTHI COFFEE ROASTER, TEMO 780.79 Malaise And Fatigue 04/20/2009 EDILIA ROSALES MD 112.1 Candidiasis Vaginal 04/20/2009 EDILIA ROSALES MD 623.5 Leukorrhea, Not Specified As Infective 04/20/2009 EDILIA ROSALES MD 112.1 Candidiasis Vaginal 04/20/2009 EDILIA ROSALES MD 623.5 Leukorrhea, Not Specified As Infective 04/20/2009 CHINEDU LUBIN APRN R 112.1 Candidiasis Vaginal 04/20/2009 LUBIN COFFEE ROASTER, CHINEDU R 623.5 Leukorrhea, Not Specified As Infective 04/20/2009 KENNEDYERIK RESTREPO FRANCOIS BAZANH 112.1 Candidiasis Vaginal 04/20/2009 KENNEDY COFFEE ROASTER, FRANCOIS BAZANH 623.5 Leukorrhea, Not Specified As Infective 04/20/2009 ZHENG DO, SYLVIA K 112.1 Candidiasis Vaginal 04/20/2009 ZHENG DO, SYLVIA K 623.5 Leukorrhea, Not Specified As Infective 04/20/2009 112.1 Candidiasis Vaginal 04/20/2009 623.5 Leukorrhea, Not Specified As Infective 04/20/2009 YARY ARANA, JUANI L 112.1 Candidiasis Vaginal 04/20/2009 YARY ARANA, JUANI L 623.5 Leukorrhea, Not Specified As Infective 04/20/2009 KENNEDYERIK RESTREPO FRANCOIS BAZANH 112.1 Candidiasis Vaginal 04/20/2009 MARCIA WARDDenise FRANCOIS BAZANH 623.5 Leukorrhea, Not Specified As Infective 04/20/2009 112.1 Candidiasis Vaginal 04/20/2009 623.5 Leukorrhea, Not Specified As Infective 04/20/2009 112.1 Candidiasis Vaginal 04/20/2009 623.5 Leukorrhea, Not Specified As Infective 04/20/2009 112.1 Candidiasis Vaginal 04/20/2009 623.5 Leukorrhea, Not Specified As Infective 04/20/2009 112.1 Candidiasis Vaginal 04/20/2009 623.5 Leukorrhea, Not Specified As Infective 04/20/2009 112.1 Candidiasis Vaginal 04/20/2009 623.5 Leukorrhea, Not Specified As Infective 04/20/2009 112.1 Candidiasis Vaginal 04/20/2009 623.5 Leukorrhea, Not Specified As Infective 04/20/2009 WHITE DDS, ELIZABETH J 112.1 Candidiasis Vaginal 04/20/2009 WHITE DDS, ELIZABETH J 623.5 Leukorrhea, Not Specified As Infective 04/20/2009 DEMETRICE OCAMPO DDS 112.1 Candidiasis Vaginal 04/20/2009 DEMETRICE OCAMPO DDS 623.5 Leukorrhea, Not Specified As Infective 04/20/2009 MARCIA RESTREPO RFANCOIS MINOO 112.1 Candidiasis Vaginal 04/20/2009 MARCIA RESTREPO FRANCOIS MINOO 623.5 Leukorrhea, Not Specified As Infective 04/20/2009 MARCIA RESTREPO FRANCOIS BAZANH 112.1 Candidiasis Vaginal 04/20/2009 KENNEDY COFFEE ROASTER, FRANCOIS BAZANH 623.5 Leukorrhea, Not Specified As Infective 04/20/2009 BELINDA COFFEE ROASTER, SHERIE S 112.1 Candidiasis Vaginal 04/20/2009 BELINDA COFFEE ROASTER, SHERIE S 623.5 Leukorrhea, Not Specified As Infective 04/20/2009 BELINDA COFFEE ROASTER, SHERIE S 112.1 Candidiasis Vaginal 04/20/2009 BELINDA COFFEE ROASTER, SHERIE S 623.5 Leukorrhea, Not Specified As Infective 04/20/2009 KENNEDY COFFEE ROASTER, FRANCOIS HENNESSY 112.1 Candidiasis Vaginal 04/20/2009 KENNEDY COFFEE ROASTER, FRANCOIS BAZANH 623.5 Leukorrhea, Not Specified As Infective 04/20/2009 112.1 Candidiasis Vaginal 04/20/2009 623.5 Leukorrhea, Not Specified As Infective 04/20/2009 KENNEDY COFFEE ROASTER, FRANCOIS BAZANH 112.1 Candidiasis Vaginal 04/20/2009 KENNEDY COFFEE ROASTER, FRANCOIS BAZANH 623.5 Leukorrhea, Not Specified As Infective 04/20/2009 WHITE DDS, ABNER D 112.1 Candidiasis Vaginal 04/20/2009 WHITE DDS, ABNER D 623.5 Leukorrhea, Not Specified As Infective 04/20/2009 VEGAS DDS, LEIGHA 112.1 Candidiasis Vaginal 04/20/2009 VEGAS DDS, LEIGHA 623.5 Leukorrhea, Not Specified As Infective 04/20/2009 MALLORY COFFEE ROASTER, SAROJ A 112.1 Candidiasis Vaginal 04/20/2009 MALLORY COFFEE ROASTER, SAROJ A 623.5 Leukorrhea, Not Specified As Infective 04/20/2009 SRUTHI COFFEE ROASTER, TEMO 112.1 Candidiasis Vaginal 04/20/2009 SRUTHI COFFEE ROASTER, TEMO 623.5 Leukorrhea, Not Specified As Infective 04/20/2009 SRUTHI COFFEE ROASTER, TEMO 112.1 Candidiasis Vaginal 04/20/2009 SRUTHI COFFEE ROASTER, TEMO 623.5 Leukorrhea, Not Specified As Infective 04/20/2009 SRUTHI COFFEE ROASTER, TEMO 112.1 Candidiasis Vaginal 04/20/2009 SRUTHI COFFEE ROASTER, TEMO 623.5 Leukorrhea, Not Specified As Infective 05/10/2009 BOBBY DECKER, EDILIA V58.69 LONG-TERM (CURRENT) USE OF OTHER MEDICATIONS 05/10/2009 EDILIA ROSALES MD V58.69 LONG-TERM (CURRENT) USE OF OTHER MEDICATIONS 05/10/2009 CHINEDU LUBIN APRN V58.69 LONG-TERM (CURRENT) USE OF OTHER MEDICATIONS 05/10/2009 FRANCOIS KENNEDY APRN V58.69 LONG-TERM (CURRENT) USE OF OTHER MEDICATIONS 05/10/2009 SYLVIA ZHENG DO V58.69 LONG-TERM (CURRENT) USE OF OTHER MEDICATIONS 05/10/2009 V58.69 LONG-TERM ( CURRENT) USE OF OTHER MEDICATIONS 05/10/2009 SHADI PRINGLE PSYD V58.69 LONG-TERM (CURRENT) USE OF OTHER MEDICATIONS 05/10/2009 FRANCOIS KENNEDY APRN V58.69 LONG-TERM (CURRENT) USE OF OTHER MEDICATIONS 05/10/2009 V58.69 LONG-TERM ( CURRENT) USE OF OTHER MEDICATIONS 05/10/2009 V58.69 LONG-TERM ( CURRENT) USE OF OTHER MEDICATIONS 05/10/2009 V58.69 LONG-TERM ( CURRENT) USE OF OTHER MEDICATIONS 05/10/2009 V58.69 LONG-TERM ( CURRENT) USE OF OTHER MEDICATIONS 05/10/2009 V58.69 LONG-TERM ( CURRENT) USE OF OTHER MEDICATIONS 05/10/2009 V58.69 LONG-TERM ( CURRENT) USE OF OTHER MEDICATIONS 05/10/2009 BREEZY DDSELIZABETH V58.69 LONG-TERM (CURRENT) USE OF OTHER MEDICATIONS 05/10/2009 DAMARIS VEGASDEMETRICE V58.69 LONG-TERM (CURRENT) USE OF OTHER MEDICATIONS 05/10/2009 FRANCOIS KENNEDY APRN V58.69 LONG-TERM (CURRENT) USE OF OTHER MEDICATIONS 05/10/2009 FRANCOIS KENNEDY APRN V58.69 LONG-TERM (CURRENT) USE OF OTHER MEDICATIONS 05/10/2009 SHERIE TREVINO APRN S V58.69 LONG-TERM (CURRENT) USE OF OTHER MEDICATIONS 05/10/2009 SHERIE TREVINO APRN S V58.69 LONG-TERM (CURRENT) USE OF OTHER MEDICATIONS 05/10/2009 FRANCOIS KENNEDY APRN V58.69 LONG-TERM (CURRENT) USE OF OTHER MEDICATIONS 05/10/2009 V58.69 LONG-TERM ( CURRENT) USE OF OTHER MEDICATIONS 05/10/2009 FRANCOIS KENNEDY APRN V58.69 LONG-TERM (CURRENT) USE OF OTHER MEDICATIONS 05/10/2009 ABNER TIJERINA DDS V58.69 LONG-TERM (CURRENT) USE OF OTHER MEDICATIONS 05/10/2009 LEIGHA VEGAS DDS V58.69 LONG-TERM (CURRENT) USE OF OTHER MEDICATIONS 05/10/2009 SAROJ TEJADA APRN V58.69 LONG-TERM (CURRENT) USE OF OTHER MEDICATIONS 05/10/2009 TEMO NEGRO APRN V58.69 LONG-TERM (CURRENT) USE OF OTHER MEDICATIONS 05/10/2009 TEMO NEGRO APRN V58.69 LONG-TERM (CURRENT) USE OF OTHER MEDICATIONS 05/10/2009 TEMO NEGRO APRN V58.69 LONG-TERM (CURRENT) USE OF OTHER MEDICATIONS 12/20/2009 Ot 623.8 12/20/2009 Ot 625.9 01/17/2010 EDILIA ROSALES MD 296.90 MOOD DISORDER 01/17/2010 EDILIA ROSALES MD 296.90 MOOD DISORDER 01/17/2010 CHINEDU LUBIN APRN 296.90 MOOD DISORDER 01/17/2010 FRANCOIS KENNEDY APRN 296.90 MOOD DISORDER 01/17/2010 SYLVIA ZHENG DO 296.90 MOOD DISORDER 01/17/2010 296.90 MOOD DISORDER 01/17/2010 SHADI PRINGLE PSYD 296.90 MOOD DISORDER 01/17/2010 FRANCOIS KENNEDY APRN 296.90 MOOD DISORDER 01/17/2010 296.90 MOOD DISORDER 01/17/2010 296.90 MOOD DISORDER 01/17/2010 296.90 MOOD DISORDER 01/17/2010 296.90 MOOD DISORDER 01/17/2010 296.90 MOOD DISORDER 01/17/2010 296.90 MOOD DISORDER 01/17/2010 ELIZABETH TIJERINA DDS 296.90 MOOD DISORDER 01/17/2010 DEMETRICE OCAMPO DDS 296.90 MOOD DISORDER 01/17/2010 FRANCOIS KENNEDY APRN 296.90 MOOD DISORDER 01/17/2010 FRANCOIS KENNEDY APRN 296.90 MOOD DISORDER 01/17/2010 BELINDA COFFEE ROASTER, SHERIE S 296.90 MOOD DISORDER 01/17/2010 BELINDA COFFEE ROASTER, SHERIE S 296.90 MOOD DISORDER 01/17/2010 MARCIA WARDN, FRANCOIS HENNESSY 296.90 MOOD DISORDER 01/17/2010 296.90 MOOD DISORDER 01/17/2010 MARCIA WARDN, FRANCOIS HENNESSY 296.90 MOOD DISORDER 01/17/2010 WHITE DDS, ABNER D 296.90 MOOD DISORDER 01/17/2010 VEGAS DDS, LEIGHA 296.90 MOOD DISORDER 01/17/2010 MALLORY COFFEE ROASTER, SAROJ A 296.90 MOOD DISORDER 01/17/2010 SRUTHI COFFEE ROASTER, TEMO 296.90 MOOD DISORDER 01/17/2010 SRUTHI COFFEE ROASTER, TEMO 296.90 MOOD DISORDER 01/17/2010 SRUTHI COFFEE ROASTER, TEMO 296.90 MOOD DISORDER 02/03/2010 EDILIA ROSALES MD 314.01 Adhd Combined 02/03/2010 EDILIA ROSALES MD 465.9 Upper Respiratory Infection 02/03/2010 EDILIA ROSALES MD 786.2 COUGH 02/03/2010 EDILIA ROSALES MD 314.01 Adhd Combined 02/03/2010 EDILIA ROSALES MD 465.9 Upper Respiratory Infection 02/03/2010 EDILIA ROSALES MD 786.2 COUGH 02/03/2010 FALGUNI LUBIN APRNRICIA R 314.01 Adhd Combined 02/03/2010 THU LUBIN APRNIA R 465.9 Upper Respiratory Infection 02/03/2010 THU LUBIN APRNIA R 786.2 COUGH 02/03/2010 MARCIA RESTREPO FRANCOIS MINOO 314.01 Adhd Combined 02/03/2010 MARCIA RESTREPO FRANCOIS MINOO 465.9 Upper Respiratory Infection 02/03/2010 MARCIA RESTREPO FRANCOIS MINOO 786.2 COUGH 02/03/2010 ZHENG DO, SYLVIA K 314.01 Adhd Combined 02/03/2010 ZHENG DO, SYLVIA K 465.9 Upper Respiratory Infection 02/03/2010 ZHENG DO, SYLVIA K 786.2 COUGH 02/03/2010 314.01 Adhd Combined 02/03/2010 465.9 Upper Respiratory Infection 02/03/2010 786.2 COUGH 02/03/2010 SHADI PRINGLE PSYD ANN L 314.01 Adhd Combined 02/03/2010 MCCLEEARY PSYD, JUANI L 465.9 Upper Respiratory Infection 02/03/2010 HELGAAsya SUMIT, JUANI L 786.2 COUGH 02/03/2010 MARCIA RESTREPO, FRANCOIS HENNESSY 314.01 Adhd Combined 02/03/2010 MARCIA WARDN, FRANCOIS HENNESSY 465.9 Upper Respiratory Infection 02/03/2010 MARCIA RESTREPO, FRANCOIS HENNESSY 786.2 COUGH 02/03/2010 314.01 Adhd Combined 02/03/2010 465.9 Upper Respiratory Infection 02/03/2010 786.2 COUGH 02/03/2010 314.01 Adhd Combined 02/03/2010 465.9 Upper Respiratory Infection 02/03/2010 786.2 COUGH 02/03/2010 314.01 Adhd Combined 02/03/2010 465.9 Upper Respiratory Infection 02/03/2010 786.2 COUGH 02/03/2010 314.01 Adhd Combined 02/03/2010 465.9 Upper Respiratory Infection 02/03/2010 786.2 COUGH 02/03/2010 314.01 Adhd Combined 02/03/2010 465.9 Upper Respiratory Infection 02/03/2010 786.2 COUGH 02/03/2010 314.01 Adhd Combined 02/03/2010 465.9 Upper Respiratory Infection 02/03/2010 786.2 COUGH 02/03/2010 WHITE DDS, ELIZABETH J 314.01 Adhd Combined 02/03/2010 WHITE DDS, ELIZABETH J 465.9 Upper Respiratory Infection 02/03/2010 WHITE DDS, ELIZABETH J 786.2 COUGH 02/03/2010 DAMARIS DDS, DEMETRICE Rivera 314.01 Adhd Combined 02/03/2010 DAMARIS DDS, DEMETRICE M 465.9 Upper Respiratory Infection 02/03/2010 DAMARIS DDS, DEMETRICE M 786.2 COUGH 02/03/2010 MARCIA RESTREPO, FRANCOIS HENNESSY 314.01 Adhd Combined 02/03/2010 MARCIA RESTREPO, FRANCOIS HENNESSY 465.9 Upper Respiratory Infection 02/03/2010 KENNEDYERIK RESTREPO, FRANCOIS HENNESSY 786.2 COUGH 02/03/2010 KENNEDY COFFEE ROASTER, FRANCOIS HENNESSY 314.01 Adhd Combined 02/03/2010 MARCIA WARDN, FRANCOIS HENNESSY 465.9 Upper Respiratory Infection 02/03/2010 KENNEDYERIK RESTREPO, FRANCOIS HENNESSY 786.2 COUGH 02/03/2010 SHERIE TREVINO APRN 314.01 Adhd Combined 02/03/2010 BELINDA COFFEE ROASTER, SHERIE S 465.9 Upper Respiratory Infection 02/03/2010 BELINDA COFFEE ROASTER, SHERIE S 786.2 COUGH 02/03/2010 BELINDA COFFEE ROASTER, SHERIE S 314.01 Adhd Combined 02/03/2010 BELINDA COFFEE ROASTER, SHERIE S 465.9 Upper Respiratory Infection 02/03/2010 BELINDA COFFEE ROASTER, SHERIE S 786.2 COUGH 02/03/2010 KENNEDY COFFEE ROASTER, FRANCOIS HENNESSY 314.01 Adhd Combined 02/03/2010 KENNEDY COFFEE ROASTER, FRANCOIS HENNESSY 465.9 Upper Respiratory Infection 02/03/2010 KENNEDY COFFEE ROASTER, FRANCOIS HENNESSY 786.2 COUGH 02/03/2010 314.01 Adhd Combined 02/03/2010 465.9 Upper Respiratory Infection 02/03/2010 786.2 COUGH 02/03/2010 KENNEDY COFFEE ROASTER, FRANCOIS HENNESSY 314.01 Adhd Combined 02/03/2010 KENNEDY COFFEE ROASTER, FRANCOIS HENNESSY 465.9 Upper Respiratory Infection 02/03/2010 KENNEDY COFFEE ROASTER, FRANCOIS HENNESSY 786.2 COUGH 02/03/2010 WHITE DDS, ABNER D 314.01 Adhd Combined 02/03/2010 WHITE DDS, ABNER D 465.9 Upper Respiratory Infection 02/03/2010 WHITE DDS, ABNER D 786.2 COUGH 02/03/2010 VEGAS DDS, LEIGHA 314.01 Adhd Combined 02/03/2010 VEGAS DDS, LEIGHA 465.9 Upper Respiratory Infection 02/03/2010 VEGAS DDS, LEIGHA 786.2 COUGH 02/03/2010 MALLORY COFFEE ROASTER, SAROJ A 314.01 Adhd Combined 02/03/2010 MALLORY COFFEE ROASTER, SAROJ A 465.9 Upper Respiratory Infection 02/03/2010 MALLORY COFFEE ROASTER, SAROJ A 786.2 COUGH 02/03/2010 SRUTHI COFFEE ROASTER, TEMO 314.01 Adhd Combined 02/03/2010 SRUTHI COFFEE ROASTER, TEMO 465.9 Upper Respiratory Infection 02/03/2010 SRUTHI COFFEE ROASTER, TEMO 786.2 COUGH 02/03/2010 SRUTHI COFFEE ROASTER, TEMO 314.01 Adhd Combined 02/03/2010 SRUTHI COFFEE ROASTER, TEMO 465.9 Upper Respiratory Infection 02/03/2010 SRUTHI COFFEE ROASTER, TEMO 786.2 COUGH 02/03/2010 TEMO NEGRO APRN 314.01 Adhd Combined 02/03/2010 TEMO NEGRO APRN 465.9 Upper Respiratory Infection 02/03/2010 TEMO NEGRO APRN 786.2 COUGH 06/21/2010 EDILIA ROSALES MD V68.1 ISSUE OF REPEAT PRESCRIPTIONS 06/21/2010 EDILIA ROSALES MD V68.1 ISSUE OF REPEAT PRESCRIPTIONS 06/21/2010 CHINEDU LUBIN APRN V68.1 ISSUE OF REPEAT PRESCRIPTIONS 06/21/2010 FRANCOIS KENNEDY APRN V68.1 ISSUE OF REPEAT PRESCRIPTIONS 06/21/2010 SYLVIA ZHENG DO V68.1 ISSUE OF REPEAT PRESCRIPTIONS 06/21/2010 V68.1 ISSUE OF REPEAT PRESCRIPTIONS 06/21/2010 SHADI PRINGLE PSYD V68.1 ISSUE OF REPEAT PRESCRIPTIONS 06/21/2010 FRANCOIS KENNEDY APRN V68.1 ISSUE OF REPEAT PRESCRIPTIONS 06/21/2010 V68.1 ISSUE OF REPEAT PRESCRIPTIONS 06/21/2010 V68.1 ISSUE OF REPEAT PRESCRIPTIONS 06/21/2010 V68.1 ISSUE OF REPEAT PRESCRIPTIONS 06/21/2010 V68.1 ISSUE OF REPEAT PRESCRIPTIONS 06/21/2010 V68.1 ISSUE OF REPEAT PRESCRIPTIONS 06/21/2010 V68.1 ISSUE OF REPEAT PRESCRIPTIONS 06/21/2010 ELIZABETH TIJERINA DDS V68.1 ISSUE OF REPEAT PRESCRIPTIONS 06/21/2010 DEMETRICE OCAMPO DDS V68.1 ISSUE OF REPEAT PRESCRIPTIONS 06/21/2010 FRANCOIS KENNEDY APRN V68.1 ISSUE OF REPEAT PRESCRIPTIONS 06/21/2010 FRANCOIS KENNEDY APRN V68.1 ISSUE OF REPEAT PRESCRIPTIONS 06/21/2010 SHERIE TREVINO APRN S V68.1 ISSUE OF REPEAT PRESCRIPTIONS 06/21/2010 SHERIE TREVINO APRN S V68.1 ISSUE OF REPEAT PRESCRIPTIONS 06/21/2010 FRANCOIS KENNEDY APRN V68.1 ISSUE OF REPEAT PRESCRIPTIONS 06/21/2010 V68.1 ISSUE OF REPEAT PRESCRIPTIONS 06/21/2010 FRANCOIS KENNEDY APRN V68.1 ISSUE OF REPEAT PRESCRIPTIONS 06/21/2010 ABNER TIJERINA DDS V68.1 ISSUE OF REPEAT PRESCRIPTIONS 06/21/2010 LEIGHA VEGAS DDS V68.1 ISSUE OF REPEAT PRESCRIPTIONS 06/21/2010 SAROJ TEJADA APRN V68.1 ISSUE OF REPEAT PRESCRIPTIONS 06/21/2010 TEMO NEGRO APRN V68.1 ISSUE OF REPEAT PRESCRIPTIONS 06/21/2010 TEMO NEGRO APRN V68.1 ISSUE OF REPEAT PRESCRIPTIONS 06/21/2010 TEMO NEGRO APRN V68.1 ISSUE OF REPEAT PRESCRIPTIONS 09/06/2010 EDILIA ROSALES MD V04.89 GARDASIL (HPV) DX 09/06/2010 EDILIA ROSALES MD V05.3 Hep A (adult) Dx 09/06/2010 EDILIA ROSALES MD V65.45 STD COUNSELING 09/06/2010 EDILIA ROSALES MD V72.41 Test Negative Result 09/06/2010 EDILIA ROSALES MD V04.89 GARDASIL (HPV) DX 09/06/2010 EDILIA ROSALES MD V05.3 Hep A (adult) Dx 09/06/2010 EDILIA ROSALES MD V65.45 STD COUNSELING 09/06/2010 EDILIA ROSALES MD V72.41 Test Negative Result 09/06/2010 CHINEDU LUBIN APRN V04.89 GARDASIL (HPV) DX 09/06/2010 CHINEDU LUBIN APRN V05.3 Hep A (adult) Dx 09/06/2010 CHINEDU LUBIN APRN R V65.45 STD COUNSELING 09/06/2010 CHINEDU LUIBN APRN V72.41 Test Negative Result 09/06/2010 FRANCOIS KENNEDY APRN V04.89 GARDASIL (HPV) DX 09/06/2010 FRANCOIS KENNEDY APRN V05.3 Hep A (adult) Dx 09/06/2010 FRANCOIS KENNEDY APRN V65.45 STD COUNSELING 09/06/2010 FRANCOIS KENNEDY APRN V72.41 Test Negative Result 09/06/2010 SYLVIA ZHENG DO V04.89 GARDASIL (HPV) DX 09/06/2010 SYLVIA ZHENG DO V05.3 Hep A (adult) Dx 09/06/2010 SYLVIA ZHENG DO V65.45 STD COUNSELING 09/06/2010 MARCE GARCIA SYLVIA Rojelio V72.41 Test Negative Result 09/06/2010 V04.89 GARDASIL (HPV ) DX 09/06/2010 V05.3 Hep A (adult) Dx 09/06/2010 V65.45 STD COUNSELING 09/06/2010 V72.41 Test Negative Result 09/06/2010 SHADI PRINGLE PSYD L V04.89 GARDASIL (HPV) DX 09/06/2010 SHADI PRINGLE PSYD L V05.3 Hep A (adult) Dx 09/06/2010 SHADI PRINGLE PSYD L V65.45 STD COUNSELING 09/06/2010 SHADI PRINGLE PSYD L V72.41 Test Negative Result 09/06/2010 FRANCOIS KENNEDY APRN V04.89 GARDASIL (HPV) DX 09/06/2010 MARCIA WARDDenise FRANCOIS HENNESSY V05.3 Hep A (adult) Dx 09/06/2010 KENNEDY COFFEE ROASTER, FRANCOIS HENNESSY V65.45 STD COUNSELING 09/06/2010 MARCIA WARDDenise FRANCOIS HENNESSY V72.41 Test Negative Result 09/06/2010 V04.89 GARDASIL (HPV ) DX 09/06/2010 V05.3 Hep A (adult) Dx 09/06/2010 V65.45 STD COUNSELING 09/06/2010 V72.41 Test Negative Result 09/06/2010 V04.89 GARDASIL (HPV ) DX 09/06/2010 V05.3 Hep A (adult) Dx 09/06/2010 V65.45 STD COUNSELING 09/06/2010 V72.41 Test Negative Result 09/06/2010 V04.89 GARDASIL (HPV ) DX 09/06/2010 V05.3 Hep A (adult) Dx 09/06/2010 V65.45 STD COUNSELING 09/06/2010 V72.41 Test Negative Result 09/06/2010 V04.89 GARDASIL (HPV ) DX 09/06/2010 V05.3 Hep A (adult) Dx 09/06/2010 V65.45 STD COUNSELING 09/06/2010 V72.41 Test Negative Result 09/06/2010 V04.89 GARDASIL (HPV ) DX 09/06/2010 V05.3 Hep A (adult) Dx 09/06/2010 V65.45 STD COUNSELING 09/06/2010 V72.41 Test Negative Result 09/06/2010 V04.89 GARDASIL (HPV ) DX 09/06/2010 V05.3 Hep A (adult) Dx 09/06/2010 V65.45 STD COUNSELING 09/06/2010 V72.41 Test Negative Result 09/06/2010 WHITE DDS, ELIZABETH J V04.89 GARDASIL (HPV) DX 09/06/2010 WHITE DDS, ELIZABETH J V05.3 Hep A (adult) Dx 09/06/2010 WHITE DDS, ELIZABETH J V65.45 STD COUNSELING 09/06/2010 WHITE DDS, ELIZABETH Jourdan V72.41 Test Negative Result 09/06/2010 DEMETRICE OCAMPO DDS V04.89 GARDASIL (HPV) DX 09/06/2010 DEMETRICE OCAMPO DDS V05.3 Hep A (adult) Dx 09/06/2010 DEMETRICE OCAMPO DDS V65.45 STD COUNSELING 09/06/2010 DEMETRICE OCAMPO DDS V72.41 Test Negative Result 09/06/2010 MARCIA RESTREPO FRANCOIS HENNESSY V04.89 GARDASIL (HPV) DX 09/06/2010 MARCIA RESTREPO FRANCOIS HENNESSY V05.3 Hep A (adult) Dx 09/06/2010 MARCIA RESTREPO FRANCOIS BAZANH V65.45 STD COUNSELING 09/06/2010 MARCIA RESTREPO FRANCOIS MINOO V72.41 Test Negative Result 09/06/2010 MARCIA RESTREPO FRANCOIS HENNESSY V04.89 GARDASIL (HPV) DX 09/06/2010 MARCIA RESTREPO FRANCOIS HENNESSY V05.3 Hep A (adult) Dx 09/06/2010 MARCIA RESTREPO FRANCOIS MINOO V65.45 STD COUNSELING 09/06/2010 MARCIA RESTREPO FRANCOIS BAZANH V72.41 Test Negative Result 09/06/2010 SHANIQUA TREVINO APRNA S V04.89 GARDASIL (HPV) DX 09/06/2010 SHERIE TREVINO APRN S V05.3 Hep A (adult) Dx 09/06/2010 BELINDA COFFEE ROASTER, SHERIE S V65.45 STD COUNSELING 09/06/2010 BELINDA WARDN, SHERIE S V72.41 Test Negative Result 09/06/2010 SHANIQUA TREVINO APRNA S V04.89 GARDASIL (HPV) DX 09/06/2010 BELINDA RESTREPO, SHERIE S V05.3 Hep A (adult) Dx 09/06/2010 BELINDA WARDN, SHERIE S V65.45 STD COUNSELING 09/06/2010 BELINDA RESTREPO, SHERIE S V72.41 Test Negative Result 09/06/2010 FRANCOIS KENNEDY APRN V04.89 GARDASIL (HPV) DX 09/06/2010 MARCIA WARDDenise FRANCOIS HENNESSY V05.3 Hep A (adult) Dx 09/06/2010 MARCIA RESTREPO FRANCOIS HENNESSY V65.45 STD COUNSELING 09/06/2010 MARCIA WARDDenise FRANCOIS HENNESSY V72.41 Test Negative Result 09/06/2010 V04.89 GARDASIL (HPV ) DX 09/06/2010 V05.3 Hep A (adult) Dx 09/06/2010 V65.45 STD COUNSELING 09/06/2010 V72.41 Test Negative Result 09/06/2010 FRANCOIS KENNEDY APRN V04.89 GARDASIL (HPV) DX 09/06/2010 MARCIA RESTREPO FRANCOIS HENNESSY V05.3 Hep A (adult) Dx 09/06/2010 MARCIA WARDDenise FRANCOIS HENNESSY V65.45 STD COUNSELING 09/06/2010 MARCIA WARDDenise FRANCOIS HENNESSY V72.41 Test Negative Result 09/06/2010 WHITE DDS, ABNER D V04.89 GARDASIL (HPV) DX 09/06/2010 WHITE DDS, ABNER D V05.3 Hep A (adult) Dx 09/06/2010 WHITE DDS, ABNER D V65.45 STD COUNSELING 09/06/2010 WHITE DDS, ABNER D V72.41 Test Negative Result 09/06/2010 VEGAS DDS, LEIGHA V04.89 GARDASIL (HPV) DX 09/06/2010 VEGAS DDS, LEIGHA V05.3 Hep A (adult) Dx 09/06/2010 VEGAS DDS, LEIGHA V65.45 STD COUNSELING 09/06/2010 ASCENCION DDS, LEIGHA V72.41 Test Negative Result 09/06/2010 MALLORY COFFEE ROASTER, SAROJ A V04.89 GARDASIL (HPV) DX 09/06/2010 MALLORY COFFEE ROASTER, SAROJ A V05.3 Hep A (adult) Dx 09/06/2010 MALLORY COFFEE ROASTER, SAROJ A V65.45 STD COUNSELING 09/06/2010 MALLORY COFFEE ROASTER, SAROJ A V72.41 Test Negative Result 09/06/2010 SRUTHI COFFEE ROASTER, TEMO V04.89 GARDASIL (HPV) DX 09/06/2010 SRUTHI COFFEE ROASTER, TEMO V05.3 Hep A (adult) Dx 09/06/2010 SRUTHI COFFEE ROASTER, TEMO V65.45 STD COUNSELING 09/06/2010 SRUTHI COFFEE ROASTER, TEMO V72.41 Test Negative Result 09/06/2010 SRUTHI COFFEE ROASTER, TEMO V04.89 GARDASIL (HPV) DX 09/06/2010 SRUTHI COFFEE ROASTER, TEMO V05.3 Hep A (adult) Dx 09/06/2010 SRUTHI COFFEE ROASTER, TEMO V65.45 STD COUNSELING 09/06/2010 SRUTHI COFFEE ROASTER, TEMO V72.41 Test Negative Result 09/06/2010 SRUTHI COFFEE ROASTER, TEMO V04.89 GARDASIL (HPV) DX 09/06/2010 SRUTHI COFFEE ROASTER, TEMO V05.3 Hep A (adult) Dx 09/06/2010 SRUTHI COFFEE ROASTER, TEMO V65.45 STD COUNSELING 09/06/2010 SRUTHI COFFEE ROASTER, TEMO V72.41 Test Negative Result 09/25/2010 Ot 079.98 CHLAMYDIAL INFECTION NOS 09/25/2010 Ot 625.9 FEM GENITAL SYMPTOMS NOS 09/25/2010 Ot 789.09 ABDOMINAL PAIN, OTHER SPECIFIED SITE 10/20/2010 EDILIA ROSALES MD 296.80 MO BIPOLAR NOS 10/20/2010 EDILIA ROSALES MD 301.83 PD BORDERLINE 10/20/2010 EDILIA ROSALES MD 296.80 MO BIPOLAR NOS 10/20/2010 EDILIA ROSALES MD 301.83 PD BORDERLINE 10/20/2010 LUBIN COFFEE ROASTER, CHINEDU R 296.80 MO BIPOLAR NOS 10/20/2010 TRISTIAN COFFEE ROASTER, CHINEDU R 301.83 PD BORDERLINE 10/20/2010 MARCIA RESTREPO FRANCOIS BAZANH 296.80 MO BIPOLAR NOS 10/20/2010 MARCIA ERSTREPO FRANCOIS MINOO 301.83 PD BORDERLINE 10/20/2010 ZHENG DO, SYLVIA K 296.80 MO BIPOLAR NOS 10/20/2010 ZHEGN DO, SYLVIA K 301.83 PD BORDERLINE 10/20/2010 296.80 MO BIPOLAR NOS 10/20/2010 301.83 PD BORDERLINE 10/20/2010 SHADI PRINGLE PSYD ANN L 296.80 MO BIPOLAR NOS 10/20/2010 SHADI PRINGLE PSYD ANN L 301.83 PD BORDERLINE 10/20/2010 MARCIA RESTREPO FRANCOIS MINOO 296.80 MO BIPOLAR NOS 10/20/2010 MARCIA RESTREPO FRANCOIS MINOO 301.83 PD BORDERLINE 10/20/2010 296.80 MO BIPOLAR NOS 10/20/2010 301.83 PD BORDERLINE 10/20/2010 296.80 MO BIPOLAR NOS 10/20/2010 301.83 PD BORDERLINE 10/20/2010 296.80 MO BIPOLAR NOS 10/20/2010 301.83 PD BORDERLINE 10/20/2010 296.80 MO BIPOLAR NOS 10/20/2010 301.83 PD BORDERLINE 10/20/2010 296.80 MO BIPOLAR NOS 10/20/2010 301.83 PD BORDERLINE 10/20/2010 296.80 MO BIPOLAR NOS 10/20/2010 301.83 PD BORDERLINE 10/20/2010 WHITE DDS, ELIZABETH J 296.80 MO BIPOLAR NOS 10/20/2010 WHITE DDS, ELIZABETH J 301.83 PD BORDERLINE 10/20/2010 DAMARIS DDS, DEMETRICE M 296.80 MO BIPOLAR NOS 10/20/2010 DAMARIS DDS, DEMETRICE M 301.83 PD BORDERLINE 10/20/2010 MARCIA RESTREPO FRANCOIS MINOO 296.80 MO BIPOLAR NOS 10/20/2010 MARCIA RESTREPO FRANCOIS MINOO 301.83 PD BORDERLINE 10/20/2010 MARCIA RESTREPO FRANCOIS MINOO 296.80 MO BIPOLAR NOS 10/20/2010 MARCIA RESTREPO FRANCOIS MINOO 301.83 PD BORDERLINE 10/20/2010 SHERIE TREVINO APRN 296.80 MO BIPOLAR NOS 10/20/2010 BELINDA COFFEE ROASTER, SHERIE S 301.83 PD BORDERLINE 10/20/2010 BELINDA COFFEE ROASTER, SHERIE S 296.80 MO BIPOLAR NOS 10/20/2010 BELINDA COFFEE ROASTER, SHERIE S 301.83 PD BORDERLINE 10/20/2010 MARCIA RESTREPO, FRANCOIS HENNESSY 296.80 MO BIPOLAR NOS 10/20/2010 MARCIA WARDN, FRANCOIS HENNESSY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 APRN [id number] 05/04/2014 14:35:00 05/04/2014 23:59:59 CLS Outpatient TEMO NEGRO APRN [id number] 03/29/2014 15:08:00 03/29/2014 23:59:59 CLS Outpatient TEMO NEGRO APRN [id number] 03/02/2014 13:35:00 03/02/2014 23:59:59 CLS Outpatient TEMO NEGRO APRN [id number] 12/01/2013 11:50:00 12/01/2013 23:59:59 CLS Outpatient SAROJ TEJADA APRN [id number] 11/12/2013 13:00:00 11/12/2013 23:59:59 CLS Outpatient LEIGHA VEGAS DDS [id number] 11/04/2013 14:06:00 11/04/2013 23:59:59 CLS Outpatient ABNER TIJERINA DDS [id number] 11/02/2013 12:26:00 11/02/2013 23:59:59 CLS Outpatient FRANCOIS KENNEDY APRN [id number] 09/14/2013 06:31:00 09/14/2013 23:59:59 CLS Outpatient [id number] 07/07/2013 14:00:00 07/07/2013 23:59:59 CLS Outpatient FRANCOIS KENNEDY APRN [id number] 03/02/2013 11:43:00 03/02/2013 23:59:59 CLS Outpatient SHERIE TREVINO APRN [id number] 03/02/2013 11:43:00 03/02/2013 23:59:59 CLS Outpatient SHERIE TREVINO APRN [id number] 02/23/2013 14:47:00 02/23/2013 23:59:59 CLS Outpatient FRANCOIS KENNEDY APRN [id number] 12/11/2012 11:18:00 12/11/2012 23:59:59 CLS Outpatient KENNEDYFRANCOIS BATES APRN [id number] 12/01/2012 00:00:00 12/01/2012 23:59:59 CLS Outpatient DEMETRICE OCAMPO DDS [id number] 11/07/2012 10:55:00 11/07/2012 23:59:59 CLS Outpatient ELIZABETH TIJERINA DDS [id number] 05/22/2012 14:06:00 05/22/2012 23:59:59 CLS Outpatient FRANCOIS KENNEDY APRN [id number] 05/01/2012 14:01:00 05/01/2012 23:59:59 CLS Outpatient SHADI PRINGLE PSYD [id number] 04/29/2012 10:30:00 04/29/2012 23:59:59 CLS Outpatient [id number] 04/11/2012 15:36:00 04/11/2012 23:59:59 CLS Outpatient SYLVIA ZHENG DO [id number] 04/01/2012 13:22:00 04/01/2012 23:59:59 CLS Outpatient FRANCOIS KENNEDY APRN [id number] 03/24/2012 15:12:00 03/24/2012 23:59:59 CLS Outpatient CHINEDU LUBIN APRN [id number] 01/22/2012 09:36:00 01/22/2012 23:59:59 [place] [id number] 12/18/2011 13:34:00 12/18/2011 23:59:59 CLS Outpatient EDILIA ROSALES MD [id number] 10/24/2012 10:29:00 Document Registration [id number] 09/10/2012 08:55:00 Document Registration [id number] 07/16/2012 10:33:00 Document Registration [id number] 06/18/2012 16:08:00 Document Registration [id number] 06/16/2012 13:32:00 Document Registration [id number] 06/16/2012 00:00:00 Document Registration [id number] 11/30/2014 05:14:31 ACT Document Registration [id number] 07/01/2017 09:20:00 07/01/2017 23:59:59 CLS [facility] [id number] 04/02/2016 06:00:00 04/04/2016 11:10:00 DIS Inpatient JORGE KIM MD [facility] LDRP PREVIOUS SECTION [id number] 03/28/2016 11:10:00 03/28/2016 11:29:00 DIS Outpatient JORGE KIM MD [facility] PREOP PREVIOUS SECTION [id number] 11/09/2015 13:40:00 11/09/2015 23:59:59 CLS Outpatient ANGELA DUTTA MD [facility] RAD DATING [id number] 03/24/2015 06:21:00 03/26/2015 12:05:00 DIS Inpatient JORGE KIM MD [facility] LDRP REPEAT [id number] 03/21/2015 12:32:00 03/21/2015 23:59:59 CLS Outpatient JORGE KIM MD [facility] PREOP REPEAT C- SECTION [id number] 11/29/2014 12:53:00 11/29/2014 23:59:59 CLS Outpatient ANGELA DUTTA MD [facility] RAD SURVEY [id number] 10/06/2014 17:14:00 10/06/2014 18:45:00 DIS Emergency ASAD CHAMBERS APRN [facility] ER ABD PAIN;14 WEEKS PREG; DIFFICULTY URINATING [id number] 09/13/2014 13:58:00 09/13/2014 23:59:59 CLS Outpatient ANGELA DUTTA MD [facility] RAD NO HEART TONES CRAMPING [id number] 08/18/2014 14:00:00 08/18/2014 23:59:59 CLS Outpatient ANGELA DUTTA MD [facility] RAD DATING [id number] 03/19/2014 16:55:00 03/19/2014 19:14:00 DIS Emergency ASAD CHAMBERS APRN [facility] ER ANXIETY [id number] 03/11/2014 21:36:00 03/11/2014 23:27:00 DIS Emergency NATHANIEL CESAR [facility] ER L SIDE PAIN [id number] 12/08/2013 21:58:00 12/09/2013 01:21:00 DIS Emergency BREANA YUAN DO [facility] ER MULTIPLE COMPLAINTS [id number] 11/30/2013 18:42:00 11/30/2013 23:59:59 CLS Emergency [id number] 07/04/2013 22:23:00 07/04/2013 23:19:00 DIS Emergency KWASI GUILLERMO MD [facility] ER MULTIPLE COMPLAINTS [id number] 07/03/2013 22:53:00 07/04/2013 00:01:[address] DO [facility] ER ANKLE PAIN [id number] 05/13/2013 18:12:00 05/13/2013 19:43:00 DIS Emergency ASAD CHAMBERS APRN [facility] ER FEVER,DIARRHEA, WEAK [id number] 10/22/2012 12:51:00 10/22/2012 16:07:00 DIS Outpatient JORGE KIM MD [facility] SDC MISSED [id number] 10/21/2012 15:17:00 10/21/2012 23:59:59 CLS Outpatient JORGE KIM MD [facility] PREOP MISSED [id number] 10/20/2012 06:05:00 10/20/2012 07:36:00 DIS Emergency NELI KAUR MD [facility] ER 7 WKS PREG,POSS MISCARRIAGE [id number] 10/17/2012 14:59:00 10/17/2012 23:59:59 CLS Outpatient TRA DECKER, ANGELA Soliman [facility] RAD THREATENED AB [id number] 10/16/2012 12:30:00 10/16/2012 15:18:00 DIS Emergency VIRIDIANA AVILA MD [facility] ER BLEEDING [id number] 10/09/2012 12:38:00 10/09/2012 23:59:59 CLS Outpatient ANGELA DUTTA MD [facility] RAD THREATENED AB [id number] 10/05/2012 18:43:00 10/05/2012 21:11:00 DIS Emergency CARLY DECKER, DAJUAN Morales [facility] ER AND SPOTTING [id number] 10/02/2012 19:04:00 10/02/2012 22:23:00 DIS Emergency KWASI GUILLERMO MD [facility] ER UPPER ABD PAIN AT 7 WEEKS [id number] 09/22/2012 11:15:00 09/22/2012 12:48:00 DIS Emergency NATHANIEL CESAR [facility] ER POSS YEAST INFECTION 5 WKS PREG [id number] 08/22/2012 16:43:00 08/22/2012 23:59:59 CLS Outpatient [id number] 07/01/2014 13:51:00 Document Registration [id number] 07/01/2014 13:51:00 Document Registration [id number] 07/01/2014 13:51:00 Document Registration [id number] 07/01/2014 13:51:00 Document Registration [id number] 07/01/2014 13:51:00 Document Registration [id number] 07/01/2014 13:51:00 Document Registration [id number] 07/01/2014 13:51:00 Document Registration [id number] 07/01/2014 13:51:00 Document Registration [id number] 07/01/2014 13:51:00 Document Registration [id number] 07/01/2014 13:51:00 Document Registration [id number] 07/01/2014 13:51:00 Document Registration [id number] 07/01/2014 13:51:00 Document Registration [id number] 07/01/2014 13:51:00 Document Registration [id number] 07/01/2014 13:51:00 Document Registration [id number] 07/01/2014 13:51:00 Document Registration [id number] 06/16/2014 15:08:00 Document Registration
[2018-01-18] MEDS ORDERED: LIDOCAINE 2% VISCOUS 15 ML UDC PO ONE (09:45)
[2018-01-18 09:47] VITALS: BP 123/70
== END 2018-01-18 09:47 | disposition home or self-care (01) ==
LOC: EDUNIT# 09:19 → ER 09:20
DX: K05.10 Chronic gingivitis, plaque induced (principal); K03.2 Erosion of teeth; G43.909 Migraine, unspecified, not intractable, without status migrainosus; K21.9 Gastro-esophageal reflux disease without esophagitis; F41.9 Anxiety disorder, unspecified; F32.9 Major depressive disorder, single episode, unspecified; Z90.79 Acquired absence of other genital organ(s); Z87.440 Personal history of urinary (tract) infections; Z88.8 Allergy status to other drugs, medicaments and biological substances; Z98.890 Other specified postprocedural states
CPT/HCPCS: 99283

== ENCOUNTER 2021-04-22 16:58 | Emergency (ER) | payer MEDICAID ==
[~2021-04-22] VITALS: Ht 170.2 cm; Wt 104.3 kg
[~2021-04-22 16:58] MED LIST changes: +CEFA-28 PO; -CEFA500C8 PO; +CLIN-144 PO; -OXYC-465 PO; +OXYC-556 PO; +TRAM-42 PO
[2021-04-22 17:05] VITALS: BP 137/92
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
[2021-04-22] MEDS ORDERED: ONDANSETRON 4 MG/2 ML (SDV) Z0FRAN IVP ONE (17:15)
[2021-04-22] MEDS ORDERED: LACTATED RINGERS 1,000 ML IV SCH (17:15)
[2021-04-22] MEDS ORDERED: LORazepam INJ 2 MG/ML (ATIVAN) VIAL IVP ONE (17:15)
== END 2021-04-22 17:13 | disposition left against medical advice (07) ==
LOC: EDUNIT# 16:58 → ER 17:01
DX: F15.90 Other stimulant use, unspecified, uncomplicated (principal)
CPT/HCPCS: 99281

== ENCOUNTER 2021-04-22 17:57 | Emergency (ER) | payer MEDICAID ==
[~2021-04-22] VITALS: Ht 170.2 cm; Wt 104.3 kg
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
[2021-04-22] MEDS ORDERED: LACTATED RINGERS 1,000 ML IV SCH (18:15)
[2021-04-22] MEDS ORDERED: LORazepam INJ 2 MG/ML (ATIVAN) VIAL IVP ONE (18:15)
[2021-04-22] MEDS ORDERED: ONDANSETRON 4 MG/2 ML (SDV) Z0FRAN IVP ONE (18:15)
[2021-04-22 18:44] LABS: BASOPHILS % (AUTO) 0 % (0-10); EOSINOPHILS % (AUTO) 0 % (0-10); HEMATOCRIT 40 % (35-52); HEMOGLOBIN 13.6 g/dL (11.5-16.0); LYMPHOCYTES # (AUTO) 1.4 10^3/uL (1.0-4.0); LYMPHOCYTES % (AUTO) 10 % (12-44); MEAN CORPUSCULAR HEMOGLOBIN 27 pg (25-34); MEAN CORPUSCULAR HGB CONC 34 g/dL (32-36); MEAN CORPUSCULAR VOLUME 81 fL (80-99); MEAN PLATELET VOLUME 10.9 fL (9.0-12.2); MONOCYTES # (AUTO) 1.3 10^3/uL (0.0-1.0); MONOCYTES % (AUTO) 9 % (0-12); NEUTROPHILS # (AUTO) 11.3 10^3/uL (1.8-7.8); NEUTROPHILS % (AUTO) 80 % (42-75); PLATELET COUNT 341 10^3/uL (130-400); WHITE BLOOD COUNT 14.1 10^3/uL (4.3-11.0)
[2021-04-22] MEDS ORDERED: LORazepam 0.5 MG (ATIVAN) TABLET PO STA (18:51)
[2021-04-22 18:54] LABS: BILIRUBIN,URINE 2+ (NEGATIVE); CLARITY,URINE CLOUDY; COLOR,URINE ORANGE; GLUCOSE, URINE (UA) NEGATIVE (NEGATIVE); KETONES,URINE 1+ (NEGATIVE); LEUKOCYTE ESTERASE ,URINE NEGATIVE (NEGATIVE); NITRITE,URINE NEGATIVE (NEGATIVE); PROTEIN,URINE 2+ (NEGATIVE)
[2021-04-22 18:57] LABS: BAND NEUTROPHILS 0 %; BASOPHILS % (MANUAL) 0 %; EOSINOPHILS % (MANUAL) 0 %; LYMPHOCYTES % (MANUAL) 10 %; MONOCYTES % (MANUAL) 4 %; NEUTROPHILS % (MANUAL) 86 %; RBC MORPH NORMAL
[2021-04-22 18:59] LABS: CHLORIDE 103 MMOL/L (98-107); POTASSIUM 3.4 MMOL/L (3.6-5.0); SODIUM 138 MMOL/L (135-145)
[2021-04-22 19:00] LABS: CALCIUM 9.9 MG/DL (8.5-10.1)
[2021-04-22 19:01] LABS: GLUCOSE 107 MG/DL (70-105); TOTAL PROTEIN 8.9 GM/DL (6.4-8.2)
[2021-04-22 19:02] LABS: CARBON DIOXIDE 22 MMOL/L (21-32)
[2021-04-22 19:03] LABS: BILIRUBIN,TOTAL 2.3 MG/DL (0.1-1.0)
[2021-04-22 19:04] LABS: ALKALINE PHOSPHATASE 80 U/L (40-136)
[2021-04-22 19:05] LABS: CREATININE SERUM 0.75 MG/DL (0.60-1.30); GFR ESTIMATED 108
[2021-04-22 19:06] LABS: BUN/CREATININE RATIO 24
[2021-04-22 19:08] LABS: ALANINE AMINOTRANSFERASE 24 U/L (0-55); CREATINE KINASE 565 U/L (29-168)
[2021-04-22 19:22] LABS: AMPHETAMINE SCREEN, URINE POSITIVE (NEGATIVE); BARBITURATE SCREEN URINE NEGATIVE (NEGATIVE); BENZODIAZEPINES SCREEN URINE NEGATIVE (NEGATIVE); CANNABINOID SCREEN, URINE POSITIVE (NEGATIVE); COCAINE SCREEN URINE NEGATIVE (NEGATIVE); METHADONE STAT NEGATIVE (NEGATIVE); METHAMPHETAMINE SCREEN URINE S POSITIVE (NEGATIVE); OPIATE SCREEN URINE NEGATIVE (NEGATIVE); OXYCODONE STAT NEGATIVE (NEGATIVE); PROPOXYPHENE STAT NEGATIVE (NEGATIVE); TRICYCLIC ANTIDEPRESSANTS SCRE NEGATIVE (NEGATIVE)
[2021-04-22 19:28] LABS: AMORPHOUS SEDIMENT,UR FEW AMOR URATES /LPF; BACTERIA,URINE FEW /HPF; RBC,URINE 0-2 /HPF; WBC,URINE 0-2 /HPF
[2021-04-22 22:41] VITALS: BP 128/79
== END 2021-04-22 22:41 | disposition home or self-care (01) ==
LOC: EDUNIT# 17:57 → ER 17:58
DX: F41.9 Anxiety disorder, unspecified (principal); F15.90 Other stimulant use, unspecified, uncomplicated; F12.10 Cannabis abuse, uncomplicated
CPT/HCPCS: 80053; 80306; 81000; 82550; 84703; 85007; 85027; 87077; 87088; 99283; G0480; 36415; 80320

== ENCOUNTER 2021-07-24 10:49 | Emergency (ER) | payer MEDICAID ==
[~2021-07-24] VITALS: Ht 170 cm; Wt 90.7 kg
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
[2021-07-24] MEDS ORDERED: FLUT9.9S NS (12:10)
[2021-07-24] MEDS ORDERED: CETI10CA PO (12:10)
[2021-07-24 12:18] VITALS: BP 132/87
== END 2021-07-24 12:18 | disposition home or self-care (01) ==
LOC: EDUNIT# 10:49 → ER 10:50
DX: H69.82 Other specified disorders of Eustachian tube, left ear (principal); J00 Acute nasopharyngitis [common cold]
CPT/HCPCS: 99282

== ENCOUNTER 2021-12-15 18:57 | Emergency (ER) | payer MEDICAID ==
[~2021-12-15] VITALS: Ht 170.2 cm; Wt 81.6 kg
[~2021-12-15 18:57] MED LIST changes: +CETI10CA PO; +FLUT9.9S NS
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
--- NOTE | 2021-12-15 19:40 | Diagnostic Imaging Report ---
PROCEDURE: CT head without contrast. TECHNIQUE: Multiple contiguous axial images were obtained through the brain without the use of intravenous contrast. Auto Exposure Controls were utilized during the CT exam to meet ALARA standards for radiation dose reduction. INDICATION: Headache and confusion. COMPARISON: None available. FINDINGS: CT of the head demonstrates no evidence of an acute intracranial abnormality. There is no evidence of intracranial hemorrhage. There is no extra-axial fluid collection, mass effect or shift. Ramsay and white matter differentiation appear preserved. There is no abnormal hypodensity within the basal ganglia. The ventricles are appropriate in size and configuration. There is no evidence of hydrocephalus. The basilar cisterns are patent. The posterior fossa is unremarkable. Mastoids and visualized paranasal sinuses appear clear. Orbital contents are unremarkable. There is no calvarial abnormality. IMPRESSION: 1. No CT evidence of an acute intracranial abnormality. Dictated by: Dictated on workstation # [id number]
[2021-12-15 19:50] LABS: BASOPHILS % (AUTO) 0 % (0-10); EOSINOPHILS # (AUTO) 0.1 10^3/uL (0.0-0.3); EOSINOPHILS % (AUTO) 1 % (0-10); HEMATOCRIT 37 % (35-52); HEMOGLOBIN 12.6 g/dL (11.5-16.0); LYMPHOCYTES # (AUTO) 1.4 10^3/uL (1.0-4.0); LYMPHOCYTES % (AUTO) 21 % (12-44); MEAN CORPUSCULAR HEMOGLOBIN 28 pg (25-34); MEAN CORPUSCULAR HGB CONC 34 g/dL (32-36); MEAN CORPUSCULAR VOLUME 80 fL (80-99); MEAN PLATELET VOLUME 10.7 fL (9.0-12.2); MONOCYTES # (AUTO) 0.7 10^3/uL (0.0-1.0); MONOCYTES % (AUTO) 10 % (0-12); NEUTROPHILS # (AUTO) 4.7 10^3/uL (1.8-7.8); NEUTROPHILS % (AUTO) 69 % (42-75); PLATELET COUNT 268 10^3/uL (130-400); WHITE BLOOD COUNT 6.8 10^3/uL (4.3-11.0)
[2021-12-15 20:00] LABS: ALBUMIN 4.5 GM/DL (3.2-4.5); POTASSIUM 3.4 MMOL/L (3.6-5.0)
[2021-12-15 20:01] LABS: CALCIUM 9.2 MG/DL (8.5-10.1)
[2021-12-15 20:02] LABS: TOTAL PROTEIN 7.5 GM/DL (6.4-8.2)
[2021-12-15 20:04] LABS: BILIRUBIN,TOTAL 0.8 MG/DL (0.1-1.0)
[2021-12-15 20:06] LABS: CREATININE SERUM 0.83 MG/DL (0.60-1.30)
[2021-12-15 20:23] VITALS: BP 144/92
== END 2021-12-15 20:22 | disposition home or self-care (01) ==
LOC: EDUNIT# 18:57 → ER 19:00
DX: R51.9 Headache, unspecified (principal); Z00.01 Encounter for general adult medical examination with abnormal findings; Z86.69 Personal history of other diseases of the nervous system and sense organs; Z72.0 Tobacco use; Z28.310 Unvaccinated for COVID-19
CPT/HCPCS: 36415; 70450; 80053; 84703; 85025

== ENCOUNTER 2022-06-12 14:03 | Emergency (ER) | payer MEDICAID ==
[~2022-06-12] VITALS: Ht 172 cm; Wt 95.0 kg
[2022-06-12 14:43] LABS: CLARITY,URINE CLEAR; COLOR,URINE YELLOW; GLUCOSE, URINE (UA) NEGATIVE (NEGATIVE); KETONES,URINE NEGATIVE (NEGATIVE); LEUKOCYTE ESTERASE ,URINE NEGATIVE (NEGATIVE); NITRITE,URINE NEGATIVE (NEGATIVE); PROTEIN,URINE 1+ (NEGATIVE)
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
[2022-06-12 14:55] LABS: BILIRUBIN,URINE 1+ (NEGATIVE)
[2022-06-12 14:56] LABS: BACTERIA,URINE MODERATE /HPF; WBC,URINE RARE /HPF
[2022-06-12 15:04] LABS: AMPHETAMINE SCREEN, URINE POSITIVE (NEGATIVE); BARBITURATE SCREEN URINE NEGATIVE (NEGATIVE); BENZODIAZEPINES SCREEN URINE POSITIVE (NEGATIVE); CANNABINOID SCREEN, URINE POSITIVE (NEGATIVE); COCAINE SCREEN URINE NEGATIVE (NEGATIVE); METHADONE STAT NEGATIVE (NEGATIVE); OPIATE SCREEN URINE NEGATIVE (NEGATIVE); OXYCODONE STAT NEGATIVE (NEGATIVE); PROPOXYPHENE STAT NEGATIVE (NEGATIVE); TRICYCLIC ANTIDEPRESSANTS SCRE NEGATIVE (NEGATIVE)
[2022-06-12 15:06] LABS: BASOPHILS % (AUTO) 0 % (0-10); EOSINOPHILS # (AUTO) 0.1 10^3/uL (0.0-0.3); EOSINOPHILS % (AUTO) 1 % (0-10); HEMATOCRIT 41 % (35-52); HEMOGLOBIN 14.1 g/dL (11.5-16.0); LYMPHOCYTES # (AUTO) 1.6 10^3/uL (1.0-4.0); LYMPHOCYTES % (AUTO) 17 % (12-44); MEAN CORPUSCULAR HEMOGLOBIN 27 pg (25-34); MEAN CORPUSCULAR HGB CONC 34 g/dL (32-36); MEAN CORPUSCULAR VOLUME 81 fL (80-99); MEAN PLATELET VOLUME 10.7 fL (9.0-12.2); MONOCYTES # (AUTO) 0.8 10^3/uL (0.0-1.0); MONOCYTES % (AUTO) 9 % (0-12); NEUTROPHILS # (AUTO) 6.6 10^3/uL (1.8-7.8); NEUTROPHILS % (AUTO) 73 % (42-75); PLATELET COUNT 313 10^3/uL (130-400); WHITE BLOOD COUNT 9.1 10^3/uL (4.3-11.0)
[2022-06-12 15:16] LABS: ALBUMIN 4.7 GM/DL (3.2-4.5); CHLORIDE 103 MMOL/L (98-107); POTASSIUM 3.3 MMOL/L (3.6-5.0); SODIUM 141 MMOL/L (135-145)
[2022-06-12 15:18] LABS: CALCIUM 9.7 MG/DL (8.5-10.1)
[2022-06-12 15:19] LABS: GLUCOSE 98 MG/DL (70-105); TOTAL PROTEIN 8.1 GM/DL (6.4-8.2)
[2022-06-12 15:20] LABS: CARBON DIOXIDE 26 MMOL/L (21-32)
[2022-06-12 15:21] LABS: BILIRUBIN,TOTAL 1.3 MG/DL (0.1-1.0)
[2022-06-12 15:22] LABS: ALKALINE PHOSPHATASE 87 U/L (40-136)
[2022-06-12 15:23] LABS: GFR ESTIMATED 100
[2022-06-12 15:24] LABS: BUN/CREATININE RATIO 16
[2022-06-12 15:25] LABS: ACETAMINOPHEN < 10 UG/ML (10-30); SALICYLATE < 5.0 MG/DL (5.0-20.0)
[2022-06-12 15:26] LABS: ALANINE AMINOTRANSFERASE 49 U/L (0-55)
[2022-06-12 16:28] VITALS: BP 140/95
== END 2022-06-12 16:28 | disposition home or self-care (01) ==
LOC: EDUNIT# 14:03 → ER 14:04
DX: F15.90 Other stimulant use, unspecified, uncomplicated (principal); F22 Delusional disorders; Z28.310 Unvaccinated for COVID-19
CPT/HCPCS: 80053; 80306; 81000; 84703; 85025; 87088; 99283; G0480 ×3; 36415; 80320; 80329

== ENCOUNTER 2022-10-15 00:12 | Emergency (ER) | payer MEDICAID ==
[~2022-10-15] VITALS: Ht 172.7 cm; Wt 81.6 kg
[2022-10-15 00:21] VITALS: BP 134/106
[2022-10-15] MEDS ORDERED: OLANZapine 5 MG ODT TABLET SL ONE (00:45)
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
== END 2022-10-15 03:54 | disposition home or self-care (01) ==
LOC: EDUNIT# 00:12 → ER 00:13
DX: F22 Delusional disorders (principal); F15.10 Other stimulant abuse, uncomplicated
CPT/HCPCS: 99283